=== PATIENT | male | born 1950 | race Caucasian/White ===

== ENCOUNTER → 2018-03-19 11:48 | Outpatient (CLI) | payer MEDICARE, OTHER, SELFPAY ==
--- NOTE | 2018-03-19 11:58 | XR_ITS ---
XR knee LT 3V Ordering Physician: Errol Manzano MD Patient Age: 68 years: Male HISTORY: ITS.REASON: S/P LEFT KNEE REPLACEMENT TECHNIQUE: 3 view view left knee. . AP lateral and oblique nonweightbearing. COMPARISON : May 03, 2013 FINDINGS Left TKA. Has been placed since 2013 Intact. Components appear to be in good position with no fracture nor loosening. The generous focal bulla is seen posterior to the joint. Faint calcification posterior aspect of the joint may be vascular in nature. . Bones fairly well mineralized with only mild demineralization IMPRESSION: Left TKA appears to be stable satisfactory position.
--- NOTE | 2018-03-19 11:58 | XR_ITS ---
XR lumbar spine min 4V Ordering Physician: Errol Manzano MD Patient Age: 68 years: Male HISTORY: ITS.REASON: LOW BACK PAIN Low back pain pain on left side of leg. TECHNIQUE: Five-view lumbar spine series. COMPARISON :No previous lumbar studies FINDINGS Prominent degenerative changes. L5/S1 disc intact. Moderate Degenerative facet hypertrophic changes L4/5. Marked degenerative disc space narrowing with prominent grade 2 anterolisthesis of L4 on L5. Bilateral pars defect I believe evident Exuberant facet arthropathy and hypertrophy bilaterally. With this anatomy was there certainly pronounced central canal stenosis. L3/4. Disc intact with only borderline narrowing. L2/3. Disc space narrowing with 8mm retrolisthesis of L2 on L3. L1/2. Marked degenerative disc space narrowing with with roughly 8 mm retrolisthesis of L1 on L2. . There is mild dextro scoliosis and likely a with likely mild rotational component at L1/L2 as well. . Sacrum appears intact SI joints unremarkable. Pedicles intact. IMPRESSION.. 1. Bilateral pars defects L4 with grade 2 spondylolisthesis L4 on L5. Marked degenerative disc narrowing/changes along with exuberant facet hypertrophy may also contribute to the listhesis. Most certainly there is significant spinal stenosis resulting from these above features at L4/5. Recommend MR to further evaluate 2. L1/L2: Marked degenerative disc space narrowing and changes, with up to 8 mm retrolisthesis L1 on L2. 3. L2/3.: Mild disc space narrowing with up to 8 mm retrolisthesis L2 on L3
== END ==
PROVIDERS: PCP Internal Medicine Adolescent Medicine; Visit Provider Internal Medicine Adolescent Medicine
DX: M54.5 Low back pain (principal); Z96.652 Presence of left artificial knee joint
CPT/HCPCS: 72110; 73562

== ENCOUNTER → 2018-03-20 07:39 | Outpatient (CLI) | payer MEDICARE, OTHER, SELFPAY ==
[2018-03-20 08:47] LABS: Basophils # 0.1 K/mm3 (0-0.2); Basophils % 0.8 % (0.1-2.0); Eosinophils # 0.3 K/mm3 (0.0-0.4); Eosinophils % 3.5 % (0.1-12.0); Hemoglobin 15.3 g/dL (14.1-18.0); Lymphocytes % 26.8 % (10-50); Mean Corpuscular HGB Conc 33.2 g/dL (31.8-35.4); Mean Corpuscular Hemoglobin 31.5 pg (27.0-31.2); Mean Platelet Volume 8.3 fl (7.4-10.4); Monocytes # 0.6 K/mm3 (0.1-1.0); Monocytes % 7.6 % (1.7-9.3); Neutrophils # 4.5 K/mm3 (1.8-7.8); Neutrophils % 61.2 % (37.0-80.0); Platelet Count 194 K/mm3 (142-424); Red Blood Count 4.85 M/mm3 (4.60-6.20); Red Cell Distribution Width 14.2 % (11.5-17.5); White Blood Count 7.3 K/mm3 (4.8-10.8)
[2018-03-20 09:41] LABS: Alanine Aminotransferase 28 U/L (12-78); Albumin Level 3.8 gm/dL (3.4-5.0); Albumin/Globulin Ratio 1.1 (1.1-1.8); Alkaline Phosphatase 70 U/L (46-116); Aspartate Amino Transferase 11 U/L (15-37); Bilirubin,Total 0.5 mg/dL (0.2-1.0); Blood Urea Nitrogen 25 mg/dL (7-18); Calcium 8.7 mg/dL (8.5-10.1); Carbon Dioxide 29 mmol/L (21.0-32.0); Chloride 105 mmol/L (98-107); Chol/HDL Ratio 3.2 (1-3.5); Cholesterol 139 mg/dL (140-200); Creatinine,Serum 1.06 mg/dL (0.70-1.30); Estimated Glomerular Filt Rate 69 ml/min (>60); GFR (African American) 84 ML/MIN (>60); Globulin 3.5 gm/dl (1.3-3.2); Glucose 96 mg/dL (74-106); HDL Cholesterol 44 mg/dL (27-67); LDL Cholesterol 67 mg/dL (0-130); Prostate Specific Ag Screen 2.5 ng/mL (0.0-4.0); Sodium 143 mmol/L (136-145); Total Protein,Serum 7.3 gm/dL (6.4-8.2); Triglycerides 139 mg/dL (30-200); VLDL Cholesterol 28 mg/dL (0-40)
== END ==
PROVIDERS: Visit Provider Internal Medicine Adolescent Medicine
DX: E78.5 Hyperlipidemia, unspecified (principal); M54.5 Low back pain; Z12.5 Encounter for screening for malignant neoplasm of prostate
CPT/HCPCS: 36415; 80053; 80061; 85025; G0103

== ENCOUNTER → 2018-04-03 13:19 | Outpatient (CLI) | payer MEDICARE, OTHER, SELFPAY ==
--- NOTE | 2018-04-03 13:23 | MR_ITS ---
MR lumbar spine wo con, MR 3-d myelogram/MRCP HISTORY: LT sided LBP worse in the morning. Tingling in LT foot. Constant dull ache. ITS.REASON: SPONDYLOLISTHESIS OF LUMBAR REGION, MIDLINE LOW BACK PAIN ORDERING PHYSICIAN: Errol Manzano MD PATIENT AGE: 68 years Comparison: X-RAY 03-19-18 TECHNIQUE: Standard multiplanar multiecho sequences are performed without contrast. 3-D MIP and myelographic images are also rendered and reviewed FINDINGS: The spinal cord ends at the L1 level. There is mild lumbar scoliosis convex right. L1-L2: Severe degenerative disc disease with irregularity of the endplates and type I endplate changes. There is retrolisthesis of L1 8 mm with associated bulging disc left paracentral disc osteophyte complex causing left-sided lateral recess narrowing abutting the left L2 nerve root. The disc ossify complex is somewhat lobular contour posteriorly. There is severe left-sided foraminal narrowing at L1-L2 along with mild right foraminal narrowing. Prominent endplate osteophytes are present on the left and anteriorly. L2-L3: Degenerative disc disease with retrolisthesis of L2 x 5 mm with mild right-sided facet and ligamentum flavum hypertrophy with mild right foraminal narrowing. L3-L4: Unremarkable. L4-5: Grade 2 spondylolytic spondylolisthesis with severe degenerative disc disease and type II endplate changes. There is 13 mm anterolisthesis of L4. Facet hypertrophic changes are present with borderline transverse narrowing of the canal. There is severe right-sided foraminal narrowing and moderate to severe left-sided foraminal narrowing. L5-S1: Mild concentric bulging disc with mild facet hypertrophic change and mild bilateral foraminal narrowing. No obvious canal stenosis IMPRESSION: 1. Abnormal MRI of the lumbar spine with multilevel lumbar spondylosis with degenerative disc disease worse at L1-L2 and L4-L5 and retrolisthesis of L1 on L2 and L2 on L3. There is resultant foraminal and lateral recess narrowing at multiple levels. Please see above for detailed description at each level 2. There is a small lobular left paracentral disc osteophyte complex at L1-L2 causing left lateral recess narrowing and severe narrowing of the left foramen abutting the left L2 nerve root. 3. Grade 2 spondylolytic spondylolisthesis at L4-5 with severe degenerative disc disease and type II endplate changes. There is 13 mm anterolisthesis of L4. Facet hypertrophic changes are present with borderline transverse narrowing of the canal. There is severe right-sided foraminal narrowing and moderate to severe left-sided foraminal narrowing 4. No canal stenosis
== END ==
PROVIDERS: PCP Internal Medicine Adolescent Medicine; Visit Provider Internal Medicine Adolescent Medicine
DX: M43.16 Spondylolisthesis, lumbar region (principal); M54.5 Low back pain
CPT/HCPCS: 72148; 76376

== ENCOUNTER → 2018-04-23 08:22 | Outpatient (POV) | payer MEDICARE, OTHER, SELFPAY ==
[2018-04-23 08:39] VITALS: BP 128/62; PULSE 69; RESP 18; O2SAT 99
--- NOTE | 2018-04-23 08:57 | HMH.PMCON ---
Assessment and Plan (1) Degenerative disc disease Current visit: Yes Status: Chronic Qualifiers: Spinal region: lumbar Qualified Code(s): M51.36 - Other intervertebral disc degeneration, lumbar region Category: Medical (2) Bulging disc Current visit: Yes Status: Chronic Category: Medical - Assessment and plan all Dx Assessment and Plan for all problems:: Schedule an L4-L5 lumbar epidural steroid injection for the patient to see if this is beneficial for him. Patient's tried and failed other therapies. We will follow-up with the patient after his injection. This note was dictated using voice recognition software and may contain errors or omissions HPI - Data of Consult Consult date: 04/23/18 Requesting Physician: Diana Davies APRN Primary Care Provider: Errol Manzano MD - Consult Narrative Reason for consult: back pain History of present illness: Mr. Mckeon is a 68 year old male presents today for consultation in regards to his low back pain. Patient states most of his pain is going down his left leg. Patient is tried and failed anti-inflammatories along with home stretching routine. Patient states rest and heat and lidocaine helps however standing makes it worse. He rates his pain a 4 out of 10. Patient is interested in potential injective therapy. Patient does have an MRI showing degenerative disc disease along with foraminal narrowing and bulging disks. Patient is not on any anti-coagulation therapy. CC: Diana Davies APRN [facility] History I have reviewed the patient's past medical history: Yes Medical History: Reports:: Hiatal Hernia Denies:: Diabetes Mellitus Type 1 Other Medical History: Reports: Arthritis Other Surgeries: Yes: Colonoscopy, Hernia Repair - *Social History Smoking Status: Current every day smoker Tobacco Type: pipe #Yrs smoked (if former smoker): 30 Alcohol Intake: never Occupational Status: other Housing: house - Psychiatric History Expresses thoughts of harming self/others: None Suicide Plan Description: No Plan *Family Hx:: No significant family history Review of Systems - Review of Systems ROS General: no recent weight change, no fever, no sleep disturbances Respiratory: no cough, no shortness of air, no recurring pulmonary infections Cardiovascular/Peripheral Vascular: No chest pain, No palpitations, no edema, no shortness of breath. Gastrointestinal: no incontinence, normal bowel movements reported Genitourinary: no incontinence Musculoskeletal: Back pain, left leg pain Psychiatric: normal mood/ affect Neurological: [denies weakness in extremities], [denies balance issues] Meds Home Medications Medication Instructions Recorded Confirmed Type aspirin 81 mg tablet,delayed 81 mg PO DAILY 03/28/18 04/19/18 History release atorvastatin 20 mg tablet 20 mg PO DAILY 03/28/18 04/19/18 History diclofenac sodium 75 mg 75 mg PO BID 03/28/18 04/19/18 History tablet,delayed release ranitidine 150 mg tablet 150 mg PO DAILY 03/28/18 04/19/18 History Allergies Allergy/AdvReac Type Severity Reaction Status Date / Time NO KNOWN ALLERGIES - NKA Allergy Unknown Uncoded 04/19/18 09:53 Objective Vital signs: Pulse Resp BP Pulse Ox 69 18 128/62 99 04/23/18 08:39 04/23/18 08:39 04/23/18 08:39 04/23/18 08:39 Narrative: Physical Exam General: Alert and oriented x3, no acute distress, pleasant and cooperative, [on room air] Lungs: Resps E/U, Symmetrical chest expansion, Eyes: PERRL Musculoskeletal: Flexion and extension of lumbar spine somewhat guarded secondary to pain, deep tendon reflexes normal, strength in upper and lower extremities [5/5], and gait noted, positive straight leg raise test at 30 degrees on the left side Neurological: speech clear, college professor 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
--- NOTE | 2018-04-23 09:00 | P.CONS_ITS ---
Assessment and Plan (1) Degenerative disc disease Current visit: Yes Status: Chronic Qualifiers: Spinal region: lumbar Qualified Code(s): M51.36 - Other intervertebral disc degeneration, lumbar region Category: Medical (2) Bulging disc Current visit: Yes Status: Chronic Category: Medical - Assessment and plan all Dx Assessment and Plan for all problems:: Schedule an L4-L5 lumbar epidural steroid injection for the patient to see if this is beneficial for him. Patient's tried and failed other therapies. We will follow-up with the patient after his injection. This note was dictated using voice recognition software and may contain errors or omissions HPI - Data of Consult Consult date: 04/23/18 Requesting Physician: Diana Davies APRN Primary Care Provider: Errol Manzano MD - Consult Narrative Reason for consult: back pain History of present illness: Mr. Mckeon is a 68 year old male presents today for consultation in regards to his low back pain. Patient states most of his pain is going down his left leg. Patient is tried and failed anti-inflammatories along with home stretching routine. Patient states rest and heat and lidocaine helps however standing makes it worse. He rates his pain a 4 out of 10. Patient is interested in potential injective therapy. Patient does have an MRI showing degenerative disc disease along with foraminal narrowing and bulging disks. Patient is not on any anti-coagulation therapy. CC: Diana Davies APRN [facility] History I have reviewed the patient's past medical history: Yes Medical History: Reports:: Hiatal Hernia Denies:: Diabetes Mellitus Type 1 Other Medical History: Reports: Arthritis Other Surgeries: Yes: Colonoscopy, Hernia Repair - *Social History Smoking Status: Current every day smoker Tobacco Type: pipe #Yrs smoked (if former smoker): 30 Alcohol Intake: never Occupational Status: other Housing: house - Psychiatric History Expresses thoughts of harming self/others: None Suicide Plan Description: No Plan *Family Hx:: No significant family history Review of Systems - Review of Systems ROS General: no recent weight change, no fever, no sleep disturbances Respiratory: no cough, no shortness of air, no recurring pulmonary infections Cardiovascular/Peripheral Vascular: No chest pain, No palpitations, no edema, no shortness of breath. Gastrointestinal: no incontinence, normal bowel movements reported Genitourinary: no incontinence Musculoskeletal: Back pain, left leg pain Psychiatric: normal mood/ affect Neurological: [denies weakness in extremities], [denies balance issues] Meds Home Medications Medication Instructions Recorded Confirmed Type aspirin 81 mg tablet,delayed 81 mg PO DAILY 03/28/18 04/19/18 History release atorvastatin 20 mg tablet 20 mg PO DAILY 03/28/18 04/19/18 History diclofenac sodium 75 mg 75 mg PO BID 03/28/18 04/19/18 History tablet,delayed release ranitidine 150 mg tablet 150 mg PO DAILY 03/28/18 04/19/18 History Allergies Allergy/AdvReac Type Severity Reaction Status Date / Time NO KNOWN ALLERGIES - NKA Allergy Unknown Uncoded 04/19/18 09:53 Objective Vital signs: Pulse Resp BP Pulse Ox 69 18 128/62 99
== END ==
PROVIDERS: PCP Internal Medicine Adolescent Medicine; Visit Provider Clinical Nurse Specialist Family Health
DX: M51.36 Other intervertebral disc degeneration, lumbar region (principal)
CPT/HCPCS: 99202

== ENCOUNTER → 2018-05-21 13:05 | Outpatient (POV) | payer MEDICARE, OTHER, SELFPAY ==
[2018-05-21 13:23] VITALS: BP 136/70; PULSE 75; RESP 18; O2SAT 98; BMI 28.7
--- NOTE | 2018-05-22 09:00 | HMH.PAINSOAP ---
[facility] Pain Management SOAP Note Subjective:: Patient is a pleasant 68-year-old white male who presents today for follow-up after lumbar epidural steroid injection. He is doing extremely well rating his pain a 0 out of 10 when sitting and 3 out of 10 when walking. Patient states he does have a flare in his pain every morning. Patient has been on diclofenac for quite some time. Patient and I discussed potentially a change in anti-inflammatories. We also discussed potentially dry needling for some of his pain. ROS General: no recent weight change, no fever, no sleep disturbances Respiratory: no cough, no shortness of air, no recurring pulmonary infections Cardiovascular/Peripheral Vascular: No chest pain, No palpitations, no edema, no shortness of breath. Gastrointestinal: no incontinence, normal bowel movements reported Genitourinary: no incontinence Musculoskeletal: Back pain, leg pain at times Psychiatric: normal mood/ affect Neurological: [denies weakness in extremities], [denies balance issues] Objective:: Physical Exam General: Alert and oriented x3, no acute distress, pleasant and cooperative, [on room air] Lungs: Resps E/U, Symmetrical chest expansion, Eyes: PERRL Musculoskeletal: Flexion and extension of lumbar spine somewhat guarded secondary to pain, deep tendon reflexes normal, strength in upper and lower extremities [5/5], slightly antalgic gait noted Neurological: speech clear, structures mechanic equal, no gross sensory deficits Assessment:: Degenerative disc disease lumbar spine with lumbar radiculopathy symptoms Plan:: We will send the patient for dry needling we will also give him samples of some anti-inflammatories such as Duexis and Vimovo patient is going to try this and see if this is beneficial. He understands he needs to discontinue his other anti-inflammatory prior to trying this. I will follow-up with the patient after his dry needling. He has been to call the office if he has any issues prior to his next appointment. Dr. Madera has reviewed this note and agrees with this plan of care. This note was dictated using voice recognition software and may contain errors or omissions
== END ==
PROVIDERS: PCP Internal Medicine Adolescent Medicine; Visit Provider Clinical Nurse Specialist Family Health
DX: M51.16 Intervertebral disc disorders with radiculopathy, lumbar region (principal)
CPT/HCPCS: 99213

== ENCOUNTER → 2018-06-12 10:20 | Outpatient (POV) | payer MEDICARE, OTHER, SELFPAY ==
[2018-06-12 10:54] VITALS: BP 125/55; PULSE 65; RESP 18; O2SAT 99; BMI 25.2
--- NOTE | 2018-06-12 10:58 | HMH.PAINSOAP ---
[facility] Pain Management SOAP Note Subjective:: Patient is a pleasant 68-year-old white male who presents today for follow-up. He is doing extremely well on his current Duexis regimen. He rates his pain a 1 out of 10. Patient states his flareups in the morning have been increased. Patient states his highest pain level is about a 2 out of 10. Patient is continuing physical therapy. Patient has had one lumbar epidural steroid injection with good relief of his pain. ROS General: no recent weight change, no fever, no sleep disturbances Respiratory: no cough, no shortness of air, no recurring pulmonary infections Cardiovascular/Peripheral Vascular: No chest pain, No palpitations, no edema, no shortness of breath. Gastrointestinal: no incontinence, normal bowel movements reported Genitourinary: no incontinence Musculoskeletal: Back pain at times Psychiatric: normal mood/ affect, [denies depression], [denies anxiety] Neurological: [denies weakness in extremities], [denies balance issues] Objective:: Physical Exam General: Alert and oriented x3, no acute distress, pleasant and cooperative, [on room air] Lungs: Resps E/U, Symmetrical chest expansion, Eyes: PERRL Musculoskeletal: Flexion and extension of lumbar spine somewhat guarded secondary to pain, deep tendon reflexes normal, strength in upper and lower extremities [5/5], slightly antalgic gait noted Neurological: speech clear, hydraulic boom operator equal, no gross sensory deficits Assessment:: Degenerative disc disease lumbar spine with lumbar radiculopathy Plan:: We will follow-up with the patient on an as-needed basis. He is been instructed to call the office if he has any issues prior to his next appointment. Dr. Madera has reviewed this note and agrees with this plan of care. This note was dictated using voice recognition software and may contain errors or omissions
== END ==
PROVIDERS: PCP Internal Medicine Adolescent Medicine; Visit Provider Clinical Nurse Specialist Family Health
DX: M51.16 Intervertebral disc disorders with radiculopathy, lumbar region (principal)
CPT/HCPCS: 99213

== ENCOUNTER → 2018-07-09 14:23 | Outpatient (POV) | payer MEDICARE, OTHER, SELFPAY ==
[2018-07-09 14:41] VITALS: BP 145/75; PULSE 77; RESP 18; O2SAT 98; BMI 25.7
--- NOTE | 2018-07-10 08:40 | HMH.PAINSOAP ---
[facility] Pain Management SOAP Note Subjective:: Patient is a pleasant 68-year-old white male who presents today for follow-up. Patient is still doing well after lumbar epidural steroid injection several months ago. Patient rates his pain a 1 out of 10 today. Patient states however it is beginning to return he has left leg numbness and tingling at times. Patient would like to repeat his injection. He is continuing physical therapy. Patient is on anti-inflammatory medication. Patient had 80% to 90% relief of his symptoms for 4 months after his last injection. ROS General: no recent weight change, no fever, no sleep disturbances Respiratory: no cough, no shortness of air, no recurring pulmonary infections Cardiovascular/Peripheral Vascular: No chest pain, No palpitations, no edema, no shortness of breath. Gastrointestinal: no incontinence, normal bowel movements reported Genitourinary: no incontinence Musculoskeletal: Back pain and leg pain at times Psychiatric: normal mood/ affect Neurological: [denies weakness in extremities], [denies balance issues] Objective:: Physical Exam General: Alert and oriented x3, no acute distress, pleasant and cooperative, [on room air] Lungs: Resps E/U, Symmetrical chest expansion, Eyes: PERRL Musculoskeletal: Flexion and extension of lumbar spine somewhat guarded secondary to pain, deep tendon reflexes normal, strength in upper and lower extremities [5/5], slightly antalgic gait noted, left leg straight leg raise test positive at 30 degrees Neurological: speech clear, belt and link assembly supervisor equal, no gross sensory deficits Assessment:: Degenerative disc disease lumbar spine with lumbar radiculopathy Plan:: We will schedule patient for a L4-L5 lumbar epidural steroid injection. Patient is not on any anticoagulation therapy. Dr. Madera has reviewed this note and agrees with this plan of care. This note was dictated using voice recognition software and may contain errors or omissions
--- NOTE | 2018-07-10 08:44 | P.CONS_ITS ---
[facility] Pain Management SOAP Note Subjective:: Patient is a pleasant 68-year-old white male who presents today for follow-up. Patient is still doing well after lumbar epidural steroid injection several months ago. Patient rates his pain a 1 out of 10 today. Patient states however it is beginning to return he has left leg numbness and tingling at times. Patient would like to repeat his injection. He is continuing physical therapy. Patient is on anti-inflammatory medication. Patient had 80% to 90% relief of his symptoms for 4 months after his last injection. ROS General: no recent weight change, no fever, no sleep disturbances Respiratory: no cough, no shortness of air, no recurring pulmonary infections Cardiovascular/Peripheral Vascular: No chest pain, No palpitations, no edema, no shortness of breath. Gastrointestinal: no incontinence, normal bowel movements reported Genitourinary: no incontinence Musculoskeletal: Back pain and leg pain at times Psychiatric: normal mood/ affect Neurological: [denies weakness in extremities], [denies balance issues] Objective:: Physical Exam General: Alert and oriented x3, no acute distress, pleasant and cooperative, [on room air] Lungs: Resps E/U, Symmetrical chest expansion, Eyes: PERRL Musculoskeletal: Flexion and extension of lumbar spine somewhat guarded secondary to pain, deep tendon reflexes normal, strength in upper and lower extremities [5/5], slightly antalgic gait noted, left leg straight leg raise test positive at 30 degrees Neurological: speech clear, technology resource teacher equal, no gross sensory deficits Assessment:: Degenerative disc disease lumbar spine with lumbar radiculopathy Plan:: We will schedule patient for a L4-L5 lumbar epidural steroid injection. Patient is not on any anticoagulation therapy. Dr. Madera has reviewed this note and agrees with this plan of care. This note was dictated using voice recognition software and may contain errors or omissions
== END ==
PROVIDERS: PCP Internal Medicine Adolescent Medicine; Visit Provider Clinical Nurse Specialist Family Health
DX: Z09 Encounter for follow-up examination after completed treatment for conditions other than malignant neoplasm (principal); M51.16 Intervertebral disc disorders with radiculopathy, lumbar region
CPT/HCPCS: 99213

== ENCOUNTER 2018-07-20 09:00 | Outpatient (RCR) | payer MEDICARE, OTHER, SELFPAY ==
--- NOTE | 2018-05-25 10:34 | HMH.PTOPEV ---
PT Outpatient Evaluation Rehab PT Outpatient Evaluation Start: 05/25/18 10:20 Freq: Status: Active Protocol: Document 05/25/18 10:20 WILLIAN (Rec: 05/25/18 10:34 WILLIAN [id number]) Electronically Signed By Blu Calderón, PT 05/25/18 10:20 Outpatient Therapy Subjective History Subjective History Pt reports insidious onset chronic LBP since 2017. Pt reports following an episode of shingles, LBP started, marked improved with steroid injection ~ 1 month ago from pain mngt. Pt reports LBP L>R sided upon waking, but dissipates shortly, and is aggravated with physical/ lifting tasks. Chief Complaint Pain Stiff Symptom Type Ache Sharp Dull Symptoms Relieved By Rest/Positioning Prescription Meds Symptoms Aggravated By Bending/Stooping Physical Activity Twisting Lifting Prior Functional Limitations None Current Functional Limitations Lifting Housework Bending/Stooping Symptom Description Intermittent Level of pain today (0-10) 2 Pain scale - at its best (0-10) 0 Pain scale - at its worst (0-10) 7 Lumbopelvic Eval Posture Thoracic Spine Posture Standing Position Increased Kyphosis Lumbar Spine Posture Standing Position Decreased Lordosis Assistive device Assistive Devices None / NA Gait Observation General Gait Pattern Observation No Deviations/Normal Palapation tenderness left lumbar spinal tenderness Yes: 2-3/4 paraspinal tenderness Yes: 2-3/4 Lumbar/Sacral Palpation Findings Tenderness Trigger Point Muscle Guarding Accessory Movement L-spine Vertebrae Accessory Movements Central P/A [place] that Elicit Symptoms L4 left Range of Motion Lumbar Spine Active Flexion Range of 0-50 Motion (degrees) Lumbar Spine Active Extension Range of 0-20 Motion (degrees) Left Lumbar Spine Lateral Flexion Active 0-20 Range of Motion (degrees) Right Lumbar Spine Lateral Flexion 0-15 Active Range of Motion (degrees) Lumbar Spine ROM Limitations Soft Tissue Tightness Pain Manual Muscle Test Bilateral Knee Extension Stren
== END 2018-07-20 09:05 | disposition home or self-care (01) ==
LOC: PT 09:00
PROVIDERS: Visit Provider Clinical Nurse Specialist Family Health
DX: M54.5 Low back pain (principal)
CPT/HCPCS: 97010; 97014; 97110; 97140; 97163; G0283

== ENCOUNTER → 2018-08-13 14:58 | Outpatient (POV) | payer MEDICARE, OTHER, SELFPAY ==
[2018-08-13 15:35] VITALS: BP 127/65; PULSE 61; RESP 18; O2SAT 98; BMI 24.4
--- NOTE | 2018-08-14 08:30 | HMH.PAINSOAP ---
[facility] Pain Management SOAP Note Subjective:: This is a pleasant 68-year-old white male who presented today for a follow-up after a lumbar epidural steroid injection. He rates his pain today at 3 out of 10. He is got an 80% relief of his symptoms. Patient would like to follow-up as needed. ROS General: no recent weight change, no fever, no sleep disturbances Respiratory: no cough, no shortness of air, no recurring pulmonary infections Cardiovascular/Peripheral Vascular: No chest pain, No palpitations, no edema, no shortness of breath. Gastrointestinal: no incontinence, normal bowel movements reported Genitourinary: no incontinence Musculoskeletal: Back pain, leg pain Psychiatric: normal mood/ affect, [denies depression], [denies anxiety] Neurological: [denies weakness in extremities], [denies balance issues] Objective:: Physical Exam General: Alert and oriented x3, no acute distress, pleasant and cooperative, [on room air] Lungs: Resps E/U, Symmetrical chest expansion, [CTA bilateral] Eyes: PERRL Musculoskeletal: Flexion and extension of lumbar spine somewhat guarded secondary to pain, deep tendon reflexes normal, strength in upper and lower extremities [5/5], slightly antalgic gait Neurological: speech clear, materials research engineer equal, no gross sensory deficits Assessment:: Degenerative disc disease of lumbar spine with lumbar radiculopathy symptoms Plan:: We will follow-up with the patient as needed he has been instructed to follow-up or call the office as needed Dr. Madera has reviewed this note and agrees with this plan of care. This note was dictated using voice recognition software and may contain errors or omissions
--- NOTE | 2018-08-14 08:33 | P.CONS_ITS ---
[facility] Pain Management SOAP Note Subjective:: This is a pleasant 68-year-old white male who presented today for a follow-up after a lumbar epidural steroid injection. He rates his pain today at 3 out of 10. He is got an 80% relief of his symptoms. Patient would like to follow-up as needed. ROS General: no recent weight change, no fever, no sleep disturbances Respiratory: no cough, no shortness of air, no recurring pulmonary infections Cardiovascular/Peripheral Vascular: No chest pain, No palpitations, no edema, no shortness of breath. Gastrointestinal: no incontinence, normal bowel movements reported Genitourinary: no incontinence Musculoskeletal: Back pain, leg pain Psychiatric: normal mood/ affect, [denies depression], [denies anxiety] Neurological: [denies weakness in extremities], [denies balance issues] Objective:: Physical Exam General: Alert and oriented x3, no acute distress, pleasant and cooperative, [on room air] Lungs: Resps E/U, Symmetrical chest expansion, [CTA bilateral] Eyes: PERRL Musculoskeletal: Flexion and extension of lumbar spine somewhat guarded secondary to pain, deep tendon reflexes normal, strength in upper and lower extremities [5/5], slightly antalgic gait Neurological: speech clear, plug maker equal, no gross sensory deficits Assessment:: Degenerative disc disease of lumbar spine with lumbar radiculopathy symptoms Plan:: We will follow-up with the patient as needed he has been instructed to follow-up or call the office as needed Dr. Madera has reviewed this note and agrees with this plan of care. This note was dictated using voice recognition software and may contain errors or omissions
== END ==
PROVIDERS: PCP Internal Medicine Adolescent Medicine; Visit Provider Clinical Nurse Specialist Family Health
DX: M51.16 Intervertebral disc disorders with radiculopathy, lumbar region (principal)
CPT/HCPCS: 99212

== ENCOUNTER → 2018-09-18 11:08 | Outpatient (CLI) | payer MEDICARE, OTHER, SELFPAY ==
--- NOTE | 2018-09-18 11:16 | XR_ITS ---
XR foot wt bearing RT 3V HISTORY: ITS.REASON: pain ORDERING PHYSICIAN: Diamond Sharp DPM PATIENT AGE: 68 years COMPARISON: None FINDINGS: There are mild osteoarthritic changes of the first metatarsal phalangeal joint. There is generalized vascular calcification. Flexion deformity involves the third fourth and fifth toes. IMPRESSION: Osteoarthritis with hammertoe deformity
--- NOTE | 2018-09-18 11:16 | XR_ITS ---
XR foot wt bearing LT 3V HISTORY: ITS.REASON: pain ORDERING PHYSICIAN: Diamond Sharp DPM PATIENT AGE: 68 years COMPARISON: None FINDINGS: There are mild osteoarthritic changes of the first metatarsophalangeal joint. There is generalized vascular calcification. Otherwise negative. IMPRESSION: Osteoarthritis of the first MTP joint
== END ==
PROVIDERS: PCP Internal Medicine Adolescent Medicine; Visit Provider Podiatrist
DX: M79.672 Pain in left foot (principal); M79.671 Pain in right foot
CPT/HCPCS: 73630

== ENCOUNTER → 2018-12-19 12:01 | Outpatient (CLI) | payer MEDICARE, OTHER, SELFPAY ==
--- NOTE | 2018-12-19 12:30 | XR_ITS ---
PROCEDURE: XR CHEST 2V CLINICAL HISTORY: COUGH, NIGHT SWEAT COMPARISON: CXR CHEST(2 VIEWS-NOT PORTABLE) from 12/04/2013 FINDINGS: The cardiomediastinal silhouette and pulmonary vascularity are within normal limits. The lungs are clear without infiltrates, suspicious nodules, or pleural effusions. There is a small area of increased density along the left heart border probably related to pericardial fat pad. No acute bony findings. IMPRESSION: No acute finding Dictated by: Ranjan Driver MD 12/19/2018 13:14 Signed by: <Electronically signed by Ranjan Driver MD in [place]> 12/19/2018 13:14
[2018-12-19 12:46] LABS: Alanine Aminotransferase 28 U/L (12-78); Albumin Level 3.7 gm/dL (3.4-5.0); Alkaline Phosphatase 72 U/L (46-116); Anion Gap 12.2 mEq/L (5-15); Aspartate Amino Transferase 14 U/L (15-37); Bilirubin,Total 0.5 mg/dL (0.2-1.0); Blood Urea Nitrogen 21 mg/dL (7-18); Calcium 9.2 mg/dL (8.5-10.1); Carbon Dioxide 28 mmol/L (21.0-32.0); Chloride 106 mmol/L (98-107); Creatinine,Serum 0.96 mg/dL (0.70-1.30); Estimated Glomerular Filt Rate 77 ml/min (>60); GFR (African American) 94 ML/MIN (>60); Globulin 3.6 gm/dl (1.3-3.2); Glucose 87 mg/dL (74-106); Potassium 4.2 mmoL/L (3.5-5.1); Sodium 142 mmol/L (136-145); Total Protein,Serum 7.3 gm/dL (6.4-8.2)
[2018-12-19 14:31] LABS: Basophils # 0.1 K/mm3 (0-0.2); Basophils % 0.7 % (0.1-2.0); Eosinophils # 0.2 K/mm3 (0.0-0.4); Eosinophils % 2.5 % (0.1-12.0); Hematocrit 45.8 % (42.0-52.0); Hemoglobin 15.1 g/dL (14.1-18.0); Lymphocytes # 2.6 K/mm3 (0.7-4.5); Lymphocytes % 36.9 % (10-50); Mean Corpuscular Hemoglobin 31.2 pg (27.0-31.2); Mean Corpuscular Volume 94.4 fl (80-94); Mean Platelet Volume 8.2 fl (7.4-10.4); Monocytes # 0.5 K/mm3 (0.1-1.0); Monocytes % 7.4 % (1.7-9.3); Neutrophils # 3.7 K/mm3 (1.8-7.8); Neutrophils % 52.5 % (37.0-80.0); Platelet Count 193 K/mm3 (142-424); Red Blood Count 4.85 M/mm3 (4.60-6.20)
[2018-12-24 15:15] LABS: QuantiFERON-TB Gold Plus Positive (Negative)
== END ==
PROVIDERS: PCP Internal Medicine Adolescent Medicine; Visit Provider Internal Medicine Adolescent Medicine
DX: R05 Cough (principal); R61 Generalized hyperhidrosis
CPT/HCPCS: 36415; 71046; 80053; 85025; 86480

== ENCOUNTER → 2019-04-22 08:29 | Outpatient (POV) | payer MEDICARE, OTHER, SELFPAY ==
--- NOTE | 2019-04-22 08:42 | P.CONS_ITS ---
[facility] Pain Management SOAP Note Subjective:: Patient is a pleasant 69-year-old white male who presents today for follow-up. Patient states that he is done extremely well with epidural steroid injections in the past. Getting 80% relief up to 3 months. Patient states his pain is beginning to return he would like to move forward with an additional injection. Patient rates his pain today a 2 out of 10. Patient has numbness and tingling bilateral legs all the way to his feet. ROS General: no recent weight change, no fever, no sleep disturbances Respiratory: no cough, no shortness of air, no recurring pulmonary infections Cardiovascular/Peripheral Vascular: No chest pain, No palpitations, no edema, no shortness of breath. Gastrointestinal: no new onset incontinence, normal bowel movements reported Genitourinary: no new onset incontinence Musculoskeletal: Back pain, leg pain Psychiatric: normal mood/ affect Neurological: [denies new onset weakness in extremities], [denies new onset balance issues] Objective:: Physical Exam General: Alert and oriented x3, no acute distress, pleasant and cooperative, [on room air] Lungs: Resps E/U, Symmetrical chest expansion, Eyes: PERRL Musculoskeletal: Flexion and extension of lumbar spine somewhat guarded secondary to pain, deep tendon reflexes normal, strength in upper and lower extremities [5/5], slightly antalgic gait noted Neurological: speech clear, record librarian equal, no gross sensory deficits Assessment:: Degenerative disc disease lumbar spine with lumbar radiculopathy Plan:: We will plan a repeat L4-L5 lumbar epidural steroid injection given the efficacy in the past I do believe it would be beneficial for him. Patient's not on any anticoagulation therapy. He is continuing a home stretching program. I will follow-up with him after his injection reassess his symptoms at that time he is been instructed to call the office if he has any issues prior to his next appointment. Patient's been instructed to call the office if he has any issues prior to his next appointment. Dr. Madera has reviewed this note and agrees with this plan of care. This note was dictated using voice recognition software and may contain errors or omissions [facility] History I have reviewed the patient's past medical history: Yes Medical History: Reports:: Hiatal Hernia Denies:: Diabetes Mellitus Type 1, Seizures *Have you ever received a pneumonia vaccine?: Yes *Have you received a flu vaccine this season?: Yes Other Medical History: Reports: Arthritis Other Surgeries: Yes: Colonoscopy, Hernia Repair Amputation: No Fractures: No - *Social History Smoking Status: Current every day smoker Tobacco Type: pipe # Packs/Day (cigarettes): 0 #Yrs smoked (if former smoker): 30 Alcohol Intake: never *Occupational Status:: retired, other Housing: house Household Members: spouse *Travel in the last 8 weeks: None Family Hx:: No significant family history
[2019-04-22 08:56] VITALS: BP 120/61; PULSE 62; RESP 18; O2SAT 99; BMI 25.0
== END ==
PROVIDERS: PCP Internal Medicine Adolescent Medicine; Visit Provider Clinical Nurse Specialist Family Health
DX: M51.16 Intervertebral disc disorders with radiculopathy, lumbar region (principal)
CPT/HCPCS: 99212

== ENCOUNTER → 2019-05-21 11:25 | Outpatient (POV) | payer MEDICARE, OTHER, SELFPAY ==
[2019-05-21 11:56] VITALS: BP 114/70; PULSE 70; RESP 18; O2SAT 98; BMI 25.0
--- NOTE | 2019-05-21 12:13 | P.CONS_ITS ---
[facility] Pain Management SOAP Note Subjective:: Patient is a very pleasant 69-year-old white male who we are treating for low back pain with lumbar radiculopathy. Patient has received his third epidural injection. Patient has no pain is doing extremely well he has 90% relief of his symptomology. He has had epidurals in the past last up to 3 months. Patient would like to follow-up on an as-needed basis. ROS General: no recent weight change, no fever, no sleep disturbances Respiratory: no cough, no shortness of air, no recurring pulmonary infections Cardiovascular/Peripheral Vascular: No chest pain, No palpitations, no edema, no shortness of breath. Gastrointestinal: no new onset incontinence, normal bowel movements reported Genitourinary: no new onset incontinence Musculoskeletal: Back pain at times Psychiatric: normal mood/ affect Neurological: [denies new onset weakness in extremities], [denies new onset balance issues] Objective:: Physical Exam General: Alert and oriented x3, no acute distress, pleasant and cooperative, [on room air] Lungs: Resps E/U, Symmetrical chest expansion, Eyes: PERRL Musculoskeletal: Flexion and extension of lumbar spine somewhat guarded secondary to pain, deep tendon reflexes normal, strength in upper and lower extremities [5/5], [abnormal gait noted] Neurological: speech clear, curriculum and instruction director equal, no gross sensory deficits Assessment:: Degenerative disc disease lumbar spine with lumbar radiculopathy Plan:: We will follow-up with the patient on an as-needed basis he is been instructed to call the office if he has any issues. Dr. Madera has reviewed this note and agrees with this plan of care. This note was dictated using voice recognition software and may contain errors or omissions [facility] History I have reviewed the patient's past medical history: Yes Medical History: Reports:: Hiatal Hernia Denies:: Cancer, Diabetes Mellitus Type 1, Diabetes Mellitus Type 2, MRSA, Seizures *Have you ever received a pneumonia vaccine?: Yes *Have you received a flu vaccine this season?: Yes Other Medical History: Reports: Arthritis Other Surgeries: Yes: Colonoscopy, Hernia Repair Amputation: No Fractures: No - *Social History Smoking Status: Current every day smoker Tobacco Type: pipe # Packs/Day (cigarettes): 0 #Yrs smoked (if former smoker): 30 Alcohol Intake: never *Occupational Status:: other Housing: house Household Members: spouse *Travel in the last 8 weeks: None Family Hx:: No significant family history
== END ==
PROVIDERS: PCP Internal Medicine Adolescent Medicine; Visit Provider Clinical Nurse Specialist Family Health
DX: M51.16 Intervertebral disc disorders with radiculopathy, lumbar region (principal); Z72.0 Tobacco use
CPT/HCPCS: 99212

== ENCOUNTER 2019-05-31 09:00 | Outpatient (RCR) | payer MEDICARE, OTHER, SELFPAY | END 2019-05-31 09:05 | disposition home or self-care (01) | LOC: PT 09:00 | PROVIDERS: PCP Internal Medicine Adolescent Medicine; Visit Provider Internal Medicine | DX: M25.562 Pain in left knee (principal) | CPT/HCPCS: 97010; 97014; 97110; 97163; 97164; G0283 ==

== ENCOUNTER → 2020-03-30 12:43 | Outpatient (CLI) | payer MEDICARE, OTHER, SELFPAY ==
--- NOTE | 2020-03-30 12:54 | XR_ITS ---
PROCEDURE: XR CERVICAL SPINE 5V CLINICAL INDICATION: CERVICALGIA COMPARISON: No exams were available for comparison FINDINGS: There is normal alignment. Degenerative disc disease is present at C3-C4 C4-C5 C5-C6 C6-C7 and C7-T1. There is 3 mm anterolisthesis of C4 on C5 and C7 on T1. Facet arthritic changes are present from C2-T1. Foraminal narrowing is present on the right at C3-C4 C4-C5 and C5-C6 and on the left from C3 to C6. The facet hypertrophic changes are greater on the right compared to the left. IMPRESSION: Moderate to severe cervical spondylosis as described above. Dictated by: Rajnan Driver MD 03/30/2020 13:45 Ranjan Driver MD in [place] 03/30/2020 13:45
== END ==
PROVIDERS: PCP Internal Medicine Adolescent Medicine; Visit Provider Internal Medicine Adolescent Medicine
DX: M54.2 Cervicalgia (principal)
CPT/HCPCS: 72050

== ENCOUNTER → 2020-04-11 08:44 | Outpatient (CLI) | payer MEDICARE, OTHER, SELFPAY ==
--- NOTE | 2020-04-11 08:51 | MR_ITS ---
PROCEDURE: MR CERVICAL SPINE WO CON CLINICAL INDICATION: Neck and upper extremity numbness, cervical spondylosis COMPARISON: CR XR CERVICAL SPINE 5V from 03/30/2020 TECHNIQUE: Standard multiplanar multiecho sequences are performed without contrast. 3-D MIP and myelographic images are also rendered and reviewed FINDINGS: Normal alignment. The craniocervical junction has an unremarkable appearance. C2-C3: Small central disc protrusion without impingement. Mild left-sided facet hypertrophy. C3-C4: Degenerative disc disease with a medium-sized central/left paracentral disc protrusion or disc osteophyte complex. This abuts the cord anteriorly slightly toward the left with minimal effacement of the cord. There is facet and uncovertebral hypertrophy with left sided foraminal narrowing. C4-C5: Small central disc protrusion without impingement. C5-C6: Degenerative disc disease. There is a small broad-based left paracentral disc osteophyte complex without impingement. There is a small right foraminal disc osteophyte complex causing foraminal narrowing. C6-C7: Degenerative disc disease. C7-T1: Degenerative disc disease with 2 mm anterolisthesis of C7 IMPRESSION: Abnormal MRI of the cervical spine. There is multilevel cervical spondylosis the. Please see above for detailed description at each level. There is a small central disc protrusion at C2-C3 and medium-sized central/left paracentral disc protrusion or disc osteophyte complex at C3-C4 and small broad-based left paracentral disc osteophyte complex at C5-C6. Please see above for detailed description Dictated by: Ranjan Driver MD 04/13/2020 06:48 Ranjan Driver MD in [place] 04/13/2020 06:48
== END ==
PROVIDERS: PCP Internal Medicine Adolescent Medicine; Visit Provider Internal Medicine Adolescent Medicine
DX: M47.9 Spondylosis, unspecified (principal); M54.5 Low back pain
CPT/HCPCS: 72141; 76376

== ENCOUNTER → 2020-07-13 09:49 | Outpatient (POV) | payer MEDICARE, OTHER, SELFPAY ==
[2020-07-13 10:12] VITALS: BP 138/79; PULSE 85; RESP 18; O2SAT 98; BMI 25.0
--- NOTE | 2020-07-13 10:23 | P.CONS_ITS ---
[facility] Pain Management SOAP Note Subjective:: Patient is a pleasant 70-year-old white male who we are treating for low back pain. Patient has had epidural injections in the past with really good relief. Up to 90%. Patient pain does return at times however most of his pain today is in his neck. He is having left arm numbness. He rates his pain a 2 out of 10. Patient has a MRI showing a protrusion that abuts the cord anterior lead towards the left. Patient is going to be seeing [facility] on Monday. I discussed with him that if he needs epidural injections in his neck if that is the recommendation we would be happy to provide that. He is currently on all appropriate medications including gabapentin and Celebrex. ROS General: no recent weight change, no fever, no sleep disturbances Respiratory: no cough, no shortness of air, no recurring pulmonary infections Cardiovascular/Peripheral Vascular: No chest pain, No palpitations, no edema, no shortness of breath. Gastrointestinal: no new onset incontinence, normal bowel movements reported Genitourinary: no new onset incontinence Musculoskeletal: Back pain, neck pain Psychiatric: normal mood/ affect Neurological: [denies new onset weakness in extremities], [denies new onset balance issues] Objective:: Physical Exam General: Alert and oriented x3, no acute distress, pleasant and cooperative, [on room air] Lungs: Resps E/U, Symmetrical chest expansion, Eyes: PERRL Musculoskeletal: Flexion and extension of cervical and lumbar spine somewhat guarded secondary to pain, deep tendon reflexes normal, strength in upper and lower extremities [5/5], slightly antalgic gait noted Neurological: speech clear, electrical accessories ii assembler equal, no gross sensory deficits Assessment:: Degenerative disc disease lumbar spine lumbar radiculopathy degenerative disc disease cervical spine cervical radiculopathy Plan:: We will schedule the patient for a C5-C6 cervical epidural steroid injection if recommended by the neurosurgeon. If he feels that he needs an epidural in the lumbar spine we will go ahead and schedule this for him. Patient is done well with this in the past. I did discuss with him that injection therapy may delay any possible surgeries. He understands. He is not on any anticoagulation therapy. Dr. Madera has reviewed this note and agrees with this plan of care. This note was dictated using voice recognition software and may contain errors or omissions [facility] History I have reviewed the patient's past medical history: Yes Medical History: Reports:: Hiatal Hernia Denies:: Cancer, Diabetes Mellitus Type 1, Diabetes Mellitus Type 2, MRSA, Seizures *Have you ever received a pneumonia vaccine?: Yes *Have you received a flu vaccine this season?: Yes Other Medical History: Reports: Arthritis Other Surgeries: Yes: Colonoscopy, Hernia Repair Amputation: No Fractures: No - *Social History Smoking Status: Current every day smoker Tobacco Type: pipe # Packs/Day (cigarettes): 0 #Yrs smoked (if former smoker): 30 Alcohol Intake: never *Occupational Status:: other Housing: house Household Members: spouse *Travel in the last 8 weeks: None Family Hx:: No significant family history
== END ==
PROVIDERS: PCP Internal Medicine Adolescent Medicine; Visit Provider Clinical Nurse Specialist Family Health
DX: M51.16 Intervertebral disc disorders with radiculopathy, lumbar region (principal); M50.10 Cervical disc disorder with radiculopathy, unspecified cervical region
CPT/HCPCS: 99212; G0463

== ENCOUNTER → 2020-07-23 10:50 | Outpatient (CLI) | payer MEDICARE, OTHER, SELFPAY ==
[2020-07-23 11:52] LABS: 25-OH Vitamin D, Total 27.3 ng/mL (30-100)
== END ==
PROVIDERS: Visit Provider Neurological Surgery
DX: M48.02 Spinal stenosis, cervical region (principal); M50.00 Cervical disc disorder with myelopathy, unspecified cervical region; E55.9 Vitamin D deficiency, unspecified
CPT/HCPCS: 36415; 82306

== ENCOUNTER → 2020-07-27 10:28 | Outpatient (CLI) | payer MEDICARE, OTHER, SELFPAY ==
--- NOTE | 2020-07-27 10:31 | XR_ITS ---
PROCEDURE: XR DEXA AXIAL SKELETON CLINICAL HISTORY: CERVICAL STENOSIS,OSTEOPORSIS COMPARISON: No exams were available for comparison FINDINGS: The right hip BMD is 0.861 grams/cm2 with a T-score of -1.1. The left hip BMD is 0.834 grams/cm2 with a T-score of -1.3 The lumbar spine BMD is 1.265 grams/cm2 with a T-score of 1.4. FRAX score with the 10 year fracture risk as described below; Major osteoporotic fracture 11 percent Hip fracture 3.7 percent IMPRESSION: This patient is considered osteopenic according to the World Health Organization criteria. Bone density is between 10 and 25 percent below young normal. Fracture risk is moderate. Treatment is advised. Based on these results a follow-up exam is recommended in year. Dictated by: Alee Dial 07/27/2020 12:18 Alee Dial in 07/27/2020 12:18
== END ==
PROVIDERS: PCP Internal Medicine Adolescent Medicine; Visit Provider Neurological Surgery
DX: M81.8 Other osteoporosis without current pathological fracture (principal); M48.02 Spinal stenosis, cervical region; M50.00 Cervical disc disorder with myelopathy, unspecified cervical region
CPT/HCPCS: 77080

== ENCOUNTER 2020-07-31 09:41 | Day surgery (SDC) | payer MEDICARE, OTHER, SELFPAY ==
[2020-07-31 09:58] VITALS: BP 140/62; PULSE 57; RESP 18; TEMP 36.6; O2SAT 98; BMI 25.0
--- NOTE | 2020-07-31 11:42 | P.PCN_ITS ---
- Procedure Date: 07/31/20 Time: 11:42 Anesthesiologist:: David Madera MD Complications:: None Pre-procedure Diagnosis:: Degenerative disc disease of lumbar spine with lumbar radiculopathy symptoms Post-procedure Diagnosis:: Same Indications for Procedure:: Patient is a pleasant 70-year-old white male who we are treating for low back pain with lumbar radiculopathy symptoms. He also has some neck pain however low back pain is worse today. He would like to proceed with a lumbar epidural steroid injection under fluoroscopy today. Procedure Details:: Lumbar epidural steroid injection under fluoroscopy Informed consent was obtained and the risk and benefits of the procedure was explained to the patient. The patient was taken to the procedure room. The pa tient was placed prone on the procedure table. The patient was prepped and draped in sterile fashion. C-arm fluoroscopy was used to view the lumbar spine. Skin and subcutaneous tissues were anesthetized using lidocaine. I placed an 18-gauge epidural needle and advanced into the L4-L5 interspace using fluoroscopic guidance and [id number] to air. After confirmation of needle placement in the epidural space with dye I injected 2 mL of lidocaine 1.5% with Depo-Medrol 80 mg. Patient tolerated the procedure well with no complications. Plan and Disposition:: We will follow-up with him in 2 weeks. Will reevaluate symptoms at that time.
[2020-07-31 11:43] VITALS: BP 135/85; PULSE 62; RESP 18; O2SAT 98
[2020-07-31 11:45] VITALS: BP 132/78; PULSE 85; RESP 18; O2SAT 98
[2020-07-31 12:00] VITALS: BP 124/66; PULSE 52; RESP 18; O2SAT 98
== END 2020-07-31 12:00 | disposition home or self-care (01) ==
LOC: SC.PAINP 09:43
PROVIDERS: PCP Internal Medicine Adolescent Medicine; Visit Provider Anesthesiology
DX: M51.16 Intervertebral disc disorders with radiculopathy, lumbar region (principal); M19.90 Unspecified osteoarthritis, unspecified site; Z72.0 Tobacco use; E78.5 Hyperlipidemia, unspecified; N40.0 Benign prostatic hyperplasia without lower urinary tract symptoms; K21.9 Gastro-esophageal reflux disease without esophagitis
CPT/HCPCS: 62323; J1040; Q9966

== ENCOUNTER → 2020-08-03 08:38 | Outpatient (CLI) | payer MEDICARE, OTHER, SELFPAY ==
[2020-08-03 10:30] LABS: Activated Partial Thrombo Time 26.1 seconds (22.8-30.6); INR 0.93 (0.9-1.1)
[2020-08-03 10:36] LABS: Chloride 107 mmol/L (98-107); Sodium 139 mmol/L (136-145)
[2020-08-03 10:39] LABS: Basophils # 0.1 K/mm3 (0-0.2); Basophils % 0.8 % (0.1-2.0); Blood Urea Nitrogen 20 mg/dl (9-20); Calcium 9.5 mg/dl (8.4-10.2); Carbon Dioxide 27 mmol/L (22.0-30.0); Eosinophils # 0.2 K/mm3 (0.0-0.4); Eosinophils % 2.1 % (0.1-12.0); Estimated Glomerular Filt Rate 95 ml/min (>60); GFR (African American) 115 ML/MIN (>60); Glucose 97 mg/dl (74-100); Hematocrit 46.6 % (42.0-52.0); Lymphocytes # 2.4 K/mm3 (0.7-4.5); Lymphocytes % 31.6 % (10-50); Mean Corpuscular HGB Conc 32.3 g/dL (31.8-35.4); Mean Corpuscular Hemoglobin 30.7 pg (27.0-31.2); Mean Platelet Volume 8.7 fl (7.4-10.4); Monocytes # 0.6 K/mm3 (0.1-1.0); Monocytes % 7.2 % (1.7-9.3); Neutrophils # 4.4 K/mm3 (1.8-7.8); Neutrophils % 58.3 % (37.0-80.0); Platelet Count 185 K/mm3 (142-424); Red Cell Distribution Width 13.8 % (11.5-17.5); White Blood Count 7.6 K/mm3 (4.8-10.8)
[2020-08-03 11:21] LABS: Intact Parathyroid Hormone 44.5 pg/mL (7.5-53.5)
== END ==
PROVIDERS: Visit Provider Neurological Surgery
DX: M48.02 Spinal stenosis, cervical region (principal); M50.00 Cervical disc disorder with myelopathy, unspecified cervical region; Z51.81 Encounter for therapeutic drug level monitoring
CPT/HCPCS: 36415; 80048; 83970; 85025; 85610; 85730; 86850

== ENCOUNTER → 2020-08-04 07:33 | Outpatient (CLI) | payer MEDICARE, OTHER, SELFPAY | PROVIDERS: Visit Provider Internal Medicine Adolescent Medicine | DX: Z01.818 Encounter for other preprocedural examination (principal) | CPT/HCPCS: 87081 ==

== ENCOUNTER → 2021-03-01 10:18 | Outpatient (POV) | payer MEDICARE, OTHER, SELFPAY ==
[2021-03-01 10:28] VITALS: BP 129/69; PULSE 70; RESP 18; O2SAT 96; BMI 25.0
--- NOTE | 2021-03-01 11:00 | HMH.PAINSOAP ---
[facility] Pain Management SOAP Note Subjective:: Patient is a 71-year-old white male who presents today for follow-up. The patient was last seen in the clinic on 07/31/2020. Patient had a lumbar epidural steroid injection at that time at the L4-L5 area which gave him up to 3 months of relief. Patient's pain has returned in his low back area with radiation into the anterior aspect of bilateral thighs. He does report to have worse pain in the left leg. The patient does report that he did have an acute episode for which he had perineal pain which was significant after sitting on a hard chair for prolonged period. He does have pain into the calves as well intermittently. The patient says that he feels his pain is worse in the mornings. He does have episodes for which he feels his legs are giving out . He has been diagnosed with spinal stenosis in the past but has not had any recent imaging. The patient did go to [facility] for a cervical fusion and is doing very well since his fusion from July 2020. The patient does have a follow-up this week. He was taken off his Celebrex at that time for the surgery and will discuss resuming the medication at his next visit. He also takes gabapentin for his neuropathic pain into his lower extremities. Patient's pain is 1 out of 10 with sitting at this time. It is with walking and standing that worsen the patient's pain. He would like to undergo a repeat injection to his lumbar spine. He has tried physical therapy in the past along with continued home stretching. He has also tried ice and heat therapies in the past. He will discuss resuming Celebrex with his surgeon this week. Review of Systems General: No recent weight changes, no fever, no sleep disturbances Respiratory: No cough, no shortness of air, no recurring pulmonary infections Cardiovascular/peripheral vascular: No chest pain, no palpitations, no edema, no shortness of breath Gastrointestinal: No new onset incontinence, normal bowel movements reported Genitourinary: No new onset incontinence Musculoskeletal: Low back pain with radiation into anterior thighs bilaterally, worse to left leg left calf pain intermittent Psychiatric: [Normal mood/affect] Neurological: Legs giving out intermittently Objective:: Physical exam General: Alert and oriented x3, no acute distress, pleasant and cooperative Lungs: Respirations even and unlabored, symmetrical chest expansion Eyes: PERRL Musculoskeletal: Flexion and extension of lumbar [spine] somewhat guarded secondary to pain, [antalgic gait noted] Neurological: Speech clear, no gross sensory deficit Assessment:: Degenerative disc disease lumbar spine with lumbar radiculopathy symptoms Plan:: Patient is a 71-year-old white male who presents for worsening low back pain and anterior thigh pain. Patient got 3 months of relief with his second lumbar epidural steroid injection. This would be the patient's third lumbar epidural steroid injection. The patient is not on any anticoagulation therapy and is not diabetic. He would like to proceed with his third lumbar epidural steroid injection at L4-L5. If the patient does not get significant relief with the injection, we did discuss undergoing imaging of his lumbar spine. He has not had any recent imaging. We will follow-up with him after his injection for reevaluation of symptoms. He will continue with home stretching and will discuss possible rezoom meeting his Celebrex with his surgeon. Possible side effects of corticosteroids have been discussed with the patient. Risks and benefits of the procedure have been explained to the patient. Patient would like to proceed with the procedure. Patient has been instructed to contact the clinic with any concerns before the next appointment. Dr. Madera has reviewed this note and agrees with this plan of care. This note was dictated using voice recognition software and make contain errors or omissions.
== END ==
PROVIDERS: Visit Provider Clinical Nurse Specialist Family Health
DX: M51.16 Intervertebral disc disorders with radiculopathy, lumbar region (principal)
CPT/HCPCS: 99212; G0463

== ENCOUNTER → 2021-03-17 12:54 | Outpatient (CLI) | payer MEDICARE, OTHER, SELFPAY ==
--- NOTE | 2021-03-17 13:02 | MR_ITS ---
PROCEDURE: MR LUMBAR SPINE WO CON CLINICAL INDICATION: LBP COMPARISON: No exams were available for comparison TECHNIQUE: Standard multiplanar multiecho sequences are performed without contrast. 3-D MIP and myelographic images are also rendered and reviewed FINDINGS: Spinal cord ends at the L1 level. L1-L2: 7 mm retrolisthesis of L1 on L2 not significantly change. There is degenerative disc disease at that level with moderate right and mild left foraminal narrowing. Facet hypertrophic changes are noted on the right. L2-L3: Degenerative disc disease with bulging disc with 5 mm retrolisthesis of L2. Not significantly changed. There is a broad based central/right paracentral/foraminal and lateral disc protrusion/disc osteophyte complex causing right lateral recess narrowing and foraminal narrowing. This is larger than when compared to the previous exam. There is facet hypertrophic change. L3-L4: Mild facet hypertrophy. L4-5: 14 mm anterolisthesis of L4 on L5 with facet hypertrophic change. Bilateral spondylo lysis. Severe right and moderate left foraminal narrowing. Moderate to severe facet hypertrophic changes as well as hypertrophic changes at the pars defect with transverse narrowing of the canal.. The facet hypertrophic changes slightly greater on the right compared to the previous exam abutting the right L5 and S1 nerve roots. L5-S1: Minimal bulging disc with mild facet and ligamentum hypertrophy. Mild lumbar scoliosis convex right IMPRESSION: Abnormal MRI of the lumbar spine with multilevel lumbar spondylosis along with bulging disc and facet and ligamentum hypertrophy with retrolisthesis of L1-L2 and L2 on L3 and grade 2 spondylitic spondylolisthesis L4 on L5. Please see above for detailed description at each level. Dictated by: Ranjan Driver MD 03/19/2021 09:10 Ranjan Driver MD in [place] 03/19/2021 09:10
--- NOTE | 2021-03-17 13:02 | MR_ITS ---
PROCEDURE: MR CERVICAL SPINE WO CON CLINICAL INDICATION: ARTHRODESIS Limited range of motion COMPARISON: MR MR CERVICAL SPINE WO CON from 04/11/2020 TECHNIQUE: Standard multiplanar multiecho sequences are performed without contrast. 3-D MIP and myelographic images are also rendered and reviewed FINDINGS: There is normal alignment. There has been prior anterior cervical disc fusion at C3-C4, and C4-C5. The craniocervical junction has an unremarkable appearance. C2-C3: Small central disc protrusion/disc osteophyte complex without impingement not significantly changed. Mild left-sided foraminal narrowing unchanged. C3-C4: Extensive artifact on the axial images from the prior anterior cervical disc fusion. The previously noted central/left paracentral disc protrusion/disc osteophyte complex is no longer apparent on the sagittal images. No canal stenosis C4-C5: Extensive artifact on the axial images from the prior anterior cervical disc fusion. No canal stenosis. C5-C6: Degenerative disc disease with minimal bulging disc. Endplate bony hypertrophy and uncovertebral hypertrophy with bilateral foraminal narrowing moderate to severe on the right and mild to moderate on the left. C6-C7: Degenerative disc disease with some endplate irregularity. C7-T1: 3 mm anterolisthesis of C7. No acute fracture or dislocation. IMPRESSION: Postsurgical changes with multilevel cervical spondylosis. Please see above for detailed description at each level. No extruded herniated disc. No bony canal stenosis. Dictated by: Ranjan Driver MD 03/19/2021 05:59 Ranjan Driver MD in [place] 03/19/2021 05:59
== END ==
PROVIDERS: PCP Internal Medicine Adolescent Medicine; Visit Provider Neurological Surgery
DX: M54.16 Radiculopathy, lumbar region (principal); Z98.1 Arthrodesis status
CPT/HCPCS: 72141; 72148; 76376

== ENCOUNTER 2021-03-19 08:37 | Day surgery (SDC) | payer MEDICARE, OTHER, SELFPAY ==
[2021-03-19 09:07] VITALS: BP 135/70; PULSE 66; RESP 18; TEMP 36.7; O2SAT 97; BMI 25.4
[2021-03-19 09:34] VITALS: BP 120/65; PULSE 59; RESP 18; O2SAT 95
[2021-03-19 09:38] VITALS: PULSE 64; RESP 18; O2SAT 95
[2021-03-19 09:49] VITALS: BP 131/63; PULSE 61; RESP 20; O2SAT 98
--- NOTE | 2021-03-19 10:00 | HMH.PMPROC ---
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 He has tried and failed conservative treatment including oral pain medications and home stretching program for greater than 6 weeks. The plan for today is for the patient to undergo lumbar epidural steroid injection at L5-S1 #1. Procedure Details:: Informed consent was obtained and the risk and benefits of the procedure was explained to the patient. The patient was taken to the procedure room. The patient was placed prone on the procedure table. The patient was prepped and draped in sterile fashion. C-arm fluoroscopy was used to view the lumbar spine. Skin and subcutaneous tissues were anesthetized using lidocaine. I placed an 18-gauge epidural needle and advanced into the L5-S1 interspace using fluoroscopic guidance and [id number] to air and saline. After confirmation of needle placement in the epidural space with dye I injected 1 mL of lidocaine 1.0% with Depo-Medrol 80 mg. Patient tolerated the procedure well with no complications. Plan and Disposition:: We will follow-up with this patient in 2 weeks. Will reevaluate pain symptoms at that time.
== END 2021-03-19 09:50 | disposition home or self-care (01) ==
LOC: SC.PAINP 08:38
PROVIDERS: PCP Internal Medicine Adolescent Medicine; Visit Provider Anesthesiology Pain Medicine
DX: M51.16 Intervertebral disc disorders with radiculopathy, lumbar region (principal); I10 Essential (primary) hypertension; M19.90 Unspecified osteoarthritis, unspecified site; Z72.0 Tobacco use; E78.5 Hyperlipidemia, unspecified; K21.9 Gastro-esophageal reflux disease without esophagitis
CPT/HCPCS: 62323; J1040; Q9966

== ENCOUNTER → 2021-04-08 09:19 | Outpatient (POV) | payer MEDICARE, OTHER, SELFPAY ==
[2021-04-08 09:31] VITALS: BP 131/66; PULSE 70; RESP 18; O2SAT 97; BMI 25.4
--- NOTE | 2021-04-08 10:07 | HMH.PAINSOAP ---
[facility] Pain Management SOAP Note Subjective:: Patient is a [age] year old white male who presents today for follow up after Lumbar epidural steroid injection. patient reports he got significant relief from the injection. He does not typically get 22 to 3 months of relief with injections. Patient states prior to the injection he was a 3 out of 10 sitting, a 6 out of 10 with walking. Since the injection, he is now a 2 out of 10 with standing or walking. He does take gabapentin and Celebrex prescribed by Dr. Tello. He is doing well overall with his medication. He did follow-up with Dr. Oakes, neurosurgery approximately 1 week ago. He says that the provider did feel the patient is not a neurosurgical candidate at this time. He did write a new order for physical therapy. Patient is planning to undergo axial treatment as well with acupuncture through the [facility]. Review of Systems General: No recent weight changes, no fever, no sleep disturbances Respiratory: No cough, no shortness of air, no recurring pulmonary infections Cardiovascular/peripheral vascular: No chest pain, no palpitations, no edema, no shortness of breath Gastrointestinal: No new onset incontinence, normal bowel movements reported Genitourinary: No new onset incontinence Musculoskeletal: Intermittent low back area Psychiatric: [Normal mood/affect] Neurological: [Denies weakness in extremities], [denies balance issues] Objective:: Physical exam General: Alert and oriented x3, no acute distress, pleasant and cooperative Lungs: Respirations even and unlabored, symmetrical chest expansion Eyes: PERRL Musculoskeletal: Flexion and extension of lumbar [spine] somewhat guarded secondary to pain, [antalgic gait noted] Neurological: Speech clear, no gross sensory deficit Assessment:: Degenerative disc disease lumbar spine with lumbar radiculopathy symptoms Plan:: patient is doing well at this time. He does typically schedule repeat injections every 2 to 3 months for his low back pain. We will schedule him for a repeat lumbar epidural steroid injection at L5-S1. This will be his # 2 injection at this area. He will continue with Celebrex and gabapentin. We will follow-up with him after that injection for further evaluation. Patient is not on any anticoagulation therapy. He will start physical therapy once again per Dr. Oakes's order. [facility] also [facility] Possible side effects of corticosteroids have been discussed with the patient. Risks and benefits of the procedure have been explained to the patient. Patient would like to proceed with the procedure. Patient has been instructed to contact the clinic with any concerns before the next appointment. Dr. Madera has reviewed this note and agrees with this plan of care. This note was dictated using voice recognition software and make contain errors or omissions. [facility] History I have reviewed the patient's past medical history: Yes Medical History: Reports:: Hiatal Hernia, Hyperlipidemia, Hypertension Denies:: Cancer, Diabetes Mellitus Type 1, Diabetes Mellitus Type 2, MRSA, Seizures *Have you ever received a pneumonia vaccine?: Yes *Have you received a flu vaccine this season?: Yes Other Medical History: Reports: Arthritis. Denies: Blood Transfusion Reaction Other Surgeries: Yes: Colonoscopy, Hernia Repair, Other (prostate surgery) Amputation: No Fractures: No - *Social History Smoking Status: Light tobacco smoker Tobacco Type: pipe # Packs/Day (cigarettes): 0 #Yrs smoked (if former smoker): 30 Alcohol Intake: never *Occupational Status:: unemployed Housing: house Household Members: spouse *Travel in the last 8 weeks: None Family Hx:: No significant family history
== END ==
PROVIDERS: Visit Provider Clinical Nurse Specialist Family Health
DX: M51.16 Intervertebral disc disorders with radiculopathy, lumbar region (principal)
CPT/HCPCS: 99212; G0463

== ENCOUNTER → 2021-08-18 07:30 | Outpatient (CLI) | payer MEDICARE, OTHER, SELFPAY ==
--- NOTE | 2021-08-18 07:34 | MR_ITS ---
FINAL REPORT CLINICAL HISTORY: ATAXIA, TREMOR WORSENING LEFT SIDED TREMOR FINDINGS: Multiplanar MR imaging of the brain was performed without contrast. There is no evidence of intracranial hemorrhage or mass. There is age-appropriate atrophy. There are scattered foci of increased T2 signal in the cerebral white matter which may represent mild chronic ischemic /gliotic change or demyelination. The ventricular size is normal. There is no evidence of shift of the midline structures. No abnormal extra-axial fluid collection is identified. The posterior fossa and brainstem have an unremarkable appearance. No area of abnormal restricted diffusion is identified. Normal major vessel vascular flow voids are seen. There is total opacification of the right maxillary sinus with mucosal thickening in the left maxillary sinus. IMPRESSION: Increased T2 signal in the cerebral white matter may represent mild chronic ischemic/gliotic change or demyelination. Sinus disease. Reviewed, Interpreted and Dictated by Eric Méndez III, MD Transcribed by Elis Boyce Authenticated by Eric Méndez III, MD on 08/18/2021 09:38:[address] [facility]
== END ==
PROVIDERS: PCP Internal Medicine Adolescent Medicine; Visit Provider Internal Medicine Adolescent Medicine
DX: R25.1 Tremor, unspecified (principal); R27.0 Ataxia, unspecified
CPT/HCPCS: 70551

== ENCOUNTER 2021-08-27 09:29 | Day surgery (SDC) | payer MEDICARE, OTHER, SELFPAY ==
[2021-08-27 09:50] VITALS: BP 154/80; PULSE 64; RESP 20; TEMP 36.5; O2SAT 96
[2021-08-27 09:53] VITALS: BP 135/61; PULSE 75; RESP 18; TEMP 36.6; O2SAT 96; BMI 25.7
[2021-08-27 09:54] VITALS: BP 125/56; PULSE 73; RESP 18; O2SAT 96
[2021-08-27 09:57] VITALS: BP 107/55; PULSE 70; RESP 18; O2SAT 96
--- NOTE | 2021-08-27 10:20 | HMH.PMPROC ---
- Procedure Date: 08/27/21 Time: 10:20 Anesthesiologist:: David Madera MD Complications:: None Pre-procedure Diagnosis:: Degenerative disc disease of lumbar spine with lumbar radiculopathy symptoms Post-procedure Diagnosis:: Same Indications for Procedure:: Patient is a pleasant 71-year-old white male who we are treating for low back pain with lumbar radiculopathy symptoms. He does well with epidural steroid injections with 2 to 3 months of good pain relief. Pain is starting to return. We will plan on repeat lumbar epidural steroid injections under fluoroscopy today. Procedure Details:: Informed consent was obtained and the risk and benefits of the procedure was explained to the patient. The patient was taken to the procedure room. The patient was placed prone on the procedure table. The patient was prepped and draped in sterile fashion. C-arm fluoroscopy was used to view the lumbar spine. Skin and subcutaneous tissues were anesthetized using lidocaine. I placed an 18-gauge epidural needle and advanced into the L4-L5 interspace using fluoroscopic guidance and [id number] to air. After confirmation of needle placement in the epidural space with dye I injected 2 mL of lidocaine 1.5% with Depo-Medrol 80 mg. Patient tolerated the procedure well with no complications. Plan and Disposition:: We will follow-up with him in 2 weeks. Will reevaluate symptoms at that time.
== END 2021-08-27 10:15 | disposition home or self-care (01) ==
LOC: SC.PAINP 09:30
PROVIDERS: PCP Internal Medicine Adolescent Medicine; Visit Provider Anesthesiology
DX: M51.16 Intervertebral disc disorders with radiculopathy, lumbar region (principal); E78.5 Hyperlipidemia, unspecified; M19.90 Unspecified osteoarthritis, unspecified site; K21.9 Gastro-esophageal reflux disease without esophagitis
CPT/HCPCS: 62323; J1040; Q9966

== ENCOUNTER → 2021-09-23 10:42 | Outpatient (POV) | payer MEDICARE, OTHER, SELFPAY ==
[2021-09-23 10:57] VITALS: BP 133/75; PULSE 73; RESP 18; TEMP 36.7; O2SAT 96; BMI 26.4
--- NOTE | 2021-09-23 12:02 | HMH.PAINSOAP ---
[facility] Pain Management SOAP Note Subjective:: Patient is a pleasant 71-year-old male who presents today for follow-up. Patient is currently being treated for degenerative disc disease of the lumbar spine with lumbar radiculopathy symptoms. We have been managing this patient with injective therapy and he gets 3 to 4 months of relief after each lumbar epidural steroid injection. He had this last lumbar epidural steroid injection on August 27, 2021 that is still providing 80 to 90% relief. He rates his pain as 2 out of 10. Denies any issues with the procedure. He has also seen Dr. Oakes NSx, who did his cervical fusion. Dr. Oakes says that he needs low back surgery, but since the surgery is a risky procedure, patient was recommended to opt out. Pt says that he will hold off on any surgical intervention at this time and keep doing LESI since it's still providing 3-4 months of relief. He takes Gabapentin 300mg TID. Micah [id number], MEQ 0. Review of Systems: General: No recent weight changes, no fever, no sleep disturbances Respiratory: No cough, no shortness of air, no recurring pulmonary infections Cardiovascular/peripheral vascular: No chest pain, no palpitations, no edema, no shortness of breath Gastrointestinal: No new onset incontinence, normal bowel movements reported Genitourinary: No new onset incontinence Musculoskeletal: Low back pain Psychiatric: [Normal mood/affect] Neurological: [Denies weakness in extremities], [denies balance issues] Objective:: Physical Exam: General: Alert and oriented x3, no acute distress, pleasant and cooperative Lungs: Respirations even and unlabored, symmetrical chest expansion Eyes: PERRL Musculoskeletal: Flexion and extension of lumbar [spine] somewhat guarded secondary to pain, [antalgic gait noted] Neurological: Speech clear, no gross sensory deficit Assessment:: Degenerative disc disease of the lumbar spine with lumbar radiculopathy symptoms Postlaminectomy syndrome of the cervical spine Plan:: Patient continues to have significant relief after the lumbar epidural steroid injection. We will follow-up with this patient in 3 months for a repeat lumbar epidural steroid injection at L4-L5.. Patient has been instructed to contact the clinic with any concerns before the next appointment. Dr. Madera has reviewed this note and agrees with this plan of care. This note was dictated using voice recognition software and make contain errors or omissions. [facility] History Medical History: Reports:: Hiatal Hernia, Hyperlipidemia, Hypertension Denies:: Cancer, Diabetes Mellitus Type 1, Diabetes Mellitus Type 2, MRSA, Seizures *Have you ever received a pneumonia vaccine?: Yes *Have you received a flu vaccine this season?: Yes Other Medical History: Reports: Arthritis. Denies: Blood Transfusion Reaction Other Surgeries: Yes: Colonoscopy, Hernia Repair, Other (prostate surgery) Amputation: No Fractures: No - *Social History Smoking Status: Light tobacco smoker Tobacco Type: pipe # Packs/Day (cigarettes): 0 #Yrs smoked (if former smoker): 30 Alcohol Intake: never *Occupational Status:: retired Housing: house Household Members: spouse *Travel in the last 8 weeks: None Family Hx:: No significant family history
== END ==
PROVIDERS: Visit Provider Student in an Organized Health Care Education/Training Program
DX: M96.1 Postlaminectomy syndrome, not elsewhere classified (principal); M51.16 Intervertebral disc disorders with radiculopathy, lumbar region
CPT/HCPCS: 99212; G0463

== ENCOUNTER → 2021-11-02 15:07 | Outpatient (CLI) | payer MEDICARE, OTHER, SELFPAY ==
--- NOTE | 2021-11-02 15:08 | CT_ITS ---
FINAL REPORT TECHNIQUE: Thin section axial CT images of the facial bones and sinuses were obtained without contrast. Coronal reformatted images were also obtained.This study was performed with techniques to keep radiation doses as low as reasonably achievable, (ALARA). Individualized dose reduction techniques using automated exposure control or adjustment of mA and/or kV according to the patient''''s size were employed. CLINICAL HISTORY: chronic maxillary sinusitis FINDINGS: CT SINUSES W/O CONTRAST There is postoperative change of the medial left maxillary sinus wall and possible postoperative change of the medial right maxillary sinus wall versus chronic bony erosion. There is total opacification of the right maxillary sinus and partial opacification of the left maxillary sinus. No fluid levels are identified. There is mild rightward nasal septal deviation. No fracture or acute bony abnormality is identified. IMPRESSION: Postoperative change of the medial left maxillary sinus wall. Postoperative change versus chronic bony erosion in the medial right maxillary sinus wall. Total opacification of the right maxillary sinus and partial opacification of the left maxillary sinus. Reviewed, Interpreted and Dictated by Eric Méndez III, MD Transcribed by Kathia Carbajal Authenticated and . [facility]
--- NOTE | 2021-11-02 15:15 | XR_ITS ---
FINAL REPORT CLINICAL HISTORY: surgery preop, pipe smoker, patient to have sinus surgery soon. COMPARISON: 12/19/2018 FINDINGS: Two views of the chest were obtained. The heart size and pulmonary vascularity are within normal limits. The mediastinum is normal. There is mild left lung base scarring which is stable. There is no pneumothorax. There is [id number] degenerative change of the thoracic spine. IMPRESSION: Mild left lung base scarring, stable. Reviewed, Interpreted and Dictated by Eric Méndez III, MD Transcribed by Kathia Carbajal Authenticated and [facility]
== END ==
PROVIDERS: PCP Internal Medicine Adolescent Medicine; Visit Provider Otolaryngology
DX: J32.0 Chronic maxillary sinusitis (principal); J34.3 Hypertrophy of nasal turbinates; Z01.810 Encounter for preprocedural cardiovascular examination
CPT/HCPCS: 70486; 71046

== ENCOUNTER → 2021-11-06 08:21 | Outpatient (CLI) | payer MEDICARE, OTHER, SELFPAY ==
[2021-11-06 08:32] LABS: MANUAL DIFFERENTIAL MANUAL DIFFERENTIAL (MANUAL DIFF)
--- NOTE | 2021-11-06 08:46 | ECG_ITS ---
APPROVED REPORT Exam: Resting ECG HR:64 bpm ECG Measurements Heart Rate 64 AXES CA 225 P 50 QRSd 90 QRS 55 QT 365 T 55 QTc 374 Conclusion SINUS RHYTHM WITH FIRST DEGREE AV BLOCK ABNORMAL ECG UNCONFIRMED REPORT Electronically signed by : Errol Manzano MD 11/08/2021 14:07:05
[2021-11-06 09:04] LABS: Basophils # 0.1 K/mm3 (0-0.2); Eosinophils # 0.2 K/mm3 (0.0-0.4); Eosinophils % 2.9 % (0.1-12.0); Hematocrit 44.4 % (42.0-52.0); Hemoglobin 15.4 g/dL (14.1-18.0); Lymphocytes # 2.9 K/mm3 (0.7-4.5); Lymphocytes % 38.1 % (10-50); Mean Corpuscular HGB Conc 34.7 g/dL (31.8-35.4); Mean Corpuscular Hemoglobin 31.8 pg (27.0-31.2); Mean Corpuscular Volume 91.8 fl (80-94); Mean Platelet Volume 8.1 fl (7.4-10.4); Monocytes # 0.7 K/mm3 (0.1-1.0); Monocytes % 8.8 % (1.7-9.3); Neutrophils # 3.8 K/mm3 (1.8-7.8); Neutrophils % 49.3 % (37.0-80.0); Platelet Count 222 K/mm3 (142-424); Red Blood Count 4.83 M/mm3 (4.60-6.20); Red Cell Distribution Width 13.7 % (11.5-17.5); White Blood Count 7.7 K/mm3 (4.8-10.8)
[2021-11-06 09:11] LABS: Anion Gap 11.2 mEq/L (5-15); Blood Urea Nitrogen 18 mg/dl (9-20); Calcium 9.4 mg/dl (8.4-10.2); Carbon Dioxide 25 mmol/L (22.0-30.0); Chloride 106 mmol/L (98-107); Estimated Glomerular Filt Rate 83 ml/min (>60); GFR (African American) 100 ML/MIN (>60); Glucose 99 mg/dl (74-100); Potassium 4.2 mmoL/L (3.5-5.1); Sodium 138 mmol/L (136-145)
[2021-11-06 10:45] LABS: Eosinophils % 1 % (0-3); Lymphocytes % 55 % (10-50); Monocytes % 8 % (2-9); Neutrophils % 36 % (42-76); Total Cells Counted 100
[2021-11-06 10:46] LABS: Hypersegmented Neutrophils 1+; Platelet Estimate Normal
== END ==
PROVIDERS: PCP Internal Medicine Adolescent Medicine; Visit Provider Otolaryngology
DX: J32.0 Chronic maxillary sinusitis (principal); J34.3 Hypertrophy of nasal turbinates; Z01.812 Encounter for preprocedural laboratory examination; Z20.822 Contact with and (suspected) exposure to COVID-19
CPT/HCPCS: 36415; 80048; 85007; 85014; 85018; 85048; 85049; 93005; C9803; U0003; U0005

== ENCOUNTER 2021-11-08 06:04 | Day surgery (SDC) | payer MEDICARE, OTHER, SELFPAY ==
[2021-11-04 13:35] VITALS: BMI 25.7
[2021-11-08] VITALS (11 sets, daily range): BP systolic 117–152; BP diastolic 59–79; PULSE 52–82; RESP 13–18; TEMP 36.3–37.1; O2SAT 93–98
--- NOTE | 2021-11-08 07:11 | P.PN_ITS ---
[facility] Anesthesia Checklist - Patient Identification Patient Identification: Arm Band - Structural Data Admitted From: Home Planned Operative Procedure/s: Endoscopic sinus surgery Consent for Planned Operative Procedure(s) Verified: Yes - NPO Status Verified Time NPO: 00:00 - Additional verifications Anesthesia Reactions: No Hx Blood Transfusions: No Blood Transfusion Reaction: No - Airway Assessment C-Spine Mobility Assessed: Yes TMJ Mobility Assessed: Yes Dentition: Good Dentition (Extremely small mouth opening) - Neurological Assessment Level of Consciousness: Awake Hx Seizures: No Numbness or tingling in extremities: No - Anesthesia Plan Anesthesia Risk discussed: Yes Anesthesia Plan: Verified ASA Class: II Anesthesia Type: General [facility] History I have reviewed the patient's past medical history: Yes Medical History: Reports:: Hiatal Hernia, Hyperlipidemia Denies:: Cancer, Diabetes Mellitus Type 1, Diabetes Mellitus Type 2, Internal Pacemaker, MRSA, Seizures *Have you ever received a pneumonia vaccine?: Yes *Have you received a flu vaccine this season?: Yes Other Medical History: Reports: Arthritis. Denies: Blood Transfusion Reaction Anesthesia experience/problems:: None Laterality Cases: Left: Total Knee Replacement Other Surgeries: Yes: Colonoscopy, Hernia Repair, Other. No: Pacemaker Amputation: No Fractures: No - *Social History Last grade of school completed: Advanced degree Smoking Status: Light tobacco smoker Tobacco Type: pipe # Packs/Day (cigarettes): 0 #Yrs smoked (if former smoker): 30 Alcohol Intake: never Substance Use Type: denies use *Occupational Status:: retired Housing: house Household Members: spouse *Travel in the last 8 weeks: None Family Hx:: No significant family history
--- NOTE | 2021-11-08 08:56 | HMH.ANESI ---
[facility] Anesthesia Record Part I Intake, IV Amount: 700 Estimated blood loss (mL): 30 Urine output (mL): 0 Blood Pressure: 152/70 SaO2: 93 Pulse Rate: 82 Respiratory Rate: 13 Temperature: 97.6 F Patient is:: Drowsy, Oral/Nasal airway Stable to PACU at:: 08:53
--- NOTE | 2021-11-08 09:03 | HMH.OPNOTE ---
Date of procedure: 11/08/21 Pre-op Diagnosis:: Chronic maxillary sinusitis Bilateral inferior turbinate hypertrophy Post-op Diagnosis:: Chronic maxillary sinusitis Bilateral inferior turbinate hypertrophy Procedure performed:: 1. Bilateral endoscopic middle meatal antrostomy with tissue removal 2. Bilateral endoscopic submucosal resection of inferior turbinates Surgeon:: Pavel Huber III, MD OFFSET MACHINE OPERATOR:: Kali Stevens Anesthesia: GETA Estimated blood loss (mL): 30 Operative findings:: Bilateral mucoid effusions both maxillary sinuses Operative note:: Patient was brought to the operating room placed under general inhalational anesthetic converted to endotracheal anesthesia. Topical Afrin had been applied to the nasal cavity bilaterally. He was placed in the lounge chair position. Topical Afrin and lidocaine was applied on cottonoids bilaterally. I also preinjected with 1% lidocaine with epinephrine into the lateral nasal orourke. After adequate time was allowed for vasoconstriction the cottonoids were removed from the left side of the nose. Further injection was carried out along the uncinate process area. The left maxillary sinus was noted to be significantly retracted. Upon removing the uncinate process. There was a breach in the lamina papyracea. Once this was identified no further tissue was removed from this area. Then used the curved suction to probe into the middle meatus which was lateralized. I then opened into the middle meatus and remove significant amount of polypoid and maxillary sinus mucous that was quite thickened. Once the opening was created, applied a cottonoid with 1% lidocaine in this area. On the right side, the cottonoids were removed and a further injection was carried out along the lateral nasal wall. The uncinate process removed inferiorly. I then opened in the middle meatus and created a wider opening using a backbiting instrument. Again thick polypoid tissue was removed along with thickened mucus secretions. The sinus was thoroughly cleared as it was on the left. Temporary packing was placed on the right side as well. Both inferior turbinates were then injected with 1% lidocaine plain. Began on the right side using the 2 mm turbinate shaver blade and made an incision inferiorly in the turbinate, submucosal resection was done posterior to this. A separate incision was made at the head of the inferior turbinate and a submucosal resection was done at the head of the turbinate. Turbinate was then outfractured. Similar procedures were performed on the left inferior turbinate. Inferior packing was removed and I placed nova pack packing in each middle meatus. This was then infiltrated with 1% lidocaine plain. Topical mupirocin ointment was then applied as a dressing. The patient's oral contents were then suctioned clear. A nasal drip pad was applied. Patient was awakened in the operating room taken the recovery room in good condition. There was no inflammation or swelling around the left orbit or evidence of intranasal bleeding. Condition: stable Disposition: PACU Complications:: none
[2021-11-11 08:58] VITALS: BP 137/59; PULSE 63; TEMP 36.3
--- NOTE | 2021-11-11 08:58 | HMH.ANESII ---
[facility] Anesthesia Record Part II Discharge Time: 09:23 Destination: Home PACU nurse assessment reviewed?: Yes Patient Condition:: Good Anesthesia Complications:: None Swallowing reflex intact?: Yes Cyanosis?: No Blood Pressure: 137/59 Pulse Rate: 63 Temperature: 97.3 F Mental Status: Alert & Oriented Pain level:: 0 Nausea and/or vomitting:: None Intake, IV Amount: 0
== END 2021-11-08 10:13 | disposition home or self-care (01) ==
LOC: OR 06:06
PROVIDERS: PCP Internal Medicine Adolescent Medicine; Visit Provider Otolaryngology
PROC: (CPT 30520; principal; 2021-11-08 07:30)
DX: J32.0 Chronic maxillary sinusitis (principal); J34.3 Hypertrophy of nasal turbinates; E78.5 Hyperlipidemia, unspecified; Z72.0 Tobacco use; I10 Essential (primary) hypertension; Z79.899 Other long term (current) drug therapy
CPT/HCPCS: 30140; 31267; 88305; 88311; 96374; J2405; J2710

== ENCOUNTER 2021-12-03 10:37 | Day surgery (SDC) | payer MEDICARE, OTHER, SELFPAY ==
[2021-12-03 10:48] VITALS: BP 149/73; PULSE 75; RESP 20; TEMP 36.8; O2SAT 96; BMI 25.7
[2021-12-03 11:02] VITALS: BP 123/64; PULSE 72; RESP 20
--- NOTE | 2021-12-03 11:23 | HMH.PMPROC ---
- Procedure Date: 12/03/21 Time: 11:23 Anesthesiologist:: David Madera MD Complications:: None Pre-procedure Diagnosis:: Degenerative disc disease of lumbar spine with lumbar radiculopathy symptoms Post-procedure Diagnosis:: Same Indications for Procedure:: This patient is a pleasant 71-year-old white male who we are treating for low back pain with lumbar radiculopathy symptoms. Patient does well with lumbar epidural steroid injections with 80 to 90% relief in pain symptoms for 3 to 4 months after each injection. Pain is started to return his last injection was approximately 4 months ago. Most of his pain is in the back rating down both legs. We will do repeat lumbar epidural steroid injection under fluoroscopy today. Procedure Details:: Informed consent was obtained and the risk and benefits of the procedure was explained to the patient. The patient was taken to the procedure room. The patient was placed prone on the procedure table. The patient was prepped and draped in sterile fashion. C-arm fluoroscopy was used to view the lumbar spine. Skin and subcutaneous tissues were anesthetized using lidocaine. I placed an 18-gauge epidural needle and advanced into the L4-L5 interspace using fluoroscopic guidance and [id number] to air. After confirmation of needle placement in the epidural space with dye I injected 2 mL of lidocaine 1.5% with Depo-Medrol 80 mg. Patient tolerated the procedure well with no complications. Plan and Disposition:: We will follow-up with him in 2 weeks. Will reevaluate symptoms at that time.
[2021-12-03 11:35] VITALS: BP 115/63; PULSE 61; RESP 20; O2SAT 97
== END 2021-12-03 11:35 | disposition home or self-care (01) ==
LOC: SC.PAINP 10:38
PROVIDERS: PCP Internal Medicine Adolescent Medicine; Visit Provider Anesthesiology
DX: M51.16 Intervertebral disc disorders with radiculopathy, lumbar region (principal)
CPT/HCPCS: 62323; J1040; Q9966

== ENCOUNTER → 2021-12-13 11:13 | Outpatient (POV) | payer MEDICARE, OTHER, SELFPAY ==
[2021-12-13 12:03] VITALS: BP 119/70; PULSE 69; RESP 20; TEMP 36.8; O2SAT 97; BMI 25.7
--- NOTE | 2021-12-13 12:35 | HMH.PAINSOAP ---
[facility] Pain Management SOAP Note Subjective:: Patient is a pleasant 71-year-old male that presents today for follow-up of a lumbar epidural steroid injection of L4-L5 on 12/03/2021. We are currently treating the patient for degenerative disc disease of lumbar spine with lumbar radiculopathy symptoms. Patient states that he has gotten at least 60 to 70% improvement from this injection. He states typically he gets about 4 months roughly from each injection. Today he rates his pain a 2 out of 10 and states his pain is more in his right shoulder. Patient denies any new trauma or injury to the site. He denies any change to the location or type of pain he experiences. Patient states he has had sinus surgery about a month ago and states it has helped him overall. Patient is currently being managed with gabapentin 300 mg 3 times a day that is written by Dr. Rivera Oakes. He denies any side effects to this medication. He states this medication is adequately managing his pain. Patient also takes Celebrex that he states provides significant improvement. Patient also uses lidocaine patches with minimal relief. Patient states in the past he has seen neurosurgery and they stated there was about 50% chance of surgery would help. He stated at this time he is not interested in surgical intervention. Patient does have a history of a cervical fusion around July 2019. He is also had bilateral knee replacements. Patient also states occasionally he will have issues with his balance in the morning. He is getting ready to start physical therapy from the [place] to help with strength training. His Micah is [id number]. It has been reviewed and appropriate. Review of Systems: General: No recent weight changes, no fever, no sleep disturbances Respiratory: No cough, no shortness of air, no recurring pulmonary infections Cardiovascular/peripheral vascular: No chest pain, no palpitations, no edema, no shortness of breath Gastrointestinal: No new onset incontinence, normal bowel movements reported Genitourinary: No new onset incontinence Musculoskeletal: Low back pain, bilateral shoulder pain Psychiatric: [Normal mood/affect] Neurological: [Denies weakness in extremities], [denies balance issues] Objective:: Physical Exam: General: Alert and oriented x3, no acute distress, pleasant and cooperative Lungs: Respirations even and unlabored, symmetrical chest expansion Eyes: PERRL Musculoskeletal: Flexion and extension of lumbar [spine] somewhat guarded secondary to pain, [antalgic gait noted] Neurological: Speech clear, no gross sensory deficit Assessment:: Degenerative disc disease of lumbar spine with lumbar radiculopathy symptoms, bilateral shoulder pain Plan:: Patient has had significant improvement with his last LESI. Patient is getting ready to start physical therapy for bilateral shoulders and strength training. I have discussed with the patient regarding having repeat injections in the future as well as possible shoulder injections. We will follow-up with the patient in 3 months. Patient will return to clinic in 3 months for follow-up and reevaluation of symptoms. Patient has been instructed to contact the clinic with any concerns before the next appointment. Dr. Madera has reviewed this note and agrees with this plan of care. This note was dictated using voice recognition software and make contain errors or omissions. [facility] History I have reviewed the patient's past medical history: Yes Medical History: Reports:: Hiatal Hernia, Hyperlipidemia, Hypertension Denies:: Cancer, Diabetes Mellitus Type 1, Diabetes Mellitus Type 2, Internal Pacemaker, MRSA, Seizures *Have you ever received a pneumonia vaccine?: Yes *Have you received a flu vaccine this season?: Yes Other Medical History: Reports: Arthritis. Denies: Blood Transfusion Reaction Other Surgeries: Yes: Colonoscopy, Hernia Repair, Other. No: Pacemaker Amputation: No Fractures: No - *Social History Smoking Sta
== END ==
PROVIDERS: PCP Internal Medicine Adolescent Medicine; Visit Provider Nurse Practitioner Family
DX: M51.16 Intervertebral disc disorders with radiculopathy, lumbar region (principal); M25.511 Pain in right shoulder; M25.512 Pain in left shoulder
CPT/HCPCS: 99212; G0463

== ENCOUNTER → 2022-03-14 11:32 | Outpatient (POV) | payer MEDICARE, OTHER, SELFPAY ==
[2022-03-14 12:13] VITALS: BP 120/70; PULSE 72; RESP 18; O2SAT 97; BMI 25.7
--- NOTE | 2022-03-14 12:13 | A.OFFVIS_ITS ---
[facility] Pain Management SOAP Note Subjective:: Patient is a pleasant 72-year-old male who presents today for follow-up. We are currently treating the patient for degenerative disc disease of lumbar spine with lumbar radiculopathy symptoms. Today he rates his pain a 2 out of 10. Patient states his pain is in his right shoulder, low back and arthritis in his hand. Patient denies any new trauma or injury. Patient denies any change location or type of pain he experiences. Patient has had injective therapy in the past with his last lumbar epidural at L4-L5 on 12/03/2021. Patient states he does feel like this injection is still providing some relief of his pain symptoms. Patient is currently managed with gabapentin 300 mg 3 times a day by an outside provider. Patient does state he feels like he is more fatigued and is wondering whether or not if this medication is part of the problem. He does state this medication does help his pain symptoms. He is also prescribed Celebrex that provides significant improvement. Patient has been to see neurosurgery in the past however they stated that there was only a 50% chance that surgery would improve his symptoms. Patient had a cervical fusion in 2019. He is also had bilateral knee replacements. Patient has been getting physical therapy from the [place]. Patient states he is scheduled for cataract surgery in May. His Micah is [id number]. It has been reviewed and appropriate. Review of Systems: General: No recent weight changes, no fever, no sleep disturbances Respiratory: No cough, no shortness of air, no recurring pulmonary infections Cardiovascular/peripheral vascular: No chest pain, no palpitations, no edema, no shortness of breath Gastrointestinal: No new onset incontinence, normal bowel movements reported Genitourinary: No new onset incontinence Musculoskeletal: Low back pain, right hand pain right shoulder pain Psychiatric: [Normal mood/affect] Neurological: [Denies weakness in extremities], [denies balance issues] Objective:: Physical Exam: General: Alert and oriented x3, no acute distress, pleasant and cooperative Lungs: Respirations even and unlabored, symmetrical chest expansion Eyes: PERRL Musculoskeletal: Flexion and extension of lumbar [spine] somewhat guarded secondary to pain, [antalgic gait noted] Neurological: Speech clear, no gross sensory deficit Assessment:: Degenerative disc disease of lumbar spine with lumbar radiculopathy symptoms, right shoulder pain, arthritis right hand Plan:: Patient continues to experience low back pain along with right shoulder and right hand pain. At this time he does not require additional injective therapy. I will order the patient a compounding cream at today's visit. We will follow- up with the patient in 2 months. Patient will return to clinic in 2 months for reevaluation of symptoms and follow-up. Patient has been instructed to contact the clinic with any concerns before the next appointment. Dr. Madera has reviewed this note and agrees with this plan of care. This note was dictated using voice recognition software and make contain errors or omissions. PFSH PFSH Social History Smoking Status: Former smoker pack-years: 30 second hand exposure: Yes alcohol intake: never substance use type: denies use current occupational status: other Travel in the last 8 weeks: None household members: spouse housing: house current occupational exposures/hazards: No caffeine: Yes
== END ==
PROVIDERS: PCP Internal Medicine Adolescent Medicine; Visit Provider Nurse Practitioner Family
DX: M51.16 Intervertebral disc disorders with radiculopathy, lumbar region (principal); M25.511 Pain in right shoulder; M19.041 Primary osteoarthritis, right hand
CPT/HCPCS: 99212; G0463

== ENCOUNTER → 2022-05-06 10:33 | Outpatient (CLI) | payer OTHER, SELFPAY ==
--- NOTE | 2022-05-06 10:39 | XR_ITS ---
FINAL REPORT CLINICAL HISTORY: Arthritis COMPARISON: None FINDINGS: RIGHT HAND SERIES 2 views of the right hand were obtained. There is no acute fracture. There is no dislocation. There is advanced joint space narrowing in a distal distribution involving the DIP, PIP, and MCP joints. Disease is most pronounced in the 2nd MCP joint. There is also severe osteoarthritis of the 1st carpometacarpal joint. There is positive ulnar variation. There is no acute soft tissue abnormality. IMPRESSION: Osteoarthritic changes predominately in a distal distribution as above. Reviewed, Interpreted and Dictated by Montana Colon MD Transcribed by Emerald Harris Authenticated and [facility]
== END ==
PROVIDERS: PCP Internal Medicine Adolescent Medicine; Visit Provider Chiropractor
DX: M13.80 Other specified arthritis, unspecified site (principal)
CPT/HCPCS: 73120

== ENCOUNTER → 2022-05-16 09:54 | Outpatient (POV) | payer MEDICARE, OTHER, SELFPAY ==
[2022-05-16 10:16] VITALS: BP 132/73; PULSE 74; RESP 18; O2SAT 97; BMI 26.4
--- NOTE | 2022-05-16 10:28 | EXP.PAIN.SOA ---
[facility] Pain Management SOAP Note Subjective:: Patient is a pleasant 72-year-old male who presents today for medication refill and follow-up. We are currently treating the patient for degenerative disc disease of lumbar spine with lumbar radiculopathy symptoms. Today he rates his pain a 2 out of 10. Patient denies any new trauma or injury. Patient denies any change location or type of pain he experiences. Patient does typically do lumbar epidurals approximately every 5 to 6 months. His last epidural was in November. He did provide significant improvement of his symptoms. At this time the patient states he continues to do well overall and is not ready for a repeat injection. Patient is currently managed with gabapentin 300 mg 3 times a day from a outside provider. We do prescribe the patient Celebrex 200 mg twice daily. Patient denies any side effects from this medication. He states this medication does provide significant improvement. Patient does have a history of a cervical fusion in 2019 and has been to see his neurosurgeon for his back related issues however he was told that based off his age and his specific issues that there was only about a 50% chance that he would get improvement. Patient has been going to physical therapy at the [facility] which does help additionally. Patient states that he continues to have some issues with his right hand including his thumb and index finger. Patient states that the [facility] had talked about sending him to a orthopedic doctor in the past however this never occurred. Patient has tried [id number] creams however these have not provided significant improvement. His Micah is [id number]. Its been reviewed and appropriate. Review of Systems: General: No recent weight changes, no fever, no sleep disturbances Respiratory: No cough, no shortness of air, no recurring pulmonary infections Cardiovascular/peripheral vascular: No chest pain, no palpitations, no edema, no shortness of breath Gastrointestinal: No new onset incontinence, normal bowel movements reported Genitourinary: No new onset incontinence Musculoskeletal: Low back pain, leg pain Psychiatric: [Normal mood/affect] Neurological: [Denies weakness in extremities], [denies balance issues] Objective:: Physical Exam: General: Alert and oriented x3, no acute distress, pleasant and cooperative Lungs: Respirations even and unlabored, symmetrical chest expansion Eyes: PERRL Musculoskeletal: Flexion and extension of lumbar [spine] somewhat guarded secondary to pain, [antalgic gait noted] Neurological: Speech clear, no gross sensory deficit ORT score updated with no risk of 0 Assessment:: Degenerative disc disease of lumbar spine with lumbar radiculopathy symptoms Plan:: Patient has had continued relief with some of his low back pain into his legs from his previous lumbar epidural. At this time he does not need additional injective therapy. I will order the patient a compounding cream at today's visit. I will refill the patient's Celebrex 200 mg twice daily and provide a 2-month supply of this medication. I have discussed with the patient that I can send him for a referral for an orthopedic doctor to evaluate his possible right trigger finger syndrome. Patient agrees with this plan of care. I will send a referral for Jw Herrera. Patient will return to clinic in 2 months for reevaluation of symptoms, medication refill and follow-up. Patient has been instructed to contact the clinic with any concerns before the next appointment. Dr. Madera has reviewed this note and agrees with this plan of care. This note was dictated using voice recognition software and make contain errors or omissions. [facility] Disclaimer: The information contained in this section may have been updated after the patient was seen, as this information can be updated by other users. Social History Smoking Status: Former smoker pack-years: 30 second hand exposure: Yes alcohol intake: never [place]
== END | disposition home or self-care (01) ==
PROVIDERS: PCP Internal Medicine Adolescent Medicine; Visit Provider Nurse Practitioner Family
DX: M51.16 Intervertebral disc disorders with radiculopathy, lumbar region (principal)
CPT/HCPCS: 99212; G0463

== ENCOUNTER → 2022-07-18 09:59 | Outpatient (POV) | payer MEDICARE, OTHER, SELFPAY ==
[2022-07-18 10:29] VITALS: BP 118/63; PULSE 83; RESP 18; O2SAT 98; BMI 26.4
--- NOTE | 2022-07-18 10:33 | EXP.PAIN.SOA ---
[facility] Pain Management SOAP Note Subjective:: Patient is a pleasant 72-year-old male who presents today for medication refill and follow-up. We are currently treating the patient for degenerative disc disease of lumbar spine with lumbar radiculopathy symptoms, right hand pain. Today he rates his pain a 3 out of 10. He does state his pain is in his low back and right shoulder. He describes this as a aching, throbbing sensation that is worse at night with limited range of motion. He does state his shoulder pain interferes with his ability to perform activities of daily living such as cooking and cleaning or simply getting dressed. He does state he is typically a right-sided sleeper and this causes worsening pain symptoms. Patient denies any new injury or trauma. Patient denies any change location or type of pain he experiences. at our last visit he did have more hand pain however he was prescribed compounding cream and he states this did provide additional improvement. He was referred to a hand specialist who did start doing injections into his right hand approximately 2 weeks ago. He states he has had significant improvement and has not even needed to use the compounding cream. He is prescribed gabapentin 300 mg 3 times a day from an outside provider. Patient denies any side effects from this medication. We also prescribed Celebrex 200 mg twice a day. Patient does state this helps with his overall symptoms. He states the lumbar epidurals that we have been doing for his back have significantly helped his pain. He does state that he will occasionally still have left weakness that is more prominent along the left side. He states he will just be walking and all of a sudden his leg gives out. Patient has been seen at the [place] as well as had physical therapy last summer they both determined he was at high risk for falls due to this issue. His Micah is [id number]. Its been reviewed and appropriate. Review of Systems: General: No recent weight changes, no fever, no sleep disturbances Respiratory: No cough, no shortness of air, no recurring pulmonary infections Cardiovascular/peripheral vascular: No chest pain, no palpitations, no edema, no shortness of breath Gastrointestinal: No new onset incontinence, normal bowel movements reported Genitourinary: No new onset incontinence Musculoskeletal: Right shoulder pain Psychiatric: [Normal mood/affect] Neurological: [Denies weakness in extremities], [denies balance issues] Objective:: Physical Exam: General: Alert and oriented x3, no acute distress, pleasant and cooperative Lungs: Respirations even and unlabored, symmetrical chest expansion Eyes: PERRL Musculoskeletal: Flexion and extension of right shoulder somewhat guarded secondary to pain, [antalgic gait noted] Neurological: Speech clear, no gross sensory deficit Assessment:: Degenerative disc disease of lumbar spine with lumbar radiculopathy symptoms, right hand pain, right shoulder pain Plan:: Patient is experiencing significant pain in his right shoulder with limited range of motion. I have discussed with the patient that he may benefit from a right intra-articular shoulder injection. Risk and benefits were discussed with the patient and he would like to proceed forward with this plan of care. I have discussed with the patient that if he does not get significant relief with this injection we will proceed forward with ordering additional imaging. I have also counseled the patient that it may be beneficial to get a cane for an assistive device related to his occasional left leg weakness and falls. I will also refill his Celebrex 200 mg twice daily. Patient will be scheduled for a right shoulder intra-articular injection. Patient has been instructed to contact the clinic with any concerns before the next appointment. Dr. Madera has reviewed this note and agrees with this plan of care. This note was dictated using voice recognition software and make contain errors or
== END | disposition home or self-care (01) ==
PROVIDERS: PCP Internal Medicine Adolescent Medicine; Visit Provider Nurse Practitioner Family
DX: M51.16 Intervertebral disc disorders with radiculopathy, lumbar region (principal); M25.511 Pain in right shoulder; M79.641 Pain in right hand
CPT/HCPCS: 99212; G0463

== ENCOUNTER 2022-07-26 13:03 | Day surgery (SDC) | payer MEDICARE, OTHER, SELFPAY ==
[2022-07-26 13:26] VITALS: BP 130/57; PULSE 73; RESP 18; TEMP 36.6; O2SAT 96; BMI 26.4
[2022-07-26 14:00] VITALS: BP 125/62; PULSE 65; RESP 18; O2SAT 96
--- NOTE | 2022-07-26 14:15 | P.PCN_ITS ---
Procedure Date: 07/26/22 Time: 13:50 Anesthesiologist:: Carlito Arechiga CRNA Complications:: None Pre-procedure Diagnosis:: Right intra-articular shoulder injection. Post-procedure Diagnosis:: Same Indications for Procedure:: Very pleasant 72-year-old male that comes our clinic today for right intra- articular shoulder injection. Patient has limited range of motion due to pain. However, he has good strength in the right arm. Procedure Details:: Details of the procedure were explained to the patient. The patient taken the procedure room placed in sitting position. The area over the posterior right shoulder was cleaned using chlorhexidine as a cleansing solution. Using a 22- gauge inch and a half needle the right shoulder joint was accessed with ease from the posterior approach. After negative aspiration a cc of a solution containing 0.25% Marcaine and 1% lidocaine and 40 mg of Depo-Medrol was injected. Patient tolerated procedure without difficulty. No complications. Plan and Disposition:: Patient was discharged without incident.
== END 2022-07-26 14:00 | disposition home or self-care (01) ==
LOC: SC.PAINP 13:03
PROVIDERS: PCP Internal Medicine Adolescent Medicine; Visit Provider Nurse Anesthetist, Certified Registered
DX: M25.511 Pain in right shoulder (principal); M51.16 Intervertebral disc disorders with radiculopathy, lumbar region; M79.641 Pain in right hand
CPT/HCPCS: 20610; J1040

== ENCOUNTER → 2022-08-11 12:49 | Outpatient (POV) | payer MEDICARE, OTHER, SELFPAY ==
--- NOTE | 2022-08-11 13:05 | EXP.PAIN.SOA ---
[facility] Pain Management SOAP Note Subjective:: Patient is a pleasant 72-year-old male who presents today for follow-up of right shoulder intra-articular injection on 07/26/2022. We are currently treating the patient for degenerative disc disease of lumbar spine with lumbar radiculopathy symptoms, right hand pain, right shoulder pain.? Today he rates his pain a 0 out of 10.? He states he had approximately improvement following this injection. He states that he has 0 pain throughout the day and if he does wake up in the middle of the night with pain it is very minimal and much more tolerable than it was prior. He is currently prescribed compounding cream and Celebrex 200 mg twice a day and gabapentin 300 mg 3 times a day from an outside provider. Patient denies any side effects from this medication. He does state that he has recently had injections into his hand that did provide significant relief. He has not been having to even use the cream due to his decreased pain. He does state that he just started back physical therapy today and is a little bit more sore. Patient is using a cane for ambulation and states he has not had any additional falls from our last visit. His Micah is [phone]. Its been reviewed and appropriate. Review of Systems: General: No recent weight changes, no fever, no sleep disturbances Respiratory: No cough, no shortness of air, no recurring pulmonary infections Cardiovascular/peripheral vascular: No chest pain, no palpitations,? no edema, no shortness of breath Gastrointestinal: No new onset incontinence, normal bowel movements reported Genitourinary: No new onset incontinence Musculoskeletal: Right shoulder pain, low back pain Psychiatric: [Normal mood/affect] Neurological: [Denies weakness in extremities], [denies balance issues] Objective:: Physical Exam: General: Alert and oriented x3, no acute distress, pleasant and cooperative Lungs: Respirations even and unlabored, symmetrical chest expansion Eyes: PERRL Musculoskeletal: Flexion and extension of lumbar [spine] somewhat guarded secondary to pain, [antalgic gait noted] Neurological: Speech clear, no gross sensory deficit Assessment:: Degenerative disc disease of lumbar spine with lumbar radiculopathy symptoms, right hand pain, right shoulder pain Plan:: Patient has had significant improvement following his right shoulder intra-articular injection and does not require any additional injective therapy. At this time he does not need any refills on his Celebrex. Patient will return to clinic in 1 month for reevaluation of symptoms possible medication refill and follow-up. Patient has been instructed to contact the clinic with any concerns before the next appointment. Dr. Madera has reviewed this note and agrees with this plan of care. This note was dictated using voice recognition software and make contain errors or omissions. [facility] Disclaimer: The information contained in this section may have been updated after the patient was seen, as this information can be updated by other users. Social History Smoking Status: Former smoker pack-years: 30 second hand exposure: Yes alcohol intake: never substance use type: denies use current occupational status: retired Travel in the last 8 weeks: None household members: spouse housing: house current occupational exposures/hazards: No caffeine: Yes
[2022-08-11 13:30] VITALS: BP 109/73; PULSE 70; RESP 18; O2SAT 98; BMI 26.4
== END ==
PROVIDERS: PCP Internal Medicine Adolescent Medicine; Visit Provider Nurse Practitioner Family
DX: M51.16 Intervertebral disc disorders with radiculopathy, lumbar region (principal); M25.511 Pain in right shoulder; M79.641 Pain in right hand
CPT/HCPCS: 99212; G0463

== ENCOUNTER → 2022-09-08 13:19 | Outpatient (POV) | payer MEDICARE, OTHER, SELFPAY ==
[2022-09-08 13:38] VITALS: BP 106/64; PULSE 72; RESP 18; O2SAT 97; BMI 26.0
--- NOTE | 2022-09-08 13:54 | EXP.PAIN.SOA ---
[facility] Pain Management SOAP Note Subjective:: Patient is a pleasant 72-year-old male who presents today for follow-up. We are currently treating the patient for degenerative disc disease of lumbar spine with lumbar radiculopathy symptoms, right hand pain, right shoulder pain. Today he rates his pain a 3 out of 10. Patient denies any new trauma or injury. Patient denies any change location or type of pain he experiences. Patient states he is starting to have more low back pain. He previously had a lumbar epidural steroid injection back in November 2021 that did provide significant relief of at least 70 to 80% lasting up until the last couple of weeks. Patient does describe this as an aching, throbbing sensation that is worse with increased activity or certain positioning. He does state the pain interferes with his ability to perform activities of daily living such as cooking and cleaning. Patient states that he has also noticed additional symptoms into his legs and does use a cane for ambulation. He also states that he has had some additional pain in his right shoulder but he does believe it is related to his cane use along that side. Patient states that he continues to be managed with Celebrex 200 mg twice a day and gabapentin 300 mg 3 times a day from an outside provider. He also has compounding cream. Patient denies any side effects from these medications. He is currently in physical therapy and states he has had some improvement. Patient states he is scheduled for cataract surgery on October 03 and October 07 with [facility] surgery. Patient is not on any scheduled medications. His Micah is [id number]. Its been reviewed and appropriate. Review of Systems: General: No recent weight changes, no fever, no sleep disturbances Respiratory: No cough, no shortness of air, no recurring pulmonary infections Cardiovascular/peripheral vascular: No chest pain, no palpitations, no edema, no shortness of breath Gastrointestinal: No new onset incontinence, normal bowel movements reported Genitourinary: No new onset incontinence Musculoskeletal: Low back pain, right shoulder pain Psychiatric: [Normal mood/affect] Neurological: [Denies weakness in extremities], [denies balance issues] Objective:: Physical Exam: General: Alert and oriented x3, no acute distress, pleasant and cooperative Lungs: Respirations even and unlabored, symmetrical chest expansion Eyes: PERRL Musculoskeletal: Flexion and extension of lumbar [spine] somewhat guarded secondary to pain, [antalgic gait noted] Neurological: Speech clear, no gross sensory deficit Assessment:: Degenerative disc disease of lumbar spine with lumbar radiculopathy symptoms, right hand pain, right shoulder pain Plan:: Patient is experiencing significant pain in his low back with limited range of motion. I have discussed with the patient that he may benefit from lumbar epidural steroid injection. Risk and benefits were discussed with the patient and he would like to proceed forward with this plan of care. Patient is not on any blood thinners. Patient previously had a lumbar epidural steroid injection that provided 70 to 80% relief lasting approximately 8 months. Patient has tried and failed conservative therapy such as oral medications, heat and ice, topicals, physical therapy, at home exercising and stretching for longer than 6 weeks. I have counseled the patient to contact [facility] eye surgery and confirm that there are no contraindications from this injection for his upcoming surgery. Patient states he will contact our office and let us know if he needs to reschedule this injection. We will schedule him for an LESI L4-L5. Patient has been instructed to contact the clinic with any concerns before the next appointment. Dr. Madera has reviewed this note and agrees with this plan of care. This note was dictated using voice recognition software and make contain errors or omissions. [facility] Disclaimer: The information
== END | disposition home or self-care (01) ==
PROVIDERS: PCP Internal Medicine Adolescent Medicine; Visit Provider Nurse Practitioner Family
DX: M51.16 Intervertebral disc disorders with radiculopathy, lumbar region (principal); M25.511 Pain in right shoulder; M79.641 Pain in right hand
CPT/HCPCS: 99212; G0463

== ENCOUNTER 2022-09-13 13:29 | Day surgery (SDC) | payer MEDICARE, OTHER, SELFPAY ==
[2022-09-13 13:37] VITALS: BP 133/68; PULSE 69; RESP 18; TEMP 36.5; O2SAT 96; BMI 26.4
[2022-09-13 13:44] VITALS: BP 125/57; PULSE 75; RESP 18; O2SAT 99
[2022-09-13 13:46] VITALS: BP 125/57; PULSE 75; RESP 18; O2SAT 99
[2022-09-13 13:49] VITALS: BP 123/59; PULSE 68; RESP 18; O2SAT 96
--- NOTE | 2022-09-13 13:49 | P.PCN_ITS ---
Procedure Date: 09/13/22 Time: 13:40 Anesthesiologist:: Carlito Arechiga CRNA Complications:: None Pre-procedure Diagnosis:: Degenerative disc disease lumbar spine multilevels. Lumbar radiculopathy. Post-procedure Diagnosis:: Same. Indications for Procedure:: Patient is a pleasant 72-year-old male comes our clinic today for therapeutic lumbar epidural steroid injection at the L4-5 level. Patient has had significant improvement terms of his overall symptoms with previous injections. He reports significant improvement in terms of his low back pain as well as bilateral hip and leg radicular symptoms Procedure Details:: Procedure: Lumbar epidural steroid injection under fluoroscopy Informed consent was obtained and the risks and benefits of the procedure were explained to the patient. The patient was taken to the procedure room and n oninvasive monitors placed, including noninvasive blood pressure cuff and pulse oximeter. The back was viewed using C-arm Fluoroscopy and prepped using Chloraprep as a cleansing solution and the L4-L5 interspace was palpated. Skin and subcutaneous tissues were anesthetized using lidocaine 1.5% and a 25-gauge needle. After this, an 18-gauge Touhy epidural needle was placed into the L4-L5 interspace and advanced using fluoroscopic guidance and loss of resistance to air until the epidural space was encountered. After confirmation of needle placement in the epidural space, with dye, a solution containing normal saline, 3 mL and Depo-Medrol 80 mg were incrementally injected into the lumbar epidural space. The patient tolerated the procedure well with no complications. The patient was observed in the Pain Clinic and then discharged home neurologically intact. Plan and Disposition:: Patient was discharged without incident.
== END 2022-09-13 13:49 | disposition home or self-care (01) ==
PROVIDERS: PCP Internal Medicine Adolescent Medicine; Visit Provider Nurse Anesthetist, Certified Registered
DX: M51.16 Intervertebral disc disorders with radiculopathy, lumbar region (principal)
CPT/HCPCS: 62323; J1040

== ENCOUNTER → 2022-10-05 09:25 | Outpatient (POV) | payer MEDICARE, OTHER, SELFPAY ==
[2022-10-05 09:32] VITALS: BP 112/59; PULSE 82; RESP 18; O2SAT 98; BMI 26.4
--- NOTE | 2022-10-05 09:42 | EXP.PAIN.SOA ---
[facility] Pain Management SOAP Note Subjective:: Patient is a pleasant 72-year-old male who presents today for follow-up of lumbar epidural steroid injection on 09/13/2022. We are currently treating the patient for degenerative disc disease of the lumbar spine with lumbar radiculopathy symptoms, right hand pain, right shoulder pain. Today he rates his pain a 2 out of 10. Patient denies any new trauma or injury. Patient denies any change in location or type of pain he experiences. Patient states that he has had at least 50% improvement following this injection and feels like it is still continuing to provide relief. He states he has been able to increase his activity and do things around the house with less pain symptoms. Patient does use a cane for ambulation for previous history of falls. He is currently managed with Celebrex 200 mg twice a day and gabapentin 300 mg 3 times a day from an outside provider. His Micah is [id number]. Its been reviewed and appropriate. Review of Systems: General: No recent weight changes, no fever, no sleep disturbances Respiratory: No cough, no shortness of air, no recurring pulmonary infections Cardiovascular/peripheral vascular: No chest pain, no palpitations, no edema, no shortness of breath Gastrointestinal: No new onset incontinence, normal bowel movements reported Genitourinary: No new onset incontinence Musculoskeletal: Low back pain Psychiatric: [Normal mood/affect] Neurological: [Denies weakness in extremities], [denies balance issues] Objective:: Physical Exam: General: Alert and oriented x3, no acute distress, pleasant and cooperative Lungs: Respirations even and unlabored, symmetrical chest expansion Eyes: PERRL Musculoskeletal: Flexion and extension of lumbar [spine] somewhat guarded secondary to pain, [antalgic gait noted] Neurological: Speech clear, no gross sensory deficit Assessment:: Degenerative disc disease of lumbar spine with lumbar radiculopathy symptoms, right hand pain, right shoulder pain Plan:: Patient has had significant improvement following his epidural injection and does not require any additional injective therapy at this time. Patient will return to clinic in 2 months for reevaluation of symptoms and plan of care. Patient has been instructed to contact the clinic with any concerns before the next appointment. Dr. Madera has reviewed this note and agrees with this plan of care. This note was dictated using voice recognition software and make contain errors or omissions. [facility] Disclaimer: The information contained in this section may have been updated after the patient was seen, as this information can be updated by other users. Medical History (Updated 09/13/22 @ 13:44 by Justina Lee RN) Arthritis Hyperlipemia Nerve pain Sinus problem Surgical History (Updated 09/13/22 @ 13:44 by Justina Lee RN) History of fusion of cervical spine History of left knee replacement History of nasal septoplasty History of prostate surgery S/P hernia surgery Family History (Updated 09/13/22 @ 13:44 by Jutsina Lee RN) Other No significant family history Social History (Updated 09/13/22 @ 13:45 by Justina Lee RN) Smoking Status: Former smoker pack-years: 30 second hand exposure: Yes alcohol intake: never substance use type: denies use current occupational status: retired Travel in the last 8 weeks: None household members: spouse housing: house current occupational exposures/hazards: No caffeine: Yes
== END ==
PROVIDERS: PCP Internal Medicine Adolescent Medicine; Visit Provider Nurse Practitioner Family
DX: M51.16 Intervertebral disc disorders with radiculopathy, lumbar region (principal); M25.511 Pain in right shoulder; M79.641 Pain in right hand
CPT/HCPCS: 99212; G0463

== ENCOUNTER → 2022-11-30 11:28 | Outpatient (POV) | payer MEDICARE, OTHER, SELFPAY ==
--- NOTE | 2022-11-30 11:59 | EXP.PAIN.SOA ---
[facility] Pain Management SOAP Note Subjective:: Patient is a pleasant 72-year-old male who presents today for follow-up. We are currently treating the patient for degenerative disc disease of the lumbar spine with lumbar radiculopathy symptoms, right hand pain, right shoulder pain. Today he rates his pain a 5 out of 10. Patient denies any new trauma or injury. Patient denies any change location or type of pain he experiences. He does state that his pain is more in his knuckle and low back with radiating symptoms into his legs. Patient does describe this as an aching, throbbing sensation that is worse with increased activity. He does state that his knuckle will cause sharp shooting sensations. Patient has previously had injections into that digit by [facility] in [place] that did provide significant relief. Patient has had lumbar epidurals from our office that have done upwards of 50% improvement or more lasting several months for his back pain. He does state the pain interferes with his ability perform activities of daily living such as cooking and cleaning. He is interested in possibly scheduling another epidural at today's visit. Patient is currently managed with Celebrex twice a day 200 mg and gabapentin 300 mg 3 times a day from an outside provider. His Micah is [id number]. Its been reviewed and appropriate. Review of Systems: General: No recent weight changes, no fever, no sleep disturbances Respiratory: No cough, no shortness of air, no recurring pulmonary infections Cardiovascular/peripheral vascular: No chest pain, no palpitations, no edema, no shortness of breath Gastrointestinal: No new onset incontinence, normal bowel movements reported Genitourinary: No new onset incontinence Musculoskeletal: Low back pain, leg pain Psychiatric: [Normal mood/affect] Neurological: [Denies weakness in extremities], [denies balance issues] Objective:: Physical Exam: General: Alert and oriented x3, no acute distress, pleasant and cooperative Lungs: Respirations even and unlabored, symmetrical chest expansion Eyes: PERRL Musculoskeletal: Flexion and extension of lumbar [spine] somewhat guarded secondary to pain, [antalgic gait noted] Neurological: Speech clear, no gross sensory deficit Assessment:: Degenerative disc disease of lumbar spine with lumbar radiculopathy symptoms, right hand pain, right shoulder pain Plan:: Patient is starting to experience worsening pain in his low back and legs with limited range of motion. I have discussed with the patient that he may benefit from a repeat lumbar epidural steroid injection. Risk and benefits were discussed with the patient and he would like to proceed forward with this plan of care. Patient is not on any blood thinners. I have counseled the patient to contact [facility] to see about scheduling for another knuckle injection. Patient will be scheduled for an LESI L4-L5. Patient has been instructed to contact the clinic with any concerns before the next appointment. Dr. Madera has reviewed this note and agrees with this plan of care. This note was dictated using voice recognition software and make contain errors or omissions. [facility] Disclaimer: The information contained in this section may have been updated after the patient was seen, as this information can be updated by other users. Medical History (Updated 09/13/22 @ 13:44 by Justina Lee RN) Arthritis Hyperlipemia Nerve pain Sinus problem Surgical History (Updated 09/13/22 @ 13:44 by Justina Lee RN) History of fusion of cervical spine History of left knee replacement History of nasal septoplasty History of prostate surgery S/P hernia surgery Family History (Updated 09/13/22 @ 13:44 by Justina Lee RN) Other No significant family history Social History (Updated 09/13/22 @ 13:45 by Justina Lee RN) Smoking Status: Former smoker pack-years: 30 second hand exposure: Yes alcohol
[2022-11-30 14:48] VITALS: BP 114/58; PULSE 59; RESP 18; O2SAT 97; BMI 26.5
== END ==
PROVIDERS: Visit Provider Nurse Practitioner Family
DX: M51.16 Intervertebral disc disorders with radiculopathy, lumbar region (principal); M79.641 Pain in right hand; M25.511 Pain in right shoulder
CPT/HCPCS: 99212; G0463

== ENCOUNTER → 2022-12-21 08:34 | Outpatient (POV) | payer MEDICARE, OTHER, SELFPAY ==
--- NOTE | 2022-12-21 08:47 | EXP.PAIN.SOA ---
[facility] Pain Management SOAP Note Subjective:: Patient is a pleasant 72-year-old male who presents today for follow-up. We are currently treating the patient for degenerative disc disease of lumbar spine with lumbar radiculopathy symptoms, right hand pain, right shoulder pain/osteoarthritis. Today he rates his pain a 5 out of 10. He denies any new injury or trauma or change to location or type of pain he experiences. He does state that his shoulder has been bothering him more for the last couple of months. Patient does believe it is partly related to his cane use where he is right-handed and he puts a lot more pressure on this joint. Patient has previously had injective therapy into the shoulder that provided almost 100% relief lasting several months. Patient is interested in repeating this injection. Patient does state he has limited range of motion and pain interferes with his ability perform activities of daily living such as cooking or cleaning. Patient is currently managed with Celebrex twice a day 200 mg and gabapentin 300 mg 3 times a day. His Micah is [id number]. Its been reviewed and appropriate. Review of Systems: General: No recent weight changes, no fever, no sleep disturbances Respiratory: No cough, no shortness of air, no recurring pulmonary infections Cardiovascular/peripheral vascular: No chest pain, no palpitations, no edema, no shortness of breath Gastrointestinal: No new onset incontinence, normal bowel movements reported Genitourinary: No new onset incontinence Musculoskeletal: Right shoulder Psychiatric: [Normal mood/affect] Neurological: [Denies weakness in extremities], [denies balance issues] Objective:: Physical Exam: General: Alert and oriented x3, no acute distress, pleasant and cooperative Lungs: Respirations even and unlabored, symmetrical chest expansion Eyes: PERRL Musculoskeletal: Flexion and extension of right shoulder somewhat guarded secondary to pain, [antalgic gait noted] Neurological: Speech clear, no gross sensory deficit Assessment:: Degenerative disc disease of lumbar spine with lumbar radiculopathy symptoms, right hand pain, right shoulder pain/osteoarthritis Plan:: Patient is experiencing worsening pain in his right shoulder with limited range of motion. I have discussed with the patient that he may benefit from a right shoulder intra-articular injection. Risk and benefits were explained to the patient and he would like to proceed forward with this option. We will schedule the patient for a right shoulder intra-articular injection. Patient has been instructed to contact the clinic with any concerns before the next appointment. Dr. Madera has reviewed this note and agrees with this plan of care. This note was dictated using voice recognition software and make contain errors or omissions. [facility] Disclaimer: The information contained in this section may have been updated after the patient was seen, as this information can be updated by other users. Medical History (Updated 09/13/22 @ 13:44 by Justina Lee RN) Arthritis Hyperlipemia Nerve pain Sinus problem Surgical History (Updated 09/13/22 @ 13:44 by Justina Lee RN) History of fusion of cervical spine History of left knee replacement History of nasal septoplasty History of prostate surgery S/P hernia surgery Family History (Updated 09/13/22 @ 13:44 by Justina Lee RN) Other No significant family history Social History (Updated 09/13/22 @ 13:45 by Justina Lee RN) Smoking Status: Former smoker pack-years: 30 second hand exposure: Yes alcohol intake: never substance use type: denies use current occupational status: retired Travel in the last 8 weeks: None household members: spouse housing: house current occupational exposures/hazards: No caffeine: Yes
[2022-12-21 10:08] VITALS: BP 125/82; PULSE 70; RESP 18; O2SAT 98; BMI 25.7
== END ==
PROVIDERS: PCP Internal Medicine Adolescent Medicine; Visit Provider Nurse Practitioner Family
DX: M51.16 Intervertebral disc disorders with radiculopathy, lumbar region (principal); M79.641 Pain in right hand; M19.011 Primary osteoarthritis, right shoulder; M25.511 Pain in right shoulder
CPT/HCPCS: 99212; G0463

== ENCOUNTER 2022-12-23 08:00 | Outpatient (RCR) | payer MEDICARE, OTHER, SELFPAY ==
--- NOTE | 2022-08-11 10:15 | HMH.PTOPEV ---
PT Outpatient Evaluation Rehab PT Outpatient Evaluation Start: 08/11/22 09:48 Freq: Status: Active Protocol: Document 08/11/22 09:48 WILLIAN (Rec: 08/11/22 10:15 WILLIAN [id number]) E-signed By Blu Calderón, PT Outpatient Therapy Subjective History Subjective History Pt reports h/o recent falls d/ t weakness in b/l LE's. Pt reports h/o chronic LBP, with severe b/l LE radicular s/s including N&T, pain, and weakness, 'which I'm sure contribute to my falls.' Pt reports mild intermittent tremors in b/l UE and LE's, ' but they say it isn't Parkinson's.' Pt reports lumbar spine 'has two slipped vertebrae, but the surgery to fix is very long without any assurance of good outcome.' PMH: cervical fusion Chief Complaint Pain,Gives out/Unstable, Paresthesia,Weakness,Decreased Coordination Symptom Type Ache,Sharp,Dull,Stabbing, Numbness,Tingling Symptoms Relieved By Rest/Positioning,OTC Meds, Prescription Meds Symptoms Aggravated By Standing,Physical Activity, Walking Prior Functional Limitations Housework,Standing,Recreation Activity,Walking,Stairs, Balance Current Functional Limitations Housework,Standing,Recreation Activity,Walking,Stairs, Balance Symptom Description Constant but Variable Level of pain today (0-10) 3 Pain scale - at its best (0-10) 2 Pain scale - at its worst (0-10) 8 Hip/Knee Eval Gait Observation General Gait Pattern Observation Ataxic Gait,Trunk Posterior to MATY Assistive Device Assistive Devices Straight Cane MMT bilateral Hip Flexion Strength Grade 3+ Fair+ Hip Abduction Strength Grade 3+ Fair+ Hip Adduction Strength Grade 3+ Fair+ Hip Extension Strength Grade 3+ Fair+ Hip External Rotation Strength Grade 3+ Fair+ Hip Internal Rotation Strength Grade 3+ Fair+ Knee Extension Strength Grade 4- Good- Knee Flexion Strength Grade 4- Good- Ankle/Foot Eval MMT left Ankle Dorsiflexion Strength Grade 3+ Fair+ right Ankle Dorsiflexion Strength Grade 4- Good- Balance Eval Hx of Falls Hx Falls
--- NOTE | 2022-09-13 09:28 | HMH.RHREAS ---
Rehab Reassessment Rehab OP Re-assessment Start: 09/13/22 09:17 Freq: Status: Active Protocol: Document 09/13/22 09:17 LUANA (Rec: 09/13/22 09:27 PHOFRANKLIN [id number]) E-signed By Angel Rodriguez, PT Rehab Re-assessment Subjective Subjective Pt reports he continues to feel unsteady with dynamic standing balance and gait activities. I just feel like my legs give out sometimes. Objective Objective Notes Pain: 3/10 with prolonged ambulation. TU sec. Tinetti Balance Assessment: MMT: B LE grossly 4/5 throughout. Assessment Progress Assessment Progressing as Expected Assessment Notes Pt has shown significant improvements with TUG scores and Tinetti scores which would denote an improvement in dynamic gait balance. However, these scores remain lower than the norm and show a continued increased risk of falls. He continues to need skilled intervention to return to prior level of function with all ADL and safe gait ability. Patient goals met ST,2,3,4,5,6,7,8 Goals Not Met LT,2,3,4,5,6,7,8 Revised Goals none Plan Plan Continue per initial POC. Frequency of Therapy 2-3 x/wk Duration of therapy 4 wks Time and Billing Re-Eval Time 17 Re-Eval Billing Units 0 PHYSICIAN CERTIFICATION: I certify the specified therapy services for Carlos Mckeon are required, authorized, and reviewed every 30 days.
--- NOTE | 2022-10-25 09:44 | HMH.RHREAS ---
Rehab Reassessment Rehab OP Re-assessment Start: 09/13/22 09:17 Freq: Status: Active Protocol: Document 10/25/22 09:04 LENYHARINDER (Rec: 10/25/22 09:43 LENYHARINDER [id number]) E-signed By Blu Calderón, PT Rehab Re-assessment Subjective Subjective Pt reports absence from skilled P.T. d/t cataract sx. and appropriate recovery. Pt reports some regression in balance, strength, and endurance during this recovery time, but reports no falls. Pt also reports continuing LBP @ 3/10 on VAS. Objective Objective Notes TU sec w/SC Tinetti Balance Assessment: MMT: B LE grossly 4/5 throughout Assessment Progress Assessment Slower Than Expected Assessment Notes Slight regressions noted in tinetti and TUG score(s) which area attributed to absence in skilled P.T. d/t aforementioned eye procedure Patient goals met ST,2,3,4,5,6,7,8 Goals Not Met LT,2,3,4,5,6,7,8 Plan Plan Pt to continue w/skilled P.T. to make further improvements in balance, strength, and gait to allow for optimal function Frequency of Therapy 1-2x/wk Duration of therapy 3-5wks Time and Billing Re-Eval Time 11 Re-Eval Billing Units 0 PHYSICIAN CERTIFICATION: I certify the specified therapy services for Carlos Mckeon are required, authorized, and reviewed every 30 days.
--- NOTE | 2022-11-28 08:25 | HMH.RHREAS ---
Rehab Reassessment Rehab OP Re-assessment Start: 09/13/22 09:17 Freq: Status: Active Protocol: Document 11/28/22 08:12 LENYHARINDER (Rec: 11/28/22 08:24 LENYHARINDER [id number]) E-signed By Blu Calderón, PT Rehab Re-assessment Subjective Subjective Pt reports improved endurance and stability w/ambulation at home and in community, and ' even though I'm using my cane a bit more, I feel better and safer overall.' Objective Objective Notes TU sec w/SC Tinetti Balance Assessment: MMT: B LE grossly / throughout Assessment Progress Assessment Progressing as Expected Assessment Notes improved tinetti,TUG Patient goals met STG'S 12/06, LTG'S 08/06 Goals Not Met LTG'S 08/06 Plan Plan Pt to continue w/skilled P.T. to make further improvements in balance, strength, and gait to allow for optimal function Frequency of Therapy 1-2X/WK Duration of therapy 2-4WKS Time and Billing Re-Eval Time 12 Re-Eval Billing Units 0 PHYSICIAN CERTIFICATION: I certify the specified therapy services for Carlos Mckeon are required, authorized, and reviewed every 30 days.
== END 2022-12-23 08:05 | disposition home or self-care (01) ==
LOC: PT 08:00
PROVIDERS: PCP Internal Medicine Adolescent Medicine; Visit Provider Internal Medicine Adolescent Medicine
DX: R27.0 Ataxia, unspecified (principal)
CPT/HCPCS: 97110; 97112; 97163; 97164; 97530

== ENCOUNTER 2023-01-03 08:14 | Day surgery (SDC) | payer MEDICARE, OTHER, SELFPAY ==
[2023-01-03 08:28] VITALS: BP 156/67; PULSE 86; RESP 18; TEMP 36.9; O2SAT 95; BMI 25.7
[2023-01-03 08:42] VITALS: BP 162/90; PULSE 78; RESP 18; O2SAT 97
[2023-01-03 08:43] VITALS: BP 162/90; PULSE 78; RESP 18; O2SAT 97
--- NOTE | 2023-01-03 08:50 | P.PCN_ITS ---
Procedure Date: 01/03/23 Time: 08:40 Anesthesiologist:: Carlito Arechiga CRNA Complications:: None Pre-procedure Diagnosis:: Osteoarthritis right shoulder. Chronic right shoulder pain. Post-procedure Diagnosis:: Same. Indications for Procedure:: Patient is a very pleasant 72-year-old male that comes our clinic today for repeat right intra-articular shoulder injection of cortisone. Patient had same injection 4 months ago with significant improvement terms of his overall right shoulder pain. Patient has 5/5 arm strength on the right. However, limited range of motion secondary to pain in the right shoulder joint. He rates his pain 7/10 Procedure Details:: Procedure Details: Right shoulder intra-articular injection Informed consent was obtained risk and benefits of the procedure were explained to the patient. Patient was taken to the procedure room. The right shoulder was prepped using ChloraPrep. A 25-gauge needle was used first anteriorly, laterally, and then posteriorly to inject 10 mL bupivacaine 0.25% and Depo- Medrol 40 mg. Patient tolerated procedure well with no complications. Plan and Disposition:: Patient was discharged without incident.
[2023-01-03 08:58] VITALS: BP 128/66; PULSE 71; RESP 20
== END 2023-01-03 08:59 | disposition home or self-care (01) ==
PROVIDERS: PCP Internal Medicine Adolescent Medicine; Visit Provider Nurse Anesthetist, Certified Registered
DX: M19.011 Primary osteoarthritis, right shoulder (principal); M25.511 Pain in right shoulder; G89.29 Other chronic pain
CPT/HCPCS: 20610; J1040

== ENCOUNTER 2023-01-10 08:57 | Day surgery (SDC) | payer MEDICARE, OTHER, SELFPAY ==
[2023-01-10 09:09] VITALS: BP 129/63; PULSE 67; RESP 18; TEMP 36.6; O2SAT 96; BMI 25.7
[2023-01-10 09:25] VITALS: BP 126/63; PULSE 68; RESP 18; O2SAT 94
[2023-01-10 09:26] VITALS: BP 126/63; PULSE 68; RESP 18; O2SAT 94
--- NOTE | 2023-01-10 09:28 | EXP.PAIN.PRO ---
Procedure Date: 01/10/23 Time: 09:20 Anesthesiologist:: Carlito Arechiga CRNA Complications:: None Pre-procedure Diagnosis:: Degenerative disease lumbar spine multilevels. Lumbar radiculopathy. Lumbar postlaminectomy syndrome Post-procedure Diagnosis:: Same. Indications for Procedure:: Patient is a very pleasant 72-year-old male that comes our clinic today for repeat lumbar epidural steroid injection at the L4-5 level. Patient describes low back pain as constant, dull, achy. He also reports bilateral hip and leg radicular symptoms. He rates his pain 6/10. Patient has responded very well to previous lumbar epidural steroid injections at the same level. Procedure Details:: Procedure: Lumbar epidural steroid injection under fluoroscopy Informed consent was obtained and the risks and benefits of the procedure were explained to the patient. The patient was taken to the procedure room and noninvasive monitors placed, including noninvasive blood pressure cuff and pulse oximeter. The back was viewed using C-arm Fluoroscopy and prepped using Chloraprep as a cleansing solution and the L4-L5 interspace was palpated. Skin and subcutaneous tissues were anesthetized using lidocaine 1.5% and a 25-gauge needle. After this, an 18-gauge Touhy epidural needle was placed into the L4-L5 interspace and advanced using fluoroscopic guidance and loss of resistance to air until the epidural space was encountered. After confirmation of needle placement in the epidural space, with dye, a solution containing normal saline, 3 mL and Depo-Medrol 80 mg were incrementally injected into the lumbar epidural space. The patient tolerated the procedure well with no complications. The patient was observed in the Pain Clinic and then discharged home neurologically intact. Plan and Disposition:: Patient was discharged without incident.
[2023-01-10 09:35] VITALS: BP 119/61; PULSE 62; RESP 20
== END 2023-01-10 09:35 | disposition home or self-care (01) ==
PROVIDERS: PCP Internal Medicine Adolescent Medicine; Visit Provider Nurse Anesthetist, Certified Registered
DX: M51.16 Intervertebral disc disorders with radiculopathy, lumbar region (principal); M96.1 Postlaminectomy syndrome, not elsewhere classified
CPT/HCPCS: 62323

== ENCOUNTER → 2023-01-26 08:47 | Outpatient (POV) | payer MEDICARE, OTHER, SELFPAY ==
--- NOTE | 2023-01-26 08:53 | EXP.PAIN.SOA ---
[facility] Pain Management SOAP Note Subjective:: Patient is a pleasant 72-year-old male who presents today for follow-up of lumbar epidural L4-L5 on 01/10/2023. We are currently treating the patient for degenerative disc disease of lumbar spine with lumbar radiculopathy symptoms, right hand pain, right shoulder pain/osteoarthritis. Today he rates his pain a 1 out of 10. He denies any new injury or trauma or change to location or type of pain he experiences. He states he has had at least 70% improvement following this injection and it still providing additional relief. He states his right shoulder continues to do well. He does state that he has been to see a doctor at the [facility] and there just recommending that he continue to do the injections for as long as they are providing additional relief. He states that when he gets to the point that they are not doing as well and then they will discuss possible surgical intervention. He did also state that they had mentioned to him regarding the possibility of a ablation of his lumbar spine. He is scheduled for an upcoming MRI of his thoracic spine. Patient is currently managed with Celebrex twice a day 200 mg and gabapentin 300 mg 3 times a day. His Micah is [id number]. Its been reviewed and appropriate. Review of Systems: General: No recent weight changes, no fever, no sleep disturbances Respiratory: No cough, no shortness of air, no recurring pulmonary infections Cardiovascular/peripheral vascular: No chest pain, no palpitations, no edema, no shortness of breath Gastrointestinal: No new onset incontinence, normal bowel movements reported Genitourinary: No new onset incontinence Musculoskeletal: Low back pain Psychiatric: [Normal mood/affect] Neurological: [Denies weakness in extremities], [denies balance issues] Objective:: Physical Exam: General: Alert and oriented x3, no acute distress, pleasant and cooperative Lungs: Respirations even and unlabored, symmetrical chest expansion Eyes: PERRL Musculoskeletal: Flexion and extension of lumbar [spine] somewhat guarded secondary to pain, [antalgic gait noted] Neurological: Speech clear, no gross sensory deficit Assessment:: Degenerative disc disease of lumbar spine with lumbar radiculopathy symptoms, right hand pain, right shoulder pain/osteoarthritis Plan:: Patient is doing well following his lumbar epidural steroid injection and does not require any additional injective therapy at this time. I have discussed with the patient regarding the lumbar medial branch blocks and ablation. Risk and benefits were discussed with the patient and we will follow-up with this possibility at future visits. Patient will return to clinic in 1 month for reevaluation of symptoms and plan of care. Patient has been instructed to contact the clinic with any concerns before the next appointment. Dr. Madera has reviewed this note and agrees with this plan of care. This note was dictated using voice recognition software and make contain errors or omissions. [facility] Disclaimer: The information contained in this section may have been updated after the patient was seen, as this information can be updated by other users. Medical History Arthritis Hyperlipemia Nerve pain Sinus problem Surgical History History of fusion of cervical spine History of left knee replacement History of nasal septoplasty History of prostate surgery S/P hernia surgery Family History Other No significant family history Social History (Updated 01/10/23 @ 09:12 by Rayray Jerome RN) Smoking Status: Former smoker pack-years: 30 second hand exposure: Yes alcohol intake: never substance use type: denies use current occupational status: retired Travel in the last 8 weeks: None household members: spouse housing: house
[2023-01-26 08:56] VITALS: BP 144/69; PULSE 73; RESP 18; O2SAT 97; BMI 25.7
== END ==
PROVIDERS: PCP Internal Medicine Adolescent Medicine; Visit Provider Nurse Practitioner Family
DX: M51.16 Intervertebral disc disorders with radiculopathy, lumbar region (principal); M79.641 Pain in right hand; M19.011 Primary osteoarthritis, right shoulder; M25.511 Pain in right shoulder
CPT/HCPCS: 99212; G0463

== ENCOUNTER → 2023-02-06 08:18 | Outpatient (CLI) | payer MEDICARE, OTHER, SELFPAY ==
--- NOTE | 2023-02-06 08:23 | MR_ITS ---
FINAL REPORT CLINICAL HISTORY: THORACIC MYELOPATHY, back pain, trouble walking FINDINGS: Multiplanar MR imaging of the thoracic spine was performed without contrast. On the sagittal T2-weighted images, disc degeneration is seen throughout. There is no evidence of fracture. The vertebral alignment is normal. The thoracic spinal cord has an unremarkable appearance without evidence of mass, edema or syrinx. There is no evidence of significant canal stenosis or cord compression. On the axial images, mild disc bulges and small osteophytes are seen at multiple levels. No focal soft disc protrusion is identified. There is no evidence of significant canal stenosis or cord compression. No paraspinous soft tissue abnormality is identified. IMPRESSION: Multilevel mild degenerative disc disease and spondylosis. No focal soft disc protrusion or significant central canal stenosis. Reviewed, Interpreted and Dictated by Eric Méndez III, MD Transcribed by Jessica Goss Authenticated and . [facility]
--- NOTE | 2023-02-06 08:23 | MR_ITS ---
FINAL REPORT CLINICAL HISTORY: LUMBAR RADICULOPATHY, low back pain, trouble walking COMPARISON: 03/17/2021 FINDINGS: Multiplanar MR imaging of the lumbar spine was performed without contrast. On the sagittal T2-weighted images, disc degeneration is seen throughout. There are endplate changes at multiple levels. Mild rightward curvature is noted. There is mild retrolisthesis of L1 on L2 and L2 on L3. There is 12 mm of anterolisthesis of L4 on L5 which is stable from prior exam. There is no evidence of fracture. No bony mass is identified. The conus is seen at approximately the L1 level and has an unremarkable appearance. L1-2: Annular disc bulge with facet arthropathy and osteophytes. There is mild right and moderate left neuroforaminal narrowing. L2-3: Annular disc bulge with facet arthropathy and osteophytes. There is mild right and moderate left neuroforaminal narrowing. L3-4: There is an annular disc bulge and facet arthropathy without significant canal stenosis or neural foraminal narrowing. L4-5: Annular disc bulge with facet arthropathy and osteophytes. There is grade 2 anterolisthesis of L4 on L5. There are bilateral L4 pars defects. There is severe right and moderate left neuroforaminal narrowing with impingement of the right L5 nerve root in the neuroforamen. L5-S1: Annular disc bulge with facet arthropathy and mild right neuroforaminal narrowing. There is mild spurring of the SI joints. IMPRESSION: Multilevel degenerative disc disease with severe right neuroforaminal narrowing at L4-5 and impingement of the right L5 nerve root. Reviewed, Interpreted and Dictated by Eric Méndez III, MD Transcribed by Jessica Goss Authenticated and [facility]
== END ==
PROVIDERS: PCP Internal Medicine Adolescent Medicine; Visit Provider Physician Assistant
DX: M54.6 Pain in thoracic spine (principal); M54.50 Low back pain, unspecified
CPT/HCPCS: 72146; 72148; 76376

== ENCOUNTER → 2023-02-23 10:18 | Outpatient (POV) | payer MEDICARE, OTHER, SELFPAY ==
--- NOTE | 2023-02-23 10:43 | EXP.PAIN.SOA ---
[facility] Pain Management SOAP Note Subjective:: Patient is a pleasant 73-year-old male who presents today for 1 month follow-up. We are currently treating the patient for degenerative disc disease of lumbar spine with lumbar radiculopathy symptoms, right hand pain, right shoulder pain/osteoarthritis. Today he rates his pain a 2 out of 10. He denies any new trauma or injury from our last visit. He does state that he has continued to get improvement in his back and leg symptoms following his lumbar epidural that he had the middle of December. He does state that on occasion when he is over done it such as prolonged walking or even sitting that he will have a flareup of pain however if he rest it does get better. Patient is still staying very active and going to physical therapy in the gym. Patient is using a cane to help with ambulation or help 1 times when he is leg may randomly give out. Patient states that this has really made a significant improvement. He is currently managed with Celebrex twice a day 200 mg and gabapentin 300 mg 3 times a day from his primary care provider and compounding cream from our office. Patient denies any side effects from these medications. His Micah has been reviewed and is appropriate. Review of Systems: General: No recent weight changes, no fever, no sleep disturbances Respiratory: No cough, no shortness of air, no recurring pulmonary infections Cardiovascular/peripheral vascular: No chest pain, no palpitations, no edema, no shortness of breath Gastrointestinal: No new onset incontinence, normal bowel movements reported Genitourinary: No new onset incontinence Musculoskeletal: Low back pain Psychiatric: [Normal mood/affect] Neurological: [Denies weakness in extremities], [denies balance issues] Objective:: Physical Exam: General: Alert and oriented x3, no acute distress, pleasant and cooperative Lungs: Respirations even and unlabored, symmetrical chest expansion Eyes: PERRL Musculoskeletal: Flexion and extension of lumbar [spine] somewhat guarded secondary to pain, [antalgic gait noted] Neurological: Speech clear, no gross sensory deficit Assessment:: Degenerative disc disease of lumbar spine with lumbar radiculopathy symptoms, right hand pain, right shoulder pain/osteoarthritis Plan:: Patient is doing well following his last lumbar epidural steroid injection and does not require any additional injective therapy at this time. At our last visit we did discuss possible lumbar medial branch blocks due to his low back pain that was not radiating into his legs however today he states that it is a better day. Patient will return to clinic in 3 months for reevaluation of symptoms and plan of care. Patient has been instructed to contact the clinic with any concerns before the next appointment. Dr. Madera has reviewed this note and agrees with this plan of care. This note was dictated using voice recognition software and make contain errors or omissions. [facility] Disclaimer: The information contained in this section may have been updated after the patient was seen, as this information can be updated by other users. Medical History Arthritis Hyperlipemia Nerve pain Sinus problem Surgical History History of fusion of cervical spine History of left knee replacement History of nasal septoplasty History of prostate surgery S/P hernia surgery Family History Other No significant family history Social History (Updated 01/10/23 @ 09:12 by Rayray Jerome RN) Smoking Status: Former smoker tobacco type: pipe second hand exposure: Yes alcohol intake: never substance use type: denies use current occupational status: retired Travel in the last 8 weeks: None household members: spouse housing: house current occupational exposures/hazards: No caf
[2023-02-23 12:08] VITALS: BP 120/71; PULSE 75; RESP 18; O2SAT 95; BMI 26.4
== END ==
PROVIDERS: PCP Nurse Practitioner Family; Visit Provider Nurse Practitioner Family
DX: M51.16 Intervertebral disc disorders with radiculopathy, lumbar region (principal); M25.541 Pain in joints of right hand; M19.011 Primary osteoarthritis, right shoulder; M25.511 Pain in right shoulder
CPT/HCPCS: 99212; G0463

== ENCOUNTER → 2023-05-22 10:08 | Outpatient (POV) | payer MEDICARE, OTHER, SELFPAY ==
--- NOTE | 2023-05-22 10:53 | A.OFFVIS_ITS ---
[facility] Pain Management SOAP Note Subjective:: Patient is a pleasant 73-year-old male who presents today for follow-up. We are currently treating the patient for degenerative disc disease of lumbar spine with lumbar radiculopathy symptoms, right hand pain, right shoulder pain/osteoarthritis. Today he rates his pain a 3 out of 10. Patient denies any new trauma or injury. Patient states he continues to have pain in his low back and leg symptoms however right now it is still manageable. Patient denies get injections as needed and has had significant relief. Patient states he would like to wait for his next injection till closer to spring will be he will be up doing more activities. Patient does also states he continues to have pain in his right index finger and that he has talked to a surgeon who did mention about fusing the joint however he is not necessarily interested in that due to it being his right hand that he does use and is worried about range of motion. Patient does continue to use a cane. Patient is currently managed with gabapentin 300 mg 3 times a day and Celebrex 200 mg twice a day from his primary care provider. Patient does have a compounded cream from our office and is requesting a refill. His Micah has been reviewed and is appropriate. Review of Systems: General: No recent weight changes, no fever, no sleep disturbances Respiratory: No cough, no shortness of air, no recurring pulmonary infections Cardiovascular/peripheral vascular: No chest pain, no palpitations, no edema, no shortness of breath Gastrointestinal: No new onset incontinence, normal bowel movements reported Genitourinary: No new onset incontinence Musculoskeletal: Low back pain Psychiatric: [Normal mood/affect] Neurological: [Denies weakness in extremities], [denies balance issues] Objective:: Physical Exam: General: Alert and oriented x3, no acute distress, pleasant and cooperative Lungs: Respirations even and unlabored, symmetrical chest expansion Eyes: PERRL Musculoskeletal: Flexion and extension of lumbar [spine] somewhat guarded secondary to pain, [antalgic gait noted] Neurological: Speech clear, no gross sensory deficit Assessment:: Degenerative disc disease of lumbar spine with lumbar radiculopathy symptoms, right hand pain, right shoulder pain/osteoarthritis Plan:: I will refill the patient's compounded cream and patient will return to clinic in 3 months for reevaluation of symptoms and plan of care. Patient has been instructed to contact the clinic with any concerns before the next appointment. Dr. Madera has reviewed this note and agrees with this plan of care. This note was dictated using voice recognition software and make contain errors or omissions. [facility] Disclaimer: The information contained in this section may have been updated after the patient was seen, as this information can be updated by other users. Medical History Arthritis Hyperlipemia Nerve pain Sinus problem Surgical History History of fusion of cervical spine History of left knee replacement History of nasal septoplasty History of prostate surgery S/P hernia surgery Family History Other No significant family history Social History (Updated 01/10/23 @ 09:12 by Rayray Jerome RN) Smoking Status: Former smoker tobacco type: pipe second hand exposure: Yes alcohol intake: never substance use type: denies use current occupational status: retired Travel in the last 8 weeks: None household members: spouse housing: house current occupational exposures/hazards: No caffeine: Yes
[2023-05-22 13:40] VITALS: BP 169/73; PULSE 80; RESP 18; O2SAT 94; BMI 26.4
== END ==
LOC: SC.PAIN 10:09
PROVIDERS: PCP Internal Medicine Adolescent Medicine; Visit Provider Nurse Practitioner Family
DX: M51.16 Intervertebral disc disorders with radiculopathy, lumbar region (principal); M79.641 Pain in right hand; M19.011 Primary osteoarthritis, right shoulder; M25.511 Pain in right shoulder
CPT/HCPCS: 99212; G0463

== ENCOUNTER 2023-07-04 07:29 | Outpatient (CLI) | payer MEDICARE, OTHER, SELFPAY ==
--- NOTE | 2023-07-04 07:51 | CT_ITS ---
FINAL REPORT TECHNIQUE: Axial images were obtained from the lung apex to the mid abdomen by computed tomography. Coronal reformatted images were obtained. This study was performed with techniques to keep radiation doses as low as reasonably achievable, (ALARA). Individualized dose reduction techniques using automated exposure control or adjustment of mA and/or kV according to the patient''s size were employed. CLINICAL HISTORY: Shortness of breath on exertion COMPARISON: None FINDINGS: There is no axillary adenopathy. There is no hilar or mediastinal adenopathy. Heart size is normal. There is no pericardial or pleural effusion. Limited images of the upper abdomen are unremarkable. No suspicious infiltrate or nodule is identified. There is mild scarring at the lung bases. There is a small hiatal hernia. IMPRESSION: No acute process. Reviewed, Interpreted and Dictated by Eric Méndez III, MD Transcribed by Emerald Harris Authenticated and [facility] [place] [place]
== END 2023-07-04 23:59 ==
LOC: RAD 07:30
PROVIDERS: PCP Internal Medicine Adolescent Medicine; Visit Provider Internal Medicine Adolescent Medicine
DX: R06.09 Other forms of dyspnea (principal)
CPT/HCPCS: 71250

== ENCOUNTER 2023-08-02 08:28 | Outpatient (POV) | payer MEDICARE, OTHER, SELFPAY ==
--- NOTE | 2023-08-02 08:40 | A.OFFVIS_ITS ---
[facility] Pain Management SOAP Note Subjective:: Patient is a pleasant 73-year-old male who presents today for follow-up. We are currently treating the patient for degenerative disc disease of lumbar spine with lumbar radiculopathy symptoms, right hand pain, right shoulder pain/osteoarthritis. Today he rates his pain a 3 out of 10 but does state it will go up higher with increased activity. He denies any new injury or trauma. He states that his low back pain has gotten worse from our last visit. He describes it as an aching, throbbing sensation with numbness and tingling into his lower extremities. He does state the pain is starting to interfere with his ability to perform activities of daily living such as cooking and cleaning. Patient has had lumbar epidurals in the past that did provide more than 70% with his last injection. That was done back in December and did last for several months. He is interested in repeating this injection. He does also state that he still has quite a bit of pain in his right index finger and that they have done injections however they are short-lived at this location.He is currently managed with Celebrex twice a day 200 mg and gabapentin 300 mg 3 times a day from an outside provider. He has been prescribed compounding cream from our office however he states that the cost has deterred him from getting any refills recently. His Micah has been been reviewed and appropriate. Review of Systems: General: No recent weight changes, no fever, no sleep disturbances Respiratory: No cough, no shortness of air, no recurring pulmonary infections Cardiovascular/peripheral vascular: No chest pain, no palpitations, no edema, no shortness of breath Gastrointestinal: No new onset incontinence, normal bowel movements reported Genitourinary: No new onset incontinence Musculoskeletal: Low back pain, bilateral leg pain Psychiatric: [Normal mood/affect] Neurological: [Denies weakness in extremities], [denies balance issues] Objective:: Physical Exam: General: Alert and oriented x3, no acute distress, pleasant and cooperative Lungs: Respirations even and unlabored, symmetrical chest expansion Eyes: PERRL Musculoskeletal: Flexion and extension of lumbar [spine] somewhat guarded secondary to pain, [antalgic gait noted] Neurological: Speech clear, no gross sensory deficit Assessment:: Degenerative disc disease of lumbar spine with lumbar radiculopathy symptoms, right hand pain, right shoulder pain/osteoarthritis Plan:: Patient is experiencing worsening pain in his low back with radiating symptoms to his lower extremities. Patient did have limited range of motion of his lumbar spine during today's visit. I discussed with the patient that he may benefit from repeat lumbar epidural steroid injection. Risk and benefits were discussed with patient and he would like to proceed forward with this plan of care. Patient did get 70% or more improvement following his last lumbar epidural in December that did last for several months. We will schedule the patient for a LESI L4-L5 under fluoroscopy. Patient has been instructed to contact the clinic with any concerns before the next appointment. Dr. Madera has reviewed this note and agrees with this plan of care. This note was dictated using voice recognition software and make contain errors or omissions. [facility] Disclaimer: The information contained in this section may have been updated after the patient was seen, as this information can be updated by other users. Medical History Arthritis Nerve pain Sinus problem Hyperlipemia Surgical History History of nasal septoplasty History of fusion of cervical spine History of left knee replacement History of prostate surgery S/P hernia surgery Family History Other No significant family history Social History (Updated 01/10/23 @ 09:12 by Rayray Jerome RN) Smoking Status: Former smoker tobacco type: pipe second hand exposure: Yes alcohol intake: never substance use type: denies use current occupational status: retired Travel in the last 8 weeks: None household members: spouse housing: house current occupational exposures/hazards: No caffeine: Yes
[2023-08-02 08:47] VITALS: BP 104/67; PULSE 70; RESP 18; O2SAT 95; BMI 27.2
== END 2023-08-02 23:59 ==
PROVIDERS: PCP Internal Medicine Adolescent Medicine; Visit Provider Nurse Practitioner Family
DX: M51.16 Intervertebral disc disorders with radiculopathy, lumbar region (principal); M79.641 Pain in right hand; M19.011 Primary osteoarthritis, right shoulder; M25.511 Pain in right shoulder
CPT/HCPCS: 99212; G0463

== ENCOUNTER 2023-08-15 10:34 | Day surgery (SDC) | payer MEDICARE, OTHER, SELFPAY ==
[2023-08-15 10:52] VITALS: BP 117/65; PULSE 76; RESP 16; O2SAT 96; BMI 25.7
--- NOTE | 2023-08-15 11:12 | EXP.PAIN.PRO ---
Procedure Date: 08/15/23 Time: 11:00 Anesthesiologist:: Carlito Arechiga CRNA Complications:: None Pre-procedure Diagnosis:: Degenerative disc lumbar spine multilevels. Lumbar radiculopathy. Lumbar spondylosis. Multilevel lumbar facet arthropathy. Post-procedure Diagnosis:: Same. Indications for Procedure:: Patient is a very pleasant 73-year-old male that comes our clinic today for lumbar epidural steroid injection at the L4-5 level. Patient describes low back pain as well as bilateral hip and leg radicular symptoms as constant, dull, aching. He rates his pain 6/10. Procedure Details:: Procedure: Lumbar epidural steroid injection under fluoroscopy Informed consent was obtained and the risks and benefits of the procedure were explained to the patient. The patient was taken to the procedure room and noninvasive monitors placed, including noninvasive blood pressure cuff and pulse oximeter. The back was viewed using C-arm Fluoroscopy and prepped using Chloraprep as a cleansing solution and the L4-L5 interspace was palpated. Skin and subcutaneous tissues were anesthetized using lidocaine 1.5% and a 25-gauge needle. After this, an 18-gauge Touhy epidural needle was placed into the L4-L5 interspace and advanced using fluoroscopic guidance and loss of resistance to air until the epidural space was encountered. After confirmation of needle placement in the epidural space, with dye, a solution containing normal saline, 3 mL and Depo-Medrol 80 mg were incrementally injected into the lumbar epidural space. The patient tolerated the procedure well with no complications. The patient was observed in the Pain Clinic and then discharged home neurologically intact. Plan and Disposition:: Patient was discharged without incident.
[2023-08-15 11:13] VITALS: BP 112/67; PULSE 73; RESP 18; O2SAT 98
[2023-08-15] MEDS: methylPREDNISolone ACETATE 80MG/ML VIAL 80 MG (11:13)
[2023-08-15 11:14] VITALS: BP 112/67; PULSE 69; RESP 18; O2SAT 98
[2023-08-15 11:20] VITALS: BP 133/62; PULSE 66; RESP 16; O2SAT 96
== END 2023-08-15 11:20 | disposition home or self-care (01) ==
PROVIDERS: PCP Internal Medicine Adolescent Medicine; Visit Provider Nurse Anesthetist, Certified Registered
DX: M51.16 Intervertebral disc disorders with radiculopathy, lumbar region (principal); M47.26 Other spondylosis with radiculopathy, lumbar region
CPT/HCPCS: 62323; J1010

== ENCOUNTER 2023-08-31 10:48 | Outpatient (POV) | payer MEDICARE, OTHER, SELFPAY ==
[2023-08-31 10:54] VITALS: BP 128/68; PULSE 80; RESP 16; O2SAT 96; BMI 26.4
--- NOTE | 2023-08-31 11:10 | A.OFFVIS_ITS ---
[facility] Pain Management SOAP Note Subjective:: Patient is a pleasant 73-year-old male who presents today for follow-up of lumbar epidural steroid injection L4-L5 under fluoroscopy on 08/15/2023. Today he rates his pain a 2 out of 10. Patient denies any new trauma or injury. He does state that he had at least 70 to 80% improvement following this injection and feels like it is still helping. Patient states he was able to drive all the way down to [place] and back with minimal pain. Patient states that with these injections he does feel much more functional. Patient does state that he recently had been to see his neurosurgeon and saw the FRANCISCA there who did mention possibly about a lumbar ablation. He does have questions regarding this procedure. Patient does have a history of a cervical fusion from C3-C5 that was successful but does state that he has very limited range of motion in his neck following this. Patient is currently managed with Celebrex 200 mg twice a day and gabapentin 300 mg 3 times a day from an outside provider. He denies any side effects from this medication. His Micah has been reviewed and is approp [facility]. Review of Systems: General: No recent weight changes, no fever, no sleep disturbances Respiratory: No cough, no shortness of air, no recurring pulmonary infections Cardiovascular/peripheral vascular: No chest pain, no palpitations, no edema, no shortness of breath Gastrointestinal: No new onset incontinence, normal bowel movements reported Genitourinary: No new onset incontinence Musculoskeletal: Low back pain Psychiatric: [Normal mood/affect] Neurological: [Denies weakness in extremities], [denies balance issues] Objective:: Physical Exam: General: Alert and oriented x3, no acute distress, pleasant and cooperative Lungs: Respirations even and unlabored, symmetrical chest expansion Eyes: PERRL Musculoskeletal: Flexion and extension of lumbar [spine] somewhat guarded secondary to pain, [antalgic gait noted] Neurological: Speech clear, no gross sensory deficit Assessment:: Degenerative disc disease of lumbar spine with lumbar radiculopathy symptoms, right hand pain, right shoulder pain, history of cervical fusion Plan:: Patient is doing well following his lumbar epidural and does not require any additional injection therapy at this time. I have answered all his questions regarding the lumbar medial branch block and lumbar RFA procedures. We will follow-up with this at future visits. Patient will return to clinic in 2 months for reevaluation of symptoms and plan of care. Patient has been instructed to contact the clinic with any concerns before the next appointment. Dr. Madera has reviewed this note and agrees with this plan of care. This note was dictated using voice recognition software and make contain errors or omissions. [facility] Disclaimer: The information contained in this section may have been updated after the patient was seen, as this information can be updated by other users. Medical History Arthritis Nerve pain Sinus problem Hyperlipemia Surgical History History of nasal septoplasty History of fusion of cervical spine History of left knee replacement History of prostate surgery S/P hernia surgery Family History Other No significant family history Social History Smoking Status: Former smoker tobacco type: pipe second hand exposure: Yes alcohol intake: never substance use type: denies use current occupational status: other Travel in the last 8 weeks: None household members: spouse housing: house current occupational exposures/hazards: No caffeine: Yes
== END 2023-08-31 23:59 | disposition home or self-care (01) ==
LOC: SC.PAIN 10:49
PROVIDERS: PCP Internal Medicine Adolescent Medicine; Visit Provider Nurse Practitioner Family
DX: M51.16 Intervertebral disc disorders with radiculopathy, lumbar region (principal); M79.641 Pain in right hand; M25.511 Pain in right shoulder; M43.22 Fusion of spine, cervical region
CPT/HCPCS: 99212; G0463

== ENCOUNTER 2023-11-06 11:11 | Outpatient (POV) | payer MEDICARE, OTHER, SELFPAY ==
[2023-11-06 11:32] VITALS: BP 123/60; PULSE 62; RESP 18; O2SAT 94; BMI 26.5
--- NOTE | 2023-11-06 12:01 | A.OFFVIS_ITS ---
[facility] Disclaimer: The information contained in this section may have been updated after the patient was seen, as this information can be updated by other users. Medical History (Updated 11/06/23 @ 12:04 by Mary Mayo APRN) Arthritis Nerve pain Sinus problem Hyperlipemia Surgical History History of nasal septoplasty History of fusion of cervical spine History of left knee replacement History of prostate surgery S/P hernia surgery Family History Other No significant family history Social History Smoking Status: Former smoker tobacco type: pipe second hand exposure: Yes alcohol intake: never substance use type: denies use current occupational status: retired Travel in the last 8 weeks: None household members: spouse housing: house current occupational exposures/hazards: No caffeine: Yes PM Subjective & Objective Subjective Subjective:: Patient is a pleasant 73-year-old male who presents today for follow-up. Today he rates his pain a 3 out of 10 however does state that his pain will get worse as the day goes on to a 5 or 6 out of 10. He does state that he continues to have the same pain that he has been experiencing that goes from his low back into his bilateral legs with numbness and tingling. Patient states his pain in his back is a chronic aching, throbbing sensation. Patient did previously have a lumbar epidural back in July that did provide at least 70 to 80% improvement however he does state today that he is back to his baseline and that it has officially worn off. Patient does get significant relief with these injections and does normally have improved function that last several months. Patient is interested in repeating his prior injection due to the worsening pain and inability to perform activities of daily living such as cooking and cleaning. Patient does state that he also continues to have other issues unrelated to our office such as sinus drainage on a regular basis. Patient does state a lot of this has to do with his history with agent orange and that as he is gotten older it is progressively worsened. Patient has had sinus surgery and cervical fusion in the past. Patient is prescribed Celebrex 200 mg twice a day and gabapentin 300 mg 3 times a day from an outside provider. His Micah has been reviewed and is appropriate. Review of Systems: General: No recent weight changes, no fever, no sleep disturbances Respiratory: No cough, no shortness of air, no recurring pulmonary infections Cardiovascular/peripheral vascular: No chest pain, no palpitations, no edema, no shortness of breath Gastrointestinal: No new onset incontinence, normal bowel movements reported Genitourinary: No new onset incontinence Musculoskeletal: Low back pain, leg pain Psychiatric: [Normal mood/affect] Neurological: [Denies weakness in extremities], [denies balance issues] Pain at rest (0-10 scale): 5 Objective Objective:: Physical Exam: General: Alert and oriented x3, no acute distress, pleasant and cooperative Lungs: Respirations even and unlabored, symmetrical chest expansion Eyes: PERRL Musculoskeletal: Flexion and extension of lumbar [spine] somewhat guarded secondary to pain, [antalgic gait noted] Neurological: Speech clear, no gross sensory deficit Has patient had previous pain injection?: No Conservative treatment options previously tried: NSAIDS Length of treatment: Longer than 12 weeks, Home exercise plan Length of treatment: Longer than 12 weeks and Prescription medications Length of treatment: Longer than 12 weeks Meds Home Medications and Allergies Home Medications Medication Instructions Recorded Confirmed Type famotidine 20 mg tablet 20 mg PO DAILY acid reflux #180 04/04/19 11/06/23 History tabs fluticasone propionate 50 9.9 ml intranasal DAILY allergies 04/26/19 11/06/23 History mcg/actuation nasal spray,suspension cetirizine 10 mg capsule 10 mg PO BID allergies 03/19/21 11/06/23 History atorvastatin 40 mg tablet 40 mg PO DAILY Cholesterol 10/25/21 11/06/23 History gabapentin 300 mg capsule 300 mg PO DAILY Pain 10/25/21 11/06/23 History polyethylene glycol 3350 17 17 g PO DAILY bowel habits 10/25/21 11/06/23 History gram/dose oral powder celecoxib 200 mg capsule 200 mg PO BID antiinflammatory #60 07/18/22 11/06/23 Rx caps New Prescriptions to Start Prescriptions: Allergies Allergy/AdvReac Type Severity Reaction Status Date / Time No Known Allergies Allergy Verified 08/15/23 10:52 Assessment and Plan *Assessment and plan (1) Degenerative disc disease, lumbar: Status: Acute Category: Medical Code(s): M51.36 - Other intervertebral disc degeneration, lumbar region (2) Lumbar radiculopathy: Status: Acute Category: Medical Code(s): M54.16 - Radiculopathy, lumbar region Plan Patient is experiencing worsening pain in his low back and legs with limited range of motion. Patient does have numbness and tingling throughout. Patient did have upwards of 70 to 80% improvement with his last injection done in July and had overall improved function lasting up until the last couple of weeks. I have discussed with the patient that he may benefit from a repeat lumbar epidural steroid injection. Risk and benefits were discussed with patient and he would like to proceed forward with this plan of care. Patient has tried and failed conservative therapy including continued at home stretching exercise between injections. Patient will be scheduled for a lumbar epidural steroid injection L4-L5 under fluoroscopy. Patient has been instructed to contact the clinic with any concerns before the next appointment. Dr. Madera has reviewed this note and agrees with this plan of care. This note was dictated using voice recognition software and make contain errors or omissions.
== END 2023-11-06 23:59 | disposition home or self-care (01) ==
LOC: SC.PAIN 11:12
PROVIDERS: PCP Internal Medicine Adolescent Medicine; Visit Provider Nurse Practitioner Family
DX: M51.36 Other intervertebral disc degeneration, lumbar region (principal); M54.16 Radiculopathy, lumbar region; G89.29 Other chronic pain
CPT/HCPCS: 99212; G0463

== ENCOUNTER 2023-11-16 10:22 | Emergency (ER) | payer MEDICARE, OTHER, SELFPAY ==
[2023-11-16 10:30] VITALS: BP 121/67; PULSE 71; RESP 21; TEMP 36.7; O2SAT 98; BMI 25.7
--- NOTE | 2023-11-16 10:33 | ED_ITS ---
Discharge Plan Disposition Patient Disposition: Home, Self-Care Condition: Good Prescriptions Prescriptions: No Action celecoxib 200 mg capsule 200 mg PO DAILY atorvastatin 20 mg tablet 20 mg PO DAILY famotidine 20 mg tablet 20 mg PO DAILY gabapentin 300 mg capsule 300 mg PO DAILY Patient Comments: Take 1 capsule by mouth three times a day as directed Gemtesa 75 mg tablet 75 mg PO DAILY Referrals Follow up/Referrals: Errol Manzano MD [Primary Care Provider] - See instructions Activity Restrictions/Add. Instructions Additional Instructions/Restrictions: Drink plenty of fluids. Follow up with your regular doctor. GO TO THE ER FOR ANY WORSENING SYMPTOMS Clinical Impressions Clinical Impression: Acute viral syndrome Instructions Patient Instructions: DI for Viral Syndrome Discharge ED Provider: Jordy Love [facility] General Stated complaint: runny nose, congetion, chills Time Seen by Provider: 11/16/23 10:33 Related Data Home Medications Medication Instructions Recorded Confirmed atorvastatin 20 mg tablet 20 mg PO DAILY 11/16/23 11/16/23 celecoxib 200 mg capsule 200 mg PO DAILY 11/16/23 11/16/23 famotidine 20 mg tablet 20 mg PO DAILY 11/16/23 11/16/23 gabapentin 300 mg capsule 300 mg PO DAILY 11/16/23 11/16/23 vibegron 75 mg tablet (Gemtesa) 75 mg PO DAILY 11/16/23 11/16/23 Allergies Allergy/AdvReac Type Severity Reaction Status Date / Time No Known Allergies Allergy Verified 08/15/23 10:52 [facility] Disclaimer: The information contained in this section may have been updated after the patient was seen, as this information can be updated by other users. Medical History (Updated 11/16/23 @ 10:53 by Jordy Love APRN) Arthritis Nerve pain Sinus problem Hyperlipemia Surgical History History of nasal septoplasty History of fusion of cervical spine History of left knee replacement History of prostate surgery S/P hernia surgery Family History Other No significant family history Social History Smoking Status: Former smoker tobacco type: pipe second hand exposure: Yes alcohol intake: never substance use type: denies use current occupational status: retired Travel in the last 8 weeks: None household members: spouse housing: house current occupational exposures/hazards: No caffeine: Yes ROS Obtained: Yes All systems reviewed & no additional complaints except as documented Constitutional Constitutional: Denies chills and Denies fever(s) Eyes Eyes: Denies eye discharge ENT Ears, Nose, Mouth, and Throat: Denies dizziness, Denies otalgia and Denies sore throat Cardiovascular Cardiovascular: Denies chest pain Respiratory Respiratory: Denies shortness of breath, Denies chest congestion, Denies cough, Denies stridor and Denies wheezing Gastrointestinal Gastrointestingal: Denies nausea or vomiting Musculoskeletal Musculoskeletal: Reports system reviewed and no additional complaints, except as documented and Denies arthralgias Integumentary/Breasts Skin/Breast: Denies rash Neurologic Neurologic: Denies dizziness and Denies paresthesias Allergic/Immunologic Allergic/Immunologic: Denies wheezing Physical Exam General General appearance: alert and in no apparent distress Head Head exam: atraumatic, normocephalic and normal inspection Eye Eye exam: Present normal appearance, PERRL and EOMI ENT ENT exam: Present normal exam, normal oropharynx, mucous membranes moist, TM's normal bilaterally and normal external ear exam Neck Neck exam: Present normal inspection, full ROM and trachea midline; Absent meningismus or lymphadenopathy Chest Chest inspection: Present normal inspection and symmetric chest wall rise; Absent tenderness Respiratory Respiratory exam: Present normal lung sounds bilaterally; Absent respiratory distress Cardiovascular Cardiovascular exam: Present regular rate and normal rhythm; Absent JVD Abdominal Exam Abdominal exam: Present soft and normal bowel sounds; Absent distention, tenderness or guarding Extremities Exam Extremities exam: Present normal inspection, full ROM and normal capillary refill; Absent calf tenderness Back Exam Back exam: Present normal inspection; Absent tenderness Neurological Exam Neurological exam: Present alert and oriented X3 Psychiatric Psychiatric exam: Present normal affect and normal mood Skin Skin exam: Present warm, dry, intact and normal color Lymphatic Lymphatic Findings: no adenopathy Medical Decision Making Medical Records Medical records reviewed: No I reviewed the patient's medical records. Micah Inquiry Pt receiving controlled substance: No
[2023-11-16 10:55] VITALS: BP 121/67; PULSE 71; RESP 21; TEMP 36.7; O2SAT 98
== END 2023-11-16 10:58 | disposition home or self-care (01) ==
PROVIDERS: Emergency Provider Nurse Practitioner Family; PCP Internal Medicine Adolescent Medicine
DX: R09.81 Nasal congestion (principal); R68.83 Chills (without fever); B34.9 Viral infection, unspecified
CPT/HCPCS: 87635; 99203; 99212; G0463

== ENCOUNTER 2023-11-21 09:35 | Day surgery (SDC) | payer MEDICARE, OTHER, SELFPAY ==
[2023-11-21 09:52] VITALS: BP 132/60; PULSE 81; RESP 18; TEMP 36.6; O2SAT 96; BMI 25.0
[2023-11-21] MEDS: methylPREDNISolone ACETATE 80MG/ML VIAL 80 MG (09:56)
--- NOTE | 2023-11-21 09:56 | EXP.PAIN.PRO ---
Procedure Date: 11/21/23 Time: 09:40 Anesthesiologist:: Carlito Arechiga CRNA Complications:: None Pre-procedure Diagnosis:: Degenerative disc lumbar spine multilevels. Lumbar radiculopathy. Lumbar spondylosis. Multilevel disc bulge lumbar spine. Post-procedure Diagnosis:: Same. Indications for Procedure:: Patient is a pleasant 73-year-old male comes our clinic today for a therapeutic lumbar epidural steroid injection at the L4-5 level. Patient describes low back pain as constant, dull, aching. Patient also reports bilateral hip and leg radicular symptoms. Pain intensifies when sitting or standing for any length of time. He rates his pain today 7/10. Procedure Details:: Procedure: Lumbar epidural steroid injection under fluoroscopy Informed consent was obtained and the risks and benefits of the procedure were explained to the patient. The patient was taken to the procedure room and noninvasive monitors placed, including noninvasive blood pressure cuff and pulse oximeter. The back was viewed using C-arm Fluoroscopy and prepped using Chloraprep as a cleansing solution and the L4-L5 interspace was palpated. Skin and subcutaneous tissues were anesthetized using lidocaine 1.5% and a 25-gauge needle. After this, an 18-gauge Touhy epidural needle was placed into the L4-L5 interspace and advanced using fluoroscopic guidance and loss of resistance to air until the epidural space was encountered. After confirmation of needle placement in the epidural space, with dye, a solution containing normal saline, 3 mL and Depo-Medrol 80 mg were incrementally injected into the lumbar epidural space. The patient tolerated the procedure well with no complications. The patient was observed in the Pain Clinic and then discharged home neurologically intact. Plan and Disposition:: Patient was discharged without incident.
[2023-11-21 09:57] VITALS: BP 109/66; PULSE 86; RESP 18; O2SAT 95
[2023-11-21 09:58] VITALS: BP 109/66; PULSE 85; RESP 18; O2SAT 95
[2023-11-21 10:00] VITALS: BP 132/61; PULSE 75; RESP 18; O2SAT 97
== END 2023-11-21 10:01 | disposition home or self-care (01) ==
PROVIDERS: PCP Internal Medicine Adolescent Medicine; Visit Provider Nurse Anesthetist, Certified Registered
DX: M47.26 Other spondylosis with radiculopathy, lumbar region (principal)
CPT/HCPCS: 62323; J1010

== ENCOUNTER 2023-12-07 09:47 | Outpatient (POV) | payer MEDICARE, OTHER, SELFPAY ==
[2023-12-07 09:54] VITALS: BP 115/64; PULSE 61; RESP 16; O2SAT 96; BMI 25.7
--- NOTE | 2023-12-07 10:03 | EXP.PAIN.SOA ---
[facility] Disclaimer: The information contained in this section may have been updated after the patient was seen, as this information can be updated by other users. Medical History Arthritis Nerve pain Sinus problem Hyperlipemia Surgical History History of nasal septoplasty History of fusion of cervical spine History of left knee replacement History of prostate surgery S/P hernia surgery Family History Other No significant family history Social History Smoking Status: Former smoker tobacco type: pipe second hand exposure: Yes alcohol intake: never substance use type: denies use current occupational status: retired Travel in the last 8 weeks: None household members: spouse housing: house current occupational exposures/hazards: No caffeine: Yes PM Subjective & Objective Subjective Subjective:: Patient is a pleasant 73-year-old male who presents today for follow-up of lumbar epidural steroid injection L4-L5 on 11/21/2023. Today he rates his pain a 2 out of 10. He states he has had at least 50% improvement following this injection and feels like it still working well. He does state that he still has his peripheral neuropathy symptoms and will occasionally have a sharp shooting pain with certain positions however it is much more manageable than what it was prior. Patient does get on average around 2 to 3 months with these injections. Patient is prescribed Celebrex and gabapentin from his PCP. His Micah has been reviewed and is appropriate. Review of Systems: General: No recent weight changes, no fever, no sleep disturbances Respiratory: No cough, no shortness of air, no recurring pulmonary infections Cardiovascular/peripheral vascular: No chest pain, no palpitations, no edema, no shortness of breath Gastrointestinal: No new onset incontinence, normal bowel movements reported Genitourinary: No new onset incontinence Musculoskeletal: Low back pain Psychiatric: [Normal mood/affect] Neurological: [Denies weakness in extremities], [denies balance issues] Pain at rest (0-10 scale): 2 Objective Objective:: Physical Exam: General: Alert and oriented x3, no acute distress, pleasant and cooperative Lungs: Respirations even and unlabored, symmetrical chest expansion Eyes: PERRL Musculoskeletal: Flexion and extension of lumbar [spine] somewhat guarded secondary to pain, [antalgic gait noted] Neurological: Speech clear, no gross sensory deficit Has patient had previous pain injection?: Yes Percent improvement in pain since last injection: 50% Conservative treatment options previously tried: Home exercise plan Length of treatment: Longer than 6 weeks Meds Home Medications and Allergies Home Medications ?Medication ?Instructions ?Recorded ?Confirmed ?Type atorvastatin 20 mg tablet 20 mg PO DAILY 11/16/23 12/07/23 History celecoxib 200 mg capsule 200 mg PO DAILY 11/16/23 12/07/23 History famotidine 20 mg tablet 20 mg PO DAILY 11/16/23 12/07/23 History gabapentin 300 mg capsule 300 mg PO DAILY 11/16/23 12/07/23 History vibegron 75 mg tablet (Gemtesa) 75 mg PO DAILY 11/16/23 12/07/23 History New Prescriptions to Start Prescriptions: Allergies Allergy/AdvReac Type Severity Reaction Status Date / Time No Known Allergies Allergy Verified 08/15/23 10:52 Assessment and Plan *Assessment and plan (1) Lumbar radiculopathy: Status: Acute Category: Medical Code(s): M54.16 - Radiculopathy, lumbar region (2) Degenerative disc disease, lumbar: Status: Acute Category: Medical Code(s): M51.36 - Other intervertebral disc degeneration, lumbar region Plan Patient has had significant improvement following his lumbar epidural and does not require any additional injection therapy at this time. Patient will return to clinic in 2 months for reevaluation of symptoms and plan of care. Patient has been instructed to contact the clinic with any concerns before the next appointment. Dr. Madera has reviewed this note and agrees with this plan of care. This note was dictated using voice recognition software and make contain errors or omissions. All injections are used with Lidocaine or Bupivacaine and Depo Medrol.
== END 2023-12-07 23:59 | disposition home or self-care (01) ==
LOC: SC.PAIN 09:47
PROVIDERS: PCP Internal Medicine Adolescent Medicine; Visit Provider Nurse Practitioner Family
DX: M51.16 Intervertebral disc disorders with radiculopathy, lumbar region (principal); F17.290 Nicotine dependence, other tobacco product, uncomplicated
CPT/HCPCS: 99212; G0463

== ENCOUNTER 2024-01-16 09:24 | Outpatient (CLI) | payer MEDICARE, OTHER, SELFPAY ==
--- NOTE | 2024-01-16 | MR_ITS ---
FINAL REPORT CLINICAL HISTORY: BILATERAL ARM NUMBNESS COMPARISON: 03/17/2021 FINDINGS: Multi planar MR imaging was obtained of the cervical spine. There is abnormal decreased signal throughout the cervical discs. The vertebrae are of normal height. There is no malalignment. The cervical cord demonstrates normal signal and configuration. Prior anterior cervical fusion at the C3-4 and C4-5 levels has been performed. C2-C3: There is no evidence of significant disc bulge or protrusion. There is no significant facet hypertrophy. C3-C4: There is no evidence of significant disc bulge or protrusion. There is no significant facet hypertrophy. C4-C5: There is no evidence of significant disc bulge or protrusion. There is no significant facet hypertrophy. C5-C6: Endplate hypertrophy is present bilaterally, with moderate to severe right and moderate left neural foraminal narrowing. C6-C7: Moderate endplate hypertrophy is present, with moderate right neural foraminal narrowing. C7-T1: There is no evidence of significant disc bulge or protrusion. There is no significant facet hypertrophy. IMPRESSION: Postoperative change of prior anterior fusion at the C3-4 and C4-5 levels. Degenerative change primarily at the C5-6 and C6-7 levels as described. Reviewed, Interpreted and Dictated by Henry Champagne MD Transcribed by Yue Alfaro Authenticated and [facility]
== END 2024-01-16 23:59 | disposition home or self-care (01) ==
LOC: RAD 09:25
PROVIDERS: PCP Internal Medicine Adolescent Medicine; Visit Provider Physician Assistant
DX: M46.92 Unspecified inflammatory spondylopathy, cervical region (principal); M54.12 Radiculopathy, cervical region
CPT/HCPCS: 72141

== ENCOUNTER 2024-02-01 10:15 | Outpatient (POV) | payer MEDICARE, OTHER, SELFPAY ==
--- NOTE | 2024-02-01 10:26 | EXP.PAIN.SOA ---
[facility] Disclaimer: The information contained in this section may have been updated after the patient was seen, as this information can be updated by other users. Medical History Arthritis Nerve pain Sinus problem Hyperlipemia Surgical History History of nasal septoplasty History of fusion of cervical spine History of left knee replacement History of prostate surgery S/P hernia surgery Family History Other No significant family history Social History Smoking Status: Former smoker tobacco type: pipe second hand exposure: Yes alcohol intake: never substance use type: denies use current occupational status: retired Travel in the last 8 weeks: None household members: spouse housing: house current occupational exposures/hazards: No caffeine: Yes PM Subjective & Objective Subjective Subjective:: Patient is a pleasant 74-year-old male who presents today for follow-up. Today he rates his pain a 6 out of 10. He denies any new trauma or injury. He does feel like his pain has increased with it being a achy sensation across his low back and numbness throughout his bilateral legs that does go all the way down to his feet. Patient does state that it is aggravated when he is doing more activities such as up walking or longer car rides. He does state the pain interferes with his ability perform activities of daily living such as cooking and cleaning. He did have a lumbar epidural steroid injection L4-L5 on 11/21/2023 that did provide more than 50% relief and has worked well up until the last week or so. He is interested in repeating injection therapy due to the worsening pain. He does get significant improvement with these injections.. Patient does continue to do conservative treatment including oral medications, heat and ice, topicals, at home stretching exercise for longer than 12 weeks. Patient is prescribed Celebrex and gabapentin from his PCP. His Micah has been reviewed and is appropriate. Review of Systems: General: No recent weight changes, no fever, no sleep disturbances Respiratory: No cough, no shortness of air, no recurring pulmonary infections Cardiovascular/peripheral vascular: No chest pain, no palpitations, no edema, no shortness of breath Gastrointestinal: No new onset incontinence, normal bowel movements reported Genitourinary: No new onset incontinence Musculoskeletal: Low back pain, bilateral leg numbness Psychiatric: [Normal mood/affect] Neurological: [Denies weakness in extremities], [denies balance issues] Pain at rest (0-10 scale): 6 Objective Objective:: Physical Exam: General: Alert and oriented x3, no acute distress, pleasant and cooperative Lungs: Respirations even and unlabored, symmetrical chest expansion Eyes: PERRL Musculoskeletal: Flexion and extension of lumbar [spine] somewhat guarded secondary to pain, [antalgic gait noted] Neurological: Speech clear, no gross sensory deficit Has patient had previous pain injection?: No Conservative treatment options previously tried: Home exercise plan Length of treatment: Longer than 12 weeks Meds Home Medications and Allergies Home Medications ?Medication ?Instructions ?Recorded ?Confirmed ?Type atorvastatin 20 mg tablet 20 mg PO DAILY 11/16/23 12/07/23 History celecoxib 200 mg capsule 200 mg PO DAILY 11/16/23 12/07/23 History famotidine 20 mg tablet 20 mg PO DAILY 11/16/23 12/07/23 History gabapentin 300 mg capsule 300 mg PO DAILY 11/16/23 12/07/23 History vibegron 75 mg tablet (Gemtesa) 75 mg PO DAILY 11/16/23 12/07/23 History New Prescriptions to Start Prescriptions: Allergies Allergy/AdvReac Type Severity Reaction Status Date / Time No Known Allergies Allergy Verified 08/15/23 10:52 Assessment and Plan *Assessment and plan (1) Lumbar radiculopathy: Status: Acute Category: Medical Code(s): M54.16 - Radiculopathy, lumbar region (2) Degenerative disc disease, lumbar: Status: Acute Category: Medical Code(s): M51.36 - Other intervertebral disc degeneration, lumbar region Plan Patient is experiencing worsening pain throughout his low back and bilateral lower extremities with numbness and tingling. Patient did have limited range of motion of his lumbar spine and a positive leg raise during today's exam. Patient has had lumbar epidurals in the past that did provide significant relief of more than 50%. His last epidural was in October and has worked well up until around the last week. I did go over with the patient risk and benefits of repeat injection and he would like to proceed forward with this plan of care. Patient has tried and failed conservative therapy including continued at home stretching exercise for longer than 12 weeks. We will schedule the patient for an LESI L4-L5 under fluoroscopy. Patient has been instructed to contact the clinic with any concerns before the next appointment. Dr. Madera has reviewed this note and agrees with this plan of care. This note was dictated using voice recognition software and make contain errors or omissions. All injections are used with Lidocaine or Bupivacaine and Depo Medrol.
[2024-02-01 11:18] VITALS: BP 127/63; PULSE 63; RESP 18; O2SAT 97; BMI 26.5
== END 2024-02-01 23:59 | disposition home or self-care (01) ==
LOC: SC.PAIN 10:18
PROVIDERS: PCP Internal Medicine Adolescent Medicine; Visit Provider Nurse Practitioner Family
DX: M51.16 Intervertebral disc disorders with radiculopathy, lumbar region (principal); Z96.652 Presence of left artificial knee joint; Z87.891 Personal history of nicotine dependence; Z73.89 Other problems related to life management difficulty
CPT/HCPCS: 99212; G0463

== ENCOUNTER 2024-02-19 14:02 | Outpatient (POV) | payer MEDICARE, OTHER, SELFPAY ==
[2024-02-19 14:44] VITALS: BP 129/59; PULSE 82; RESP 18; O2SAT 95; BMI 25.0
--- NOTE | 2024-02-19 15:06 | A.OFFVIS_ITS ---
[facility] Disclaimer: The information contained in this section may have been updated after the patient was seen, as this information can be updated by other users. Medical History (Updated 02/19/24 @ 15:08 by Mary Mayo APRN) Arthritis Nerve pain Sinus problem Hyperlipemia Surgical History History of nasal septoplasty History of fusion of cervical spine History of left knee replacement History of prostate surgery S/P hernia surgery Family History Other No significant family history Social History Smoking Status: Former smoker tobacco type: pipe second hand exposure: Yes alcohol intake: never substance use type: denies use current occupational status: other Travel in the last 8 weeks: None household members: spouse housing: house current occupational exposures/hazards: No caffeine: Yes PM Subjective & Objective Subjective Subjective:: Patient is a pleasant 74-year-old male who presents today for follow-up cervical MRI. Today he rates his pain a 2 out of 10 currently however he does state that his neck pain will go to a 5 out of 10 with increased activity or range of motion. Patient does describe it as an aching, throbbing sensation with numbness and tingling that does go into his bilateral shoulders and down into his arms and fingers. Patient states that it is not as bad as when he initially had to have his cervical fusion. 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 He does state that the pain and numbness is interfering with his ability to perform activities of daily living such as cooking and cleaning. Patient is interested in additional injection therapy. Patient has done well with injections in the past however has not had any recent cervical epidurals. Patient has tried and failed conservative therapy. His Micah has been reviewed and is appropriate. Review of Systems: General: No recent weight changes, no fever, no sleep disturbances Respiratory: No cough, no shortness of air, no recurring pulmonary infections Cardiovascular/peripheral vascular: No chest pain, no palpitations, no edema, no shortness of breath Gastrointestinal: No new onset incontinence, normal bowel movements reported Genitourinary: No new onset incontinence Musculoskeletal: Neck pain, bilateral shoulder pain, bilateral arm numbness tingling Psychiatric: [Normal mood/affect] Neurological: [Denies weakness in extremities], [denies balance issues] Pain at rest (0-10 scale): 5 Objective Objective:: Physical Exam: General: Alert and oriented x3, no acute distress, pleasant and cooperative Lungs: Respirations even and unlabored, symmetrical chest expansion Eyes: PERRL Musculoskeletal: Flexion and extension of cervical [spine] somewhat guarded secondary to pain, [antalgic gait noted] positive Spurling's test Neurological: Speech clear, no gross sensory deficit Has patient had previous pain injection?: No Conservative treatment options previously tried: Home exercise plan Length of treatment: Longer than 12 weeks Meds Home Medications and Allergies Home Medications ?Medication ?Instructions ?Recorded ?Confirmed ?Type atorvastatin 20 mg tablet 20 mg PO DAILY 11/16/23 02/19/24 History celecoxib 200 mg capsule 200 mg PO DAILY 11/16/23 02/19/24 History famotidine 20 mg tablet 20 mg PO DAILY 11/16/23 02/19/24 History gabapentin 300 mg capsule 300 mg PO DAILY 11/16/23 02/19/24 History vibegron 75 mg tablet (Gemtesa) 75 mg PO DAILY 11/16/23 02/19/24 History New Prescriptions to Start Prescriptions: Allergies Allergy/AdvReac Type Severity Reaction Status Date / Time No Known Allergies Allergy Verified 08/15/23 10:52 Assessment and Plan *Assessment and plan (1) Degenerative disc disease, cervical: Status: Acute Category: Medical Code(s): M50.30 - Other cervical disc degeneration, unspecified cervical region (2) Cervical radiculopathy: Status: Acute Category: Medical Code(s): M54.12 - Radiculopathy, cervical region Plan Patient is experiencing worsening numbness and tingling into his upper extremities. Patient did have limited range of motion of his cervical spine with a positive Spurling's test. I did review over the patient's MRI and he did have more significant findings at the C5-C6 level with endplate hypertrophy, moderate to severe right and moderate left neuroforaminal narrowing. I did discuss with the patient that I do believe he would benefit from a cervical epidural steroid injection. Risk and benefits were discussed with patient and he would like to proceed forward with this plan of care. Patient has tried and failed conservative therapy including continued at home stretching exercise for longer than 12 weeks. Patient will be scheduled for a SANDY C5-C6 under fluoroscopy. He is not on any blood thinners. Patient has been instructed to contact the clinic with any concerns before the next appointment. Dr. Madera has reviewed this note and agrees with this plan of care. This note was dictated using voice recognition software and make contain errors or omissions. All injections are used with Lidocaine or Bupivacaine and Depo Medrol.
== END 2024-02-19 23:59 | disposition home or self-care (01) ==
LOC: SC.PAIN 14:03
PROVIDERS: PCP Internal Medicine Adolescent Medicine; Visit Provider Nurse Practitioner Family
DX: M50.10 Cervical disc disorder with radiculopathy, unspecified cervical region (principal); Z96.652 Presence of left artificial knee joint; Z98.1 Arthrodesis status; Z73.89 Other problems related to life management difficulty; Z87.891 Personal history of nicotine dependence
CPT/HCPCS: 99212; G0463

== ENCOUNTER 2024-02-20 08:09 | Day surgery (SDC) | payer MEDICARE, OTHER, SELFPAY ==
[2024-02-20 08:48] VITALS: BP 114/61; PULSE 67; RESP 16; TEMP 36.7; O2SAT 100; BMI 25.9
[2024-02-20] MEDS: methylPREDNISolone ACETATE 80MG/ML VIAL 80 MG (09:04)
[2024-02-20 09:12] VITALS: BP 107/60; PULSE 65; RESP 16; O2SAT 97
--- NOTE | 2024-02-20 09:38 | EXP.PAIN.PRO ---
Procedure Date: 02/20/24 Time: 09:00 Anesthesiologist:: Carlito Arechiga CRNA Complications:: None Pre-procedure Diagnosis:: Degenerative disc lumbar spine multilevels. Lumbar radiculopathy. Lumbar facet arthropathy. Lumbar spondylosis. Post-procedure Diagnosis:: Same. Indications for Procedure:: Patient is a very pleasant 74-year-old male who comes our clinic today for a lumbar epidural steroid injection at the L4-5 level. Patient describes low lumbar back pain as constant, dull, aching. Patient also reports bilateral hip and leg radicular symptoms at times. He rates his pain 6/10. Patient has responded very well to previous epidural steroid injections at the L4-5 level in the past. Procedure Details:: Procedure: Lumbar epidural steroid injection under fluoroscopy Informed consent was obtained and the risks and benefits of the procedure were explained to the patient. The patient was taken to the procedure room and noninvasive monitors placed, including noninvasive blood pressure cuff and pulse oximeter. The back was viewed using C-arm Fluoroscopy and prepped using Chloraprep as a cleansing solution and the L4-L5 interspace was palpated. Skin and subcutaneous tissues were anesthetized using lidocaine 1.5% and a 25-gauge needle. After this, an 18-gauge Touhy epidural needle was placed into the L4-L5 interspace and advanced using fluoroscopic guidance and loss of resistance to air until the epidural space was encountered. After confirmation of needle placement in the epidural space, with dye, a solution containing normal saline, 3 mL and Depo-Medrol 80 mg were incrementally injected into the lumbar epidural space. The patient tolerated the procedure well with no complications. The patient was observed in the Pain Clinic and then discharged home neurologically intact. Plan and Disposition:: Patient was discharged without incident.
== END 2024-02-20 09:12 | disposition home or self-care (01) ==
LOC: SC.PAINP 08:10
PROVIDERS: PCP Internal Medicine Adolescent Medicine; Visit Provider Nurse Anesthetist, Certified Registered
DX: M51.16 Intervertebral disc disorders with radiculopathy, lumbar region (principal); M47.26 Other spondylosis with radiculopathy, lumbar region
CPT/HCPCS: 62323; J1010

== ENCOUNTER 2024-03-06 13:14 | Outpatient (POV) | payer MEDICARE, OTHER, SELFPAY ==
--- NOTE | 2024-03-06 13:47 | EXP.PAIN.SOA ---
[facility] Disclaimer: The information contained in this section may have been updated after the patient was seen, as this information can be updated by other users. Medical History Arthritis Nerve pain Sinus problem Hyperlipemia Surgical History History of nasal septoplasty History of fusion of cervical spine History of left knee replacement History of prostate surgery S/P hernia surgery Family History Other No significant family history Social History Smoking Status: Former smoker tobacco type: pipe second hand exposure: Yes alcohol intake: never substance use type: denies use current occupational status: other Travel in the last 8 weeks: None household members: spouse housing: house current occupational exposures/hazards: No caffeine: Yes PM Subjective & Objective Subjective Subjective:: Patient is a pleasant 74-year-old male who presents today for follow-up of a lumbar epidural steroid injection of L4-L5 on 02/20/2024. Patient rates his pain today a 3 out of 10. He does state that he got at least 70% improvement initially however he states that that was only for about 1 week and now he feels like it is dropped down to only about 20% ongoing. Patient does state that he still has the chronic pain in his low back that with certain positions such as bending that he will have a sharp shooting pain. Patient does state that he is already scheduled for his cervical epidural coming up. Patient is currently managed with Celebrex and gabapentin from an outside provider. His Micah has been reviewed and is appropriate. Review of Systems: General: No recent weight changes, no fever, no sleep disturbances Respiratory: No cough, no shortness of air, no recurring pulmonary infections Cardiovascular/peripheral vascular: No chest pain, no palpitations, no edema, no shortness of breath Gastrointestinal: No new onset incontinence, normal bowel movements reported Genitourinary: No new onset incontinence Musculoskeletal: Neck pain, low back pain Psychiatric: [Normal mood/affect] Neurological: [Denies weakness in extremities], [denies balance issues] Pain at rest (0-10 scale): 3 Objective Objective:: Physical Exam: General: Alert and oriented x3, no acute distress, pleasant and cooperative Lungs: Respirations even and unlabored, symmetrical chest expansion Eyes: PERRL Musculoskeletal: Flexion and extension of lumbar [spine] somewhat guarded secondary to pain, [antalgic gait noted] Neurological: Speech clear, no gross sensory deficit Has patient had previous pain injection?: Yes Percent improvement in pain since last injection: 70% Conservative treatment options previously tried: Home exercise plan Length of treatment: Longer than 12 weeks Meds Home Medications and Allergies Home Medications ?Medication ?Instructions ?Recorded ?Confirmed ?Type atorvastatin 20 mg tablet 20 mg PO DAILY 11/16/23 02/20/24 History celecoxib 200 mg capsule 200 mg PO DAILY 11/16/23 02/20/24 History famotidine 20 mg tablet 20 mg PO DAILY 11/16/23 02/20/24 History gabapentin 300 mg capsule 300 mg PO DAILY 11/16/23 02/20/24 History vibegron 75 mg tablet (Gemtesa) 75 mg PO DAILY 11/16/23 02/20/24 History New Prescriptions to Start Prescriptions: Allergies Allergy/AdvReac Type Severity Reaction Status Date / Time No Known Allergies Allergy Verified 08/15/23 10:52 Assessment and Plan *Assessment and plan (1) Lumbar radiculopathy: Status: Acute Category: Medical Code(s): M54.16 - Radiculopathy, lumbar region (2) Degenerative disc disease, lumbar: Status: Acute Category: Medical Code(s): M51.36 - Other intervertebral disc degeneration, lumbar region Plan Patient did have significant improvement following his lumbar epidural however it was very short-lived. Patient was counseled that we can always do repeat however we would wait 3 months however he does have to weigh the pros and the cons for himself to see if it is worthwhile. Patient was counseled in future we can always try a pump trial however he is not interested in this option currently. Patient does not need to follow-up since he is coming back for an injection coming up. Patient agrees with this plan of care. Patient has been instructed to contact the clinic with any concerns before the next appointment. Dr. Madera has reviewed this note and agrees with this plan of care. This note was dictated using voice recognition software and make contain errors or omissions. All injections are used with Lidocaine or Bupivacaine and Depo Medrol.
[2024-03-06 14:04] VITALS: BP 135/64; PULSE 73; RESP 16; O2SAT 98; BMI 26.5
== END 2024-03-06 23:59 | disposition home or self-care (01) ==
LOC: SC.PAIN 13:15
PROVIDERS: PCP Internal Medicine Adolescent Medicine; Visit Provider Nurse Practitioner Family
DX: M51.16 Intervertebral disc disorders with radiculopathy, lumbar region (principal); Z87.891 Personal history of nicotine dependence
CPT/HCPCS: 99212; G0463

== ENCOUNTER 2024-03-12 09:23 | Day surgery (SDC) | payer MEDICARE, OTHER, SELFPAY ==
[2024-03-12 09:34] VITALS: BP 122/58; PULSE 63; RESP 16; TEMP 36.9; O2SAT 99; BMI 25.7
[2024-03-12 09:48] VITALS: BP 141/70; PULSE 61; RESP 18; O2SAT 97
[2024-03-12] MEDS: IOPAMIDOL-200 (41%);10ML VIAL 10 ML IV (09:48)
[2024-03-12] MEDS: methylPREDNISolone ACETATE 80MG/ML VIAL 80 MG (09:48)
[2024-03-12 09:49] VITALS: BP 141/70; PULSE 64; RESP 18; O2SAT 97
--- NOTE | 2024-03-12 09:52 | P.PCN_ITS ---
Procedure Date: 03/12/24 Time: 09:40 Anesthesiologist:: Carlito Arechiga CRNA Complications:: None Pre-procedure Diagnosis:: Degenerative disc cervical spine multilevels. Cervical radiculopathy. Cervical postlaminectomy syndrome. Cervical spondylosis. Multilevel cervical facet arthropathy. Post-procedure Diagnosis:: Same. Indications for Procedure:: Patient is a very pleasant 74-year-old male who comes our clinic today for cervical epidural steroid injection. Patient describes posterior cervical neck pain as constant, dull, aching. Patient also reports bilateral shoulder radicular symptoms. Patient status post anterior cervical discectomy and fusion several years ago. He rates his pain 7/10. Procedure Details:: Procedure:Cervical epidural steroid injection Informed consent was obtained and the risks and benefits of the procedure were explained to the patient. The patient was taken to the procedure room and noninvasive monitors placed, including noninvasive blood pressure cuff and pulse oximeter. The neck was prepped using Chloraprep as a cleansing solution. The C6- C7 interspace was viewed using fluroscopy. The skin and subcutaneous tissues were anesthetized using lidocaine 1.5% and a 25-gauge needle. After this an 18- gauge Touhy epidural needle was placed into the C6-C7 interspace under fluroscopy guidance and advanced using loss of resistance to air until the epidural space was encountered. After confirmation of needle placement in the epidural space using contrast dye, a solution containing normal saline, 2 mL and Depo-Medrol 80 mg was incrementally injected into the cervical epidural space.~ The patient tolerated the procedure well with no complications. The patient was observed in the Pain Clinic and then discharged home neurologically intact. Plan and Disposition:: Patient was discharged without incident.
[2024-03-12 09:56] VITALS: BP 150/73; PULSE 62; RESP 16; O2SAT 99
== END 2024-03-12 09:56 | disposition home or self-care (01) ==
PROVIDERS: PCP Internal Medicine Adolescent Medicine; Visit Provider Nurse Anesthetist, Certified Registered
DX: M50.30 Other cervical disc degeneration, unspecified cervical region (principal); M96.1 Postlaminectomy syndrome, not elsewhere classified; M47.22 Other spondylosis with radiculopathy, cervical region
CPT/HCPCS: 62321; J1010; Q9966

== ENCOUNTER 2024-04-03 11:11 | Outpatient (POV) | payer MEDICARE, OTHER, SELFPAY ==
[2024-04-03 11:33] VITALS: BP 124/65; PULSE 78; RESP 14; O2SAT 97; BMI 25.0
--- NOTE | 2024-04-03 11:35 | EXP.PAIN.SOA ---
[facility] Disclaimer: The information contained in this section may have been updated after the patient was seen, as this information can be updated by other users. Medical History (Updated 04/03/24 @ 11:37 by Mary Mayo APRN) Arthritis Nerve pain Sinus problem Hyperlipemia Surgical History History of nasal septoplasty History of fusion of cervical spine History of left knee replacement History of prostate surgery S/P hernia surgery Family History Other No significant family history Social History Smoking Status: Former smoker tobacco type: pipe second hand exposure: Yes alcohol intake: never substance use type: denies use current occupational status: other Travel in the last 8 weeks: None household members: spouse housing: house current occupational exposures/hazards: No caffeine: Yes PM Subjective & Objective Subjective Subjective:: Patient is a pleasant 74-year-old male who presents today for follow-up of cervical epidural steroid injection C6-C7 on 03/12/2024. Today he rates his pain a 0 out of 10 in his neck and states he has had at least 80% relief. He states he has been able to move around easier with his neck and the radicular symptoms are much better following this injection. Patient does however state that he still has been having extensive pain in his low back that has been going on longer than 3 months. Patient did previously get a lumbar epidural injection back in January that did provide significant relief for about 1 week and then went back towards its baseline. Patient states this pain has continued to be all across to his low back and into his bilateral hips and upper thighs. Patient does rate that pain at least a 5 or more. Patient describes it as an aching, throbbing sensation with pressure. Patient does state certain movements seem to aggravate it such as prolonged standing or walking or sitting. Patient does frequently have to change positions due to the worsening pain. He also states that it is aggravated by going up and down stairs. Patient does state the pain is interfering with his ability perform activities of daily living such as cooking and cleaning. Patient is managed with Celebrex and gabapentin from an outside provider. His Micah has been reviewed and is appropriate. Review of Systems: General: No recent weight changes, no fever, no sleep disturbances Respiratory: No cough, no shortness of air, no recurring pulmonary infections Cardiovascular/peripheral vascular: No chest pain, no palpitations, no edema, no shortness of breath Gastrointestinal: No new onset incontinence, normal bowel movements reported Genitourinary: No new onset incontinence Musculoskeletal: Low back pain, bilateral hip pain Psychiatric: [Normal mood/affect] Neurological: [Denies weakness in extremities], [denies balance issues] Pain at rest (0-10 scale): 5 Objective Objective:: Physical Exam: General: Alert and oriented x3, no acute distress, pleasant and cooperative Lungs: Respirations even and unlabored, symmetrical chest expansion Eyes: PERRL Musculoskeletal: Flexion and extension of lumbar [spine] somewhat guarded secondary to pain, [antalgic gait noted] point tenderness along bilateral SIs with positive bilateral Eugene's, Roberth's, Gaenslen's, compression and distraction exam Neurological: Speech clear, no gross sensory deficit Has patient had previous pain injection?: Yes Percent improvement in pain since last injection: 80% Conservative treatment options previously tried: Home exercise plan Length of treatment: Longer than 12 weeks Meds Home Medications and Allergies Home Medications ?Medication ?Instructions ?Recorded ?Confirmed ?Type atorvastatin 20 mg tablet 20 mg PO DAILY 11/16/23 04/03/24 History celecoxib 200 mg capsule 200 mg PO DAILY 11/16/23 04/03/24 History famotidine 20 mg tablet 20 mg PO DAILY 11/16/23 04/03/24 History gabapentin 300 mg capsule 300 mg PO DAILY 11/16/23 04/03/24 History vibegron 75 mg tablet (Gemtesa) 75 mg PO DAILY 11/16/23 04/03/24 History New Prescriptions to Start Prescriptions: Allergies Allergy/AdvReac Type Severity Reaction Status Date / Time No Known Allergies Allergy Verified 08/15/23 10:52 Assessment and Plan *Assessment and plan (1) Bilateral sacroiliitis: Status: Acute Category: Medical Code(s): M46.1 - Sacroiliitis, not elsewhere classified Plan Patient is experiencing worsening pain in his low back with limited range of motion. Patient did have point tenderness along his bilateral SIs and a positive bilateral Eugene's, Roberth's, Gaenslen's, compression and distraction exam. I did discuss with the patient that I do believe he would benefit from bilateral SI injections. Risk and benefits were discussed with the patient and he would like to proceed forward with this plan of care. Patient has been experiencing this pain for longer than 3 months unrelieved with conservative treatment options such as oral medication, heat and ice, topicals, physician guided physical therapy exercise daily and for longer than 12 weeks. Patient will be submitted for bilateral SI injections under fluoroscopy. Patient has not had these injections from our office in the past. Patient has been instructed to contact the clinic with any concerns before the next appointment. Dr. Madera has reviewed this note and agrees with this plan of care. This note was dictated using voice recognition software and make contain errors or omissions. All injections are used with Lidocaine or Bupivacaine and Depo Medrol.
== END 2024-04-03 23:59 | disposition home or self-care (01) ==
LOC: SC.PAIN 11:13
PROVIDERS: PCP Internal Medicine Adolescent Medicine; Visit Provider Nurse Practitioner Family
DX: M46.1 Sacroiliitis, not elsewhere classified (principal); Z96.652 Presence of left artificial knee joint; Z87.891 Personal history of nicotine dependence; Z73.89 Other problems related to life management difficulty
CPT/HCPCS: 99212; G0463

== ENCOUNTER 2024-04-30 10:51 | Day surgery (SDC) | payer MEDICARE, OTHER, SELFPAY ==
[2024-04-30 11:45] VITALS: BP 119/68; PULSE 73; RESP 16; TEMP 36.4; O2SAT 96; BMI 25.7
--- NOTE | 2024-04-30 12:07 | P.PCN_ITS ---
Procedure Date: 04/30/24 Time: 11:50 Anesthesiologist:: Carlito Arechiga CRNA Complications:: None Pre-procedure Diagnosis:: Bilateral sacroiliitis Post-procedure Diagnosis:: Same Indications for Procedure:: Patient is a very pleasant 74-year-old male who comes our clinic today for bilateral sacroiliac joint injection cortisone and local anesthetic. Patient describes low lumbar back pain off the midline bilaterally. Also, bilateral posterior hip pain. Upon examination he has extreme point tenderness over the bilateral sacroiliac joints. He describes having difficulty transitioning from sitting to standing. He rates his pain 7/10. Procedure Details:: Procedure: Bilateral sacroiliac joint injections under fluoroscopy Informed consent was obtained and the risks and benefits of the procedure were explained to the patient.~ The patient was taken to the procedure room and noninvasive monitors were placed including a noninvasive blood pressure cuff and pulse oximeter.~ The patient was placed prone on the procedure table. Both hips were cleansed using Betadine as a cleansing solution. C-arm fluoroscopy was used to view the right sacroiliac joint.~ The skin and subcutaneous tissues were anesthetized using lidocaine 1.5% and a 25-gauge needle.~ After this, a 22-gauge spinal needle was inserted under fluoroscopic guidance into the inferior aspect of the right sacroiliac joint.~ Omnipaque dye was injected and good spread was seen throughout the joint.~ After this, approximately 5 mL of bupivacaine, 0.25% and Depo-Medrol, 40 mg was incrementally injected into the right sacroiliac joint. We then moved to the left sacroiliac joint.~ The skin and subcutaneous tissues were anesthetized using lidocaine 1.5% and a 25-gauge needle.~ After this, a 22- gauge spinal needle was inserted under fluoroscopic guidance into the inferior aspect of the left sacroiliac joint.~ Omnipaque dye was injected and good spread was seen throughout the joint. After this, approximately 5 mL of bupivacaine, 0.25% and Depo-Medrol, 40 mg was incrementally injected into the left sacroiliac joint.~ The patient tolerated the procedure well with no complications. The patient was observed in the Pain Clinic and then was discharged home neurologically intact. Plan and Disposition:: Patient was discharged without incident.
[2024-04-30 12:12] VITALS: BP 114/69; PULSE 75; RESP 16; TEMP 36.6; O2SAT 95
[2024-04-30] MEDS: LIDOCAINE 1% 5ML PF VIAL 5 ML (12:53)
[2024-04-30] MEDS: BUPIVACAINE 0.25% 10ML INJ 25 MG IJ (12:53)
[2024-04-30] MEDS: methylPREDNISolone ACETATE 80MG/ML VIAL 80 MG (12:54)
[2024-04-30 12:56] VITALS: BP 123/73; PULSE 78; RESP 18
[2024-04-30 12:59] VITALS: BP 123/73; PULSE 78; RESP 18
== END 2024-04-30 12:12 | disposition home or self-care (01) ==
PROVIDERS: PCP Internal Medicine Adolescent Medicine; Visit Provider Nurse Anesthetist, Certified Registered
DX: M46.1 Sacroiliitis, not elsewhere classified (principal)
CPT/HCPCS: 27096; G0260; J1010

== ENCOUNTER 2024-05-17 14:25 | Outpatient (POV) | payer MEDICARE, OTHER, SELFPAY ==
--- NOTE | 2024-05-17 14:50 | A.OFFVIS_ITS ---
[facility] Disclaimer: The information contained in this section may have been updated after the patient was seen, as this information can be updated by other users. Medical History Arthritis Nerve pain Sinus problem Hyperlipemia Surgical History History of nasal septoplasty History of fusion of cervical spine History of left knee replacement History of prostate surgery S/P hernia surgery Family History Other No significant family history Social History Smoking Status: Former smoker tobacco type: pipe second hand exposure: Yes alcohol intake: never substance use type: denies use current occupational status: other Travel in the last 8 weeks: None household members: spouse housing: house current occupational exposures/hazards: No caffeine: Yes PM Subjective & Objective Subjective Subjective:: Patient is a pleasant 74-year-old male who presents today for follow-up of bilateral SI injections on 04/30/2024. Today he rates his pain a 2 out of 10. He denies any new trauma or injury. He states he has had at least 80% improvement following these injections and feels like it is still helping. Patient states that he is not having the severe pain into his hips and only notices very mild symptoms when he has been in a prolonged seated position for some time. He states that he just repositions and it does ease down. He does state that he had also been having some neck pain however from a formed pillow and that does seem to be helping as well. His Micah has been reviewed and is appropriate. Review of Systems: General: No recent weight changes, no fever, no sleep disturbances Respiratory: No cough, no shortness of air, no recurring pulmonary infections Cardiovascular/peripheral vascular: No chest pain, no palpitations, no edema, no shortness of breath Gastrointestinal: No new onset incontinence, normal bowel movements reported Genitourinary: No new onset incontinence Musculoskeletal: Low back pain Psychiatric: [Normal mood/affect] Neurological: [Denies weakness in extremities], [denies balance issues] Pain at rest (0-10 scale): 2 Objective Objective:: Physical Exam: General: Alert and oriented x3, no acute distress, pleasant and cooperative Lungs: Respirations even and unlabored, symmetrical chest expansion Eyes: PERRL Musculoskeletal: Flexion and extension of lumbar [spine] somewhat guarded secondary to pain, [antalgic gait noted] Neurological: Speech clear, no gross sensory deficit Has patient had previous pain injection?: Yes Percent improvement in pain since last injection: 80% Conservative treatment options previously tried: Home exercise plan Length of treatment: Longer than 12 weeks Meds Home Medications and Allergies Home Medications ?Medication ?Instructions ?Recorded ?Confirmed ?Type atorvastatin 20 mg tablet 20 mg PO DAILY 11/16/23 04/30/24 History celecoxib 200 mg capsule 200 mg PO DAILY 11/16/23 04/30/24 History famotidine 20 mg tablet 20 mg PO DAILY 11/16/23 04/30/24 History gabapentin 300 mg capsule 300 mg PO DAILY 11/16/23 04/30/24 History vibegron 75 mg tablet (Gemtesa) 75 mg PO DAILY 11/16/23 04/30/24 History New Prescriptions to Start Prescriptions: Allergies Allergy/AdvReac Type Severity Reaction Status Date / Time No Known Allergies Allergy Verified 08/15/23 10:52 Assessment and Plan *Assessment and plan (1) Bilateral sacroiliitis: Status: Acute Category: Medical Code(s): M46.1 - Sacroiliitis, not elsewhere classified Plan Patient has had significant improvement and does not require any additional injection therapy at this time. Patient will return to clinic in 6 weeks for reevaluation of symptoms and plan of care. Patient has been instructed to contact the clinic with any concerns before the next appointment. Dr. Madera has reviewed this note and agrees with this plan of care. This note was dictated using voice recognition software and make contain errors or omissions. All injections are used with Lidocaine, Bupivacaine and Depo Medrol. Occasionally urine drug screen is needed to verify patient's compliance with our office pain contract. This is ordered based off specific treatments related to chronic pain with the potential to abuse certain medications.
[2024-05-17 14:53] VITALS: BP 130/63; PULSE 75; RESP 96; O2SAT 96; BMI 25.0
== END 2024-05-17 23:59 | disposition home or self-care (01) ==
LOC: SC.PAIN 14:26
PROVIDERS: PCP Internal Medicine Adolescent Medicine; Visit Provider Nurse Practitioner Family
DX: M46.1 Sacroiliitis, not elsewhere classified (principal); Z87.891 Personal history of nicotine dependence; Z96.652 Presence of left artificial knee joint
CPT/HCPCS: 99212; G0463

== ENCOUNTER 2024-06-28 13:29 | Outpatient (POV) | payer MEDICARE, OTHER, SELFPAY ==
[2024-06-28 13:47] VITALS: BP 119/65; PULSE 84; RESP 18; O2SAT 96; BMI 25.7
--- NOTE | 2024-06-28 13:59 | A.OFFVIS_ITS ---
[facility] Disclaimer: The information contained in this section may have been updated after the patient was seen, as this information can be updated by other users. Medical History (Updated 06/28/24 @ 14:00 by Mary Mayo APRN) Arthritis Nerve pain Sinus problem Hyperlipemia Surgical History History of nasal septoplasty History of fusion of cervical spine History of left knee replacement History of prostate surgery S/P hernia surgery Family History Other No significant family history Social History Smoking Status: Former smoker tobacco type: pipe second hand exposure: Yes alcohol intake: never substance use type: denies use current occupational status: other Travel in the last 8 weeks: None household members: spouse housing: house current occupational exposures/hazards: No caffeine: Yes PM Subjective & Objective Subjective Subjective:: Patient is a pleasant 74-year-old male who presents today for follow-up. He does rate his pain in his low back a 2 out of 10 and denies any new injuries or falls. Patient does state that he is experiencing worsening pain however in his bilateral shoulders that it is to the point that he is waking up in the middle of the night due to the worsening pain. He does state that this pain is more along the lines from a 3-5 out of 10 pain. He states even last night it was more of a 5 and that he did not sleep as well. Patient denies any prior surgery in his shoulders. He describes it as an aching sensation that is worse with increased activity or range of motion. Patient is interested in additional injection therapy. He does state the pain is interfering with his ability perform activities of daily living such as cooking and cleaning. Patient has done really well with injections in the past and feels like the last SI injections were the best yet and is still getting good relief. His Micah has been reviewed and is appropriate. Review of Systems: General: No recent weight changes, no fever, no sleep disturbances Respiratory: No cough, no shortness of air, no recurring pulmonary infections Cardiovascular/peripheral vascular: No chest pain, no palpitations, no edema, no shortness of breath Gastrointestinal: No new onset incontinence, normal bowel movements reported Genitourinary: No new onset incontinence Musculoskeletal: Bilateral shoulder pain Psychiatric: [Normal mood/affect] Neurological: [Denies weakness in extremities], [denies balance issues] Pain at rest (0-10 scale): 5 Objective Objective:: Physical Exam: General: Alert and oriented x3, no acute distress, pleasant and cooperative Lungs: Respirations even and unlabored, symmetrical chest expansion Eyes: PERRL Musculoskeletal: Flexion and extension of bilateral shoulders somewhat guarded secondary to pain, [antalgic gait noted] Neurological: Speech clear, no gross sensory deficit Has patient had previous pain injection?: No Conservative treatment options previously tried: Home exercise plan Length of treatment: Longer than 12 weeks Meds Home Medications and Allergies Home Medications ?Medication ?Instructions ?Recorded ?Confirmed ?Type atorvastatin 20 mg tablet 20 mg PO DAILY 11/16/23 06/28/24 History celecoxib 200 mg capsule 200 mg PO DAILY 11/16/23 06/28/24 History famotidine 20 mg tablet 20 mg PO DAILY 11/16/23 06/28/24 History gabapentin 300 mg capsule 300 mg PO DAILY 11/16/23 06/28/24 History vibegron 75 mg tablet (Gemtesa) 75 mg PO DAILY 11/16/23 06/28/24 History New Prescriptions to Start Prescriptions: Allergies Allergy/AdvReac Type Severity Reaction Status Date / Time No Known Allergies Allergy Verified 08/15/23 10:52 Assessment and Plan *Assessment and plan (1) Chronic pain of both shoulders: Status: Acute Category: Medical Code(s): M25.511 - Pain in right shoulder; M25.512 - Pain in left shoulder; G89.29 - Other chronic pain Plan Patient is still doing well with his low back symptoms and does not require any additional interventions in this location. He is however having very limited range of motion of his bilateral shoulders with pain. I did discuss with the patient that he may benefit from bilateral shoulder intra-articular injection. Risk and benefits were discussed with the patient and he would like to proceed forward with this plan of care. Patient has tried and failed conservative therapy including continued at home stretching exercise for longer than 12 weeks. Patient will be scheduled for bilateral shoulder intra-articular injections. This will be done without fluoroscopic or ultrasound guidance. Patient has been instructed to contact the clinic with any concerns before the next appointment. Dr. Madera has reviewed this note and agrees with this plan of care. This note was dictated using voice recognition software and make contain errors or omissions. All injections are used with Lidocaine, Bupivacaine and Depo Medrol. Occasionally urine drug screen is needed to verify patient's compliance with our office pain contract. This is ordered based off specific treatments related to chronic pain with the potential to abuse certain medications.
== END 2024-06-28 23:59 | disposition home or self-care (01) ==
LOC: SC.PAIN 13:34
PROVIDERS: PCP Internal Medicine Adolescent Medicine; Visit Provider Nurse Practitioner Family
DX: M25.511 Pain in right shoulder (principal); M25.512 Pain in left shoulder; G89.29 Other chronic pain; Z96.652 Presence of left artificial knee joint; Z98.1 Arthrodesis status; Z87.891 Personal history of nicotine dependence; Z73.89 Other problems related to life management difficulty
CPT/HCPCS: 99212; G0463

== ENCOUNTER 2024-07-23 11:21 | Day surgery (SDC) | payer MEDICARE, OTHER, SELFPAY ==
[2024-07-23 11:35] VITALS: BP 118/63; PULSE 74; RESP 16; O2SAT 96; BMI 25.0
[2024-07-23] MEDS: methylPREDNISolone ACETATE 80MG/ML VIAL 80 MG (11:49)
[2024-07-23 11:50] VITALS: BP 110/59; PULSE 77; RESP 18; O2SAT 97
[2024-07-23] MEDS: LIDOCAINE 1% 5ML PF VIAL 5 ML (11:50)
[2024-07-23] MEDS: BUPIVACAINE 0.25% 10ML INJ 25 MG IJ (11:50)
[2024-07-23 11:51] VITALS: BP 110/59; PULSE 73; RESP 18; O2SAT 97
[2024-07-23 11:58] VITALS: BP 120/67; PULSE 96; RESP 16; O2SAT 100
--- NOTE | 2024-07-23 12:06 | EXP.PAIN.PRO ---
Procedure Date: 07/23/24 Time: 11:30 Anesthesiologist:: Carlito Arechiga CRNA Complications:: None Pre-procedure Diagnosis:: DJD bilateral shoulder. Chronic bilateral shoulder pain. Post-procedure Diagnosis:: Same. Indications for Procedure:: Patient is a very pleasant 74-year-old male who comes our clinic today for bilateral intra-articular shoulder injections. Patient describes shoulder pain bilaterally as constant, dull, aching. Patient reports shoulder pain extends into the trapezius bilaterally. Patient has 5/5 strength in the bilateral arms. However, limited range of motion due to bilateral shoulder pain. He rates his pain 6/10. Procedure Details:: Procedure Details: Left shoulder intra-articular injection Informed consent was obtained risk and benefits of the procedure were explained to the patient. Patient was taken to the procedure room. The Left shoulder was prepped using ChloraPrep. A 25-gauge needle was used posteriorly to inject 10 mL bupivacaine 0.25% and Depo-Medrol 40 mg. Patient tolerated procedure well with no complications. Procedure Details: Right shoulder intra-articular injection Informed consent was obtained risk and benefits of the procedure were explained to the patient. Patient was taken to the procedure room. The right shoulder was prepped using ChloraPrep. A 25-gauge needle was used posteriorly to inject 10 mL bupivacaine 0.25% and Depo-Medrol 40 mg. Patient tolerated procedure well with no complications. Plan and Disposition:: Patient was discharged without incident.
== END 2024-07-23 11:58 | disposition home or self-care (01) ==
PROVIDERS: PCP Internal Medicine Adolescent Medicine; Visit Provider Nurse Anesthetist, Certified Registered
DX: M19.011 Primary osteoarthritis, right shoulder (principal); M19.012 Primary osteoarthritis, left shoulder; M25.511 Pain in right shoulder; M25.512 Pain in left shoulder; G89.29 Other chronic pain
CPT/HCPCS: 20610; J1010

== ENCOUNTER 2024-08-05 09:23 | Outpatient (POV) | payer MEDICARE, OTHER, SELFPAY ==
--- NOTE | 2024-08-05 09:27 | A.OFFVIS_ITS ---
[facility] Disclaimer: The information contained in this section may have been updated after the patient was seen, as this information can be updated by other users. Medical History Arthritis Nerve pain Sinus problem Hyperlipemia Surgical History History of nasal septoplasty History of fusion of cervical spine History of left knee replacement History of prostate surgery S/P hernia surgery Family History Other No significant family history Social History Smoking Status: Former smoker tobacco type: pipe second hand exposure: Yes alcohol intake: never substance use type: denies use current occupational status: other Travel in the last 8 weeks: None household members: spouse housing: house current occupational exposures/hazards: No caffeine: Yes PM Subjective & Objective Subjective Subjective:: Patient is a pleasant 74-year-old male who presents today for follow-up of bilateral intra-articular shoulder injections on 07/23/2024. Today he rates his pain a 2 out of 10. He denies any new trauma or injury. He states that he did have approximately 75 percent improvement following these injections. He does state they are still helping. He does state that overall he also feels like his SI injections are still working well. Patient does make mention that he is having increased neuropathy symptoms into his bilateral legs. Patient is asking whether or not if there are injections that we could possibly try to improve the symptoms. His Micah has been reviewed and is appropriate. Review of Systems: General: No recent weight changes, no fever, no sleep disturbances Respiratory: No cough, no shortness of air, no recurring pulmonary infections Cardiovascular/peripheral vascular: No chest pain, no palpitations, no edema, no shortness of breath Gastrointestinal: No new onset incontinence, normal bowel movements reported Genitourinary: No new onset incontinence Musculoskeletal: Low back pain, bilateral leg neuropathy Psychiatric: [Normal mood/affect] Neurological: [Denies weakness in extremities], [denies balance issues] Pain at rest (0-10 scale): 2 Objective Objective:: Physical Exam: General: Alert and oriented x3, no acute distress, pleasant and cooperative Lungs: Respirations even and unlabored, symmetrical chest expansion Eyes: PERRL Musculoskeletal: Flexion and extension of lumbar [spine] somewhat guarded secondary to pain, [antalgic gait noted] Neurological: Speech clear, no gross sensory deficit FINDINGS: Multiplanar MR imaging of the lumbar spine was performed without contrast. On the sagittal T2-weighted images, disc degeneration is seen throughout. There are endplate changes at multiple levels. Mild rightward curvature is noted. There is mild retrolisthesis of L1 on L2 and L2 on L3. There is 12 mm of anterolisthesis of L4 on L5 which is stable from prior exam. There is no evidence of fracture. No bony mass is identified. The conus is seen at approximately the L1 level and has an unremarkable appearance. L1-2: Annular disc bulge with facet arthropathy and osteophytes. There is mild right and moderate left neuroforaminal narrowing. L2-3: Annular disc bulge with facet arthropathy and osteophytes. There is mild right and moderate left neuroforaminal narrowing. L3-4: There is an annular disc bulge and facet arthropathy without significant canal stenosis or neural foraminal narrowing. L4-5: Annular disc bulge with facet arthropathy and osteophytes. There is grade 2 anterolisthesis of L4 on L5. There are bilateral L4 pars defects. There is severe right and moderate left neuroforaminal narrowing with impingement of the right L5 nerve root in the neuroforamen. L5-S1: Annular disc bulge with facet arthropathy and mild right neuroforaminal narrowing. There is mild spurring of the SI joints. IMPRESSION: Multilevel degenerative disc disease with severe right neuroforaminal narrowing at L4-5 and impingement of the right L5 nerve root. Reviewed, Interpreted and Dictated by Eric Méndez III, MD Transcribed by Jessica Goss Authenticated and [facility] Has patient had previous pain injection?: Yes Percent improvement in pain since last injection: 75 Conservative treatment options previously tried: Home exercise plan Length of treatment: Longer than 12 weeks Meds Home Medications and Allergies Home Medications ?Medication ?Instructions ?Recorded ?Confirmed ?Type atorvastatin 20 mg tablet 20 mg PO DAILY 11/16/23 07/23/24 History celecoxib 200 mg capsule 200 mg PO DAILY 11/16/23 07/23/24 History famotidine 20 mg tablet 20 mg PO DAILY 11/16/23 07/23/24 History gabapentin 300 mg capsule 300 mg PO DAILY 11/16/23 07/23/24 History vibegron 75 mg tablet (Gemtesa) 75 mg PO DAILY 11/16/23 07/23/24 History New Prescriptions to Start Prescriptions: Allergies Allergy/AdvReac Type Severity Reaction Status Date / Time No Known Allergies Allergy Verified 08/15/23 10:52 Assessment and Plan *Assessment and plan (1) Degenerative disc disease, lumbar: Status: Acute Category: Medical Code(s): M51.369 - Other intervertebral disc degeneration, lumbar region without mention of lumbar back pain or lower extremity pain (2) Lumbar radiculopathy: Status: Acute Category: Medical Code(s): M54.16 - Radiculopathy, lumbar region Plan Patient has had significant improvement following his shoulder injections and does not require any additional injection therapy at this time. I did discuss with the patient that if his leg symptoms continue to worsen then we can always try a lumbar epidural. Risk and benefits were discussed and we will follow-up with this at the next appointment. It does look that he would most benefit from a lumbar epidural at the L4-L5 level. Patient will return to clinic in 1 month for reevaluation of symptoms and plan of care. Patient has been instructed to contact the clinic with any concerns before the next appointment. Dr. Madera has reviewed this note and agrees with this plan of care. This note was dictated using voice recognition software and make contain errors or omissions. All injections are used with Lidocaine, Bupivacaine and Depo Medrol. Occasionally urine drug screen is needed to verify patient's compliance with our office pain contract. This is ordered based off specific treatments related to chronic pain with the potential to abuse certain medications.
[2024-08-05 09:41] VITALS: BP 114/52; PULSE 63; RESP 14; O2SAT 98; BMI 25.0
== END 2024-08-05 23:59 | disposition home or self-care (01) ==
LOC: SC.PAIN 09:26
PROVIDERS: PCP Internal Medicine Adolescent Medicine; Visit Provider Nurse Practitioner Family
DX: M51.16 Intervertebral disc disorders with radiculopathy, lumbar region (principal); Z96.652 Presence of left artificial knee joint; Z98.1 Arthrodesis status; Z87.891 Personal history of nicotine dependence
CPT/HCPCS: 99212; G0463

== ENCOUNTER 2024-09-04 11:17 | Outpatient (POV) | payer MEDICARE, OTHER, SELFPAY ==
--- OUTSIDE RECORDS SUMMARY | 2024-09-04 11:22 | XMS_ITS | Encounter Summary ---
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 This section includes the names of all active insurance providers for the patient. Insurance Provider Type of Coverage Plan Name Start of Policy Coverage End of Policy Coverage Group Number Member ID Insurance Provider's Telephone Number Policy Rizo's Name Patient's Relationship to Policy Rizo MEDICARE (WNR) MEDICARE (M) PART A Dec 30, 2022 PART A [id number] [facility] Meaghan MCKEON PATIENT MEDICARE (WNR) MEDICARE (M) PART B Dec 30, 2012 PART B [id number] Meaghan MCKEON PATIENT FOR LIFE TRICA RE FOR LIFE Dec 30, 2012 FOR LIFE [id number] PATIENT Selected Encounter This section includes the information on record at [place] for the Encounter. Date/Time Encounter Type Encounter Description Reason Provider Source Aug 07, 2024 10:00 AM OFFICE O/P EST LOW 20 MIN ALLERGY IMMUNOLOGY ICD-10-CM J30.2 Other seasonal allergic rhinitis MARION WYATT Encounter Template Text not used by [place] Assessments - Encounter Diagnoses This section includes the primary and secondary diagnoses documented for the Encounter. Date/Time Primary/Secondary Diagnosis Diagnosis Name Provider Source Aug 07, 2024 11:27 AM PRIMARY Other seasonal allergic rhinitis MARION WYATT [facility] Aug 07, 2024 11:27 AM SECONDARY Allergic rhinitis due to animal (cat) (dog) hair and dander MARION WYATT [facility] Aug 07, 2024 11:27 AM SECONDARY Dry eye syndrome of bilateral lacrimal glands MARION WYATT [facility] Aug 07, 2024 11:27 AM SECONDARY Hypertrophy of nasal turbinates MARION WYATT [facility] Aug 07, 2024 11:27 AM SECONDARY Melanocytic nevi, unspecified MARION WYATT [facility] Aug 07, 2024 11:27 AM SECONDARY Other allergic rhinitis MARION WYATT [facility] Aug 07, 2024 11:27 AM SECONDARY Other chronic allergic conjunctivitis MARION WYATT [facility] Aug 07, 2024 11:27 AM SECONDARY Vasomotor rhinitis MARION WYATT [facility] Plan of Treatment: Future Appointments (+ 6 months) and Future Tests (+/- 45 days) The Plan of Treatment section includes [facility] care activities for the [facility] [place] [facility] This section includes future appointments and future orders which are active, pending or scheduled. Future Appointments This section includes appointments that were scheduled to occur 6 months from the date of the Encounter, up to a maximum of 20 appointments. The data comes from all [place] treatment facilities. Appointment Date/Time Appointment Type Appointme nt Facility Name September 05, 2024 08:00 AM AMBULATORY - MEDICINE [facility] Feb 05, 2025 10:30 AM AMBULATORY - MEDICINE [facility] Vital Signs: All taken on the encounter date This section contains inpatient and outpatient Vital Signs collected on the date of the Encounter. Date/Time Temperature Pulse Blood Pressure Respiratory Rate SP02 Pain Height Weight Body Mass Index Source Aug 07, 2024 09:47 AM 97.6 69 114/68 18 99 3 191.5 26 [place] [facility] Social History: Smoking Status (Most current) and Tobacco Use (All prior to encounter date) This section includes the most current, and the historical, smoking and tobacco- related health factors from the [place] facility where the Encounter took place. Current Smoking Status This section includes the most current smoking, or tobacco-related health factor, from the [place] facility where the Encounter took place. Date/Time Current Smoking Status Comment David ity Jul 05, 2024 10:00 AM VA-TOBACCO USE MED NO [facility] Tobacco Use History This section includes a history of the smoking, or tobacco-related health factors, that were collected on or before the date of the Encounter. The data comes from the [place] facility where the Encounter took place. 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 [facility] Jul 05, 2024 10:00 AM VA-TOBACCO USE DAVIE RY DAY CIGARS/PIPES [facility] Jul 05, 2024 10:00 AM VA-TOBACCO USE DAVIE RY DAY OTHER TYPE [facility] Jul 05, 2024 10:00 AM VA-TOBACCO USE MED NO [facility] Oct 16, 2023 10:00 AM VA-TOBACCO DOESNT USE WI 30 MIN WAKEUP [facility] Oct 16, 2023 10:00 AM VA-TOBACCO USE 30 YEARS OR MORE [facility] Oct 16, 2023 10:00 AM VA-TOBACCO USE ADVICE [facility] Oct 16, 2023 10:00 AM VA-TOBACCO USE 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 NO [facility] Oct 16, 2023 10:00 AM VA-TOBACCO USE MED NO [facility] Oct 16, 2023 10:00 AM VA-TOBACCO USER SOME DAYS [facility] Oct 28, 2022 01:00 PM VA-TOBACCO DOESNT USE WI 30 MIN WAKEUP [facility] Oct 28, 2022 01:00 PM VA-TOBACCO USE 30 YEARS OR MORE [facility] Oct 28, 2022 01:00 PM VA-TOBACCO USE ADVICE [facility] Oct 28, 2022 01:00 PM VA-TOBACCO USE 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 NO [facility] Oct 28, 2022 01:00 PM VA-TOBACCO USE MED NO [facility] Oct 28, 2022 01:00 PM VA-TOBACCO USER SOME DAYS [facility] Nov 22, 2021 11:00 AM VA-TOBACCO DOESNT USE WI 30 MIN WAKEUP [facility] Nov 22, 2021 11:00 AM VA-TOBACCO USE 30 YEARS OR MORE [facility] Nov 22, 2021 11:00 AM VA-TOBACCO USE ADVICE [facility] Nov 22, 2021 11:00 AM VA-TOBACCO USE 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 NO [facility] Nov 22, 2021 11:00 AM VA-TOBACCO USE MED NO [facility] Nov 22, 2021 11:00 AM VA-TOBACCO USER SOME DAYS [facility] Nov 30, 2020 11:30 AM VA-TOBACCO DOESNT USE WI 30 MIN WAKEUP [facility] Nov 30, 2020 11:30 AM VA-TOBACCO USE 30 YEARS OR MORE [facility] Nov 30, 2020 11:30 AM VA-TOBACCO USE ADVICE [facility] Nov 30, 2020 11:30 AM VA-TOBACCO USE 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 NO [facility] Nov 30, 2020 11:30 AM VA-TOBACCO USE MED NO [facility] Nov 30, 2020 11:30 AM VA-TOBACCO USER SOME DAYS [facility] Jan 13, 2020 10:30 AM VA-TOBACCO USE 30 YEARS OR MORE [facility] Jan 13, 2020 10:30 AM VA-TOBACCO USE ADVICE [facility] Jan 13, 2020 10:30 AM VA-TOBACCO USE 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 NO [facility] Jan 13, 2020 10:30 AM VA-TOBACCO USE MED NO [facility] Jan 13, 2020 10:30 AM VA-TOBACCO USE WI 30 MIN OF WAKEUP [facility] Jan 13, 2020 10:30 AM VA-TOBACCO USER EVERY DAY [facility] Jan 03, 2019 01:00 PM VA-TOBACCO DOESNT USE WI 30 MIN [facility] Jan 03, 2019 01:00 PM VA-TOBACCO USE > 1 5 LESS THAN 30 YEARS [facility] Jan 03, 2019 01:00 PM VA-TOBACCO USE ADVICE [facility] Jan 03, 2019 01:00 PM VA-TOBACCO USE 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 NO [facility] Jan 03, 2019 01:00 PM VA-TOBACCO USE MED NO [facility] Jan 03, 2019 01:00 PM VA-TOBACCO USER EVERY DAY [facility] Advance Directives: All historical and current Section Date Range: From patient's date of to the date document was created. This section includes ALL of a patient's completed or amended [place] Advance and Rescinded Directives. The entries below indicate that a directive exists for the patient, but an actual copy is not included with this document. The data comes from all [place] facilities. Date Advance Directives Provider Source Dec 19, 2019 ADVANCE DIRECTIVE NICHOLE VALDEZ GTON-CDD [facility] Encounter Notes: All associated encounter notes This section contains the clinical notes associated to the Encounter. Date/Time Encounter Note(s) Provider Source Aug 07, 2024 09:49 AM NURSING OUTPATIENT NOTE: LOCAL TITLE: [facility] MEDICINE CLINIC INTAKE NOTE STANDARD TITLE: NURSING OUTPATIENT NOTE DATE OF NOTE: AUG 07, 2024@09:49 ENTRY DATE: AUG 07, 2024@09:49:27 AUTHOR: CHELSEY KARU EXP COSIGNER: URGENCY: STATUS: COMPLETED Reason for visit/chief complaint: Allergy evalutation B/P: 114/68 (08/07/2024 09:47) P: 69 (08/07/2024 09:47) R: 18 (08/07/2024 09:47) T: 97.6 F [36.4 C] (08/07/2024 09:47) HT: 72 in [182.9 cm] (07/05/2024 09:42) WT: 191.5 lb [86.86 kg] (08/07/2024 09:47) Are you having any pain or recurrent pain in the last several weeks/months? Yes Severity Scale (3) Location: back Duration: Characteristics: Chronic (over 3 months) Pain education material offered to patient (for pain > 3) No Risk factors history: Hypertension No Have you taken your blood pressure medication today? No Do you have a BP cuff at home? No Comments: reports no need for BP cuff.... no history of hypertension. BP WNL this date. 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 The patient was given a list of his/her medications, instructed to review and discuss any changes or problems with their provider. Patient advised to carry a list of current medications and any allergies with them in the event of emergency situations. Allergies: local and remote Patient has answered NKA No Remote Allergy/ADR Data available for this patient Medication Reconciliation ACTIVE OUTPATIENT MEDICATIONS LOCAL/REMOTE ATORVASTATIN CALCIUM 40MG TAB Directions: TAKE ONE-HALF TABLET BY MOUTH DAILY FOR CHOLESTEROL -DO NOT DRINK GRAPEFRUIT JUICE WHILE ON THIS DRUG Quantity: 45 for 90 days Issued: 10/17/23 Filled: 07/05/24 Expires: 10/17/24 Refills: 1 Status: ACTIVE AZELASTINE 137MCG/SPRAY 200D NASAL INHL Directions: SPRAY 2 SPRAYS IN EACH NOSTRIL TWICE A DAY FOR ALLERGIES Quantity: 4 for 90 days Issued: 08/09/23 Filled: 05/27/24 Expires: 08/09/24 Refills: 0 Status: ACTIVE HYDROPHILIC (EQV AQUAPHOR) TOP OINT Directions: APPLY SMALL AMOUNT TO AFFECTED AREA DIRECTED FOR DRY SKIN APPLY DAILY NEEDED. Quantity: 454 for 60 days Issued: 07/02/24 Filled: 07/02/24 Expires: 07/03/25 Refills: 4 Status: ACTIVE IPRATROPIUM BR 0.06% NASAL SPRAY Directions: SPRAY 1 TO 2 SPRAYS IN EACH NOSTRIL TWICE A DAY FOR NASAL ALLERGY Quantity: 45 for 90 days Issued: 02/07/24 Filled: 07/29/24 Expires: 02/07/25 Refills: 1 Status: ACTIVE LEVOCETIRIZINE DIHYDROCHLORIDE 5MG TAB Directions: TAKE ONE TABLET BY MOUTH DAILY -- USE INSTEAD OF FEXOFENADINE DAILY FOR ALLERGIES Quantity: 90 for 90 days Issued: 02/19/24 Filled: 05/23/24 Expires: 02/19/25 Refills: 2 Status: ACTIVE MONTELUKAST NA 10MG TAB Directions: TAKE ONE TABLET BY MOUTH DAILY FOR BREATHING Quantity: 90 for 90 days Issued: 08/09/23 Filled: 07/29/24 Expires: 08/09/24 Refills: 0 Status: ACTIVE OLOPATADINE HCL 0.1% OPH SOLN Directions: PUT 1 DROP IN BOTH EYES TWICE A DAY FOR EYE ALLERGIES Quantity: 15 for 90 days Issued: 08/09/23 Filled: 05/31/24 Expires: 08/09/24 Refills: 1 Status: ACTIVE SILDENAFIL CITRATE 100MG TAB Directions: TAKE ONE TABLET BY MOUTH DIRECTED FOR ERECTILE DYSFUNCTION -DO NOT TAKE WITH ANY MEDICATION CONTAINING NITRATES (LIMIT: 6 DOSES/30 DAYS OR 18 DOSES/90 DAYS, NON-REPLACEABLE MEDICATION) Quantity: 18 for 90 days Issued: 07/05/24 Filled: 07/05/24 Expires: 07/06/25 Refills: 3 Status: ACTIVE FAMOTIDINE 20MG TAB Directions: TAKE ONE TABLET BY MOUTH DAILY NEEDED AND TAKE ONE-HALF TABLET AT BEDTIME NEEDED FOR HEARTBURN Quantity: 135 for 90 days Issued: 07/05/24 Filled: 08/18/24 Expires: 07/06/25 Refills: 3 Status: ACTIVE/SUSP No remote medications found. PENDING OUTPATIENT MEDICATONS (LOCAL/REMOTE): No local medications found. No remote medications found. ACTIVE NONVA MEDICATIONS (LOCAL): ACETAMINOPHEN 325MG TAB Directions: 1300MG MOUTH AT BEDTIME NEEDED Status: ACTIVE ASCORBIC ACID 500MG TAB Directions: 500MG MOUTH DAILY Status: ACTIVE CELECOXIB 200MG CAP Directions: 200MG MOUTH DAILY Status: ACTIVE GABAPENTIN 300MG CAP Directions: 300MG MOUTH TWICE A DAY Status: ACTIVE MULTIVITAMIN/MINERALS THERAPEUT CAP/TAB Directions: 1 CAP(S)/TAB MOUTH DAILY Status: ACTIVE POLYETHYLENE GLYCOL 3350 ORAL PWDR Directions: 17 GRAMS (ONE CAPFUL FILLED TO LINE) IN LIQUID MOUTH DAILY Status: ACTIVE PSYLLIUM POWDER,ORAL Directions: MOUTH Status: ACTIVE SENNOSIDES TAB Directions: MOUTH Status: ACTIVE VIBEGRON 75MG TAB Directions: 75MG MOUTH DAILY Status: ACTIVE OUTPATIENT MEDICATIONS (LOCAL)WITHIN 90 DAYS: FAMOTIDINE 20MG TAB Directions: TAKE ONE TABLET BY MOUTH DAILY NEEDED AND TAKE ONE-HALF TABLET AT BEDTIME NEEDED FOR HEARTBURN Quantity: 135 for 90 days Issued: 07/05/24 Filled: 08/18/24 Expires: 07/06/25 Refills: 3 Status: ACTIVE/SUSP DISCONTINUED OUTPATIENT MEDICATIONS (LOCAL) WITHIN 90 DAYS: FAMOTIDINE 20MG TAB Directions: TAKE ONE TABLET BY MOUTH DAILY NEEDED AND TAKE ONE-HALF TABLET AT BEDTIME NEEDED FOR HEARTBURN Quantity: 135 for 90 days Issued: 07/05/24 Filled: 08/18/24 Expires: 07/06/25 Refills: 3 Status: ACTIVE/SUSP BUDESONIDE 32MCG 120D NASAL INHL Directions: SPRAY 2 SPRAYS IN EACH NOSTRIL TWICE A DAY FOR NASAL SYMPTOMS - REPLACES FLUTICASONE JANUARY 2022 Quantity: 6 for 90 days Issued: 08/09/23 Filled: 08/09/23 Expires: 08/09/24 Refills: 3 Status: DISCONTINUED FAMOTIDINE 20MG TAB Directions: TAKE ONE TABLET BY MOUTH DAILY NEEDED FOR STOMACH Quantity: 90 for 90 days Issued: 10/17/23 Filled: 07/04/24 Expires: 10/17/24 Refills: 2 Status: DISCONTINUED (EDIT) CLINIC MEDICATIONS (LOCAL): No local medications found. Reviewed current medications with patient/signficant other, patient/significant other reports patient taking ALL VA, Non VA & OTC medications as listed on [facility] medication list provided. Vet provided medication list to review prior to appointment and physician will update this medication list with any changes at time of visit. Yes *Printed copy of medication list provided to patient and reviewed. Yes *Explained to the patient the importance of keeping providers updated on medication changes and to carrying an updated list of medication at all times in case of an emergency situation. Yes Reports med list on file is UTD. /kathy/ CHELSEY KAUR HOSPICE HOME CARE COORDINATOR RN Signed: 08/07/2024 09:[address] 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 He was last seen on 02/07/2024 and reports that overall he is doing quite well with current medications that include Xyzal, montelukast, azelastine and ipratropium nose sprays, lubricant eyedrops, and olopatadine as needed. At last visit, he was given a prescription for budesonide nose spray but finds it very difficult to use because of the size of the spray bottle and his inability to bend his neck adequately to use it. He feels like the combination of azelastine and ipratropium nose sprays is taking care of his chronic congestion and drainage quite well, however, and does not wish to change any medications at this time. He has not had any recent episodes of sinusitis, otitis, or bronchitis and overall is happy with his response to allergy medications. He has no new medical concerns today but continues to struggle with chronic back and neck pain and was recently diagnosed with SI joint dysfunction. He is undergoing therapeutic injection in his shoulders, SI joint, and lower back on a regular basis and continues to follow with [facility] for his neck and back issues. ALLERGY/INJECTION: No ALLERGIES: Patient has answered NKA PROBLEM LIST: Active problems - Computerized Problem List is the source for the followin. Does mobilize using cane 2. Reduced mobility 3. Overactive bladder 4. Erectile dysfunction 5. Exposure to potentially hazardous substance ([facility] [id number]) 6. Allergic rhinitis 7. Heartburn 8. Chronic pain 9. 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 Pipe smoker 11. Mixed Hyperlipidemia ([facility] [id number]) 12. History of polyp of colon 4mm TA removed 10/31/2011 TAs resected Mar 2020 -- repeat in 7 years (03/2027). 13. 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 Chronic low back pain ROS: 14 point ROS was done and is negative except as otherwise stated above MEDS: Active Outpatient Medications (including Supplies): ATORVASTATIN CALCIUM 40MG TAB TAKE ONE-HALF TABLET BY ACTIVE MOUTH DAILY -DO NOT DRINK GRAPEFRUIT JUICE WHILE ON THIS DRUG Indication: FOR CHOLESTEROL AZELASTINE 137MCG/SPRAY 200D NASAL INHL SPRAY 2 SPRAYS IN ACTIVE EACH NOSTRIL TWICE A DAY Indication: FOR ALLERGIES FAMOTIDINE 20MG TAB TAKE ONE TABLET BY MOUTH DAILY ACTIVE (S) NEEDED AND TAKE ONE-HALF TABLET AT BEDTIME NEEDED Indication: FOR HEARTBURN HYDROPHILIC (EQV AQUAPHOR) TOP OINT APPLY SMALL AMOUNT TO ACTIVE AFFECTED AREA DIRECTED APPLY DAILY NEEDED. Indication: FOR DRY SKIN IPRATROPIUM BR 0.06% NASAL SPRAY SPRAY 1 TO 2 SPRAYS IN ACTIVE EACH NOSTRIL TWICE A DAY Indication: FOR NASAL ALLERGY LEVOCETIRIZINE DIHYDROCHLORIDE 5MG TAB TAKE ONE TABLET BY ACTIVE MOUTH DAILY -- USE INSTEAD OF FEXOFENADINE DAILY Indication: FOR ALLERGIES MONTELUKAST NA 10MG TAB TAKE ONE TABLET BY MOUTH DAILY ACTIVE Indication: FOR BREATHING OLOPATADINE HCL 0.1% OPH SOLN PUT 1 DROP IN BOTH EYES ACTIVE TWICE A DAY Indication: FOR EYE ALLERGIES SILDENAFIL CITRATE 100MG TAB TAKE ONE TABLET BY MOUTH ACTIVE DIRECTED -DO NOT TAKE WITH ANY MEDICATION CONTAINING NITRATES (LIMIT: 6 DOSES/30 DAYS OR 18 DOSES/90 DAYS, NON-REPLACEABLE MEDICATION) Indication: FOR ERECTILE DYSFUNCTION Non-VA ACETAMINOPHEN 325MG TAB 1300MG MOUTH AT BEDTIME ACTIVE NEEDED Non-VA ASCORBIC ACID 500MG TAB 500MG MOUTH DAILY ACTIVE Non-VA CELECOXIB 200MG CAP 200MG MOUTH DAILY ACTIVE Non-VA GABAPENTIN 300MG CAP 300MG MOUTH TWICE A DAY ACTIVE Non-VA MULTIVITAMIN/MINERALS THERAPEUT CAP/TAB 1 ACTIVE CAP(S)/TAB MOUTH DAILY Non-VA POLYETHYLENE GLYCOL 3350 ORAL PWDR 17 GRAMS (ONE ACTIVE CAPFUL FILLED TO LINE) IN LIQUID MOUTH DAILY Non-VA PSYLLIUM POWDER,ORAL MOUTH ACTIVE Non-VA SENNOSIDES TAB MOUTH ACTIVE Non-VA VIBEGRON 75MG TAB 75MG MOUTH DAILY ACTIVE Indication: FOR OVERACTIVE BLADDER 18 Total Medications Active Non-VA Meds == 1) PSYLLIUM Dose Unknown MOUTH 2) POLYETHYLENE GLYCOL 3350 17 GRAMS (ONE CAPFUL FILLED TO LINE) IN LIQUID MOUTH DAILY 3) SENNOSIDES Dose Unknown MOUTH 4) VIBEGRON 75MG MOUTH DAILY 5) GABAPENTIN 300MG MOUTH TWICE A DAY 6) CELECOXIB 200MG MOUTH DAILY 7) MINERALS/MULTIVITAMINS 1 CAP(S)/TAB MOUTH DAILY Comments: for vitamin supplementation 8) ACETAMINOPHEN 1300MG MOUTH AT BEDTIME NEEDED 9) ASCORBIC ACID 500MG MOUTH DAILY FAMILY HISTORY: No family history of atopy, asthma, or COPD SOCIAL HISTORY: 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 He is and has 3 children as well as 6 grandchildren. One of his daughters was recently diagnosed with breast cancer. He has a grandson who has decided to become a towing pilot in the [employer]. 52 years in 09/22. Smoker Occasional pipe smoking when anxious ENVIRONMENTAL HISTORY: No pets CONSTITUTIONAL: WD, WN PHYSICAL EXAM: EYES: PERR CONJUNCTIVA: Clear LIDS: Normal EARS: Canals: Normal TM: Both TMs normal NOSE: Turbinates: Pale and edematous with narrowed nasal passage bilaterally, right greater than left septum: Midline Polyps: None seen Mucus: Thin airflow: Reduced by nasal turbinate hypertrophy bilaterally NECK: Supple THROAT: Normal RESPIRATORY: Chest movement Normal LUNG: Air Exchange: Normal Wheezes: None heard Rales: None heard Rhonchi: present on the right HEART: RSR Mumur: None heard PSYCHIATRIC: Oriented X3 SKIN: Normal, free of rash and edema EXAM OTHER: DIAGNOSIS: FRAN, PAR, Vasomotor Rhinitis, Allergic Conjunctivitis, dry eye syndrome bilateral, nasal turbinate hypertrophy TREATMENT PLAN: 1. Allergic rhinitis to tree, grass, weed, mold, dust mite, dog, cockroach, horse and VMR -The chronic nature of vasomotor rhinitis was reviewed at length and written information was given at a prior visit. -Continue Xyzal 5 mg daily in PM -Monteluakst 10mg qAM -Azelastine 1-2/nostril BID - QID for drainage and rhinorrhea -Ipratropium 1-2/nostril BID - QID for drainage and rhinorrhea -Continue use of nasal saline throughout the day -Consider allergy immunotherapy in the future if symptoms are not adequately controlled. Trialling maximal medical management first due to significant travel time to [facility] for immunotherapy from [place] and chronicity of symptoms suggestive of primarily VMR. 2. Allergic conjunctivitis with dry eye syndrome bilateral -Lubricant eyedrops 4-6 times daily PRN dryness and irritation -Encouraged use of Olopatadine 0.1% 1 gtt. twice a day PRN eye allergies, redness,itching, and puffiness -Apply cool compresses when necessary and avoid rubbing eyes 3. Nasal turbinate hypertrophy -Patient has undergone surgical intervention in the past (approx 2-3 years ago) and is followed by Dr. Huber, private ENT, for recurrence of his nasal obstruction -Breathe Right strips each evening have helped his nasal collapse -Consider Stealth CT scan of sinuses in future DISPOSITION: RTC: 6 months I spent 28 minutes reviewing history, performing an examination and evaluation, interpreting results, counseling patient, reviewing x-rays and labs, ordering medications, tests, or procedures, documentation in EHR, referring or communicating with consulting health certified social workers in health care, and care coordination. /kathy/ MARION WYATT Signed: 08/07/2024 11:29 08/09/2024 ADDENDUM STATUS: COMPLETED exited clinic per MD. All medications and treatment plan was discussed with prior to exiting clinic by MD. [place] to RTC in 6 months with ALLERGY ATT2 LD via F2F. /kathy/ ELLEN AGUILAR RN CASE MANAGER [facility]D Signed: 08/09/2024 16:18 MARION WYATT [facility]
--- OUTSIDE RECORDS SUMMARY | 2024-09-04 11:23 | XMS_ITS | Continuity of Care Document ---
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 It does not include entries that were removed or entered in error. Problem Status Onset Date Problem Type Date of Resolution Comments Source Allergic rhinitis Active Condition [facility] [facility] Chronic low back pain Active Condition [place] Chronic pain Active Condition [place] [facility] Constipation Active Condition [place] [facility] Does mobilize using cane Active Condition [place] Erectile dysfunction Active Condition [place] Exposure to potentially hazardous substance (SCT [id number]) Active Condition [place] Heartburn Active Condition [place] History of polyp of colon Active Condition Jan 28, 2020 Entered By: LUZMARIA BURGOS RA Comment: 4mm TA removed 10/31/2011Mar 23, 2020 Entered By: TY JEFFERY Comment: TAs resected Mar 2020 -- repeat in 7 years (03/2027). 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 [place] Reduced mobility Active Condition [place] Pain in left knee Inactive Condition 11/22/2021 [place] Diagnosis: ICD-10-CM J30.2 Other seasonal allergic rhinitis Active Diagnosis [place] [facility] Diagnosis: ICD-10-CM G89.29 Other chronic pain Active Diagnosis [place] [facility] Diagnosis: ICD-10-CM L57.0 Actinic keratosis [facility] Diagnosis: ICD-10-CM Z71.89 Other specified counseling Active Diagnosis [facility] Diagnosis: ICD-10-CM R05.9 Cough, unspecified Active Diagnosis [place] Diagnosis: ICD-10-CM E78.2 Mixed hyperlipidemia Active Diagnosis [facility] Medications Combined list of outpatient medications from Department of Defense and [facility] Affairs facilities.Medications provided include 1) outpatient medications from the last 15 months, and 2) patient-reported medications. Medication Details Route Status Patient Instructions Prescription Expires Prescription Number Last Dispense Date Ordering Provider Order Date Order Qty Source ABRYSVO (respirator y syncytial virus vaccine, preF A and B/PF), 120MCG/0.5, VIAL, INTRAMUSC, PFIZER [employer] [facility], 1 ea. VIAL Active [id number] 2023 1 Pharmac y Data Transac tion Service Facilit y ACETAMINOPH EN 325MG TAB TAKE FOUR TABLETS BY MOUTH AT BEDTIME NEEDED ORAL ACTIVE HAL BURGOS R 2020 [place] [facility] AMOX TR-POTASSIU M CLAVULANATE (AMOXICILLI N/POTASSIUM CLAV), 875-125 MG, TABLET, ORAL, [facility], 20 ea. BOTTLE Active [id number] 2023 14 Pharmac y Data Transac tion Service Facilit y AMOXICILLIN TRIHYDRATE 875MG/CLAVU LANATE K 125MG TAB TAKE 1 TABLET BY MOUTH TWICE A DAY FOR 7 DAYS ORAL 12/24/2023 [id number] 4 MARION WYATT 2023 14 [place] [facility] ASCORBIC ACID 500MG TAB TAKE ONE TABLET BY MOUTH DAILY ORAL ACTIVE HAL BURGOS R 2018 [place] [facility] atorvastati n (U/D) 40 MG ORAL TAB TAKE ONE-HALF TABLET BY MOUTH DAILY FOR CHOLESTE ROL -DO NOT DRINK GRAPEFRU IT JUICE WHILE ON THIS DRUG Active 10/17/2024 [id number] 4 FENG BURGOS 2023 45 [place] [facility] atorvastati n (U/D) 40 MG ORAL TAB TAKE ONE-HALF TABLET BY MOUTH DAILY FOR CHOLESTE ROL -DO NOT DRINK GRAPEFRU IT JUICE WHILE ON THIS DRUG Discont inued 11/01/2023 [id number] AUBREY FENG R 2023 45 [place] [facility] ATORVASTATI N CA 40MG TAB TAKE ONE-HALF TABLET BY MOUTH DAILY FOR CHOLESTE ROL -DO NOT DRINK GRAPEFRU IT JUICE WHILE ON THIS DRUG ORAL ACTIVE 10/17/2024 [id number] HAL BURGOS R 2023 45 [place] [facility] ATORVASTATI N CA 40MG TAB TAKE ONE-HALF TABLET BY MOUTH DAILY FOR CHOLESTE ROL -DO NOT DRINK GRAPEFRU IT JUICE WHILE ON THIS DRUG ORAL DISCONT INUED 11/01/2023 [id number] HAL BURGOS R 2022 45 [place] [facility] AZELASTINE 0.1 % DOMENICA SPRP [30 ML] SPRAY 2 SPRAYS IN EACH NOSTRIL TWICE A DAY FOR ALLERGIE S 08/09/2024 [id number] 4 MARION WYATT 2023 4 [place] [facility] AZELASTINE HCL 137MCG/SPRA Y INHL,NASAL, 30ML SPRAY 2 SPRAYS IN EACH NOSTRIL TWICE A DAY FOR ALLERGIE S NASAL ACTIVE 08/08/2025 [id number] 5 MARION WYATT 2024 3 [place] [facility] AZELASTINE HCL 137MCG/SPRA Y INHL,NASAL, 30ML SPRAY 2 SPRAYS IN EACH NOSTRIL TWICE A DAY FOR ALLERGIE S NASAL DISCONT INUED 08/09/2024 [id number] 5 MARION WYATT 2023 4 [place] Budesonide 0.032mg/Act uat, [place], Nasal SPRAY 2 SPRAYS IN EACH NOSTRIL TWICE A DAY FOR NASAL SYMPTOMS - REPLACES FLUTICAS ONE JANUARY 2022 08/09/2024 [id number] 4 MARION WYATT 2023 6 [place] [facility] BUDESONIDE 32MCG/ACTUA T INHL,NASAL, 8.43GM SPRAY 2 SPRAYS IN EACH NOSTRIL TWICE A DAY FOR NASAL SYMPTOMS - REPLACES FLUTICAS ONE JANUARY 2022 NASAL ACTIVE 08/09/2024 [id number] 4 MARION WYATT 2023 6 [place] carboxymeth ylcel 0.5% EYE DROP [2 X15ML] PUT 1 DROP IN BOTH EYES EVERY 1 HOUR NEEDED FOR DRY EYES 02/09/2024 [id number] 4 MARION WYATT 2023 150 [place] [facility] CARBOXYMETH YLCELLULOSE NA 0.5% (PF) SOLN,OPH,0. 4ML PUT 1 DROP IN BOTH EYES EVERY 1 HOUR NEEDED FOR DRY EYES OPHTHA LMIC 02/09/2024 [id number] 4 MARION WYATT 2022 150 [place] CARBOXYMETH YLCELLULOSE NA 0.5% (PF) SOLN,OPH,UD PUT 1 DROP IN BOTH EYES EVERY 1 HOUR NEEDED FOR DRY EYES OPHTHA LMIC ACTIVE 08/08/2025 [id number] 5 MARION WYATT 2024 100 [place] [facility] CELECOXIB 200MG CAP TAKE 1 CAPSULE BY MOUTH DAILY ORAL ACTIVE HAL BURGOS 2021 [place] [facility] famotidine (U/D) 20 MG ORAL TAB TAKE ONE TABLET BY MOUTH DAILY NEEDED FOR STOMACH Active 10/17/2024 [id number] 4 FENG BURGOS 2023 90 [place] [facility] famotidine (U/D) 20 MG ORAL TAB TAKE ONE TABLET BY MOUTH DAILY NEEDED FOR STOMACH Discont inued 11/01/2023 [id number] FENG BURGOS 06/19/ 2024 90 [place] [facility] FAMOTIDINE 20MG TAB TAKE ONE TABLET BY MOUTH DAILY NEEDED AND TAKE ONE-HALF TABLET AT BEDTIME NEEDED FOR HEARTBUR N ORAL ACTIVE 07/06/2025 [id number] HAL BURGOS R 2024 135 [place] [facility] FAMOTIDINE 20MG TAB TAKE ONE TABLET BY MOUTH DAILY NEEDED FOR STOMACH ORAL DISCONT INUED (EDIT) 10/17/2024 [id number] HAL BURGOS R 2023 90 [place] [facility] FAMOTIDINE 20MG TAB TAKE ONE TABLET BY MOUTH DAILY NEEDED FOR STOMACH ORAL DISCONT INUED (EDIT) 11/01/2023 [id number] HAL BURGOS R 2022 90 [place] [facility] GABAPENTIN (gabapentin ), 300 MG, CAPSULE, ORAL, [facility] PHARMACE, 270 ea. BOTTLE Active [id number] 4 2023 270 Pharmac y Data Transac tion Service Facilit y GABAPENTIN 300MG CAP TAKE 1 CAPSULE BY MOUTH TWICE A DAY ORAL ACTIVE HAL BURGOS R 2021 [place] [facility] GEMTESA (vibegron), 75 MG, TABLET, ORAL, UROVANT-SUM ITOM, 30 ea. BOTTLE Active [id number] 4 2023 90 Pharmac y Data Transac tion Service Facilit y GEMTESA (vibegron), 75 MG, TABLET, ORAL, UROVANT-SUM ITOM, 90 ea. BOTTLE Active [id number] 4 2023 90 Pharmac y Data Transac tion Service Facilit y HYDROPHILIC (EQV AQUAPHOR) OINT,TOP APPLY SMALL AMOUNT TO AFFECTED AREA DIRECTED FOR DRY SKIN APPLY DAILY NEEDED. TOPICA L ACTIVE 07/03/2025 [id number] KUNAL,LOKI ART 2024 454 [place] IPRATROPIUM BR 0.06% SOLN,SPRAY, NASAL SPRAY 1 TO 2 SPRAYS IN EACH NOSTRIL TWICE A DAY FOR NASAL ALLERGY NASAL ACTIVE 02/07/2025 [id number] 5 MARION WYATT 2023 45 [place] [facility] IPRATROPIUM BROMIDE (IPRATROPIU M BROMIDE), 21MCG, SPRAY, NASAL, [facility]., 30 ml CANISTER Active [id number] 06/08/19 2 4 2023 30 Pharmac y Data Transac tion Service Facilit y IPRATROPIUM BROMIDE (IPRATROPIU M BROMIDE), 21MCG, SPRAY, NASAL, [facility]., 30 ml CANISTER Active [id number] 07/07/19 2 4 2023 30 Pharmac y Data Transac tion Service Facilit y IPRATROPIUM BROMIDE (IPRATROPIU M BROMIDE), 21G, SPRAY, NASAL, [facility]., 30 ml CANISTER Active [id number] 06/14/19 2 4 2023 30 Pharmac y Data Transac tion Service Facilit y LEVOCETIRIZ INE 5 MG ORAL TAB TAKE ONE TABLET BY MOUTH DAILY -- USE INSTEAD OF FEXOFENA DINE DAILY FOR ALLERGIE S 02/09/2024 [id number] 4 MARION WYATT 2023 90 [place] [facility] LEVOCETIRIZ INE DIHYDROCHLO RIDE 5MG TAB TAKE ONE TABLET BY MOUTH DAILY -- USE INSTEAD OF FEXOFENA DINE DAILY FOR ALLERGIE S ORAL ACTIVE 02/19/2025 [id number] 5 MARION WYATT 2023 90 [place] LEVOCETIRIZ INE DIHYDROCHLO RIDE 5MG TAB TAKE ONE TABLET BY MOUTH DAILY -- USE INSTEAD OF FEXOFENA DINE DAILY FOR ALLERGIE S ORAL DISCONT INUED 02/09/2024 [id number] 4 MARION WYATT 2022 90 [place] MONTELUKAST (U/D) 10 MG ORAL TAB TAKE ONE TABLET BY MOUTH DAILY FOR BREATHIN G 08/09/2024 [id number] 4 MARION WYATT 2023 90 [place] [facility] MONTELUKAST (U/D) 10 MG ORAL TAB TAKE ONE TABLET BY MOUTH DAILY FOR BREATHIN G Discont inued 08/11/2023 [id number] 4 MARION WYATT 2023 90 [place] [facility] MONTELUKAST NA 10MG TAB TAKE ONE TABLET BY MOUTH DAILY FOR BREATHIN G ORAL SUSPEND ED 08/08/2025 [id number] 5 MARION WYATT 2024 90 [place] [facility] MONTELUKAST NA 10MG TAB TAKE ONE TABLET BY MOUTH DAILY FOR BREATHIN G ORAL DISCONT INUED 08/09/2024 [id number] 5 MARION WYATT 2023 90 [place] MONTELUKAST NA 10MG TAB TAKE ONE TABLET BY MOUTH DAILY FOR BREATHIN G ORAL DISCONT INUED 08/11/2023 [id number] 4 MARION WYATT 2022 90 [place] MULTIVITAMI NS W/MINERALS CAP/TAB TAKE 1 CAP(S)/T AB BY MOUTH DAILY ORAL ACTIVE HAL BURGOS 2021 [place] [facility] OLOPATADINE 0.1 % EYE DROP [5 ML] PUT 1 DROP IN BOTH EYES TWICE A DAY FOR EYE ALLERGIE S 08/09/2024 [id number] 4 MARION WYATT 2023 15 [place] [facility] OLOPATADINE HCL 0.1% SOLN,OPH PUT 1 DROP IN BOTH EYES TWICE A DAY FOR EYE ALLERGIE S OPHTHA LMIC ACTIVE 08/08/2025 [id number] 5 MARION WYATT 2024 20 [place] [facility] OLOPATADINE HCL 0.1% SOLN,OPH PUT 1 DROP IN BOTH EYES TWICE A DAY FOR EYE ALLERGIE S OPHTHA LMIC DISCONT INUED 08/09/2024 [id number] 5 MARION WYATT 04/10/ 2024 15 [place] POLYETHYLEN E GLYCOL 3350 PWDR,ORAL MIX 17 GRAMS (ONE CAPFUL FILLED TO LINE) IN LIQUID AND TAKE BY MOUTH DAILY ORAL ACTIVE HAL BURGOS 2024 [place] [facility] PREDNISONE 10MG TAB TAKE FOUR TABLETS BY MOUTH DAILY FOR 3 DAYS, THEN TAKE THREE TABLETS DAILY FOR 3 DAYS, THEN TAKE TWO TABLETS DAILY FOR 3 DAYS, THEN TAKE ONE TABLET DAILY FOR 3 DAYS FOR INFLAMMA TION ORAL 12/24/2023 [id number] 4 MARION WYATT 2023 30 [place] [facility] PSYLLIUM POWDER,ORAL MIX AND TAKE BY MOUTH ORAL ACTIVE HAL BURGOS 2024 [place] [facility] SENNOSIDES TAB TAKE BY MOUTH DAILY ORAL ACTIVE HAL BURGOS 2024 [place] [facility] SILDENAFIL CITRATE 100MG TAB TAKE ONE TABLET BY MOUTH DIRECTED FOR ERECTILE DYSFUNCT ION -DO NOT TAKE WITH ANY MEDICATI ON CONTAINI NG NITRATES (LIMIT: 6 DOSES/30 DAYS OR 18 DOSES/90 DAYS, NON-REPL ACEABLE MEDICATI ON) ORAL ACTIVE 07/06/2025 [id number] HAL BURGOS 2024 18 [place] [facility] VIBEGRON 75MG TAB TAKE ONE TABLET BY MOUTH DAILY ORAL ACTIVE HAL BURGOS 2023 [place] [facility] Immunizations Combined list of available immunizations from the Department of Defense and [facility] facilities. 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 Comments Source INFLUENZA, HIGH-DOSE, TRIVALENT, PF 5 2023 135 complet ed HISTORICA L INFORMATI ON - FROM OTHER REGISTRY, [place] [facility] PNEUMOCOCCAL CONJUGATE PCV20, POLYSACCHARID E [id number] CONJUGATE, ADJUVANT, PF 2 2023 216 complet ed HISTORICA L INFORMATI ON - FROM OTHER REGISTRY, [place] [facility] RSV, BIVALENT, PROTEIN SUBUNIT RSVPREF, DILUENT RECONSTITUTED , 0.5 ML, PF 1 2023 305 complet ed HISTORICA L INFORMATI ON - FROM OTHER REGISTRY, [place] [facility] INFLUENZA VACCINE, QUADRIVALENT, ADJUVANTED 4 2022 205 complet ed HISTORICA L INFORMATI ON - FROM OTHER REGISTRY, [place] [facility] INFLUENZA, UNSPECIFIED FORMULATION 2021 88 complet ed HISTORICA L INFORMATI ON - SOURCE UNSPECIFI ED, [place] [facility] COVID-19 ([employer]), MRNA, LNP-S, PF, 30 MCG/0.3 ML DOSE 4 2021 208 complet ed [place] [facility] COVID-19 ([employer]), MRNA, LNP-S, PF, 30 MCG/0.3 ML DOSE, MARE-SUCROSE (AGES 12+ YEARS) 4 2021 217 complet ed HISTORICA L INFORMATI ON - FROM OTHER REGISTRY, [place] [facility] INFLUENZA, HIGH DOSE SEASONAL 3 2020 135 complet ed HISTORICA L INFORMATI ON - FROM OTHER REGISTRY, [place] [facility] COVID-19 ([employer]), MRNA, LNP-S, PF, 30 MCG/0.3 ML DOSE 3 2020 208 complet ed [place] [facility] COVID-19 ([employer]), MRNA, LNP-S, PF, 30 MCG/0.3 ML DOSE 2 2020 208 complet ed [place] [facility] COVID-19 ([employer]), MRNA, LNP-S, PF, 30 MCG/0.3 ML DOSE 1 2020 208 complet ed [place] [facility] INFLUENZA, INJECTABLE, QUADRIVALENT, PRESERVATIVE FREE 2019 150 complet ed [place] [facility] TD[facility] 2019 115 complet ed [place] [facility] Influenza, high dose seasonal 2018 DAIANA JACOBO () Not Given Influenza , high dose seasonal DoD zoster recombinant 2018 DAIANA JACOBO () Not Given zoster recombina nt DoD ZOSTER RECOMBINANT 2 2018 187 complet ed HISTORICA L INFORMATI ON - FROM OTHER REGISTRY, [place] [facility] zoster recombinant 2018 DAIANA JACOBO () Not Given zoster recombina nt DoD ZOSTER RECOMBINANT 1 2018 187 complet ed HISTORICA L INFORMATI ON - FROM OTHER REGISTRY, [place] [facility] Hep A, adult 2018 DAIANA JACOBO () Not Given Hep A, adult DoD HEP A, ADULT 2 2018 52 complet ed HISTORICA L INFORMATI ON - [facility] OTHER REGISTRY, [place] [facility] Hep A, adult 2017 DAIANA JACOBO () Not Given Hep A, adult DoD HEP A, ADULT 1 2017 52 complet ed HISTORICA L INFORMATI ON - FROM OTHER REGISTRY, [place] [facility] INFLUENZA, INJECTABLE, QUADRIVALENT 2 2017 158 complet ed HISTORICA L INFORMATI ON - FROM OTHER REGISTRY, [place] [facility] PNEUMOCOCCAL CONJUGATE PCV 13 1 2016 133 complet ed HISTORICA L INFORMATI ON - FROM OTHER REGISTRY, [place] [facility] INFLUENZA, INJECTABLE, QUADRIVALENT 1 2016 158 complet ed HISTORICA L INFORMATI ON - FROM OTHER REGISTRY, [place] [facility] zoster live 2014 TIEN MICHAELS () Not Given zoster live [facility] influenza virus vaccine, split virus (incl. purified surface antigen)-reti red CODE 1 2011 Unknown, Provider [id number] 15 [employer] P[employer] ([facility]) complet ed influenza virus vaccine, split virus (incl. purified surface antigen)- retired CODE DoD TD (ADULT), 2 LF TETANUS TOXOID, PRESERVATIVE FREE, ADSORBED 1 1996 09 complet ed HISTORICA L INFORMATI ON - FROM OTHER REGISTRY, [place] [facility] Results Combined list of recent chemistry, hematology and other laboratory results from Department of Defense and Veterans Affairs, ranging from 15 months to all on record, depending upon the facility. Order Name Results Value Reference Range Date Interpretation Specimen Comments Source LIPID PROFILE CHOLESTEROL [MASS/VOLUM E] IN SERUM OR PLASMA 134 mg/dL 0 - 199 07/05 Specimen Type: PLASMA Comment: Estimated Glomerular Filtration Rate (eGFR) calculated using the 2020 Chronic Kidney Disease-Epi demiology (CKD-EPI) Collaborati on creatinine equation; units of measure are mL/min/1.73 m2. Results are only valid for adults (>=18 years) whose serum creatinine is in a steady state. eGFR calculation s are not valid for patients with acute kidney injury and for patients on dialysis. Creatinine- based estimates of kidney function may also be inaccurate in patients with reduced creatinine generation due to decreased muscle mass (e.g., malnutritio n, severe hypoalbumin emia, sarcopenia, chronic neuromuscul ar disease, amputations , severe heart failure or liver disease) and in patients with increased creatinine generation due to increased muscle mass (e.g., muscle builders, anabolic steroids) or increased dietary intake. As drug clearance is proportiona l to total GFR and not GFR indexed to body surface area (BSA), in individuals with a BSA substantial ly different than 1.73 m2, drug dosing should be based on the reported eGFR value de-indexed from BSA by multiplying by the individual' s BSA and dividing by 1.73. CKD is diagnosed based on abnormaliti es of kidney structure or function, present for >3 months, with implication s for health and disease. CKD is classified and staged based on cause, eGFR and albuminuria (quantified as urine albumin to creatinine ratio). An eGFR >60 mL/min/1.73 m2 in the absence of increased urine albumin excretion or structural abnormaliti es does not represent CKD. eGFR CKD Interpretat ion (mL/min/1.7 3 m2) stage >=90 G1 Normal 60-89 G2 Mild decrease 45-59 G3A Mild to moderate decrease 30-44 G3B Moderate to severe decrease 15-29 G4 Severe decrease <15 G5 Kidney failure Ordering Provider: LUZMARIA BURGOS RA Report Released Date/Time: Jul 05, 2024 10:08 AM Reporting Lab: [facility] [address] [address] Performing Lab: [facility] [address] [address] [facility] LIPID PROFILE TRIGLYCERID E [MASS/VOLUM E] IN SERUM OR PLASMA 134 mg/dL 0 - 149 07/05 Specimen Type: PLASMA Comment: Estimated Glomerular Filtration Rate (eGFR) calculated using the 2020 Chronic Kidney Disease-Epi demiology (CKD-EPI) Collaborati on creatinine equation; units of measure are mL/min/1.73 m2. Results are only valid for adults (>=18 years) whose serum creatinine is in a steady state. eGFR calculation s are not valid for patients with acute kidney injury and for patients on dialysis. Creatinine- based estimates of kidney function may also be inaccurate in patients with reduced creatinine generation due to decreased muscle mass (e.g., malnutritio n, severe hypoalbumin emia, sarcopenia, chronic neuromuscul ar disease, amputations , severe heart failure or liver disease) and in patients with increased creatinine generation due to increased muscle mass (e.g., muscle builders, anabolic steroids) or increased dietary intake. As drug clearance is proportiona l to total GFR and not GFR indexed to body surface area (BSA), in individuals with a BSA substantial ly different than 1.73 m2, drug dosing should be based on the reported eGFR value de-indexed from BSA by multiplying by the individual' s BSA and dividing by 1.73. CKD is diagnosed based on abnormaliti es of kidney structure or function, present for >3 months, with implication s for health and disease. CKD is classified and staged based on cause, eGFR and albuminuria (quantified as urine albumin to creatinine ratio). An eGFR >60 mL/min/1.73 m2 in the absence of increased urine albumin excretion or structural abnormaliti es does not represent CKD. eGFR CKD Interpretat ion (mL/min/1.7 3 m2) stage >=90 G1 Normal 60-89 G2 Mild decrease 45-59 G3A Mild to moderate decrease 30-44 G3B Moderate to severe decrease 15-29 G4 Severe decrease <15 G5 Kidney failure Ordering Provider: LUZMARIA BURGOS RA Report Released Date/Time: Jul 05, 2024 10:08 AM Reporting Lab: [facility] [address] [facility] [phone] Performing Lab: [facility] [address] [facility] [address] [facility] LIPID PROFILE CHOLESTEROL IN HDL [MASS/VOLUM E] IN SERUM OR PLASMA 39 mg/dL 40 - 69 07/05 L Specimen Type: PLASMA Comment: Estimated Glomerular Filtration Rate (eGFR) calculated using the 2020 Chronic Kidney Disease-Epi demiology (CKD-EPI) Collaborati on creatinine equation; units of measure are mL/min/1.73 m2. Results are only valid for adults (>=18 years) whose serum creatinine is in a steady state. eGFR calculation s are not valid for patients with acute kidney injury and for patients on dialysis. Creatinine- based estimates of kidney function may also be inaccurate in patients with reduced creatinine generation due to decreased muscle mass (e.g., malnutritio n, severe hypoalbumin emia, sarcopenia, chronic neuromuscul ar disease, amputations , severe heart failure or liver disease) and in patients with increased creatinine generation due to increased muscle mass (e.g., muscle builders, anabolic steroids) or increased dietary intake. As drug clearance is proportiona l to total GFR and not GFR indexed to body surface area (BSA), in individuals with a BSA substantial ly different than 1.73 m2, drug dosing should be based on the reported eGFR value de-indexed from BSA by multiplying by the individual' s BSA and dividing by 1.73. CKD is diagnosed based on abnormaliti es of kidney structure or function, present for >3 months, with implication s for health and disease. CKD is classified and staged based on cause, eGFR and albuminuria (quantified as urine albumin to creatinine ratio). An eGFR >60 mL/min/1.73 m2 in the absence of increased urine albumin excretion or structural abnormaliti es does not represent CKD. eGFR CKD Interpretat ion (mL/min/1.7 3 m2) stage >=90 G1 Normal 60-89 G2 Mild decrease 45-59 G3A Mild to moderate decrease 30-44 G3B Moderate to severe decrease 15-29 G4 Severe decrease <15 G5 Kidney failure Ordering Provider: LUZMARIA BURGOS RA Report Released Date/Time: Jul 05, 2024 10:08 AM Reporting Lab: [facility] [address] [facility] [id number] Performing Lab: [facility] [address] [address] [facility] LIPID PROFILE CHOLESTEROL IN LDL [MASS/VOLUM E] IN SERUM OR PLASMA BY DIRECT ASSAY 72 mg/dL 0 - 100 07/05 Specimen Type: PLASMA Comment: Estimated Glomerular Filtration Rate (eGFR) calculated using the 2020 Chronic Kidney Disease-Epi demiology (CKD-EPI) Collaborati on creatinine equation; units of measure are mL/min/1.73 m2. Results are only valid for adults (>=18 years) whose serum creatinine is in a steady state. eGFR calculation s are not valid for patients with acute kidney injury and for patients on dialysis. Creatinine- based estimates of kidney function may also be inaccurate in patients with reduced creatinine generation due to decreased muscle mass (e.g., malnutritio n, severe hypoalbumin emia, sarcopenia, chronic neuromuscul ar disease, amputations , severe heart failure or liver disease) and in patients with increased creatinine generation due to increased muscle mass (e.g., muscle builders, anabolic steroids) or increased dietary intake. As drug clearance is proportiona l to total GFR and not GFR indexed to body surface area (BSA), in individuals with a BSA substantial ly different than 1.73 m2, drug dosing should be based on the reported eGFR value de-indexed from BSA by multiplying by the individual' s BSA and dividing by 1.73. CKD is diagnosed based on abnormaliti es of kidney structure or function, present for >3 months, with implication s for health and disease. CKD is classified and staged based on cause, eGFR and albuminuria (quantified as urine albumin to creatinine ratio). An eGFR >60 mL/min/1.73 m2 in the absence of increased urine albumin excretion or structural abnormaliti es does not represent CKD. eGFR CKD Interpretat ion (mL/min/1.7 3 m2) stage >=90 G1 Normal 60-89 G2 Mild decrease 45-59 G3A Mild to moderate decrease 30-44 G3B Moderate to severe decrease 15-29 G4 Severe decrease <15 G5 Kidney failure Ordering Provider: LUZMARIA BURGOS RA Report Released Date/Time: Jul 05, 2024 10:08 AM Reporting Lab: [facility] [address] [phone] Performing Lab: [facility] [address] [address] [facility] PANEL 5 CREATININE [MASS/VOLUM E] IN SERUM OR PLASMA 0.91 mg/dL 0.72 - 1.25 07/05 Specimen Type: PLASMA Comment: Estimated Glomerular Filtration Rate (eGFR) calculated using the 2020 Chronic Kidney Disease-Epi demiology (CKD-EPI) Collaborati on creatinine equation; units of measure are mL/min/1.73 m2. Results are only valid for adults (>=18 years) whose serum creatinine is in a steady state. eGFR calculation s are not valid for patients with acute kidney injury and for patients on dialysis. Creatinine- based estimates of kidney function may also be inaccurate in patients with reduced creatinine generation due to decreased muscle mass (e.g., malnutritio n, severe hypoalbumin emia, sarcopenia, chronic neuromuscul ar disease, amputations , severe heart failure or liver disease) and in patients with increased creatinine generation due to increased muscle mass (e.g., muscle builders, anabolic steroids) or increased dietary intake. As drug clearance is proportiona l to total GFR and not GFR indexed to body surface area (BSA), in individuals with a BSA substantial ly different than 1.73 m2, drug dosing should be based on the reported eGFR value de-indexed from BSA by multiplying by the individual' s BSA and dividing by 1.73. CKD is diagnosed based on abnormaliti es of kidney structure or function, present for >3 months, with implication s for health and disease. CKD is classified and staged based on cause, eGFR and albuminuria (quantified as urine albumin to creatinine ratio). An eGFR >60 mL/min/1.73 m2 in the absence of increased urine albumin excretion or structural abnormaliti es does not represent CKD. eGFR CKD Interpretat ion (mL/min/1.7 3 m2) stage >=90 G1 Normal 60-89 G2 Mild decrease 45-59 G3A Mild to moderate decrease 30-44 G3B Moderate to severe decrease 15-29 G4 Severe decrease <15 G5 Kidney failure Ordering Provider: LUZMARIA BURGOS RA Report Released Date/Time: Jul 05, 2024 10:08 AM Reporting Lab: [facility] [address] [phone] Performing Lab: [facility] [address] [address] [facility] PANEL 5 UREA NITROGEN [MASS/VOLUM E] IN SERUM OR PLASMA 18 mg/dL 07/05 Specimen Type: PLASMA Comment: Estimated Glomerular Filtration Rate (eGFR) calculated using the 2020 Chronic Kidney Disease-Epi demiology (CKD-EPI) Collaborati on creatinine equation; units of measure are mL/min/1.73 m2. Results are only valid for adults (>=18 years) whose serum creatinine is in a steady state. eGFR calculation s are not valid for patients with acute kidney injury and for patients on dialysis. Creatinine- based estimates of kidney function may also be inaccurate in patients with reduced creatinine generation due to decreased muscle mass (e.g., malnutritio n, severe hypoalbumin emia, sarcopenia, chronic neuromuscul ar disease, amputations , severe heart failure or liver disease) and in patients with increased creatinine generation due to increased muscle mass (e.g., muscle builders, anabolic steroids) or increased dietary intake. As drug clearance is proportiona l to total GFR and not GFR indexed to body surface area (BSA), in individuals with a BSA substantial ly different than 1.73 m2, drug dosing should be based on the reported eGFR value de-indexed from BSA by multiplying by the individual' s BSA and dividing by 1.73. CKD is diagnosed based on abnormaliti es of kidney structure or function, present for >3 months, with implication s for health and disease. CKD is classified and staged based on cause, eGFR and albuminuria (quantified as urine albumin to creatinine ratio). An eGFR >60 mL/min/1.73 m2 in the absence of increased urine albumin excretion or structural abnormaliti es does not represent CKD. eGFR CKD Interpretat ion (mL/min/1.7 3 m2) stage >=90 G1 Normal 60-89 G2 Mild decrease 45-59 G3A Mild to moderate decrease 30-44 G3B Moderate to severe decrease 15-29 G4 Severe decrease <15 G5 Kidney failure Ordering Provider: LUZMARIA BURGOS RA Report Released Date/Time: Jul 05, 2024 10:08 AM Reporting Lab: [facility] [address] [phone] Performing Lab: [facility] [address] [address] [facility] PANEL 5 GLUCOSE [MASS/VOLUM E] IN SERUM OR PLASMA 89 mg/dL 74 - 100 07/05 Specimen Type: PLASMA Comment: Estimated Glomerular Filtration Rate (eGFR) calculated using the 2020 Chronic Kidney Disease-Epi demiology (CKD-EPI) Collaborati on creatinine equation; units of measure are mL/min/1.73 m2. Results are only valid for adults (>=18 years) whose serum creatinine is in a steady state. eGFR calculation s are not valid for patients with acute kidney injury and for patients on dialysis. Creatinine- based estimates of kidney function may also be inaccurate in patients with reduced creatinine generation due to decreased muscle mass (e.g., malnutritio n, severe hypoalbumin emia, sarcopenia, chronic neuromuscul ar disease, amputations , severe heart failure or liver disease) and in patients with increased creatinine generation due to increased muscle mass (e.g., muscle builders, anabolic steroids) or increased dietary intake. As drug clearance is proportiona l to total GFR and not GFR indexed to body surface area (BSA), in individuals with a BSA substantial ly different than 1.73 m2, drug dosing should be based on the reported eGFR value de-indexed from BSA by multiplying by the individual' s BSA and dividing by 1.73. CKD is diagnosed based on abnormaliti es of kidney structure or function, present for >3 months, with implication s for health and disease. CKD is classified and staged based on cause, eGFR and albuminuria (quantified as urine albumin to creatinine ratio). An eGFR >60 mL/min/1.73 m2 in the absence of increased urine albumin excretion or structural abnormaliti es does not represent CKD. eGFR CKD Interpretat ion (mL/min/1.7 3 m2) stage >=90 G1 Normal 60-89 G2 Mild decrease 45-59 G3A Mild to moderate decrease 30-44 G3B Moderate to severe decrease 15-29 G4 Severe decrease <15 G5 Kidney failure Ordering Provider: LUZMARIA BURGOS RA Report Released Date/Time: Jul 05, 2024 10:08 AM Reporting Lab: [facility] [address] [phone] Performing Lab: [facility] [address] [phone] [facility] PANEL 5 SODIUM [MOLES/VOLU ME] IN SERUM OR PLASMA 142 mmol/L 136 - 145 07/05 Specimen Type: PLASMA Comment: Estimated Glomerular Filtration Rate (eGFR) calculated using the 2020 Chronic Kidney Disease-Epi demiology (CKD-EPI) Collaborati on creatinine equation; units of measure are mL/min/1.73 m2. Results are only valid for adults (>=18 years) whose serum creatinine is in a steady state. eGFR calculation s are not valid for patients with acute kidney injury and for patients on dialysis. Creatinine- based estimates of kidney function may also be inaccurate in patients with reduced creatinine generation due to decreased muscle mass (e.g., malnutritio n, severe hypoalbumin emia, sarcopenia, chronic neuromuscul ar disease, amputations , severe heart failure or liver disease) and in patients with increased creatinine generation due to increased muscle mass (e.g., muscle builders, anabolic steroids) or increased dietary intake. As drug clearance is proportiona l to total GFR and not GFR indexed to body surface area (BSA), in individuals with a BSA substantial ly different than 1.73 m2, drug dosing should be based on the reported eGFR value de-indexed from BSA by multiplying by the individual' s BSA and dividing by 1.73. CKD is diagnosed based on abnormaliti es of kidney structure or function, present for >3 months, with implication s for health and disease. CKD is classified and staged based on cause, eGFR and albuminuria (quantified as urine albumin to creatinine ratio). An eGFR >60 mL/min/1.73 m2 in the absence of increased urine albumin excretion or structural abnormaliti es does not represent CKD. eGFR CKD Interpretat ion (mL/min/1.7 3 m2) stage >=90 G1 Normal 60-89 G2 Mild decrease 45-59 G3A Mild to moderate decrease 30-44 G3B Moderate to severe decrease 15-29 G4 Severe decrease <15 G5 Kidney failure Ordering Provider: LUZMARIA BURGOS RA Report Released Date/Time: Jul 05, 2024 10:08 AM Reporting Lab: [facility] [address] [phone] Performing Lab: [facility] [address] [address] [facility] PANEL 5 POTASSIUM [MOLES/VOLU ME] IN SERUM OR PLASMA 3.9 mmol/L 3.5 - 5.1 07/05 Specimen Type: PLASMA Comment: Estimated Glomerular Filtration Rate (eGFR) calculated using the 2020 Chronic Kidney Disease-Epi demiology (CKD-EPI) Collaborati on creatinine equation; units of measure are mL/min/1.73 m2. Results are only valid for adults (>=18 years) whose serum creatinine is in a steady state. eGFR calculation s are not valid for patients with acute kidney injury and for patients on dialysis. Creatinine- based estimates of kidney function may also be inaccurate in patients with reduced creatinine generation due to decreased muscle mass (e.g., malnutritio n, severe hypoalbumin emia, sarcopenia, chronic neuromuscul ar disease, amputations , severe heart failure or liver disease) and in patients with increased creatinine generation due to increased muscle mass (e.g., muscle builders, anabolic steroids) or increased dietary intake. As drug clearance is proportiona l to total GFR and not GFR indexed to body surface area (BSA), in individuals with a BSA substantial ly different than 1.73 m2, drug dosing should be based on the reported eGFR value de-indexed from BSA by multiplying by the individual' s BSA and dividing by 1.73. CKD is diagnosed based on abnormaliti es of kidney structure or function, present for >3 months, with implication s for health and disease. CKD is classified and staged based on cause, eGFR and albuminuria (quantified as urine albumin to creatinine ratio). An eGFR >60 mL/min/1.73 m2 in the absence of increased urine albumin excretion or structural abnormaliti es does not represent CKD. eGFR CKD Interpretat ion (mL/min/1.7 3 m2) stage >=90 G1 Normal 60-89 G2 Mild decrease 45-59 G3A Mild to moderate decrease 30-44 G3B Moderate to severe decrease 15-29 G4 Severe decrease <15 G5 Kidney failure Ordering Provider: LUZMARIA BURGOS RA Report Released Date/Time: Jul 05, 2024 10:08 AM Reporting Lab: [facility] [address] [address] Performing Lab: [facility] [address] [address] [facility] PANEL 5 CHLORIDE [MOLES/VOLU ME] IN SERUM OR PLASMA 110 mmol/L 98 - 107 07/05 H Specimen Type: PLASMA Comment: Estimated Glomerular Filtration Rate (eGFR) calculated using the 2020 Chronic Kidney Disease-Epi demiology (CKD-EPI) Collaborati on creatinine equation; units of measure are mL/min/1.73 m2. Results are only valid for adults (>=18 years) whose serum creatinine is in a steady state. eGFR calculation s are not valid for patients with acute kidney injury and for patients on dialysis. Creatinine- based estimates of kidney function may also be inaccurate in patients with reduced creatinine generation due to decreased muscle mass (e.g., malnutritio n, severe hypoalbumin emia, sarcopenia, chronic neuromuscul ar disease, amputations , severe heart failure or liver disease) and in patients with increased creatinine generation due to increased muscle mass (e.g., muscle builders, anabolic steroids) or increased dietary intake. As drug clearance is proportiona l to total GFR and not GFR indexed to body surface area (BSA), in individuals with a BSA substantial ly different than 1.73 m2, drug dosing should be based on the reported eGFR value de-indexed from BSA by multiplying by the individual' s BSA and dividing by 1.73. CKD is diagnosed based on abnormaliti es of kidney structure or function, present for >3 months, with implication s for health and disease. CKD is classified and staged based on cause, eGFR and albuminuria (quantified as urine albumin to creatinine ratio). An eGFR >60 mL/min/1.73 m2 in the absence of increased urine albumin excretion or structural abnormaliti es does not represent CKD. eGFR CKD Interpretat ion (mL/min/1.7 3 m2) stage >=90 G1 Normal 60-89 G2 Mild decrease 45-59 G3A Mild to moderate decrease 30-44 G3B Moderate to severe decrease 15-29 G4 Severe decrease <15 G5 Kidney failure Ordering Provider: LUZMARIA BURGOS RA Report Released Date/Time: Jul 05, 2024 10:08 AM Reporting Lab: [facility] [address] [phone] Performing Lab: [facility] [address] [address] [facility] PANEL 5 CARBON DIOXIDE, TOTAL [MOLES/VOLU ME] IN SERUM OR PLASMA 23 mmol/L 22 - 29 07/05 Specimen Type: PLASMA Comment: Estimated Glomerular Filtration Rate (eGFR) calculated using the 2020 Chronic Kidney Disease-Epi demiology (CKD-EPI) Collaborati on creatinine equation; units of measure are mL/min/1.73 m2. Results are only valid for adults (>=18 years) whose serum creatinine is in a steady state. eGFR calculation s are not valid for patients with acute kidney injury and for patients on dialysis. Creatinine- based estimates of kidney function may also be inaccurate in patients with reduced creatinine generation due to decreased muscle mass (e.g., malnutritio n, severe hypoalbumin emia, sarcopenia, chronic neuromuscul ar disease, amputations , severe heart failure or liver disease) and in patients with increased creatinine generation due to increased muscle mass (e.g., muscle builders, anabolic steroids) or increased dietary intake. As drug clearance is proportiona l to total GFR and not GFR indexed to body surface area (BSA), in individuals with a BSA substantial ly different than 1.73 m2, drug dosing should be based on the reported eGFR value de-indexed from BSA by multiplying by the individual' s BSA and dividing by 1.73. CKD is diagnosed based on abnormaliti es of kidney structure or function, present for >3 months, with implication s for health and disease. CKD is classified and staged based on cause, eGFR and albuminuria (quantified as urine albumin to creatinine ratio). An eGFR >60 mL/min/1.73 m2 in the absence of increased urine albumin excretion or structural abnormaliti es does not represent CKD. eGFR CKD Interpretat ion (mL/min/1.7 3 m2) stage >=90 G1 Normal 60-89 G2 Mild decrease 45-59 G3A Mild to moderate decrease 30-44 G3B Moderate to severe decrease 15-29 G4 Severe decrease <15 G5 Kidney failure Ordering Provider: LUZMARIA BURGOS RA Report Released Date/Time: Jul 05, 2024 10:08 AM Reporting Lab: [facility] [address] [phone] Performing Lab: [facility] [address] [address] [facility] PANEL 5 CALCIUM [MASS/VOLUM E] IN SERUM OR PLASMA 9.5 mg/dL 8.4 - 10.2 07/05 Specimen Type: PLASMA Comment: Estimated Glomerular Filtration Rate (eGFR) calculated using the 2020 Chronic Kidney Disease-Epi demiology (CKD-EPI) Collaborati on creatinine equation; units of measure are mL/min/1.73 m2. Results are only valid for adults (>=18 years) whose serum creatinine is in a steady state. eGFR calculation s are not valid for patients with acute kidney injury and for patients on dialysis. Creatinine- based estimates of kidney function may also be inaccurate in patients with reduced creatinine generation due to decreased muscle mass (e.g., malnutritio n, severe hypoalbumin emia, sarcopenia, chronic neuromuscul ar disease, amputations , severe heart failure or liver disease) and in patients with increased creatinine generation due to increased muscle mass (e.g., muscle builders, anabolic steroids) or increased dietary intake. As drug clearance is proportiona l to total GFR and not GFR indexed to body surface area (BSA), in individuals with a BSA substantial ly different than 1.73 m2, drug dosing should be based on the reported eGFR value de-indexed from BSA by multiplying by the individual' s BSA and dividing by 1.73. CKD is diagnosed based on abnormaliti es of kidney structure or function, present for >3 months, with implication s for health and disease. CKD is classified and staged based on cause, eGFR and albuminuria (quantified as urine albumin to creatinine ratio). An eGFR >60 mL/min/1.73 m2 in the absence of increased urine albumin excretion or structural abnormaliti es does not represent CKD. eGFR CKD Interpretat ion (mL/min/1.7 3 m2) stage >=90 G1 Normal 60-89 G2 Mild decrease 45-59 G3A Mild to moderate decrease 30-44 G3B Moderate to severe decrease 15-29 G4 Severe decrease <15 G5 Kidney failure Ordering Provider: LUZMARIA BURGOS RA Report Released Date/Time: Jul 05, 2024 10:08 AM Reporting Lab: [facility] [address] [phone] Performing Lab: [facility] [address] [address] [facility] PANEL 5 PROTEIN [MASS/VOLUM E] IN SERUM OR PLASMA 7.0 g/dL 6.4 - 8.3 07/05 Specimen Type: PLASMA Comment: Estimated Glomerular Filtration Rate (eGFR) calculated using the 2020 Chronic Kidney Disease-Epi demiology (CKD-EPI) Collaborati on creatinine equation; units of measure are mL/min/1.73 m2. Results are only valid for adults (>=18 years) whose serum creatinine is in a steady state. eGFR calculation s are not valid for patients with acute kidney injury and for patients on dialysis. Creatinine- based estimates of kidney function may also be inaccurate in patients with reduced creatinine generation due to decreased muscle mass (e.g., malnutritio n, severe hypoalbumin emia, sarcopenia, chronic neuromuscul ar disease, amputations , severe heart failure or liver disease) and in patients with increased creatinine generation due to increased muscle mass (e.g., muscle builders, anabolic steroids) or increased dietary intake. As drug clearance is proportiona l to total GFR and not GFR indexed to body surface area (BSA), in individuals with a BSA substantial ly different than 1.73 m2, drug dosing should be based on the reported eGFR value de-indexed from BSA by multiplying by the individual' s BSA and dividing by 1.73. CKD is diagnosed based on abnormaliti es of kidney structure or function, present for >3 months, with implication s for health and disease. CKD is classified and staged based on cause, eGFR and albuminuria (quantified as urine albumin to creatinine ratio). An eGFR >60 mL/min/1.73 m2 in the absence of increased urine albumin excretion or structural abnormaliti es does not represent CKD. eGFR CKD Interpretat ion (mL/min/1.7 3 m2) stage >=90 G1 Normal 60-89 G2 Mild decrease 45-59 G3A Mild to moderate decrease 30-44 G3B Moderate to severe decrease 15-29 G4 Severe decrease <15 G5 Kidney failure Ordering Provider: LUZMARIA BURGOS RA Report Released Date/Time: Jul 05, 2024 10:08 AM Reporting Lab: [facility] [address] [phone] Performing Lab: [facility] [address] [address] [facility] PANEL 5 ALBUMIN [MASS/VOLUM E] IN SERUM OR PLASMA 3.9 g/dL 3.5 - 5.2 07/05 Specimen Type: PLASMA Comment: Estimated Glomerular Filtration Rate (eGFR) calculated using the 2020 Chronic Kidney Disease-Epi demiology (CKD-EPI) Collaborati on creatinine equation; units of measure are mL/min/1.73 m2. Results are only valid for adults (>=18 years) whose serum creatinine is in a steady state. eGFR calculation s are not valid for patients with acute kidney injury and for patients on dialysis. Creatinine- based estimates of kidney function may also be inaccurate in patients with reduced creatinine generation due to decreased muscle mass (e.g., malnutritio n, severe hypoalbumin emia, sarcopenia, chronic neuromuscul ar disease, amputations , severe heart failure or liver disease) and in patients with increased creatinine generation due to increased muscle mass (e.g., muscle builders, anabolic steroids) or increased dietary intake. As drug clearance is proportiona l to total GFR and not GFR indexed to body surface area (BSA), in individuals with a BSA substantial ly different than 1.73 m2, drug dosing should be based on the reported eGFR value de-indexed from BSA by multiplying by the individual' s BSA and dividing by 1.73. CKD is diagnosed based on abnormaliti es of kidney structure or function, present for >3 months, with implication s for health and disease. CKD is classified and staged based on cause, eGFR and albuminuria (quantified as urine albumin to creatinine ratio). An eGFR >60 mL/min/1.73 m2 in the absence of increased urine albumin excretion or structural abnormaliti es does not represent CKD. eGFR CKD Interpretat ion (mL/min/1.7 3 m2) stage >=90 G1 Normal 60-89 G2 Mild decrease 45-59 G3A Mild to moderate decrease 30-44 G3B Moderate to severe decrease 15-29 G4 Severe decrease <15 G5 Kidney failure Ordering Provider: LUZMARIA BURGOS RA Report Released Date/Time: Jul 05, 2024 10:08 AM Reporting Lab: [facility] [address] [phone] Performing Lab: [facility] [address] [address] [facility] PANEL 5 BILIRUBIN.T OTAL [MASS/VOLUM E] IN SERUM OR PLASMA 0.6 mg/dL 0.2 - 1.2 07/05 Specimen Type: PLASMA Comment: Estimated Glomerular Filtration Rate (eGFR) calculated using the 2020 Chronic Kidney Disease-Epi demiology (CKD-EPI) Collaborati on creatinine equation; units of measure are mL/min/1.73 m2. Results are only valid for adults (>=18 years) whose serum creatinine is in a steady state. eGFR calculation s are not valid for patients with acute kidney injury and for patients on dialysis. Creatinine- based estimates of kidney function may also be inaccurate in patients with reduced creatinine generation due to decreased muscle mass (e.g., malnutritio n, severe hypoalbumin emia, sarcopenia, chronic neuromuscul ar disease, amputations , severe heart failure or liver disease) and in patients with increased creatinine generation due to increased muscle mass (e.g., muscle builders, anabolic steroids) or increased dietary intake. As drug clearance is proportiona l to total GFR and not GFR indexed to body surface area (BSA), in individuals with a BSA substantial ly different than 1.73 m2, drug dosing should be based on the reported eGFR value de-indexed from BSA by multiplying by the individual' s BSA and dividing by 1.73. CKD is diagnosed based on abnormaliti es of kidney structure or function, present for >3 months, with implication s for health and disease. CKD is classified and staged based on cause, eGFR and albuminuria (quantified as urine albumin to creatinine ratio). An eGFR >60 mL/min/1.73 m2 in the absence of increased urine albumin excretion or structural abnormaliti es does not represent CKD. eGFR CKD Interpretat ion (mL/min/1.7 3 m2) stage >=90 G1 Normal 60-89 G2 Mild decrease 45-59 G3A Mild to moderate decrease 30-44 G3B Moderate to severe decrease 15-29 G4 Severe decrease <15 G5 Kidney failure Ordering Provider: LUZMARIA BURGOS RA Report Released Date/Time: Jul 05, 2024 10:08 AM Reporting Lab: [facility] [address] [facility] [phone] Performing Lab: [facility] [address] [facility] [address] [facility] PANEL 5 ASPARTATE AMINOTRANSF ERASE [ENZYMATIC ACTIVITY/VO LUME] IN SERUM OR PLASMA 19 U/L 5 - 34 07/05 Specimen Type: PLASMA Comment: Estimated Glomerular Filtration Rate (eGFR) calculated using the 2020 Chronic Kidney Disease-Epi demiology (CKD-EPI) Collaborati on creatinine equation; units of measure are mL/min/1.73 m2. Results are only valid for adults (>=18 years) whose serum creatinine is in a steady state. eGFR calculation s are not valid for patients with acute kidney injury and for patients on dialysis. Creatinine- based estimates of kidney function may also be inaccurate in patients with reduced creatinine generation due to decreased muscle mass (e.g., malnutritio n, severe hypoalbumin emia, sarcopenia, chronic neuromuscul ar disease, amputations , severe heart failure or liver disease) and in patients with increased creatinine generation due to increased muscle mass (e.g., muscle builders, anabolic steroids) or increased dietary intake. As drug clearance is proportiona l to total GFR and not GFR indexed to body surface area (BSA), in individuals with a BSA substantial ly different than 1.73 m2, drug dosing should be based on the reported eGFR value de-indexed from BSA by multiplying by the individual' s BSA and dividing by 1.73. CKD is diagnosed based on abnormaliti es of kidney structure or function, present for >3 months, with implication s for health and disease. CKD is classified and staged based on cause, eGFR and albuminuria (quantified as urine albumin to creatinine ratio). An eGFR >60 mL/min/1.73 m2 in the absence of increased urine albumin excretion or structural abnormaliti es does not represent CKD. eGFR CKD Interpretat ion (mL/min/1.7 3 m2) stage >=90 G1 Normal 60-89 G2 Mild decrease 45-59 G3A Mild to moderate decrease 30-44 G3B Moderate to severe decrease 15-29 G4 Severe decrease <15 G5 Kidney failure Ordering Provider: LUZMARIA BURGOS RA Report Released Date/Time: Jul 05, 2024 10:08 AM Reporting Lab: [facility] [address] [address] Performing Lab: [facility] [address] [address] [facility] PANEL 5 ALANINE AMINOTRANSF ERASE [ENZYMATIC ACTIVITY/VO LUME] IN SERUM OR PLASMA 13 U/L 0 - 55 07/05 Specimen Type: PLASMA Comment: Estimated Glomerular Filtration Rate (eGFR) calculated using the 2020 Chronic Kidney Disease-Epi demiology (CKD-EPI) Collaborati on creatinine equation; units of measure are mL/min/1.73 m2. Results are only valid for adults (>=18 years) whose serum creatinine is in a steady state. eGFR calculation s are not valid for patients with acute kidney injury and for patients on dialysis. Creatinine- based estimates of kidney function may also be inaccurate in patients with reduced creatinine generation due to decreased muscle mass (e.g., malnutritio n, severe hypoalbumin emia, sarcopenia, chronic neuromuscul ar disease, amputations , severe heart failure or liver disease) and in patients with increased creatinine generation due to increased muscle mass (e.g., muscle builders, anabolic steroids) or increased dietary intake. As drug clearance is proportiona l to total GFR and not GFR indexed to body surface area (BSA), in individuals with a BSA substantial ly different than 1.73 m2, drug dosing should be based on the reported eGFR value de-indexed from BSA by multiplying by the individual' s BSA and dividing by 1.73. CKD is diagnosed based on abnormaliti es of kidney structure or function, present for >3 months, with implication s for health and disease. CKD is classified and staged based on cause, eGFR and albuminuria (quantified as urine albumin to creatinine ratio). An eGFR >60 mL/min/1.73 m2 in the absence of increased urine albumin excretion or structural abnormaliti es does not represent CKD. eGFR CKD Interpretat ion (mL/min/1.7 3 m2) stage >=90 G1 Normal 60-89 G2 Mild decrease 45-59 G3A Mild to moderate decrease 30-44 G3B Moderate to severe decrease 15-29 G4 Severe decrease <15 G5 Kidney failure Ordering Provider: LUZMARIA BURGOS RA Report Released Date/Time: Jul 05, 2024 10:08 AM Reporting [facility] [address] [address] Performing Lab: [address] [address] [facility] PANEL 5 ANION GAP 3 IN SERUM OR PLASMA 9 meq/L 3 - 19 07/05 Specimen Type: PLASMA Comment: Estimated Glomerular Filtration Rate (eGFR) calculated using the 2020 Chronic Kidney Disease-Epi demiology (CKD-EPI) Collaborati on creatinine equation; units of measure are mL/min/1.73 m2. Results are only valid for adults (>=18 years) whose serum creatinine is in a steady state. eGFR calculation s are not valid for patients with acute kidney injury and for patients on dialysis. Creatinine- based estimates of kidney function may also be inaccurate in patients with reduced creatinine generation due to decreased muscle mass (e.g., malnutritio n, severe hypoalbumin emia, sarcopenia, chronic neuromuscul ar disease, amputations , severe heart failure or liver disease) and in patients with increased creatinine generation due to increased muscle mass (e.g., muscle builders, anabolic steroids) or increased dietary intake. As drug clearance is proportiona l to total GFR and not GFR indexed to body surface area (BSA), in individuals with a BSA substantial ly different than 1.73 m2, drug dosing should be based on the reported eGFR value de-indexed from BSA by multiplying by the individual' s BSA and dividing by 1.73. CKD is diagnosed based on abnormaliti es of kidney structure or function, present for >3 months, with implication s for health and disease. CKD is classified and staged based on cause, eGFR and albuminuria (quantified as urine albumin to creatinine ratio). An eGFR >60 mL/min/1.73 m2 in the absence of increased urine albumin excretion or structural abnormaliti es does not represent CKD. eGFR CKD Interpretat ion (mL/min/1.7 3 m2) stage >=90 G1 Normal 60-89 G2 Mild decrease 45-59 G3A Mild to moderate decrease 30-44 G3B Moderate to severe decrease 15-29 G4 Severe decrease <15 G5 Kidney failure Ordering Provider: LUZMARIA BURGOS RA Report Released Date/Time: Jul 05, 2024 10:08 AM Reporting Lab: [facility] [address] [facility] [address] Performing Lab: [facility] [address] [place] [phone] [facility] PANEL 5 ALKALINE PHOSPHATASE [ENZYMATIC ACTIVITY/VO LUME] IN SERUM OR PLASMA 66 U/L 40 - 150 07/05 Specimen Type: PLASMA Comment: Estimated Glomerular Filtration Rate (eGFR) calculated using the 2020 Chronic Kidney Disease-Epi demiology (CKD-EPI) Collaborati on creatinine equation; units of measure are mL/min/1.73 m2. Results are only valid for adults (>=18 years) whose serum creatinine is in a steady state. eGFR calculation s are not valid for patients with acute kidney injury and for patients on dialysis. Creatinine- based estimates of kidney function may also be inaccurate in patients with reduced creatinine generation due to decreased muscle mass (e.g., malnutritio n, severe hypoalbumin emia, sarcopenia, chronic neuromuscul ar disease, amputations , severe heart failure or liver disease) and in patients with increased creatinine generation due to increased muscle mass (e.g., muscle builders, anabolic steroids) or increased dietary intake. As drug clearance is proportiona l to total GFR and not GFR indexed to body surface area (BSA), in individuals with a BSA substantial ly different than 1.73 m2, drug dosing should be based on the reported eGFR value de-indexed from BSA by multiplying by the individual' s BSA and dividing by 1.73. CKD is diagnosed based on abnormaliti es of kidney structure or function, present for >3 months, with implication s for health and disease. CKD is classified and staged based on cause, eGFR and albuminuria (quantified as urine albumin to creatinine ratio). An eGFR >60 mL/min/1.73 m2 in the absence of increased urine albumin excretion or structural abnormaliti es does not represent CKD. eGFR CKD Interpretat ion (mL/min/1.7 3 m2) stage >=90 G1 Normal 60-89 G2 Mild decrease 45-59 G3A Mild to moderate decrease 30-44 G3B Moderate to severe decrease 15-29 G4 Severe decrease <15 G5 Kidney failure Ordering Provider: LUZMARIA BURGOS RA Report Released Date/Time: Jul 05, 2024 10:08 AM Reporting Lab: [facility] [address] [facility] [address] Performing Lab: [facility] [place] [id number] [facility] [address] [facility] 5 GLOMERULAR FILTRATION RATE/1.73 SQ M.PREDICTED [VOLUME RATE/AREA] IN SERUM, PLASMA OR BLOOD BY CREATININE- BASED FORMULA (CKD-EPI 2020) 87 07/05 Specimen Type: PLASMA Comment: Estimated Glomerular Filtration Rate (eGFR) calculated using the 2020 Chronic Kidney Disease-Epi demiology (CKD-EPI) Collaborati on creatinine equation; units of measure are mL/min/1.73 m2. Results are only valid for adults (>=18 years) whose serum creatinine is in a steady state. eGFR calculation s are not valid for patients with acute kidney injury and for patients on dialysis. Creatinine- based estimates of kidney function may also be inaccurate in patients with reduced creatinine generation due to decreased muscle mass (e.g., malnutritio n, severe hypoalbumin emia, sarcopenia, chronic neuromuscul ar disease, amputations , severe heart failure or liver disease) and in patients with increased creatinine generation due to increased muscle mass (e.g., muscle builders, anabolic steroids) or increased dietary intake. As drug clearance is proportiona l to total GFR and not GFR indexed to body surface area (BSA), in individuals with a BSA substantial ly different than 1.73 m2, drug dosing should be based on the reported eGFR value de-indexed from BSA by multiplying by the individual' s BSA and dividing by 1.73. CKD is diagnosed based on abnormaliti es of kidney structure or function, present for >3 months, with implication s for health and disease. CKD is classified and staged based on cause, eGFR and albuminuria (quantified as urine albumin to creatinine ratio). An eGFR >60 mL/min/1.73 m2 in the absence of increased urine albumin excretion or structural abnormaliti es does not represent CKD. eGFR CKD Interpretat ion (mL/min/1.7 3 m2) stage >=90 G1 Normal 60-89 G2 Mild decrease 45-59 G3A Mild to moderate decrease 30-44 G3B Moderate to severe decrease 15-29 G4 Severe decrease <15 G5 Kidney failure Ordering Provider: LUZMARIA BURGOS RA Report Released Date/Time: Jul 05, 2024 10:08 AM Reporting Lab: [facility] [address] [address] Performing Lab: [facility] [address] [address] [facility] LIPID PROFILE CHOLESTEROL [MASS/VOLUM E] IN SERUM OR PLASMA 136 mg/dL 0 - 199 10/15 Specimen Type: PLASMA Comment: Estimated Glomerular Filtration Rate (eGFR) calculated using the 2020 Chronic Kidney Disease-Epi demiology (CKD-EPI) Collaborati on creatinine equation; units of measure are mL/min/1.73 m2. Results are only valid for adults (>=18 years) whose serum creatinine is in a steady state. eGFR calculation s are not valid for patients with acute kidney injury and for patients on dialysis. Creatinine- based estimates of kidney function may also be inaccurate in patients with reduced creatinine generation due to decreased muscle mass (e.g., malnutritio n, severe hypoalbumin emia, sarcopenia, chronic neuromuscul ar disease, amputations , severe heart failure or liver disease) and in patients with increased creatinine generation due to increased muscle mass (e.g., muscle builders, anabolic steroids) or increased dietary intake. As drug clearance is proportiona l to total GFR and not GFR indexed to body surface area (BSA), in individuals with a BSA substantial ly different than 1.73 m2, drug dosing should be based on the reported eGFR value de-indexed from BSA by multiplying by the individual' s BSA and dividing by 1.73. CKD is diagnosed based on abnormaliti es of kidney structure or function, present for >3 months, with implication s for health and disease. CKD is classified and staged based on cause, eGFR and albuminuria (quantified as urine albumin to creatinine ratio). An eGFR >60 mL/min/1.73 m2 in the absence of increased urine albumin excretion or structural abnormaliti es does not represent CKD. eGFR CKD Interpretat ion (mL/min/1.7 3 m2) stage >=90 G1 Normal 60-89 G2 Mild decrease 45-59 G3A Mild to moderate decrease 30-44 G3B Moderate to severe decrease 15-29 G4 Severe decrease <15 G5 Kidney failure Vitamin B12 test may not yield results when protein level of sample is too elevated. Ordering Provider: LUZMARIA BURGOS RA Report Released Date/Time: Oct 10, 2023 11:01 AM Reporting Lab: [facility] [address] [address] Performing Lab: [facility] [address] [address] [facility] LIPID PROFILE TRIGLYCERID E [MASS/VOLUM E] IN SERUM OR PLASMA 157 mg/dL 0 - 149 10/15 H Specimen Type: PLASMA Comment: Estimated Glomerular Filtration Rate (eGFR) calculated using the 2020 Chronic Kidney Disease-Epi demiology (CKD-EPI) Collaborati on creatinine equation; units of measure are mL/min/1.73 m2. Results are only valid for adults (>=18 years) whose serum creatinine is in a steady state. eGFR calculation s are not valid for patients with acute kidney injury and for patients on dialysis. Creatinine- based estimates of kidney function may also be inaccurate in patients with reduced creatinine generation due to decreased muscle mass (e.g., malnutritio n, severe hypoalbumin emia, sarcopenia, chronic neuromuscul ar disease, amputations , severe heart failure or liver disease) and in patients with increased creatinine generation due to increased muscle mass (e.g., muscle builders, anabolic steroids) or increased dietary intake. As drug clearance is proportiona l to total GFR and not GFR indexed to body surface area (BSA), in individuals with a BSA substantial ly different than 1.73 m2, drug dosing should be based on the reported eGFR value de-indexed from BSA by multiplying by the individual' s BSA and dividing by 1.73. CKD is diagnosed based on abnormaliti es of kidney structure or function, present for >3 months, with implication s for health and disease. CKD is classified and staged based on cause, eGFR and albuminuria (quantified as urine albumin to creatinine ratio). An eGFR >60 mL/min/1.73 m2 in the absence of increased urine albumin excretion or structural abnormaliti es does not represent CKD. eGFR CKD Interpretat ion (mL/min/1.7 3 m2) stage >=90 G1 Normal 60-89 G2 Mild decrease 45-59 G3A Mild to moderate decrease 30-44 G3B Moderate to severe decrease 15-29 G4 Severe decrease <15 G5 Kidney failure Vitamin B12 test may not yield results when protein level of sample is too elevated. Ordering Provider: LUZMARIA BURGOS RA Report Released Date/Time: Oct 10, 2023 11:01 AM Reporting Lab: [facility] [address] [address] Performing Lab: [facility] [address] [address] [facility] LIPID PROFILE CHOLESTEROL IN HDL [MASS/VOLUM E] IN SERUM OR PLASMA 45 mg/dL 40 - 69 10/15 Specimen Type: PLASMA Comment: Estimated Glomerular Filtration Rate (eGFR) calculated using the 2020 Chronic Kidney Disease-Epi demiology (CKD-EPI) Collaborati on creatinine equation; units of measure are mL/min/1.73 m2. Results are only valid for adults (>=18 years) whose serum creatinine is in a steady state. eGFR calculation s are not valid for patients with acute kidney injury and for patients on dialysis. Creatinine- based estimates of kidney function may also be inaccurate in patients with reduced creatinine generation due to decreased muscle mass (e.g., malnutritio n, severe hypoalbumin emia, sarcopenia, chronic neuromuscul ar disease, amputations , severe heart failure or liver disease) and in patients with increased creatinine generation due to increased muscle mass (e.g., muscle builders, anabolic steroids) or increased dietary intake. As drug clearance is proportiona l to total GFR and not GFR indexed to body surface area (BSA), in individuals with a BSA substantial ly different than 1.73 m2, drug dosing should be based on the reported eGFR value de-indexed from BSA by multiplying by the individual' s BSA and dividing by 1.73. CKD is diagnosed based on abnormaliti es of kidney structure or function, present for >3 months, with implication s for health and disease. CKD is classified and staged based on cause, eGFR and albuminuria (quantified as urine albumin to creatinine ratio). An eGFR >60 mL/min/1.73 m2 in the absence of increased urine albumin excretion or structural abnormaliti es does not represent CKD. eGFR CKD Interpretat ion (mL/min/1.7 3 m2) stage >=90 G1 Normal 60-89 G2 Mild decrease 45-59 G3A Mild to moderate decrease 30-44 G3B Moderate to severe decrease 15-29 G4 Severe decrease <15 G5 Kidney failure Vitamin B12 test may not yield results when protein level of sample is too elevated. Ordering Provider: LUZMARIA BURGOS RA Report Released Date/Time: Oct 10, 2023 11:01 AM Reporting Lab: [facility] [address] [address] Performing Lab: [facility] [address] [address] [facility] LIPID PROFILE CHOLESTEROL IN LDL [MASS/VOLUM E] IN SERUM OR PLASMA BY DIRECT ASSAY 62 mg/dL 0 - 100 10/15 Specimen Type: PLASMA Comment: Estimated Glomerular Filtration Rate (eGFR) calculated using the 2020 Chronic Kidney Disease-Epi demiology (CKD-EPI) Collaborati on creatinine equation; units of measure are mL/min/1.73 m2. Results are only valid for adults (>=18 years) whose serum creatinine is in a steady state. eGFR calculation s are not valid for patients with acute kidney injury and for patients on dialysis. Creatinine- based estimates of kidney function may also be inaccurate in patients with reduced creatinine generation due to decreased muscle mass (e.g., malnutritio n, severe hypoalbumin emia, sarcopenia, chronic neuromuscul ar disease, amputations , severe heart failure or liver disease) and in patients with increased creatinine generation due to increased muscle mass (e.g., muscle builders, anabolic steroids) or increased dietary intake. As drug clearance is proportiona l to total GFR and not GFR indexed to body surface area (BSA), in individuals with a BSA substantial ly different than 1.73 m2, drug dosing should be based on the reported eGFR value de-indexed from BSA by multiplying by the individual' s BSA and dividing by 1.73. CKD is diagnosed based on abnormaliti es of kidney structure or function, present for >3 months, with implication s for health and disease. CKD is classified and staged based on cause, eGFR and albuminuria (quantified as urine albumin to creatinine ratio). An eGFR >60 mL/min/1.73 m2 in the absence of increased urine albumin excretion or structural abnormaliti es does not represent CKD. eGFR CKD Interpretat ion (mL/min/1.7 3 m2) stage >=90 G1 Normal 60-89 G2 Mild decrease 45-59 G3A Mild to moderate decrease 30-44 G3B Moderate to severe decrease 15-29 G4 Severe decrease <15 G5 Kidney failure Vitamin B12 test may not yield results when protein level of sample is too elevated. Ordering Provider: LUZMARIA BURGOS RA Report Released Date/Time: Oct 10, 2023 11:01 AM Reporting Lab: [facility] [address] [address] Performing Lab: [facility] [address] [address] [facility] GLYCOHEMO GLOBIN HEMOGLOBIN A1C/HEMOGLO BIN.TOTAL IN BLOOD BY HPLC 5.3 4.4 - 6.4 10/15 Specimen Type: BLOOD Comment: [facility] guidelines for A1c interpretat ion: Glycemic control targets are based on Shared Decision Making between clinicians and patients. Criteria used to establish an A1c target recommendat ion can be found at https://www .sc.gov/idalia lityandpati entsafety/ and include the use of result accuracy and precision(C V) of the A1c tests clinicians utilize at their own sites of practice. Values obtained from A1C measurement s can vary. For typical A1C assays, a reported value of 7.0 could actually be between 6.72 and 7.28 if measured by a reference method. A reported value of 9.0 could actually be between 8.73 and 9.27. Ref: https://ngs p.org/CAPda ta.asp. The in-house [employer] D-100 analyzer has a historical CV <= 2%. Contact the laboratory for further performance characteris tics of this assay. Ordering Provider: LUZMARIA BURGOS RA Report Released Date/Time: Oct 10, 2023 11:01 AM Reporting Lab[facility] [address] [address] Performing Lab: [address] [address] [facility] FERRITIN FERRITIN [MASS/VOLUM E] IN SERUM OR PLASMA 249.0 ng/mL 21.8 - 274.7 10/15 Specimen Type: PLASMA Comment: Estimated Glomerular Filtration Rate (eGFR) calculated using the 2020 Chronic Kidney Disease-Epi demiology (CKD-EPI) Collaborati on creatinine equation; units of measure are mL/min/1.73 m2. Results are only valid for adults (>=18 years) whose serum creatinine is in a steady state. eGFR calculation s are not valid for patients with acute kidney injury and for patients on dialysis. Creatinine- based estimates of kidney function may also be inaccurate in patients with reduced creatinine generation due to decreased muscle mass (e.g., malnutritio n, severe hypoalbumin emia, sarcopenia, chronic neuromuscul ar disease, amputations , severe heart failure or liver disease) and in patients with increased creatinine generation due to increased muscle mass (e.g., muscle builders, anabolic steroids) or increased dietary intake. As drug clearance is proportiona l to total GFR and not GFR indexed to body surface area (BSA), in individuals with a BSA substantial ly different than 1.73 m2, drug dosing should be based on the reported eGFR value de-indexed from BSA by multiplying by the individual' s BSA and dividing by 1.73. CKD is diagnosed based on abnormaliti es of kidney structure or function, present for >3 months, with implication s for health and disease. CKD is classified and staged based on cause, eGFR and albuminuria (quantified as urine albumin to creatinine ratio). An eGFR >60 mL/min/1.73 m2 in the absence of increased urine albumin excretion or structural abnormaliti es does not represent CKD. eGFR CKD Interpretat ion (mL/min/1.7 3 m2) stage >=90 G1 Normal 60-89 G2 Mild decrease 45-59 G3A Mild to moderate decrease 30-44 G3B Moderate to severe decrease 15-29 G4 Severe decrease <15 G5 Kidney failure Ordering Provider: LUZMARIA BURGOS RA Report Released Date/Time: Oct 10, 2023 11:01 AM Reporting Lab: [place] [phone] Performing Lab: [place] [address] [facility] AUTOMATED DIFF LYMPHOCYTES /100 LEUKOCYTES IN BLOOD BY AUTOMATED COUNT 40.2 24.0 - 44.0 10/15 Specimen Type: BLOOD No comment entered. Ordering Provider: LUZMARIA BURGOS RA Report Released Date/Time: Oct 10, 2023 11:01 AM Reporting Lab: [address] [address] Performing Lab: [place] [phone] [facility] AUTOMATED DIFF MONOCYTES/1 00 LEUKOCYTES IN BLOOD BY AUTOMATED COUNT 12.1 0.1 - 6.0 10/15 H Specimen Type: BLOOD No comment entered. Ordering Provider: LUZMARIA BURGOS RA Report Released Date/Time: Oct 10, 2023 11:01 AM Reporting Lab: [place] [phone] Performing Lab: [address] [phone] [facility] AUTOMATED DIFF GRANULOCYTE S/100 LEUKOCYTES IN BLOOD BY AUTOMATED COUNT 44.0 42.0 - 75.0 10/15 Specimen Type: BLOOD No comment entered. Ordering Provider: LUZMARIA BURGOS RA Report Released Date/Time: Oct 10, 2023 11:01 AM Reporting Lab: [address] [phone] Performing Lab: [address] [address] [facility] AUTOMATED DIFF LYMPHOCYTES [#/VOLUME] IN BLOOD BY AUTOMATED COUNT 2.52 10*3/u L 1.20 - 3.40 10/15 Specimen Type: BLOOD No comment entered. Ordering Provider: LUZMARIA BURGOS RA Report Released Date/Time: Oct 10, 2023 11:01 AM Reporting Lab: [address] [address] Performing Lab: [address] [address] [facility] AUTOMATED DIFF MONOCYTES [#/VOLUME] IN BLOOD BY AUTOMATED COUNT 0.76 10*3/u L 0.00 - 0.60 10/15 H Specimen Type: BLOOD No comment entered. Ordering Provider: LUZMARIA BURGOS RA Report Released Date/Time: Oct 10, 2023 11:01 AM Reporting Lab: [address] [address] Performing Lab: [address] [address] [facility] AUTOMATED DIFF GRANULOCYTE S [#/VOLUME] IN BLOOD BY AUTOMATED COUNT 2.76 10*3/u L 1.40 - 6.50 10/15 Specimen Type: BLOOD No comment entered. Ordering Provider: LUZMARIA BURGOS RA Report Released Date/Time: Oct 10, 2023 11:01 AM Reporting Lab: [address] [address] Performing Lab: [address] [address] [facility] AUTOMATED DIFF BASOPHILS/1 00 LEUKOCYTES IN BLOOD BY AUTOMATED COUNT 0.8 0.0 - 3.0 10/15 Specimen Type: BLOOD No comment entered. Ordering Provider: LUZMARIA BURGOS RA Report Released Date/Time: Oct 10, 2023 11:01 AM Reporting Lab: [address] [address] Performing Lab: [address] [id number] [place] [address] AUTOMATED DIFF BASOPHILS [#/VOLUME] IN BLOOD BY AUTOMATED COUNT 0.05 10*3/u L 0.00 - 0.20 10/15 Specimen Type: BLOOD No comment entered. Ordering Provider: LUZMARIA BURGOS RA Report Released Date/Time: Oct 10, 2023 11:01 AM Reporting Lab: [address] [address] Performing Lab: [place] [phone] [place] [address] AUTOMATED DIFF EOSINOPHILS /100 LEUKOCYTES IN BLOOD BY AUTOMATED COUNT 2.6 0.0 - 10.0 10/15 Specimen Type: BLOOD No comment entered. Ordering Provider: LUZMARIA BURGOS RA Report Released Date/Time: Oct 10, 2023 11:01 AM Reporting Lab: [address] [address] Performing Lab: [place] [phone] [place] [address] AUTOMATED DIFF EOSINOPHILS [#/VOLUME] IN BLOOD BY AUTOMATED COUNT 0.16 10*3/u L 0.00 - 0.70 10/15 Specimen Type: BLOOD No comment entered. Ordering Provider: LUZMARIA BURGOS RA Report Released Date/Time: Oct 10, 2023 11:01 AM Reporting Lab: [address] [address] Performing Lab: [place] [phone] [place] [address] AUTOMATED DIFF IMMATURE GRANULOCYTE S/100 LEUKOCYTES IN BLOOD 0.3 0.0 - 0.5 10/15 Specimen Type: BLOOD No comment entered. Ordering Provider: LUZMARIA BURGOS RA Report Released Date/Time: Oct 10, 2023 11:01 AM Reporting Lab: [address] [address] Performing Lab: [address] [address] [facility] AUTOMATED DIFF IMMATURE GRANULOCYTE S [#/VOLUME] IN BLOOD 0.02 10*3/u L 0.00 - 0.06 10/15 Specimen Type: BLOOD No comment entered. Ordering Provider: LUZMARIA BURGOS RA Report Released Date/Time: Oct 10, 2023 11:01 AM Reporting Lab: [address] [address] Performing Lab: [address] [address] [facility] THYROID PROFILE THYROTROPIN [UNITS/VOLU ME] IN SERUM OR PLASMA 1.2858 m[IU]/ mL 0.3500 - 4.9400 10/15 Specimen Type: PLASMA Comment: Estimated Glomerular Filtration Rate (eGFR) calculated using the 2020 Chronic Kidney Disease-Epi demiology (CKD-EPI) Collaborati on creatinine equation; units of measure are mL/min/1.73 m2. Results are only valid for adults (>=18 years) whose serum creatinine is in a steady state. eGFR calculation s are not valid for patients with acute kidney injury and for patients on dialysis. Creatinine- based estimates of kidney function may also be inaccurate in patients with reduced creatinine generation due to decreased muscle mass (e.g., malnutritio n, severe hypoalbumin emia, sarcopenia, chronic neuromuscul ar disease, amputations , severe heart failure or liver disease) and in patients with increased creatinine generation due to increased muscle mass (e.g., muscle builders, anabolic steroids) or increased dietary intake. As drug clearance is proportiona l to total GFR and not GFR indexed to body surface area (BSA), in individuals with a BSA substantial ly different than 1.73 m2, drug dosing should be based on the reported eGFR value de-indexed from BSA by multiplying by the individual' s BSA and dividing by 1.73. CKD is diagnosed based on abnormaliti es of kidney structure or function, present for >3 months, with implication s for health and disease. CKD is classified and staged based on cause, eGFR and albuminuria (quantified as urine albumin to creatinine ratio). An eGFR >60 mL/min/1.73 m2 in the absence of increased urine albumin excretion or structural abnormaliti es does not represent CKD. eGFR CKD Interpretat ion (mL/min/1.7 3 m2) stage >=90 G1 Normal 60-89 G2 Mild decrease 45-59 G3A Mild to moderate decrease 30-44 G3B Moderate to severe decrease 15-29 G4 Severe decrease <15 G5 Kidney failure Vitamin B12 test may not yield results when protein level of sample is too elevated. Ordering Provider: LUZMARIA BURGOS RA Report Released Date/Time: Oct 10, 2023 11:01 AM Reporting Lab: [place] [address] [address] Performing Lab: [place] [address] [address] [facility] THYROID PROFILE FREE T4 1.03 ng/mL 0.70 - 1.48 10/15 Specimen Type: PLASMA Comment: Estimated Glomerular Filtration Rate (eGFR) calculated using the 2020 Chronic Kidney Disease-Epi demiology (CKD-EPI) Collaborati on creatinine equation; units of measure are mL/min/1.73 m2. Results are only valid for adults (>=18 years) whose serum creatinine is in a steady state. eGFR calculation s are not valid for patients with acute kidney injury and for patients on dialysis. Creatinine- based estimates of kidney function may also be inaccurate in patients with reduced creatinine generation due to decreased muscle mass (e.g., malnutritio n, severe hypoalbumin emia, sarcopenia, chronic neuromuscul ar disease, amputations , severe heart failure or liver disease) and in patients with increased creatinine generation due to increased muscle mass (e.g., muscle builders, anabolic steroids) or increased dietary intake. As drug clearance is proportiona l to total GFR and not GFR indexed to body surface area (BSA), in individuals with a BSA substantial ly different than 1.73 m2, drug dosing should be based on the reported eGFR value de-indexed from BSA by multiplying by the individual' s BSA and dividing by 1.73. CKD is diagnosed based on abnormaliti es of kidney structure or function, present for >3 months, with implication s for health and disease. CKD is classified and staged based on cause, eGFR and albuminuria (quantified as urine albumin to creatinine ratio). An eGFR >60 mL/min/1.73 m2 in the absence of increased urine albumin excretion or structural abnormaliti es does not represent CKD. eGFR CKD Interpretat ion (mL/min/1.7 3 m2) stage >=90 G1 Normal 60-89 G2 Mild decrease 45-59 G3A Mild to moderate decrease 30-44 G3B Moderate to severe decrease 15-29 G4 Severe decrease <15 G5 Kidney failure Vitamin B12 test may not yield results when protein level of sample is too elevated. Ordering Provider: LUZMARIA BURGOS RA Report Released Date/Time: Oct 10, 2023 11:01 AM Reporting Lab: [place] [phone] Performing Lab: [address] CBC/PLT LEUKOCYTES [#/VOLUME] IN BLOOD BY AUTOMATED COUNT 6.3 10*3/u L 5.0 - 10.0 10/15 Specimen Type: BLOOD No comment entered. Ordering Provider: LUZMARIA BURGOS RA Report Released Date/Time: Oct 10, 2023 11:01 AM Reporting Lab: [address] [address] Performing Lab: [place] [phone] [facility] CBC/PLT ERYTHROCYTE S [#/VOLUME] IN BLOOD BY AUTOMATED COUNT 4.67 10*6/u L 4.6 - 6.2 10/15 Specimen Type: BLOOD No comment entered. Ordering Provider: LUZMARIA BURGOS RA Report Released Date/Time: Oct 10, 2023 11:01 AM Reporting Lab: [address] [address] Performing Lab: [address] [address] [facility] CBC/PLT HEMOGLOBIN [MASS/VOLUM E] IN BLOOD 14.8 g/dL 14.0 - 18.0 10/15 Specimen Type: BLOOD No comment entered. Ordering Provider: LUZMARIA BURGOS RA Report Released Date/Time: Oct 10, 2023 11:01 AM Reporting Lab: [address] [address] Performing Lab: [address] [address] [facility] CBC/PLT HEMATOCRIT [VOLUME FRACTION] OF BLOOD BY AUTOMATED COUNT 44.5 42.0 - 52.0 10/15 Specimen Type: BLOOD No comment entered. Ordering Provider: LUZMARIA BURGOS RA Report Released Date/Time: Oct 10, 2023 11:01 AM Reporting Lab: [address] [address] Performing Lab: [address] [address] [facility] CBC/PLT MCV [ENTITIC VOLUME] BY AUTOMATED COUNT 95.3 fL 80.0 - 94.0 10/15 H Specimen Type: BLOOD No comment entered. Ordering Provider: LUZMARIA BURGOS RA Report Released Date/Time: Oct 10, 2023 11:01 AM Reporting Lab: [address] [address] Performing Lab: [address] [address] [facility] CBC/PLT MCH [ENTITIC MASS] BY AUTOMATED COUNT 31.7 pg 27.0 - 31.0 10/15 H Specimen Type: BLOOD No comment entered. Ordering Provider: LUZMARIA BURGOS RA Report Released Date/Time: Oct 10, 2023 11:01 AM Reporting Lab: [address] [address] Performing Lab: [address] [address] [facility] CBC/PLT MCHC [MASS/VOLUM E] BY AUTOMATED COUNT 33.3 g/dL 32.0 - 36.0 10/15 Specimen Type: BLOOD No comment entered. Ordering Provider: LUZMARIA BURGOS RA Report Released Date/Time: Oct 10, 2023 11:01 AM Reporting Lab: [address] [address] Performing Lab: [place] [phone] [place] [address] CBC/PLT PLATELETS [#/VOLUME] IN BLOOD 177 10*3/u L 150 - 450 10/15 Specimen Type: BLOOD No comment entered. Ordering Provider: LUZMARIA BURGOS RA Report Released Date/Time: Oct 10, 2023 11:01 AM Reporting Lab: [place] [phone] Performing Lab: [place] [phone] CBC/PLT PLATELET MEAN VOLUME [ENTITIC VOLUME] IN BLOOD 10.7 fL 9.0 - 13.1 10/15 Specimen Type: BLOOD No comment entered. Ordering Provider: LUZMARIA BURGOS RA Report Released Date/Time: Oct 10, 2023 11:01 AM Reporting Lab: [place] [phone] Performing Lab: [place] [phone] [place] [address] CBC/PLT ERYTHROCYTE DISTRIBUTIO N WIDTH [ENTITIC VOLUME] BY AUTOMATED COUNT 13.3 11.0 - 16.0 10/15 Specimen Type: BLOOD No comment entered. Ordering Provider: LUZMARIA BURGOS RA Report Released Date/Time: Oct 10, 2023 11:01 AM Reporting Lab: [place] [phone] Performing Lab: [place] [phone] CBC/PLT NUCLEATED ERYTHROCYTE S/100 ERYTHROCYTE S IN BLOOD 0.0 0.0 - 0.0 10/15 Specimen Type: BLOOD No comment entered. Ordering Provider: LUZMARIA BURGOS RA Report Released Date/Time: Oct 10, 2023 11:01 AM Reporting Lab: [address] [address] Performing Lab: [address] [address] [facility] 25-OH VITAMIN D 25-HYDROXYV ITAMIN D3 [MASS/VOLUM E] IN SERUM OR PLASMA 25.7 ng/mL 20.0 - 50.0 10/15 Specimen Type: SERUM Comment: The National Institutes of Health (NIH) recommendat ions state: <12 ng/mL - Deficient 20 - 50 ng/mL - Optimal Levels - adequate for most people. >50 ng/mL - Increased risk of hypercalciu santhosh/other health problems - clinical correlation is required. These reference ranges represent clinical decision values rather than population- based reference values. Ordering Provider: LUZMARIA BURGOS RA Report Released Date/Time: Oct 10, 2023 11:01 AM Reporting Lab: [address] [address] Performing Lab: [address] [address] [facility] B12 VITAMIN COBALAMIN (VITAMIN B12) [MASS/VOLUM E] IN SERUM OR PLASMA 694 pg/mL 213 - 816 10/15 Specimen Type: PLASMA Comment: Estimated Glomerular Filtration Rate (eGFR) calculated using the 2020 Chronic Kidney Disease-Epi demiology (CKD-EPI) Collaborati on creatinine equation; units of measure are mL/min/1.73 m2. Results are only valid for adults (>=18 years) whose serum creatinine is in a steady state. eGFR calculation s are not valid for patients with acute kidney injury and for patients on dialysis. Creatinine- based estimates of kidney function may also be inaccurate in patients with reduced creatinine generation due to decreased muscle mass (e.g., malnutritio n, severe hypoalbumin emia, sarcopenia, chronic neuromuscul ar disease, amputations , severe heart failure or liver disease) and in patients with increased creatinine generation due to increased muscle mass (e.g., muscle builders, anabolic steroids) or increased dietary intake. As drug clearance is proportiona l to total GFR and not GFR indexed to body surface area (BSA), in individuals with a BSA substantial ly different than 1.73 m2, drug dosing should be based on the reported eGFR value de-indexed from BSA by multiplying by the individual' s BSA and dividing by 1.73. CKD is diagnosed based on abnormaliti es of kidney structure or function, present for >3 months, with implication s for health and disease. CKD is classified and staged based on cause, eGFR and albuminuria (quantified as urine albumin to creatinine ratio). An eGFR >60 mL/min/1.73 m2 in the absence of increased urine albumin excretion or structural abnormaliti es does not represent CKD. eGFR CKD Interpretat ion (mL/min/1.7 3 m2) stage >=90 G1 Normal 60-89 G2 Mild decrease 45-59 G3A Mild to moderate decrease 30-44 G3B Moderate to severe decrease 15-29 G4 Severe decrease <15 G5 Kidney failure Vitamin B12 test may not yield results when protein level of sample is too elevated. Ordering Provider: LUZMARIA BURGOS RA Report Released Date/Time: Oct 10, 2023 11:01 AM Reporting Lab: [place] [address] [address] Performing Lab: [place] [address] [address] [facility] Vital Signs Combined list of inpatient and outpatient Vital Signs from Department of Defense and Veterans Affairs, ranging from 12 months to all on record, depending upon the facility. Vital Sign Value Date Comments Source SYSTOLIC BLOOD PRESSURE 114 08/07/2024 09:47:43 [facility] DIASTOLIC BLOOD PRESSURE 68 08/07/2024 09:47:43 [facility] PULSE OXIMETRY 99 08/07/2024 09:47:43 [facility] [place] WEIGHT 191.5 08/07/2024 09:47:43 [facility] BMI 26 kg/m2 08/07/2024 09:47:43 [facility] PAIN 3 08/07/2024 09:47:43 [facility] TEMPERATURE 97.6 08/07/2024 09:47:43 ALEXIS NGTON [facility] PULSE 69 08/07/2024 09:47:43 [place] G[place] [facility] RESPIRATION 18 08/07/2024 09:47:43 ALEX[place] GORGE [facility] SYSTOLIC BLOOD PRESSURE 107 07/05/2024 09:42:19 [place] [facility] DIASTOLIC BLOOD PRESSURE 58 07/05/2024 09:42:19 [place] [facility] PULSE OXIMETRY 95 07/05/2024 09:42:19 [place] [facility] WEIGHT 196 07/05/2024 09:42:19 [place] [facility] BMI 27 kg/m2 07/05/2024 09:42:19 [place] [facility] PAIN 4 07/05/2024 09:42:19 [place] [facility] HEIGHT 72 07/05/2024 09:42:19 [place] [facility] TEMPERATURE 97.5 07/05/2024 09:42:19 ALEX[place] NGTON [facility] PULSE 71 07/05/2024 09:42:19 [place] [facility] RESPIRATION 17 07/05/2024 09:42:19 A[place] NGTON [facility] SYSTOLIC BLOOD PRESSURE 148 02/07/2024 10:49:15 [place] [facility] DIASTOLIC BLOOD PRESSURE 50 02/07/2024 10:49:15 [place] [facility] PULSE OXIMETRY 96 02/07/2024 10:49:15 [place] [facility] WEIGHT 189.6 02/07/2024 10:49:15 [place] [facility] BMI 26 kg/m2 02/07/2024 10:49:15 [place] [facility] PAIN 4 02/07/2024 10:49:15 [place] [facility] TEMPERATURE 97.5 02/07/2024 10:49:15 A[place] NGTON [facility] PULSE 59 02/07/2024 10:49:15 [place] [facility] SYSTOLIC BLOOD PRESSURE 133 11/24/2023 10:40:11 [place]RE[place] [facility] DIASTOLIC BLOOD PRESSURE 75 11/24/2023 10:40:11 [place] [facility] PULSE OXIMETRY 95 11/24/2023 10:40:11 L [place] [facility] WEIGHT 190 11/24/2023 10:40:11 IZZY CONNELLY [facility] BMI 26 kg/m2 11/24/2023 10:40:11 DANAIN GTROWAN [facility] TEMPERATURE 97.8 11/24/2023 10:40:11 ALEXIS PENN[place] [facility] PULSE 58 11/24/2023 10:40:11 DANA[place] MARICEL [facility] RESPIRATION 20 11/24/2023 10:40:11 ALEXIS [place] [facility] SYSTOLIC BLOOD PRESSURE 115 10/16/2023 10:01:26 [place] [facility] DIASTOLIC BLOOD PRESSURE 67 10/16/2023 10:01:26 [place] [facility] PULSE OXIMETRY 97 10/16/2023 10:01:26 L M[place] [facility] WEIGHT 190.8 10/16/2023 10:01:26 IZZY CONNELLY [facility] BMI 26 kg/m2 10/16/2023 10:01:26 [place] MARIC[place] [facility] PAIN 2 10/16/2023 10:01:26 IZZY CONNELLY [facility] HEIGHT 72 10/16/2023 10:01:26 DANA[place] MARICEL [facility] TEMPERATURE 97.7 10/16/2023 10:01:26 ALEXIS PENN[place] [facility] PULSE 78 10/16/2023 10:01:26 [place] [facility] Encounters Combined list of: 1) Encounters from Department of Veterans Affairs facilities going backup to the last 18 months, not all VA inpatient encounters are included; 2) Encounters from the Department of Defense facilities going backup to 280 months. Location Location Details Encounter Type Encounter Number Reason For Visit Attending Provider ADM Date DC Date Status Disposition Source [facility] OFFICE O/P EST LOW 20-29 MIN [id number] Diagnos is: ICD-10- CM L57.0 Actinic keratos is CODY SYED RT 03/21 [place] Outpatient Encounter [id number] 06/14 [place] [facility] OFFICE O/P EST MOD 30 MIN [id number] Diagnos is: ICD-10- CM J30.2 Other seasona l allergi c rhiniti s EDMUNDO,Elvia MY B 08/08 [place] OFFICE O/P EST MOD 30 MIN [id number] Diagnos is: ICD-10- CM E78.2 Mixed hyperli pidemia CANDIDA BURGOS 10/15 [place] [facility] Outpatient Encounter [id number] 10/16 [place] [facility] OFFICE O/P EST MOD 30 MIN [id number] Diagnos is: ICD-10- CM R05.9 Cough, unspeci fied Elvia WYATT MY B 11/23 [place] Outpatient Encounter [id number] 11/23 [place] OFFICE O/P EST MOD 30 MIN [id number] Diagnos is: ICD-10- CM J30.2 Other seasona l allergi c rhiniti s EDMUNDO,Elvia MY B 02/06 [place] [facility] Outpatient Encounter [id number] 02/07 [place] [facility] Outpatient Encounter [id number] 05/09 [place] [facility] PH1 ASSMT&MGMT NQHP 5-10 [id number] Diagnos is: ICD-10- CM 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 Mcqueen 05/10 [place] [facility] Outpatient Encounter [id number] 06/17 [place] OFFICE O/P EST LOW 20 MIN [id number] Diagnos is: ICD-10- CM L57.0 Actinic keratos is CODY SYED RT 07/02 [place] Outpatient Encounter [id number] 07/05 [place] OFFICE O/P EST HI 40 MIN [id number] Diagnos is: ICD-10- CM G89.29 Other chronic pain CANDIDA BURGOS 07/05 [place] [facility] Outpatient Encounter [id number] 07/10 [place] Outpatient Encounter [id number] 07/11 [place] [facility] OFFICE O/P EST LOW 20 MIN [id number] Diagnos is: ICD-10- CM J30.2 Other seasona l allergi c rhiniti Elvia Vaughan 08/07 [place] [facility] Social History Combined list of available smoking, tobacco, and other social history from Department of Defense and Veterans Affairs facilities. Social History Type Response Date Comment Sourc e Tobacco smoking status NHIS VA-TOBACCO USE MED NO 07/05/2024 [place] [facility] History of tobacco use VA-TOBACCO USE EVERY DAY OTHER TYPE 07/05/2024 [facility] History of tobacco use VA-TOBACCO USER SOME DAYS 10/16/2023 [facility] History of tobacco use VA-TOBACCO DOESNT USE WI 30 MIN WAKEUP 10/28/2022 [facility] History of tobacco use VA-TOBACCO USER SOME DAYS 11/22/2021 [facility] History of tobacco use VA-TOBACCO USER SOME DAYS 11/30/2020 [facility] History of tobacco use VA-TOBACCO USER EVERY DAY 01/13/2020 [facility] History of tobacco use VA-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 [facility] Plan of Care List of future care activities from Department [facility] facilities. Additional future care activities may be listed in the Assessment and Plan section. Date/Time Care Activity Care Activity Detail Facili ty 09/05/2024 AMBULATORY - MEDICINE AMBULATORY - MEDICI NE [facility] Advance Directives List of completed, amended, or rescinded Advance Directives on record at Department [facility] facilities. An actual copy of the Directive is not included. Date Advance Directive Provider Source 12/19/2019 ADVANCE DIRECTIVE NICHOLE [facility]
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
[2024-09-04 11:45] VITALS: BP 117/74; PULSE 74; RESP 16; O2SAT 96; BMI 25.0
--- NOTE | 2024-09-04 12:06 | EXP.PAIN.SOA ---
[facility] Disclaimer: The information contained in this section may have been updated after the patient was seen, as this information can be updated by other users. Medical History Arthritis Nerve pain Sinus problem Hyperlipemia Surgical History History of nasal septoplasty History of fusion of cervical spine History of left knee replacement History of prostate surgery S/P hernia surgery Family History Other No significant family history Social History Smoking Status: Former smoker tobacco type: pipe second hand exposure: Yes alcohol intake: never substance use type: denies use current occupational status: other Travel in the last 8 weeks?: None household members: spouse housing: house current occupational exposures/hazards: No caffeine: Yes PM Subjective & Objective Subjective Subjective:: Patient is a pleasant 74-year-old male who presents today for worsening pain. Currently he does rated a 3 out of 10 however does state with increased activity or prolonged positioning such as longer sitting or standing the pain will go to at least a 7 or 8 if not more. He states that he ended up driving to [employer] yesterday and just the drive alone he had severe pain when he got outside the vehicle. Patient does state it is across to his low back and into his hips. He denies any new falls or injuries. Patient does state the pain is interfering with his ability perform activities of daily living such as cooking and cleaning. Patient is interested in injection therapy. His Micah has been reviewed and is appropriate. Review of Systems: General: No recent weight changes, no fever, no sleep disturbances Respiratory: No cough, no shortness of air, no recurring pulmonary infections Cardiovascular/peripheral vascular: No chest pain, no palpitations, no edema, no shortness of breath Gastrointestinal: No new onset incontinence, normal bowel movements reported Genitourinary: No new onset incontinence Musculoskeletal: Low back pain, bilateral hip pain Psychiatric: [Normal mood/affect] Neurological: [Denies weakness in extremities], [denies balance issues] Pain at rest (0-10 scale): 7 Objective Objective:: Physical Exam: General: Alert and oriented x3, no acute distress, pleasant and cooperative Lungs: Respirations even and unlabored, symmetrical chest expansion Eyes: PERRL Musculoskeletal: Flexion and extension of lumbar [spine] somewhat guarded secondary to pain, [antalgic gait noted] point tenderness along bilateral SIs with positive bilateral Eugene's, Roberth's, Gaenslen's, compression and distraction exam Neurological: Speech clear, no gross sensory deficit Has patient had previous pain injection?: No Conservative treatment options previously tried: Home exercise plan Length of treatment: Longer than 12 weeks Meds Home Medications and Allergies Home Medications ?Medication ?Instructions ?Recorded ?Confirmed ?Type atorvastatin 20 mg tablet 20 mg PO DAILY 11/16/23 09/04/24 History celecoxib 200 mg capsule 200 mg PO DAILY 11/16/23 09/04/24 History famotidine 20 mg tablet 20 mg PO DAILY 11/16/23 09/04/24 History gabapentin 300 mg capsule 300 mg PO DAILY 11/16/23 09/04/24 History vibegron 75 mg tablet (Gemtesa) 75 mg PO DAILY 11/16/23 09/04/24 History New Prescriptions to Start Prescriptions: Allergies Allergy/AdvReac Type Severity Reaction Status Date / Time No Known Allergies Allergy Verified 08/15/23 10:52 Assessment and Plan *Assessment and plan (1) Bilateral sacroiliitis: Status: Acute Category: Medical Code(s): M46.1 - Sacroiliitis, not elsewhere classified Plan Patient is experiencing worsening pain along the low back and bilateral hips. They did have limited range of motion of the lumbar spine along with point tenderness along bilateral SI joints and a positive bilateral Eugene's, Roberth's, Gaenslen's, compression and distraction exam. I did discuss with the patient that I do believe they would benefit from bilateral SI injections. Risk and benefits were discussed with the patient and they would like to proceed forward with this option. Patient has tried and failed conservative therapy including physical therapy and continued at home stretching exercise for longer than 12 weeks. Patient has already had a SI injection back in March that did provide 80% relief and lasted for longer than 3 months. If if he does get significant relief with this second set of SI injections he may be a possible candidate of SI fusion at a later date. This will be a therapeutic injection with less than 1 mL solution to be injected. Patient will be scheduled for bilateral SI injections under fluoroscopy. Patient has been instructed to contact the clinic with any concerns before the next appointment. Dr. Madera has reviewed this note and agrees with this plan of care. This note was dictated using voice recognition software and make contain errors or omissions. All injections are used with Lidocaine or Bupivacaine and dexamethasone.
== END 2024-09-04 23:59 | disposition home or self-care (01) ==
LOC: SC.PAIN 11:21
PROVIDERS: PCP Internal Medicine Adolescent Medicine; Visit Provider Nurse Practitioner Family
DX: M46.1 Sacroiliitis, not elsewhere classified (principal); Z87.891 Personal history of nicotine dependence; Z96.652 Presence of left artificial knee joint; Z73.89 Other problems related to life management difficulty
CPT/HCPCS: 99212; G0463

== ENCOUNTER 2024-10-08 13:07 | Day surgery (SDC) | payer MEDICARE, OTHER, SELFPAY ==
[2024-10-08 13:20] VITALS: BP 117/73; PULSE 78; RESP 16; O2SAT 96; BMI 25.0
[2024-10-08] MEDS: BUPIVACAINE 0.25% 10ML INJ 25 MG IJ (13:23)
[2024-10-08] MEDS: LIDOCAINE 1% 5ML PF VIAL 5 ML (13:23)
[2024-10-08] MEDS: DEXAMETHASONE 10MG/ML 1ML VIAL 10 MG (13:23)
[2024-10-08 13:25] VITALS: BP 118/66; PULSE 78; RESP 18; O2SAT 96
[2024-10-08 13:28] VITALS: BP 120/59; PULSE 75; RESP 16; O2SAT 95
[2024-10-08 13:29] VITALS: BP 118/66; PULSE 78; RESP 18; O2SAT 96
--- NOTE | 2024-10-08 13:42 | P.PCN_ITS ---
Procedure Date: 10/08/24 Time: 13:20 Anesthesiologist:: Carlito Arechiga CRNA Complications:: None Pre-procedure Diagnosis:: Bilateral sacroiliitis Post-procedure Diagnosis:: Same Indications for Procedure:: Patient is very pleasant 74-year-old male who comes our clinic today for bilateral sacroiliac joint injection cortisone local anesthetic. Patient describes low lumbar back pain off midline bilaterally. Bilateral posterior hip pain. Difficulty with transitioning sitting to standing. He rates his pain 7/10. He reports responding very well to previous sacroiliac joint injections of cortisone. Procedure Details:: Procedure: Bilateral sacroiliac joint injections under fluoroscopy Informed consent was obtained and the risks and benefits of the procedure were explained to the patient.~ The patient was taken to the procedure room and noninvasive monitors were placed including a noninvasive blood pressure cuff and pulse oximeter.~ The patient was placed prone on the procedure table. Both hips were cleansed using Betadine as a cleansing solution. C-arm fluoroscopy was used to view the right sacroiliac joint.~ The skin and subcutaneous tissues were anesthetized using lidocaine 1.5% and a 25-gauge needle.~ After this, a 22-gauge spinal needle was inserted under fluoroscopic guidance into the inferior aspect of the right sacroiliac joint.~ Omnipaque dye was injected and good spread was seen throughout the joint.~ After this, approximately 5 mL of bupivacaine, 0.25% and Depo-Medrol, 40 mg was incrementally injected into the right sacroiliac joint. We then moved to the left sacroiliac joint.~ The skin and subcutaneous tissues were anesthetized using lidocaine 1.5% and a 25-gauge needle.~ After this, a 22- gauge spinal needle was inserted under fluoroscopic guidance into the inferior aspect of the left sacroiliac joint.~ Omnipaque dye was injected and good spread was seen throughout the joint. After this, approximately 5 mL of bupivacaine, 0.25% and Depo-Medrol, 40 mg was incrementally injected into the left sacroiliac joint.~ The patient tolerated the procedure well with no complications. The patient was observed in the Pain Clinic and then was discharged home neurologically intact. Plan and Disposition:: Patient was discharged without incident.
== END 2024-10-08 13:28 | disposition home or self-care (01) ==
LOC: SC.PAINP 13:09
PROVIDERS: PCP Internal Medicine Adolescent Medicine; Visit Provider Nurse Anesthetist, Certified Registered
DX: M46.1 Sacroiliitis, not elsewhere classified (principal); E78.5 Hyperlipidemia, unspecified; Z87.891 Personal history of nicotine dependence; M19.90 Unspecified osteoarthritis, unspecified site
CPT/HCPCS: G0260; J0665; J1100; J2003

== ENCOUNTER 2024-10-24 09:20 | Outpatient (POV) | payer MEDICARE, OTHER, SELFPAY ==
--- OUTSIDE RECORDS SUMMARY | 2024-09-05 04:00 | XMS_ITS | Encounter Summary ---
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 Date/Time Encounter Type Encounter Description Reason Provider Source September 05, 2024 08:00 AM GONIOSCOPY OPTOMETRY ICD-10-CM H04.123 Dry eye syndrome of bilateral lacrimal glands HADLEY MARY IHRamirez Encounter Template Text not used by [facility] Assessments - Encounter Diagnoses This section includes the primary and secondary diagnoses documented for the Encounter. Date/Time Primary/Secondary Diagnosis Diagnosis Name Provider Source September 05, 2024 09:10 AM PRIMARY Dry eye syndrome of bilateral lacrimal glands DAY,DL Alonso [facility] September 05, 2024 09:10 AM SECONDARY Presence of intraocular lens DAY,DL Alonso [facility] Plan of Treatment: Future Appointments (+ 6 months) and Future Tests (+/- 45 days) The Plan of Treatment section includes future care activities for the patient from all [place] [facility] This section includes future appointments and future orders which are active, pending or scheduled. Future Appointments This section includes appointments that were scheduled to occur 6 months from the date of the Encounter, up to a maximum of 20 appointments. The data comes from all [place] treatment facilities. Appointment Date/Time Appointment Type Appointme nt Facility Name Feb 05, 2025 10:30 AM AMBULATORY - MEDICINE [facility] Social History: Smoking Status (Most current) and Tobacco Use (All prior to encounter date) This section includes the most current, and the historical, smoking and tobacco- related health factors from the [place] facility where the Encounter took place. Current Smoking Status This section includes the most current smoking, or tobacco-related health factor, from the [place] facility where the Encounter took place. Date/Time Current Smoking Status Comment David ity Jul 05, 2024 10:00 AM VA-TOBACCO NEVER U SED CIGARETTES [facility] Tobacco Use History This section includes a history of the smoking, or tobacco-related health factors, that were collected on or before the date of the Encounter. The data comes from the [place] facility where the Encounter took place. 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 [facility] Jul 05, 2024 10:00 AM VA-TOBACCO USE DAVIE RY DAY CIGARS/PIPES [facility] Jul 05, 2024 10:00 AM VA-TOBACCO USE DAVIE RY DAY OTHER TYPE [facility] Jul 05, 2024 10:00 AM VA-TOBACCO USE MED NO [facility] Oct 16, 2023 10:00 AM VA-TOBACCO DOESNT USE WI 30 MIN WAKEUP [facility] Oct 16, 2023 10:00 AM VA-TOBACCO USE 30 YEARS OR MORE [facility] Oct 16, 2023 10:00 AM VA-TOBACCO USE ADVICE [facility] Oct 16, 2023 10:00 AM 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 [facility] Oct 16, 2023 10:00 AM VA-TOBACCO USE MED NO [facility] Oct 16, 2023 10:00 AM VA-TOBACCO USER SOME DAYS [facility] Oct 28, 2022 01:00 PM VA-TOBACCO DOESNT USE WI 30 MIN WAKEUP [facility] Oct 28, 2022 01:00 PM VA-TOBACCO USE 30 YEARS OR MORE [facility] Oct 28, 2022 01:00 PM VA-TOBACCO USE ADVICE [facility] Oct 28, 2022 01:00 PM 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 [facility] Oct 28, 2022 01:00 PM VA-TOBACCO USE MED NO [facility] Oct 28, 2022 01:00 PM VA-TOBACCO USER SOME DAYS [facility] Nov 22, 2021 11:00 AM VA-TOBACCO DOESNT USE WI 30 MIN WAKEUP [facility] Nov 22, 2021 11:00 AM VA-TOBACCO USE 30 YEARS OR MORE [facility] Nov 22, 2021 11:00 AM VA-TOBACCO USE ADVICE [facility] Nov 22, 2021 11:00 AM 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 [facility] Nov 22, 2021 11:00 AM VA-TOBACCO USE MED NO [facility] Nov 22, 2021 11:00 AM VA-TOBACCO USER SOME DAYS [facility] Nov 30, 2020 11:30 AM VA-TOBACCO DOESNT USE WI 30 MIN WAKEUP [facility] Nov 30, 2020 11:30 AM VA-TOBACCO USE 30 YEARS OR MORE [facility] Nov 30, 2020 11:30 AM VA-TOBACCO USE ADVICE [facility] Nov 30, 2020 11:30 AM 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 [facility] Nov 30, 2020 11:30 AM VA-TOBACCO USE MED NO [facility] Nov 30, 2020 11:30 AM VA-TOBACCO USER SOME DAYS [facility] Jan 13, 2020 10:30 AM VA-TOBACCO USE 30 YEARS OR MORE [facility] Jan 13, 2020 10:30 AM VA-TOBACCO USE ADVICE [facility] Jan 13, 2020 10:30 AM 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 [facility] Jan 13, 2020 10:30 AM VA-TOBACCO USE MED NO [facility] Jan 13, 2020 10:30 AM VA-TOBACCO USE WI 30 MIN OF WAKEUP [facility] Jan 13, 2020 10:30 AM VA-TOBACCO USER EVERY DAY [facility] Jan 03, 2019 01:00 PM VA-TOBACCO DOESNT USE WI 30 MIN WAKEUP [facility] Jan 03, 2019 01:00 PM VA-TOBACCO USE > 1 5 LESS THAN 30 YEARS [facility] Jan 03, 2019 01:00 PM VA-TOBACCO USE ADVICE [facility] Jan 03, 2019 01:00 PM 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 This section includes ALL of a patient's completed or amended [place] Advance and Rescinded Directives. The entries below indicate that a directive exists for the patient, but an actual copy is not included with this document. The data comes from all [place] facilities. Date Advance Directives Provider Source Dec 19, 2019 ADVANCE DIRECTIVE NICHOLE VALDEZON-CDD [facility] Encounter Notes: All associated encounter notes This section contains the clinical notes associated to the Encounter. Date/Time Encounter Note(s) Provider Source September 05, 2024 12:26 PM STUDENT NOTE: LOCAL TITLE: MEDICAL STUDENT SOAP NOTE STANDARD TITLE: STUDENT NOTE DATE OF NOTE: SEPTEMBER 05, 2024@12:26 ENTRY DATE: SEPTEMBER 05, 2024@12:26:10 AUTHOR: JESSICA JOHNS EXP COSIGNER: DL ZAYAS URGENCY: STATUS: COMPLETED I participated in this patient care encounter with Dr. Zayas /kathy/ JESSICA JOHNS Optometry Student Signed: 09/05/2024 12:26 /alaina ZAYAS Optometry Resident Cosigned: 09/05/2024 13:44 JESSICA JOHNS [facility] September 05, 2024 07:50 AM OPTOMETRY RESIDENT NOTE: LOCAL TITLE: OPTOMETRY RESIDENT NOTE STANDARD TITLE: OPTOMETRY RESIDENT NOTE DATE OF NOTE: SEPTEMBER 05, 2024@07:50 ENTRY DATE: SEPTEMBER 05, 2024@07:50:58 AUTHOR: DL ZAYAS EXP COSIGNER: EMMA MARY URGENCY: STATUS: COMPLETED OPTOMETRY RESIDENT NOTE Has ADDENDA Type of exam: Comprehensive Chief complaint/Reason for visit: 74YO WHITE patient presents for comprehensive eye exam. Patient states vision is blurry at near OU x 6 months. Patient endorses diplopia after reading/looking at something for a longer amount of time. The images are horizontally with one of them being more opaque than the other. Currently using ATs BID OU. Denies flashes of light or floaters in vision. Ocular History: LUCAS: 06/2023 @ [facility] (-) Eye Injury: (+) Eye Surgery/Laser Tx: CEIOL OU 2022 (-) Eye Infection: (-) Other: (-) History of Cancer (-) History of Known CVA (-) Use of anticoagulant Ocular Medications: ATs BID OU (-) History of allergies to ocular medications Family history: None Smoking history: (+) Smoking If currently smoking, is pt interested in smoking cessation? NO Duration, packs per day: 30 years, 4-5 ppd Pt is aware of availability of support groups/medication/other resources to help with smoking cessation at the [facility] Additional Risk Factors for Macular Degeneration: (+) Patient is over age 60 (-) Obesity (Centers for Disease Control and Prevention definition: BMI of 30 or more) (+) Pt has heritage (-) Female sex Additional Glaucoma Risk Hx: (-) over age 40 (+) Pt is over age 60 (-) Pt has Citizen Of [place] heritage Medical history: Active problems - Computerized Problem List is the source for the followin. Does mobilize using cane 2. Reduced mobility 3. Overactive bladder 4. Erectile dysfunction 5. Exposure to potentially hazardous substance ([facility] [id number]) 6. Allergic rhinitis 7. Heartburn 8. Chronic pain 9. FDC current use of non-steroidal anti-inflammatory drug 10. Pipe smoker 11. Mixed Hyperlipidemia ([facility] [id number]) 12. History of polyp of colon 4mm TA removed 10/31/2011 TAs resected Mar 2020 -- repeat in 7 years (03/2027). 13. 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 Chronic low back pain Allergies: Patient has answered NKA Medications: Active Outpatient Medications (including Supplies): Active Outpatient Medications Status = 1) ATORVASTATIN CALCIUM 40MG TAB TAKE ONE-HALF TABLET BY MOUTH ACTIVE DAILY -DO NOT DRINK GRAPEFRUIT JUICE WHILE ON THIS DRUG Indication: FOR CHOLESTEROL 2) AZELASTINE 137MCG/SPRAY 200D NASAL INHL SPRAY 2 SPRAYS IN ACTIVE EACH NOSTRIL TWICE A DAY Indication: FOR ALLERGIES 3) CARBOXYMETHYLCELLULOSE 0.5%(PF)OP WANDER UD PUT 1 DROP IN BOTH ACTIVE EYES EVERY 1 HOUR NEEDED Indication: FOR DRY EYES 4) FAMOTIDINE 20MG TAB TAKE ONE TABLET BY MOUTH DAILY NEEDED ACTIVE AND TAKE ONE-HALF TABLET AT BEDTIME NEEDED Indication: FOR HEARTBURN 5) HYDROPHILIC (EQV AQUAPHOR) TOP OINT APPLY SMALL AMOUNT TO ACTIVE AFFECTED AREA DIRECTED APPLY DAILY NEEDED. Indication: FOR DRY SKIN 6) IPRATROPIUM BR 0.06% NASAL SPRAY SPRAY 1 TO 2 SPRAYS IN EACH ACTIVE NOSTRIL TWICE A DAY Indication: FOR NASAL ALLERGY 7) LEVOCETIRIZINE DIHYDROCHLORIDE 5MG TAB TAKE ONE TABLET BY ACTIVE MOUTH DAILY -- USE INSTEAD OF FEXOFENADINE DAILY Indication: FOR ALLERGIES 8) MONTELUKAST NA 10MG TAB TAKE ONE TABLET BY MOUTH DAILY ACTIVE (S) Indication: FOR BREATHING 9) OLOPATADINE HCL 0.1% OPH SOLN PUT 1 DROP IN BOTH EYES TWICE ACTIVE A DAY Indication: FOR EYE ALLERGIES 10) SILDENAFIL CITRATE 100MG TAB TAKE ONE TABLET BY MOUTH ACTIVE DIRECTED -DO NOT TAKE WITH ANY MEDICATION CONTAINING NITRATES (LIMIT: 6 DOSES/30 DAYS OR 18 DOSES/90 DAYS, NON-REPLACEABLE MEDICATION) Indication: FOR ERECTILE DYSFUNCTION Active Non-VA Medications Status = 1) Non-VA ACETAMINOPHEN 325MG TAB 1300MG MOUTH AT BEDTIME ACTIVE NEEDED 2) Non-VA ASCORBIC ACID 500MG TAB 500MG MOUTH DAILY ACTIVE 3) Non-VA CELECOXIB 200MG CAP 200MG MOUTH DAILY ACTIVE 4) Non-VA GABAPENTIN 300MG CAP 300MG MOUTH TWICE A DAY ACTIVE 5) Non-VA MULTIVITAMIN/MINERALS THERAPEUT CAP/TAB 1 CAP(S)/TAB ACTIVE MOUTH DAILY 6) Non-VA POLYETHYLENE GLYCOL 3350 ORAL PWDR 17 GRAMS (ONE ACTIVE CAPFUL FILLED TO LINE) IN LIQUID MOUTH DAILY 7) Non-VA PSYLLIUM POWDER,ORAL MOUTH ACTIVE 8) Non-VA SENNOSIDES TAB MOUTH ACTIVE 9) Non-VA VIBEGRON 75MG TAB 75MG MOUTH DAILY ACTIVE Indication: FOR OVERACTIVE BLADDER 19 Total Medications Medication list reviewed by: Rebecca Medication list is accurate per patient/doctor review, Pt/significant other reports patient taking ALL VA, Non VA, OTC medications as listed on medication tab. Describe Discrepancies: Printed copy of medication list provided to patient and/or significant other and reviewed: Yes Explained to patient and/or significant other the importance of keeping providers updated on medication changes and to carrying an updated list of medication at all times in case of an emergency situation. Yes Medication changes reviewed, patient/significant other verbalized understanding, provided updated list. VA: sc 20/30-2 20/30 cc 20/25-1 20/40 Habitual Rx: OD: [place] -1.00 x176 OS: +0.50 -1.25 x092 Add: +2.50 EOMs: Full and unrestricted OU, No Diplopia Confrontation VF: Full to finger count OU Pupils: PERRL, no APD Ishihara Color vision: OD:7/7 OS:5/7 Refraction: OD: +0.50 -1.00 x164 20/20-2 OS: +0.25 -1.00 x046 20/20-1 Add: +2.50 Final RX: Same as above SLIT LAMP EXAM: Lids/lashes: Mild Bleph OU Conj/sclera: Clear/white OU Cornea: 1+ SPK OU Anterior chamber: D/q OU Iris/pupil: Flat/round OU Informed consent obtained prior to instillation of all diagnostic pharmaceutical agents. IOPs (Goldmann applanation): igt Altafluor Benox OD, OS OD:10 OS:10 Time:08 Gonioscopy: Open to CB 360 OU OCULAR HEALTH: igt 1% Tropicacyl OD, igt 1% Tropicacyl OS, igt 2.5% Phenylephrine OD, igt 2.5% Phenylephrine OS Time:08 Lenses used for viewinD, 20D LENS: OD: PCIOL, tr PCO IN OS: PCIOL, tr PCO SN C/D: H/ V OD: 0.35/0.35 NRRI, No Hemes, No Pallor, No Edema OS: 0.45/0.45 NRRI, No Hemes, No Pallor, No Edema Size: average MACULA: OD: Flat, even pigment OS: Flat, even pigment VESSELS: OD: 2/3 AV OS: 2/3 AV POSTERIOR POLE: OD: Clear OS: Clear VITREOUS: OD: Clear OS: Clear PERIPHERY: OD: No holes, tears or breaks OS: No holes, tears or breaks A: 1. Dry Eye Syndrome OU 2. Pseudophakia OU - BCVA: 20/20-2 OD, 20/20-1 OS P: 1. Patient educated on the use of artificial tears 3-4 times per day OU. Patient educated regarding proper lid hygiene and warm compresses daily OU. Patient to RTC should symptoms worsen or not improve with supportive intervention. 2. VA rx released in office. The voiced understanding of topics covered/discussed in today's visit. Next visit: 12 months with Resident-3 for JAQUELIN. /kathy/ EMMA Kwok [facility], Primary Care Service Signed: 09/05/2024 13:57 for Yunier ZAYAS Optometry Resident /kathy/ EMMA [facility], Primary Care Service Cosigned: 09/05/2024 13:57 09/05/2024 ADDENDUM STATUS: COMPLETED This service was performed in whole or in part by a resident at a [place] Medical Center or Clinic, supervised in accordance with [place] policy. I have discussed the patient with the examining resident. I agree with the clinical findings and the assessment and plan. /kathy/ EMMA Kwok [facility], Primary Care Service Signed: 09/05/2024 13:57 EMMA MARY [facility]
--- OUTSIDE RECORDS SUMMARY | 2024-10-16 05:12 | XMS_ITS ---
Author Name [facility] [place] [facility] [place] Address [address] [place] [address] Care Team Providers Care Technical Writer And Editor Name Role Phone FENG BURGOS Primary Care [...] PART A Dec 30, 2022 PART A [id number] [facility] Meaghan LOZANO PATIENT MEDICARE (WNR) MEDICARE (M) PART B Dec 30, 2012 PART B [id number] Meaghan LOZANO PATIENT FOR LIFE TRICA RE FOR LIFE Dec 30, 2012 FOR LIFE [id number] Meaghan LOZANO PATIENT Selected Encounter This section includes the information on record at [place] for the Encounter. Date/Time Encounter Type Encounter Description Reason Pro vider Source Oct 16, 2024 09:12 AM Outpatient Encounter ADMIN PAT ACTIVTIES (MASNONCT) IHE Encounter Template Text not used by [place] Plan of Treatment: Future Appointments (+ 6 months) and Future Tests (+/- 45 days) The Plan of Treatment section includes future care activities for the patient from all [place] treatmentfacilities. This section includes future appointments and future orders which are active, pending or scheduled. Future Appointments This section includes appointments that were scheduled to occur 6 months from the date of the Encounter, up to a maximum of 20 appointments. The data comes from all [place] treatment facilities. Appointment Date/Time Appointment Type Appointme nt Facility Name Feb 05, 2025 10:30 AM AMBULATORY - MEDICINE [facility] Advance Directives: All historical and current Section Date Range: From patient's date of to the date document was created. This section includes ALL of a patient's completed or amended [place] Advance and Rescinded Directives. The entries below indicate that a directive exists for the patient, but an actual copy is not included with this document. The data comes from all [facility]. Date Advance Directives Provider Source Dec 19, 2019 ADVANCE DIRECTIVE NICHOLE VALDEZ GTON-CDD [facility] Encounter Notes: All associated encounter notes This section contains the clinical notes associated to the Encounter. Date/Time Encounter Note(s) Provider Source Oct 16, 2024 09:12 AM ADMINISTRATIVE NOT E: LOCAL TITLE: CCC: SCHEDULING ADMINISTRATION STANDARD TITLE: ADMINISTRATIVE NOTE DATE OF NOTE: OCT 16, 2024@09:12:49 ENTRY DATE: OCT 16, 2024@09:12:50 AUTHOR: SALMA JASSO COSIGNER: URGENCY: STATUS: COMPLETED CCC: SCHEDULING ADMINISTRATION Has ADDENDA Caller Verification Call Back Number: [phone] Emergency Contact: ALEXANDRU LOZANO Emergency Contact Caller/Recipient Relation to Patient: Self Caller Name: CONSTANZA LOZANO Administrative Administrative Note Reason: Other Administrative Note Comments: would like a call back regarding scheduling appointment for follow, labs. Please call back to discuss. IMPORTANT: This note was created by [place] [facility] staff. Please do not alert the staff member by adding them as a signer for future communications. Alerts are not monitored by this user. /kathy/ SALMA JASSO Advance Frame Welder Cargo Utility Trailers Signed: 10/16/2024 09:12 Receipt Acknowledged By: 10/16/2024 14:52 /es/ GABRIEL DONALD ADVANCED RECEIVING AND PROCESSING SUPERVISOR for MAREK PERES 10/16/2024 11:04 /kathy/ Manuela Yanes,MSN,RN Patient Weed Cutter for ANIA JENSEN 10/16/2024 ADDENDUM STATUS: COMPLETED Called pt, no answer. /kathy/ Manuela Yanes,MSN,RN Patient Weed Cutter Signed: 10/16/2024 09:56 10/16/2024 ADDENDUM STATUS: COMPLETED Per above pharmaceutical specialty representative attempted to contact patient. Will await return call for scheduling as there are currently no orders. /kathy/ GABRIEL DONALD ADVANCED RECEIVING AND PROCESSING SUPERVISOR Signed: 10/16/2024 14:53 SALMA JASSO-REG [facility]
--- OUTSIDE RECORDS SUMMARY | 2024-10-24 09:24 | XMS_ITS | Continuity of Care Document ---
Author Name [facility] Organization [facility] Care Team Providers Care Lab Tester Name Role Phone [facility] Unavailable Unavailable Problems Combined list of problems from Department of Defense and Veterans Affairs facilities. It does not include entries that were removed or entered in error. Problem Status Onset Date Problem Type Date of Resolution Comments Source Allergic rhinitis Active Condition [facility] Chronic low back pain Active Condition [place] Chronic pain Active Condition [place] Constipation Active Condition [place] [facility] Does mobilize using cane Active Condition [place] Erectile dysfunction Active Condition [place] Exposure to potentially hazardous substance (SCT [id number]) Active Condition [place] Heartburn Active Condition [place] History of polyp of colon Active Condition Jan 28, 2020 Entered By: LUZMARIA BURGOS RA Comment: 4mm TA removed 10/31/2011Mar 23, 2020 Entered By: TY JEFFERY Comment: TAs resected Mar 2020 -- repeat in 7 years (03/2027). 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 [place] Reduced mobility Active Condition [place] Pain in left knee Inactive Condition 11/22/2021 [place] Diagnosis: ICD-10-CM H04.123 Dry eye syndrome of bilateral lacrimal glands Active Diagnosis [place] [facility] Diagnosis: ICD-10-CM J30.2 Other seasonal allergic rhinitis Active Diagnosis [place] [facility] N Diagnosis: ICD-10-CM G89.29 Other chronic pain Active Diagnosis [place] [facility] Diagnosis: ICD-10-CM L57.0 Actinic keratosis Active Diagnosis [place] Diagnosis: ICD-10-CM Z71.89 Other specified counseling Active Diagnosis [place] [facility] Diagnosis: ICD-10-CM R05.9 Cough, unspecified Active Diagnosis [place] Diagnosis: ICD-10-CM E78.2 Mixed hyperlipidemia Active Diagnosis [place] [facility] Medications Combined list of outpatient medications from Department of Defense and Veterans Affairs facilities.Medications provided include 1) outpatient medications from the last 15 months, and 2) patient-reported medications. Medication Details Route Status Patient Instructions Prescription Expires Prescription Number Last Dispense Date Ordering Provider Order Date Order Qty Source ACETAMINOPH EN 325MG TAB TAKE FOUR TABLETS BY MOUTH AT BEDTIME NEEDED ORAL ACTIVE HAL BURGOS R 2020 [place] [facility] AMOXICILLIN TRIHYDRATE 875MG/CLAVU LANATE K 125MG TAB TAKE 1 TABLET BY MOUTH TWICE A DAY FOR 7 DAYS ORAL 12/24/2023 [id number] 4 MARION WYATT 2023 14 [place] [facility] ASCORBIC ACID 500MG TAB TAKE ONE TABLET BY MOUTH DAILY ORAL ACTIVE AUBREYHAL SOLORZANO R 2018 [place] [facility] atorvastati n (U/D) 40 MG ORAL TAB TAKE ONE-HALF TABLET BY MOUTH DAILY FOR CHOLESTE ROL -DO NOT DRINK GRAPEFRU IT JUICE WHILE ON THIS DRUG 10/17/2024 [id number] 4 FENG BURGOS R 2023 45 [place] [facility] atorvastati n (U/D) 40 MG ORAL TAB TAKE ONE-HALF TABLET BY MOUTH DAILY FOR CHOLESTE ROL -DO NOT DRINK GRAPEFRU IT JUICE WHILE ON THIS DRUG Discont inued 11/01/2023 [id number] 4 FENG BURGOS R 2023 45 [place] [facility] ATORVASTATI N CA 40MG TAB TAKE ONE-HALF TABLET BY MOUTH DAILY FOR CHOLESTE ROL -DO NOT DRINK GRAPEFRU IT JUICE WHILE ON THIS DRUG ORAL DISCONT INUED 11/01/2023 [id number] 4 HAL BURGOS SURINDERA R 2022 45 [place] [facility] ATORVASTATI N CA 40MG TAB TAKE ONE-HALF TABLET BY MOUTH DAILY FOR CHOLESTE ROL -DO NOT DRINK GRAPEFRU IT JUICE WHILE ON THIS DRUG ORAL 10/17/2024 [id number] 5 HAL BURGOS SURINDERA R 2023 45 [place] [facility] AZELASTINE 0.1 % DOMENICA SPRP [30 ML] SPRAY 2 SPRAYS IN EACH NOSTRIL TWICE A DAY FOR ALLERGIE S 08/09/2024 [id number] 4 MARION WYATT 2023 4 [place] [facility] AZELASTINE HCL 137MCG/SPRA Y INHL,NASAL, 30ML SPRAY 2 SPRAYS IN EACH NOSTRIL TWICE A DAY FOR ALLERGIE S NASAL ACTIVE 08/08/2025 [id number] 5 MARION WYATT 2024 3 [place] [facility] AZELASTINE HCL 137MCG/SPRA Y INHL,NASAL, 30ML SPRAY 2 SPRAYS IN EACH NOSTRIL TWICE A DAY FOR ALLERGIE S NASAL DISCONT INUED 08/09/2024 [id number] 5 MARION WYATT 2023 4 [place] Budesonide 0.032mg/Act uat, [place], Nasal SPRAY 2 SPRAYS IN EACH NOSTRIL TWICE A DAY FOR NASAL SYMPTOMS - REPLACES FLUTICAS ONE JANUARY 2022 08/09/2024 [id number] 4 MARION WYATT 2023 6 [place] [facility] BUDESONIDE 32MCG/ACTUA T INHL,NASAL, 8.43GM SPRAY 2 SPRAYS IN EACH NOSTRIL TWICE A DAY FOR NASAL SYMPTOMS - REPLACES FLUTICAS ONE JANUARY 2022 NASAL ACTIVE 08/09/2024 [id number] 4 MARION WYATT 2023 6 [place] carboxymeth ylcel 0.5% EYE DROP [2 X15ML] PUT 1 DROP IN BOTH EYES EVERY 1 HOUR NEEDED FOR DRY EYES 02/09/2024 [id number] 4 MARION WYATT 2023 150 [place] [facility] CARBOXYMETH YLCELLULOSE NA 0.5% (PF) SOLN,OPH,0. 4ML PUT 1 DROP IN BOTH EYES EVERY 1 HOUR NEEDED FOR DRY EYES OPHTHA LMIC 02/09/2024 [id number] 4 MARION WYATT 2022 150 [place] CARBOXYMETH YLCELLULOSE NA 0.5% (PF) SOLN,OPH,UD PUT 1 DROP IN BOTH EYES EVERY 1 HOUR NEEDED FOR DRY EYES OPHTHA LMIC ACTIVE 08/08/2025 [id number] 5 MARION WYATT 2024 100 [place] [facility] CELECOXIB 200MG CAP TAKE 1 CAPSULE BY MOUTH DAILY ORAL ACTIVE HAL BURGOS R 2021 [place] [facility] famotidine (U/D) 20 MG ORAL TAB TAKE ONE TABLET BY MOUTH DAILY NEEDED FOR STOMACH 10/17/2024 [id number] 4 FENG BURGOS 2023 90 [place] [facility] famotidine (U/D) 20 MG ORAL TAB TAKE ONE TABLET BY MOUTH DAILY NEEDED FOR STOMACH Discont inued 11/01/2023 [id number] 4 FENG BURGOS 2023 90 [place] [facility] FAMOTIDINE 20MG TAB TAKE ONE TABLET BY MOUTH DAILY NEEDED AND TAKE ONE-HALF TABLET AT BEDTIME NEEDED FOR HEARTBUR N ORAL ACTIVE 07/06/2025 [id number] 5 HAL BURGOS R 2024 135 [place] [facility] FAMOTIDINE 20MG TAB TAKE ONE TABLET BY MOUTH DAILY NEEDED FOR STOMACH ORAL DISCONT INUED (EDIT) 10/17/2024 [id number] 5 HAL BURGOS RASHAD R 2023 90 [place] [facility] FAMOTIDINE 20MG TAB TAKE ONE TABLET BY MOUTH DAILY NEEDED FOR STOMACH ORAL DISCONT INUED (EDIT) 11/01/2023 [id number] 4 HAL BURGOS RASHAD R 2022 90 [place] [facility] GABAPENTIN (gabapentin ), 300 MG, CAPSULE, ORAL, [facility], 270 ea. BOTTLE Active [id number] 2023 270 [facility] y [facility] y GABAPENTIN 300MG CAP TAKE 1 CAPSULE BY MOUTH TWICE A DAY ORAL ACTIVE HAL BURGOS RASHAD R 2021 [place] [facility] HYDROPHILIC (EQV AQUAPHOR) OINT,TOP APPLY SMALL AMOUNT TO AFFECTED AREA DIRECTED FOR DRY SKIN APPLY DAILY NEEDED. TOPICA L ACTIVE 07/03/2025 [id number] 5 KUNAL,LOKI ART 2024 454 [place] IPRATROPIUM BR 0.06% SOLN,SPRAY, NASAL SPRAY 1 TO 2 SPRAYS IN EACH NOSTRIL TWICE A DAY FOR NASAL ALLERGY NASAL ACTIVE 02/07/2025 [id number] 5 MARION WYATT 2023 45 [place] [facility] LEVOCETIRIZ INE 5 MG ORAL TAB TAKE ONE TABLET BY MOUTH DAILY -- USE INSTEAD OF FEXOFENA DINE DAILY FOR ALLERGIE S 02/09/2024 [id number] 4 MARION WYATT 2023 90 [place] [facility] LEVOCETIRIZ INE DIHYDROCHLO RIDE 5MG TAB TAKE ONE TABLET BY MOUTH DAILY -- USE INSTEAD OF FEXOFENA DINE DAILY FOR ALLERGIE S ORAL ACTIVE 02/19/2025 [id number] 5 MARION WYATT 2023 90 [place] LEVOCETIRIZ INE DIHYDROCHLO RIDE 5MG TAB TAKE ONE TABLET BY MOUTH DAILY -- USE INSTEAD OF FEXOFENA DINE DAILY FOR ALLERGIE S ORAL DISCONT INUED 02/09/2024 [id number] 4 MARION WYATT 2022 90 [place] [facility] MONTELUKAST (U/D) 10 MG ORAL TAB TAKE ONE TABLET BY MOUTH DAILY FOR BREATHIN G 08/09/2024 [id number] 4 MARION WYATT 2023 90 [place] [facility] MONTELUKAST (U/D) 10 MG ORAL TAB TAKE ONE TABLET BY MOUTH DAILY FOR BREATHIN G Discont inued 08/11/2023 [id number] 4 MARION WYATT 2023 90 [place] [facility] MONTELUKAST NA 10MG TAB TAKE ONE TABLET BY MOUTH DAILY FOR BREATHIN G ORAL ACTIVE 08/08/2025 [id number] 5 MARION WYATT 2024 90 [place] [facility] [place] MONTELUKAST NA 10MG TAB TAKE ONE TABLET BY MOUTH DAILY FOR BREATHIN G ORAL DISCONT INUED 08/09/2024 [id number] 5 MARION WYATT 2023 90 [place] [facility] MONTELUKAST NA 10MG TAB TAKE ONE TABLET BY MOUTH DAILY FOR BREATHIN G ORAL DISCONT INUED 08/11/2023 [id number] 4 MARION WYATT 2022 90 [place] [facility] MULTIVITAMI NS W/MINERALS CAP/TAB TAKE 1 CAP(S)/T AB BY MOUTH DAILY ORAL ACTIVE HAL BURGOS 2021 [place] [facility] OLOPATADINE 0.1 % EYE DROP [5 ML] PUT 1 DROP IN BOTH EYES TWICE A DAY FOR EYE ALLERGIE S 08/09/2024 [id number] 4 MARION WYATT 2023 15 [place] [facility] OLOPATADINE HCL 0.1% SOLNOPH PUT 1 DROP IN BOTH EYES TWICE A DAY FOR EYE ALLERGIE S OPHTHA LMIC ACTIVE 08/08/2025 [id number] 5 MARION WYATT 2024 20 [place] [facility] OLOPATADINE HCL 0.1% SOLN,OPH PUT 1 DROP IN BOTH EYES TWICE A DAY FOR EYE ALLERGIE S OPHTHA LMIC DISCONT INUED 08/09/2024 [id number] 5 MARION WYATT 2023 15 [place] [facility] POLYETHYLEN E GLYCOL 3350 PWDR,ORAL MIX 17 GRAMS (ONE CAPFUL FILLED TO LINE) IN LIQUID AND TAKE BY MOUTH DAILY ORAL ACTIVE HAL BURGOS R 2024 [place] [facility] PREDNISONE 10MG TAB TAKE FOUR TABLETS BY MOUTH DAILY FOR 3 DAYS, THEN TAKE THREE TABLETS DAILY FOR 3 DAYS, THEN TAKE TWO TABLETS DAILY FOR 3 DAYS, THEN TAKE ONE TABLET DAILY FOR 3 DAYS FOR INFLAMMA TION ORAL 12/24/2023 [id number] 4 MARION WYATT 2023 30 [place] [facility] PSYLLIUM POWDER,ORAL MIX AND TAKE BY MOUTH ORAL ACTIVE HAL BURGOS R 2024 [place] [facility] SENNOSIDES TAB TAKE BY MOUTH DAILY ORAL ACTIVE HAL BURGOS R 2024 [place] [facility] SILDENAFIL CITRATE 100MG TAB TAKE ONE TABLET BY MOUTH DIRECTED FOR ERECTILE DYSFUNCT ION -DO NOT TAKE WITH ANY MEDICATI ON CONTAINI NG NITRATES (LIMIT: 6 DOSES/30 DAYS OR 18 DOSES/90 DAYS, NON-REPL ACEABLE MEDICATI ON) ORAL ACTIVE 07/06/2025 [id number] 5 HAL BURGOS R 2024 18 [place] [facility] VIBEGRON 75MG TAB TAKE ONE TABLET BY MOUTH DAILY ORAL ACTIVE HAL BURGOS R 2023 [place] [facility] Immunizations Combined list of available immunizations from the Department of Defense and Veterans Affairs facilities. Immunization Series Date Given Administered By Site Reaction Lot Number CVX Code Drug Cake Puller Status Comments Source INFLUENZA, HIGH-DOSE, TRIVALENT, PF 5 2023 135 complet ed HISTORICA L INFORMATI ON - FROM OTHER REGISTRY, [place] [facility] PNEUMOCOCCAL CONJUGATE PCV20, POLYSACCHARID E [id number] CONJUGATE, ADJUVANT, PF 2 2023 216 complet ed HISTORICA L INFORMATI ON - FROM OTHER REGISTRY, [place] [facility] RSV, BIVALENT, PROTEIN SUBUNIT RSVPREF, DILUENT RECONSTITUTED , 0.5 ML, PF 1 2023 305 complet ed HISTORICA L INFORMATI ON - FROM OTHER REGISTRY, [place] [facility] INFLUENZA VACCINE, QUADRIVALENT, ADJUVANTED 4 2022 205 complet ed HISTORICA L INFORMATI ON - FROM OTHER REGISTRY, [place] [facility] INFLUENZA, UNSPECIFIED FORMULATION 2021 88 complet ed HISTORICA L INFORMATI ON - SOURCE UNSPECIFI ED, [place] [facility] COVID-19 (Youneeq), MRNA, LNP-S, PF, 30 MCG/0.3 ML DOSE 4 2021 208 complet ed [place] [facility] COVID-19 (Youneeq), MRNA, LNP-S, PF, 30 MCG/0.3 ML DOSE, MARE-SUCROSE (AGES 12+ YEARS) 4 2021 217 complet ed HISTORICA L INFORMATI ON - FROM OTHER REGISTRY, [place] [facility] INFLUENZA, HIGH DOSE SEASONAL 3 2020 135 complet ed HISTORICA L INFORMATI ON - [place] OTHER REGISTRY, [place] [facility] (Youneeq), MRNA, LNP-S, PF, 30 MCG/0.3 ML DOSE 3 2020 208 complet ed [place] [facility] [place] COVID-19 (Youneeq), MRNA, LNP-S, PF, 30 MCG/0.3 ML DOSE 2 2020 208 complet ed [place] [facility] [place] COVID-19 (Youneeq), MRNA, LNP-S, PF, 30 MCG/0.3 ML DOSE 1 2020 208 complet ed [place] [facility] INFLUENZA, INJECTABLE, QUADRIVALENT, PRESERVATIVE FREE 2019 150 complet ed [place] [facility] TDAP 2019 115 complet ed [place] [facility] Influenza, high dose seasonal 2018 DAIANA JACOBO () Not Given Influenza , high dose seasonal DoD ZOSTER RECOMBINANT 2 2018 187 complet ed HISTORICA L INFORMATI ON - FROM OTHER REGISTRY, [place] [facility] zoster recombinant 2018 DAIANA JACOBO () Not Given zoster recombina nt DoD ZOSTER RECOMBINANT 1 2018 187 complet ed HISTORICA L INFORMATI ON - FROM OTHER REGISTRY, [place] [facility] zoster recombinant 2018 DAIANA JACOBO () Not Given zoster recombina nt DoD HEP A, ADULT 2 2018 52 complet ed HISTORICA L INFORMATI ON - FROM OTHER REGISTRY, [place] [facility] Hep A, adult 2018 DAIANA JACOBO () Not Given Hep A, adult DoD HEP A, ADULT 1 2017 52 complet ed HISTORICA L INFORMATI ON - FROM OTHER REGISTRY, [place] [facility] Hep A, adult 2017 DAIANA JACOBO () Not Given Hep A, adult DoD INFLUENZA, INJECTABLE, QUADRIVALENT 2 2017 158 complet ed HISTORICA L INFORMATI ON - FROM OTHER REGISTRY, [place] [facility] PNEUMOCOCCAL CONJUGATE PCV 13 1 2016 133 complet ed HISTORICA L INFORMATI ON - FROM OTHER REGISTRY, [place] [facility] INFLUENZA, INJECTABLE, QUADRIVALENT 1 2016 158 complet ed HISTORICA L INFORMATI ON - FROM OTHER REGISTRY, [place] [facility] zoster live 2014 TIEN MICHAELS () Not Given zoster live DoD influenza virus vaccine, split virus (incl. purified surface antigen)-reti red CODE 1 2011 Unknown, Provider [id number] [employer] ([facility]) complet ed influenza virus vaccine, split virus (incl. purified surface antigen)- retired CODE DoD TD (ADULT), 2 LF TETANUS TOXOID, PRESERVATIVE FREE, ADSORBED 1 1996 09 complet ed HISTORICA L INFORMATI ON - FROM OTHER REGISTRY, [place] [facility] Results Combined list of recent chemistry, hematology [...] 2024 10:08 AM Reporting Lab: [facility] [address] [facility] [address] Performing Lab: [facility] [address] [facility] [address] [facility] LIPID PROFILE TRIGLYCERID E [MASS/VOLUM E] IN [...] Jul 05, 2024 10:08 AM Reporting Lab: [address] [address] Performing Lab: [address] [address] [facility] LIPID PROFILE CHOLESTEROL IN HDL [MASS/VOLUM E] [...] Jul 05, 2024 10:08 AM Reporting Lab: [address] [address] Performing Lab: [address] [address] [facility] LIPID PROFILE CHOLESTEROL IN LDL [MASS/VOLUM E] [...] 2024 10:08 AM Reporting Lab: [facility] [address] [address] Performing Lab: [facility] [address] [address] [facility] PANEL 5 CREATININE [MASS/VOLUM E] IN SERUM [...] 2024 10:08 AM Reporting Lab: [facility] [address] [address] Performing Lab: [facility] [address] [address] [facility] PANEL 5 UREA NITROGEN [MASS/VOLUM E] IN SERUM OR PLASMA 18 mg/dL 9 07/05 Specimen Type: PLASMA Comment: Estimated Glomerular [...] 2024 10:08 AM Reporting Lab: [facility] [address] [address] Performing Lab: [place]-[facility] [address] [address] [facility] PANEL 5 GLUCOSE [MASS/VOLUM E] IN SERUM [...] 2024 10:08 AM Reporting Lab: [facility] [address] [address] Performing Lab: [facility] [address] [address] [facility] PANEL 5 SODIUM [MOLES/VOLU ME] IN SERUM [...] 2024 10:08 AM Reporting Lab: [facility] [address] [address] Performing Lab: [facility] [address] [address] [facility] PANEL 5 POTASSIUM [MOLES/VOLU ME] IN SERUM [...] 2024 10:08 AM Reporting Lab: [facility] [address] [address] Performing Lab: [facility] [address] [address] [facility] PANEL 5 CHLORIDE [MOLES/VOLU ME] IN SERUM [...] decrease <15 G5 Kidney failure Ordering Provider: LUZMAIRA BURGOS RA Report Released Date/Time: Jul 05, 2024 10:08 AM Reporting Lab: [facility] [address] [address] Performing Lab: [facility] [address] [address] [facility] PANEL 5 CARBON DIOXIDE, TOTAL [MOLES/VOLU ME] [...] 2024 10:08 AM Reporting Lab: [facility] [address] [address] Performing Lab: [facility] [address] [address] [facility] PANEL 5 CALCIUM [MASS/VOLUM E] IN SERUM [...] 2024 10:08 AM Reporting Lab: [facility] [address] [facility] [address] Performing Lab: [facility] [address] [facility] [address] [facility] PANEL 5 PROTEIN [MASS/VOLUM E] IN SERUM [...] 2024 10:08 AM Reporting Lab: [facility] [address] [facility] [address] Performing Lab: [facility] [address] [address] [facility] PANEL 5 ALBUMIN [MASS/VOLUM E] IN SERUM [...] 2024 10:08 AM Reporting Lab: [facility] [address] [address] Performing Lab: [facility] [address] [address] [facility] PANEL 5 BILIRUBIN.T OTAL [MASS/VOLUM E] IN [...] Jul 05, 2024 10:08 AM Reporting Lab: [facility] [address] [address] Performing Lab: [facility]NABRIDGETTE-[facility] [address] [address] [facility] PANEL 5 ASPARTATE AMINOTRANSF ERASE [ENZYMATIC ACTIVITY/VO [...] 2024 10:08 AM Reporting Lab: [facility] [address] [address] Performing Lab: [facility] [address] [address] [facility] PANEL 5 ALANINE AMINOTRANSF ERASE [ENZYMATIC ACTIVITY/VO [...] 2024 10:08 AM Reporting Lab: [facility] [address] [address] Performing Lab: [facility] [address] [address] [facility] PANEL 5 ANION GAP 3 IN SERUM [...] 2024 10:08 AM Reporting Lab: [facility] [address] [address] Performing Lab: [facility] [address] [address] [facility] PANEL 5 ALKALINE PHOSPHATASE [ENZYMATIC ACTIVITY/VO LUME] [...] 2024 10:08 AM Reporting Lab: [facility] [address] [address] Performing Lab: [facility] [address] [address] [facility] 5 GLOMERULAR FILTRATION RATE/1.73 SQ M.PREDICTED [...] 2024 10:08 AM Reporting Lab: [facility] [address] [address] Performing Lab: [facility] [address] [address] [facility] LIPID PROFILE CHOLESTEROL [MASS/VOLUM E] IN SERUM [...] 2023 11:01 AM Reporting Lab: [facility] [address] [address] Performing Lab: [facility] [address] [address] [facility] LIPID PROFILE TRIGLYCERID E [MASS/VOLUM E] IN [...] 2023 11:01 AM Reporting Lab: [facility] [address] [address] Performing Lab: [facility] [address] [address] [facility] LIPID PROFILE CHOLESTEROL IN HDL [MASS/VOLUM E] [...] 2023 11:01 AM Reporting Lab: [facility] [address] [address] Performing Lab: [facility] [address] [address] [facility] LIPID PROFILE CHOLESTEROL IN LDL [MASS/VOLUM E] [...] Oct 10, 2023 11:01 AM Reporting Lab: [address] [address] Performing Lab: [address] [address] [facility] GLYCOHEMO GLOBIN HEMOGLOBIN A1C/HEMOGLO BIN.TOTAL IN BLOOD BY HPLC 5.3 4.4 - 6.4 10/15 Specimen Type: BLOOD Comment: [facility] guidelines for A1c interpretat ion: Glycemic control targets are based on Shared Decision Making between clinicians and patients. Criteria used to establish an A1c target recommendat ion can be found at https://www .al.gov/idalia lityandpati entsafety/ and include the use of [...] 9.27. Ref: https://ngs p.org/CAPda ta.asp. The in-house [employer] D-100 analyzer has a historical CV <= 2%. Contact the laboratory for further performance characteris tics of this assay. Ordering Provider: LUZMARIA BURGOS RA Report Released Date/Time: Oct 10, 2023 11:01 AM Reporting Lab: [address] [address] Performing Lab: [address] [address] [facility] FERRITIN FERRITIN [MASS/VOLUM E] IN SERUM OR [...] 2023 11:01 AM Reporting Lab: [facility] [address] [address] Performing Lab: [facility] [address] [address] [facility] THYROID PROFILE THYROTROPIN [UNITS/VOLU ME] IN SERUM [...] 2023 11:01 AM Reporting Lab: [facility] [address] [address] Performing Lab: [facility] [address] [address] [facility] THYROID PROFILE FREE T4 1.03 ng/mL 0.70 [...] 2023 11:01 AM Reporting Lab: [facility] [address] [address] Performing Lab: [address] [address] [facility] AUTOMATED DIFF LYMPHOCYTES /100 LEUKOCYTES IN BLOOD BY AUTOMATED COUNT 40.2 24.0 - 44.0 10/15 Specimen Type: BLOOD No comment entered. Ordering Provider: LUZMARIA BURGOS RA Report Released Date/Time: Oct 10, 2023 11:01 AM Reporting Lab: [address] [address] Performing Lab: [address] [address] [facility] AUTOMATED DIFF MONOCYTES/1 00 LEUKOCYTES IN BLOOD BY AUTOMATED COUNT 12.1 0.1 - 6.0 10/15 H Specimen Type: BLOOD No comment entered. Ordering Provider: LUZMARIA BURGOS RA Report Released Date/Time: Oct 10, 2023 11:01 AM Reporting Lab: [address] [address] Performing Lab: [address] [address] [facility] AUTOMATED DIFF GRANULOCYTE S/100 LEUKOCYTES IN BLOOD BY AUTOMATED COUNT 44.0 42.0 - 75.0 10/15 Specimen Type: BLOOD No comment entered. Ordering Provider: LUZMARIA BURGOS RA Report Released Date/Time: Oct 10, 2023 11:01 AM Reporting Lab: [address] [address] Performing Lab: [address] [address] [facility] AUTOMATED DIFF LYMPHOCYTES [#/VOLUME] IN BLOOD BY AUTOMATED COUNT 2.52 10*3/u L 1.20 - 3.40 10/15 Specimen Type: BLOOD No comment entered. Ordering Provider: LUZMARIA BURGOS RA Report Released Date/Time: Oct 10, 2023 11:01 AM Reporting Lab: [address] [address] Performing Lab: [address] [address] [facility] AUTOMATED DIFF MONOCYTES [#/VOLUME] IN BLOOD BY AUTOMATED COUNT 0.76 10*3/u L 0.00 - 0.60 10/15 H Specimen Type: BLOOD No comment entered. Ordering Provider: LUZMARIA BURGOS RA Report Released Date/Time: Oct 10, 2023 11:01 AM Reporting Lab: [address] [address] Performing Lab: [address] [phone] [place] [address] AUTOMATED DIFF GRANULOCYTE S [#/VOLUME] IN BLOOD BY AUTOMATED COUNT 2.76 10*3/u L 1.40 - 6.50 10/15 Specimen Type: BLOOD No comment entered. Ordering Provider: LUZMARIA BURGOS RA Report Released Date/Time: Oct 10, 2023 11:01 AM Reporting Lab: [place] [phone] Performing Lab: [address] AUTOMATED DIFF BASOPHILS/1 00 LEUKOCYTES IN BLOOD BY AUTOMATED COUNT 0.8 0.0 - 3.0 10/15 Specimen Type: BLOOD No comment entered. Ordering Provider: LUZMARIA BURGOS RA Report Released Date/Time: Oct 10, 2023 11:01 AM Reporting Lab: [place] [phone] Performing Lab: [place] [phone] [place] [address] AUTOMATED DIFF BASOPHILS [#/VOLUME] IN BLOOD BY AUTOMATED COUNT 0.05 10*3/u L 0.00 - 0.20 10/15 Specimen Type: BLOOD No comment entered. Ordering Provider: LUZMARIA BURGOS RA Report Released Date/Time: Oct 10, 2023 11:01 AM Reporting Lab: [place] [id number] Performing Lab: [place] [id number] AUTOMATED DIFF EOSINOPHILS /100 LEUKOCYTES IN BLOOD BY AUTOMATED COUNT 2.6 0.0 - 10.0 10/15 Specimen Type: BLOOD No comment entered. Ordering Provider: LUZMARIA BURGOS RA Report Released Date/Time: Oct 10, 2023 11:01 AM Reporting Lab: [address] [address] Performing Lab: [address] [phone] [place] [address] AUTOMATED DIFF EOSINOPHILS [#/VOLUME] IN BLOOD BY AUTOMATED COUNT 0.16 10*3/u L 0.00 - 0.70 10/15 Specimen Type: BLOOD No comment entered. Ordering Provider: LUZMARIA BURGOS RA Report Released Date/Time: Oct 10, 2023 11:01 AM Reporting Lab: [address] [address] Performing Lab: [phone] [place] [address] AUTOMATED DIFF IMMATURE GRANULOCYTE S/100 LEUKOCYTES IN BLOOD 0.3 0.0 - 0.5 10/15 Specimen Type: BLOOD No comment entered. Ordering Provider: LUZMARIA BURGOS RA Report Released Date/Time: Oct 10, 2023 11:01 AM Reporting Lab: [address] [address] Performing Lab: [address] [address] [facility] AUTOMATED DIFF IMMATURE GRANULOCYTE S [#/VOLUME] IN BLOOD 0.02 10*3/u L 0.00 - 0.06 10/15 Specimen Type: BLOOD No comment entered. Ordering Provider: LUZMARIA BURGOS RA Report Released Date/Time: Oct 10, 2023 11:01 AM Reporting Lab: [address] [address] Performing Lab: [address] [address] [facility] CBC/PLT LEUKOCYTES [#/VOLUME] IN BLOOD BY AUTOMATED COUNT 6.3 10*3/u L 5.0 - 10.0 10/15 Specimen Type: BLOOD No comment entered. Ordering Provider: LUZMARIA BURGOS RA Report Released Date/Time: Oct 10, 2023 11:01 AM Reporting Lab: [address] [address] Performing Lab: [address] [address] [facility] CBC/PLT ERYTHROCYTE S [#/VOLUME] IN BLOOD BY AUTOMATED COUNT 4.67 10*6/u L 4.6 - 6.2 10/15 Specimen Type: BLOOD No comment entered. Ordering Provider: LUZMARIA BURGOS RA Report Released Date/Time: Oct 10, 2023 11:01 AM Reporting Lab: [place] [phone] Performing Lab: [place] [phone] [place] [address] CBC/PLT HEMOGLOBIN [MASS/VOLUM E] IN BLOOD 14.8 g/dL 14.0 - 18.0 10/15 Specimen Type: BLOOD No comment entered. Ordering Provider: LUZMARIA BURGOS RA Report Released Date/Time: Oct 10, 2023 11:01 AM Reporting Lab: [place] [phone] Performing Lab: [place] [phone] [place] [address] CBC/PLT HEMATOCRIT [VOLUME FRACTION] OF BLOOD BY AUTOMATED COUNT 44.5 42.0 - 52.0 10/15 Specimen Type: BLOOD No comment entered. Ordering Provider: LUZMARIA BURGOS RA Report Released Date/Time: Oct 10, 2023 11:01 AM Reporting Lab: [address] [address] Performing Lab: [place] [phone] [place] [address] CBC/PLT MCV [ENTITIC VOLUME] BY AUTOMATED COUNT 95.3 fL 80.0 - 94.0 10/15 H Specimen Type: BLOOD No comment entered. Ordering Provider: LUZMARIA BURGOS RA Report Released Date/Time: Oct 10, 2023 11:01 AM Reporting Lab: [address] [address] Performing Lab: [address] [phone] [place] [address] CBC/PLT MCH [ENTITIC MASS] BY AUTOMATED COUNT 31.7 pg 27.0 - 31.0 10/15 H Specimen Type: BLOOD No comment entered. Ordering Provider: LUZMARIA BURGOS RA Report Released Date/Time: Oct 10, 2023 11:01 AM Reporting Lab: [place] [phone] Performing Lab: [place] [id number] [place] [address] CBC/PLT MCHC [MASS/VOLUM E] BY AUTOMATED COUNT 33.3 g/dL 32.0 - 36.0 10/15 Specimen Type: BLOOD No comment entered. Ordering Provider: LUZMARIA BURGOS RA Report Released Date/Time: Oct 10, 2023 11:01 AM Reporting Lab: [place] [phone] Performing Lab: [place] [phone] CBC/PLT PLATELETS [#/VOLUME] IN BLOOD 177 10*3/u L 150 - 450 10/15 Specimen Type: BLOOD No comment entered. Ordering Provider: LUZMARIA BURGOS RA Report Released Date/Time: Oct 10, 2023 11:01 AM Reporting Lab: [place] [phone] Performing Lab: [place] [phone] CBC/PLT PLATELET MEAN VOLUME [ENTITIC VOLUME] IN BLOOD 10.7 fL 9.0 - 13.1 10/15 Specimen Type: BLOOD No comment entered. Ordering Provider: LUZMARIA BURGOS RA Report Released Date/Time: Oct 10, 2023 11:01 AM Reporting Lab: [address] [address] Performing Lab: [place] [id number] [place] [address] CBC/PLT ERYTHROCYTE DISTRIBUTIO N WIDTH [ENTITIC VOLUME] BY AUTOMATED COUNT 13.3 11.0 - 16.0 10/15 Specimen Type: BLOOD No comment entered. Ordering Provider: LUZMARIA BURGOS RA Report Released Date/Time: Oct 10, 2023 11:01 AM Reporting Lab: [address] [address] Performing Lab: [address] [address] [facility] CBC/PLT NUCLEATED ERYTHROCYTE S/100 ERYTHROCYTE S IN BLOOD 0.0 0.0 - 0.0 10/15 Specimen Type: BLOOD No comment entered. Ordering Provider: LUZMARIA BURGOS RA Report Released Date/Time: Oct 10, 2023 11:01 AM Reporting Lab: [address] [address] Performing Lab: [address] [address] [facility] 25-OH VITAMIN D 25-HYDROXYV ITAMIN D3 [MASS/VOLUM [...] Oct 10, 2023 11:01 AM Reporting Lab: [address] [address] Performing Lab: [address] [address] [facility] B12 VITAMIN COBALAMIN (VITAMIN B12) [MASS/VOLUM E] [...] 2023 11:01 AM Reporting Lab: [place] [address] [address] Performing Lab: [place] [address] [address] [facility] Vital Signs Combined list of inpatient and outpatient Vital Signs from Department of Defense and Veterans Affairs, ranging from 12 months to all on record, depending upon the facility. Vital Sign Value Date Comments Source SYSTOLIC BLOOD PRESSURE 114 08/07/2024 09:47:43 [facility] DIASTOLIC BLOOD PRESSURE 68 08/07/2024 09:47:43 [facility] PULSE OXIMETRY 99 08/07/2024 09:47:43 [place] [facility] WEIGHT 191.5 08/07/2024 09:47:43 [place] [facility] BMI 26 kg/m2 08/07/2024 09:47:43 [place] [facility] PAIN 3 08/07/2024 09:47:43 [place] [facility] TEMPERATURE 97.6 08/07/2024 09:47:43 [place] GORGE [facility] PULSE 69 08/07/2024 09:47:43 [place] [facility] RESPIRATION 18 08/07/2024 09:47:43 [place] DRAGANTON [facility] SYSTOLIC BLOOD PRESSURE 107 07/05/2024 09:42:19 [place] [facility] DIASTOLIC BLOOD PRESSURE 58 07/05/2024 09:42:19 [place] [facility] PULSE OXIMETRY 95 07/05/2024 09:42:19 [place] [facility] WEIGHT 196 07/05/2024 09:42:19 [place] [facility] BMI 27 kg/m2 07/05/2024 09:42:19 [place] [facility] PAIN 4 07/05/2024 09:42:19 [place] [facility] HEIGHT 72 07/05/2024 09:42:19 [place] [facility] TEMPERATURE 97.5 07/05/2024 09:42:19 ALEX[place] GORGE [facility] PULSE 71 07/05/2024 09:42:19 [place] [facility] RESPIRATION 17 07/05/2024 09:42:19 [facility] NGTON [facility] SYSTOLIC BLOOD PRESSURE 148 02/07/2024 10:49:15 [place] [facility] DIASTOLIC BLOOD PRESSURE 50 02/07/2024 10:49:15 [place] [facility] PULSE OXIMETRY 96 02/07/2024 10:49:15 [place] [facility] WEIGHT 189.6 02/07/2024 10:49:15 [place] [facility] BMI 26 kg/m2 02/07/2024 10:49:15 DANAIN GTROWAN [facility] PAIN 4 02/07/2024 10:49:15 [place] [facility] TEMPERATURE 97.5 02/07/2024 10:49:15 A[place] PENNINGTON [facility] PULSE 59 02/07/2024 10:49:15 DANA[place] GTON [facility] SYSTOLIC BLOOD PRESSURE 133 11/24/2023 10[facility]40[facility]URE 75 11/24/2023 10:40:11 [facility] P[facility] OX[facility]RY 95 11/24/2023 10:40:11 L [place] [facility] WEIGHT 190 11/24/2023 10:40:11 [place] [facility] BMI 26 kg/m2 11/24/2023 10:40:11 DANA[place] GTON [facility] TEMPERATURE 97.8 11/24/2023 10:40:11 ALEXIS PENNINGTON [facility] PULSE 58 11/24/2023 10:40:11 IZZY CONNELLY [facility] RESPIRATION 20 11/24/2023 10:40:11 ALEX[place] GORGE [facility] Encounters Combined list of: 1) Encounters from Department of Veterans Affairs facilities going backup to the last 18 months, not all [place] inpatient encounters are included; 2) Encounters from the Department of Defense facilities going backup to 280 months. Location Location Details Encounter Type Encounter Number Reason For Visit Attending Provider ADM Date DC Date Status Disposition Source [facility] Outpatient Encounter [id number] 06/14 [place] [facility] OFFICE O/P EST MOD 30 MIN [id number] Diagnos is: ICD-10- CM J30.2 Other seasona l allergi c rhiniti s EDMUNDO,Elvia MY B 08/08 [place] [facility] OFFICE O/P EST MOD 30 MIN [id number] Diagnos is: ICD-10- CM E78.2 Mixed hyperli pidemia CANDIDA BURGOS DRA Harding 10/15 [place] [facility] Outpatient Encounter [id number] 10/16 [place] [facility] OFFICE O/P EST MOD 30 MIN [id number] Diagnos is: ICD-10- CM R05.9 Cough, unspeci fied EDMUNDO,Elvia MY B 11/23 [place] Outpatient Encounter [id number] 11/23 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 OFFICE O/P EST HI 40 MIN [id number] Diagnos is: ICD-10- CM G89.29 Other chronic pain AUBREYCANDIDA Harding 07/05 [place] [facility] Outpatient Encounter [id number] 07/10 [place] Outpatient Encounter [id number] 07/11 [place] [facility] OFFICE O/P EST LOW 20 MIN [id number] Diagnos is: ICD-10- CM J30.2 Other seasona l allergi c rhiniti s EDMUNDO,Elvia MY B 08/07 [place] [facility] GONIOSCOPY [id number] Diagnos is: ICD-10- CM H04.123 Dry eye syndrom e of bilater al lacrima l glands EMMA MARY L 09/05 [place] [facility] Outpatient Encounter [id number] 10/16 [place] [facility] Social History Combined list of available smoking, tobacco, and other social history from Department of Defense and Veterans Affairs facilities. Social History Type Response Date Comment Sourc e Tobacco smoking status NHIS NV-TOBACCO NEVER USED CIGARETTES 07/05/2024 [facility] History of tobacco use NV-TOBACCO USE EVERY DAY OTHER TYPE 07/05/2024 [facility] History of tobacco use NV-TOBACCO DOESNT USE WI 30 MIN WAKEUP 10/16/2023 [facility] History of tobacco use VA-TOBACCO USER SOME DAYS 10/28/2022 [facility] History of tobacco use NV-TOBACCO DOESNT USE WI 30 MIN WAKEUP 11/22/2021 [facility] History of tobacco use NV-TOBACCO USER SOME DAYS 11/30/2020 [facility] History of tobacco use NV-TOBACCO USER EVERY DAY 01/13/2020 [facility] History of tobacco use 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 [facility] Plan of Care List of future care activities from Department of Veterans Affairs facilities. Additional future care activities may be listed in the Assessment and Plan section. Date/Time Care Activity Care Activity Detail Facili ty 02/05/2025 AMBULATORY - MEDICINE AMBULATORY - MEDICI NE [facility] Advance Directives List of completed, amended, or rescinded Advance Directives on record at Department of [facility] facilities. An actual copy of the Directive is not included. Date Advance Directive Provider Source 12/19/2019 ADVANCE DIRECTIVE NICHOLE VALDEZON-[facility]
--- OUTSIDE RECORDS SUMMARY | 2024-10-24 09:29 | XMS_ITS | Data Portability ---
Author Organization [facility] - ADOLPH Appiah CHIMAYO CLOSED Address [address] [facility] [address] [place] [address] Care Team Providers Care Pattern Ruler Name Role Phone ERROL MICHAELS Primary Care Provider ANI CLINTON Referring Provider Assessment No assessment recorded. Plan of Treatment Reminders Order Date Submit Date Provider Last Modified By Organization Details Last Modified Time Details Appointments None recorded. Lab None recorded. Referral None recorded. Procedures None recorded. Surgeries None recorded. Imaging None recorded. Medication Orders Ryaltris 665 mcg-25 mcg/spray nasal spray 2022 023 [facility] 466 [facility], [address] [place] [address], [address], [place], [address], 13:59:24 Patient TargetsNo targets recorded. Patient Instructions Encounter Date Encounter Id Patient Instructions Last Modified By Organization Details Last Modified Time 11/10/2021 [id number] 1. Nasal debridement performed today. Full risks, [...] per day 4. Keep scheduled f/u at [facility] in 2 weeks time. [email or web address] Not available 11/10/2021 16:05:26 08/02/2022 [id number] 1. Rx-Ryaltris- 1 spray each nostril BID . I am hopeful that the new combination spray will be more beneficial for him. He will let us know. 2. F/u patient will call ramona Not available 08/02/2022 14:57:26 Reason for Referral None Reported. Results Created Date Observation Date Name Description Value Unit Range Abnormal Flag Note LastModifiedBy Organization Detail LastModifiedTime 11/03/19 22 11/02/2021 XR, chest No observ ation record ed. [email or web address] [facility] [address], [place], [address], 11/17/2021 16:39:31 11/03/19 22 11/02/2021 CT, sinus es, w/o contr ast No observ ation record ed. [email or web address] [facility] [address], [place], [address], 11/17/2021 16:37:45 11/09/19 22 11/06/2021 elect jenelle peterson am No observ ation record ed. [email or web address] [facility] [address], [place], [address], 11/17/2021 16:37:10 Result Notes None recorded. Problems No Known Problems Procedures Surgical History Date Name Laterality Status Provider Name and Address Organization Details Recorded Time 12/22/19 23 Injection Joint/Bursa, Small completed ERROL DUFFY MD [address] [place] [address], [phone], [facility] 12/21/2022 14:07:12 06/30/19 23 Injection Joint/Bursa, Small completed ERROL DUFFY MD [address] [place] [address], [phone], [facility] 06/29/2022 12:16:27 11/11/19 22 Endoscopy Nasal; Biospy, Polypectomy or Debridement completed ARA ROBERT III, MD [address] [place] [address], [phone], [facility] 11/10/2021 16:47:29 hernia repair completed Alecia Clinton [facility] 11/10/2021 15:04:09 Prostatectomy (turp) completed [facility] 11/10/2021 15:04:17 total knee replacement completed [facility] 11/10/2021 15:04:25 cervical arthrodesis completed [facility] 11/10/2021 15:04:43 Ears/Nose/Throat Surgery completed [facility] 11/10/2021 15:04:56 Imaging Results None recorded. Procedure Notes None recorded. Medical Equipment None [...] azelastine 137 mcg (0.1 %) nasal spray [place] 2 sprays twice a day by intranasa [...] Available Not Available Vitals Date Recorded Body height Body mass index (BMI) Body weight Provider Name and Address Organization Details Last Updated DateTime 06/29/2022 182.88 cm 25.8 kg/m2 48887.55 g Kortney Skinner [facility] 06/29/2022 11:54:27 Date Recorded Body height Body mass index (BMI) Body weight Body temperature Heart rate Oxygen saturation Oxygen saturation in Arterial blood by Pulse oximetry Systolic blood pressure Diastolic blood pressure Provider Name and Address Organization Details Last Updated DateTime 182.88 cm 25.9 kg/m2 90758.1 4 g 97.9 [degF] 71 /min 94 % 94 % 124 mm[Hg] 64 mm[Hg] Alecia Clinton [facility] 3 14:02:44 Date Recorded Body weight Body height Body mass index (BMI) Body temperature Heart rate Oxygen saturation Oxygen saturation in Arterial blood by Pulse oximetry Systolic blood pressure Diastolic blood pressure Provider Name and Address Organization Details Last Updated DateTime 2 99536.0 9 g 182.88 cm 26.9 kg/m2 98.1 [degF] 63 /min 95 % 95 % 117 mm[Hg] 63 mm[Hg] Alecia [facility] 2 15:43:49 Date Recorded Body height Provider Name an d Address Organization Details Last Updated DateTime 12/21/2022 182.88 cm Kaylyn Davies [facility] 12/21/2022 14:00:08 Social History None recorded. Functional Status Question Answer Note LastModified by Organization D etails LastModified Time What is your level of alcohol consumption? None Information not available 11/10/2021 Mental Status None recorded. Family History Relationship Description Onset Age of this Age Resolved Age Notes LastModified by Organization Details LastModified Time Father Diabetes mellitus [email or web address] Not available 11/10 15:05:37 Medical History Condition Response Arthritis Y Cancer Y Past Encounters Encounter ID Performer Location Encounter Start Date Encounter Closed Date Diagnosis/Indication Diagnosis SNOMED-CT Code Diagnosis ICD10 Code Diagnosis Note [id number] MD [facility] H[facility] III [facility] [address] [place] [address] 11/10/2021 14:28:52 11/18/2021 14:27:03 Chronic sinusitis 34094088 J32.9 - S/p Bilateral endoscopic middle meatal antrostomy with removal of tissue (11/08/21) Hypertroph y of nasal turbinates 10357357 J34.3 - S/p bilateral endoscopic submucosal resection of the inferior turbinates (11/08/21) 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 [id number] MD [facility] HOGUE III ENT [facility] CLOSED [address] [place] [address] 08/02/2022 13:53:59 08/02/2022 15:01:12 Chronic sinusitis 81097747 J32.9 - S/p Bilateral endoscopic middle meatal antrostomy with removal of tissue (11/08/21) Hypertroph y of nasal turbinates 27166349 J34.3 - S/p bilateral endoscopic submucosal resection of the inferior turbinates (11/08/21)0 08/02/2022- Right side [id number] ERROL DUFFY MD [facility] CLOSED [address] [place] [address] 12/21/2022 13:14:32 12/21/2022 16:31:12 Idiopathic osteoarthritis 688273863 M19.91 Right index finger MP joint, and [...] Rizo Member ID Guarantor Name 12/18/2022 2 FOR LIFE ( - MEDICARE SUPPLEMENT) Carlos Mckeon [id number] Carlos Mckeon 12/18/2022 1 [place]IC[place] (MEDICARE) Carlos Mckeon [id number] Carlos Mckeon Notes Date Note Type [...] no major concerns. ARA ROBERT III, MD [address] [place] [address], [phone], [facility] 11/10/2021 16:47:33 06/29/2022 text/html Consult requeste d by: Ani Matias Care Physician: Dr. Errol Michaels Hand dominance: RightLocation: Right Hand Pain level: 9 /10 Duration: 20+ years Recent Surgery: NoProcedure:Date of surgery:Duration: In office procedure? No Previous upper extremity surgery? NoProcedure: rt IF infection I&DApproximate date of surgery: 1990Sugeon (if known): [facility] Have you or any of your immediate family members been seen by our hand surgeons before? 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 No Is this injury associated with a Workers Compensation claim? No Patient arrived in: n/a [employer] Strength: right: left:Mr. Mckeon is here today for rt hand pain. His main concerns are his his IF and thumb. He says the IF is the main issue. He has limited ROM and can not make a fist. 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 His thumb bothers him when trying to twist or electrical designer things with the hand. Pain when writing. ERROL DUFFY MD [address] [place] [address], [address], [facility] 06/29/2022 12:17:58 08/02/2022 text/html Carlos is visitin [...] through his nose. [place] went to the [place] and completed a [place] test which showed his lungs were okay. He mentioned that while he was in the [employer] [place] He also has been using 2 nasal sprays daily. ARA ROBERT III, MD [address] [place] [address], [phone], [facility] 08/02/2022 14:57:40 12/21/2022 text/html Consult requeste d by: Ani Matias [facility] Physician: Dr. Errol Michaels Hand dominance: RightLocation: Right Hand Pain level: /10 Duration: 20+ years Recent Surgery: NoProcedure:Date of surgery:Duration: In office procedure? No Previous upper extremity surgery? NoProcedure: rt IF infection I&DApproximate date of surgery: 1990Surgeon (if known): [facility] Have you or any of your immediate family members been seen by our hand surgeons before? 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 No Is this injury associated with a Workers Compensation claim? No Patient arrived in: n/a [employer] Strength: right: left: Mr. Mckeon is here today for rt hand pain. Reports that right hand CSI provided relief for about 2 months. Symptoms have all since returned. Wishes to get repeat CSI in office today. ERROL DUFFY MD [address] [place] [address], [phone], [facility] 12/21/2022 14:07:46
--- NOTE | 2024-10-24 09:44 | EXP.PAIN.SOA ---
[facility] Disclaimer: The information contained in this section may have been updated after the patient was seen, as this information can be updated by other users. Medical History (Updated 10/24/24 @ 09:46 by Mary Mayo APRN) Arthritis Nerve pain Sinus problem Hyperlipemia Surgical History History of nasal septoplasty History of fusion of cervical spine History of left knee replacement History of prostate surgery S/P hernia surgery Family History Other No significant family history Social History Smoking Status: Former smoker tobacco type: pipe second hand exposure: Yes alcohol intake: never substance use type: denies use current occupational status: other Travel in the last 8 weeks?: None household members: spouse housing: house current occupational exposures/hazards: No caffeine: Yes PM Subjective & Objective Subjective Subjective:: Patient is a pleasant 74-year-old male who presents today for follow-up of bilateral SI injections on 10/08/2024. He does state that it took a couple days to kick in however it has provided 70 to 80% relief and has made his hip pain much more bearable. Patient rates that pain may be a 2 out of 10. He does however state that he has been having more low back pain that is worse with certain movements such as bending, twisting or lifting. He rates that pain a 7 or an 8 out of 10 but it will even go to a 9 or 10 out of 10 and worsening times. Patient is asking if there is something that we can do for him for this pain. He states it is constant and that it is really interfering with his ability perform activities of daily living such as cooking and cleaning. Patient states that they used to be able to go on trips about every 6 months and he really has not been able to do this due to the worsening pain symptoms. Patient has continued conservative treatment. Patient has done really well with previous injections between SI and lumbar epidurals. He states he is not having any leg symptoms currently. His Micah has been reviewed and is appropriate. Review of Systems: General: No recent weight changes, no fever, no sleep disturbances Respiratory: No cough, no shortness of air, no recurring pulmonary infections Cardiovascular/peripheral vascular: No chest pain, no palpitations, no edema, no shortness of breath Gastrointestinal: No new onset incontinence, normal bowel movements reported Genitourinary: No new onset incontinence Musculoskeletal: Low back pain Psychiatric: [Normal mood/affect] Neurological: [Denies weakness in extremities], [denies balance issues] Pain at rest (0-10 scale): 7 Objective Objective:: Physical Exam: General: Alert and oriented x3, no acute distress, pleasant and cooperative Lungs: Respirations even and unlabored, symmetrical chest expansion Eyes: PERRL Musculoskeletal: Flexion and extension of lumbar [spine] somewhat guarded secondary to pain, [antalgic gait noted] positive Kemps test Neurological: Speech clear, no gross sensory deficit FINDINGS: Multiplanar MR imaging of the lumbar spine was performed without contrast. On the sagittal T2-weighted images, disc degeneration is seen throughout. There are endplate changes at multiple levels. Mild rightward curvature is noted. There is mild retrolisthesis of L1 on L2 and L2 on L3. There is 12 mm of anterolisthesis of L4 on L5 which is stable from prior exam. There is no evidence of fracture. No bony mass is identified. The conus is seen at approximately the L1 level and has an unremarkable appearance. L1-2: Annular disc bulge with facet arthropathy and osteophytes. There is mild right and moderate left neuroforaminal narrowing. L2-3: Annular disc bulge with facet arthropathy and osteophytes. There is mild right and moderate left neuroforaminal narrowing. L3-4: There is an annular disc bulge and facet arthropathy without significant canal stenosis or neural foraminal narrowing. L4-5: Annular disc bulge with facet arthropathy and osteophytes. There is grade 2 anterolisthesis of L4 on L5. There are bilateral L4 pars defects. There is severe right and moderate left neuroforaminal narrowing with impingement of the right L5 nerve root in the neuroforamen. L5-S1: Annular disc bulge with facet arthropathy and mild right neuroforaminal narrowing. There is mild spurring of the SI joints. IMPRESSION: Multilevel degenerative disc disease with severe right neuroforaminal narrowing at L4-5 and impingement of the right L5 nerve root. Reviewed, Interpreted and Dictated by Eric Méndez III, MD Transcribed by Jessica Goss Authenticated and . [facility] Has patient had previous pain injection?: Yes Percent improvement in pain since last injection: 70 to 80% Conservative treatment options previously tried: Home exercise plan Length of treatment: Longer than 12 weeks Meds Home Medications and Allergies Home Medications ?Medication ?Instructions ?Recorded ?Confirmed ?Type atorvastatin 20 mg tablet 20 mg PO DAILY 11/16/23 10/08/24 History celecoxib 200 mg capsule 200 mg PO DAILY 11/16/23 10/08/24 History famotidine 20 mg tablet 20 mg PO DAILY 11/16/23 10/08/24 History gabapentin 300 mg capsule 300 mg PO DAILY 11/16/23 10/08/24 History vibegron 75 mg tablet (Gemtesa) 75 mg PO DAILY 11/16/23 10/08/24 History New Prescriptions to Start Prescriptions: Allergies Allergy/AdvReac Type Severity Reaction Status Date / Time No Known Allergies Allergy Verified 08/15/23 10:52 Assessment and Plan *Assessment and plan (1) Lumbar facet arthropathy: Status: Acute Category: Medical Code(s): M47.816 - Spondylosis without myelopathy or radiculopathy, lumbar region (2) Lumbar spondylosis: Status: Acute Category: Medical Code(s): M47.816 - Spondylosis without myelopathy or radiculopathy, lumbar region Plan Patient is experiencing significant pain in his low back that is worse with bending, twisting or lifting. Patient did have limited range of motion of his lumbar spine with a positive Kemps test during today's visit. I did discuss with the patient that I do believe he would benefit from a lumbar medial branch block. Risk and benefits were discussed with the patient and he would like to proceed forward with this plan of care. Patient has tried and failed conservative therapy including oral medications, heat and ice, topicals, at home stretching exercise for longer than 12 weeks. Patient has been experiencing chronic low back pain for years. Patient was counseled that if he does get significant relief with his first lumbar medial branch block that we will plan on repeating it with the plan to progress forward to a lumbar RFA at a later date. Patient agrees with this plan of care. Patient will be scheduled for his first diagnostic lumbar medial branch block bilaterally L4-L5 and L5-S1 under fluoroscopy. Patient has been instructed to contact the clinic with any concerns before the next appointment. Dr. Madera has reviewed this note and agrees with this plan of care. This note was dictated using voice recognition software and make contain errors or omissions. All injections are used with Lidocaine, Bupivacaine and dexamethasone unless diagnostic in which there is no steroids injected. Occasionally urine drug screen is needed to verify patient's compliance with our office pain contract. This is ordered based off specific treatments related to chronic pain with the potential to abuse certain medications.
[2024-10-24 11:08] VITALS: BP 135/60; PULSE 68; RESP 14; O2SAT 98; BMI 25.0
== END 2024-10-24 23:59 | disposition home or self-care (01) ==
LOC: SC.PAIN 09:22
PROVIDERS: PCP Internal Medicine Adolescent Medicine; Visit Provider Nurse Practitioner Family
DX: M47.816 Spondylosis without myelopathy or radiculopathy, lumbar region (principal)
CPT/HCPCS: 99212; G0463

== ENCOUNTER 2024-11-19 13:28 | Day surgery (SDC) | payer MEDICARE, OTHER, SELFPAY ==
[2024-11-19 13:42] VITALS: BP 140/64; PULSE 77; RESP 18; O2SAT 98
[2024-11-19 13:45] VITALS: BP 124/58; PULSE 69; RESP 18; O2SAT 98; BMI 24.4
[2024-11-19] MEDS: BUPIVACAINE 0.25% 10ML INJ 25 MG IJ (13:45)
[2024-11-19] MEDS: LIDOCAINE 1% 5ML PF VIAL 5 ML (13:46)
--- NOTE | 2024-11-19 13:51 | P.PCN_ITS ---
Procedure Date: 11/19/24 Time: 13:40 Anesthesiologist:: Carlito Arechiga CRNA Complications:: None Pre-procedure Diagnosis:: Degenerative disc lumbar spine multilevels. Lumbar radiculopathy. Lumbar spondylosis. Multilevel lumbar facet arthropathy. Post-procedure Diagnosis:: Same. Indications for Procedure:: Patient is a very pleasant 74-year-old male who comes our clinic today for round 1 diagnostic lumbar medial branch blocks/facet injection at the bilateral L4-5, L5-S1 level. Patient describes low lumbar back pain as constant, dull, aching. Patient states sitting is difficult due to low back pain. Ambulation is difficult due to low back pain. Transitioning from sitting to standing is difficult. He rates his pain 8/10. Procedure Details:: Informed consent was obtained and the risk and benefits of the procedure was explained to the patient. Patient was taken to the procedure room where noninvasive monitors were placed, including noninvasive blood pressure cuff as well as pulse oximeter. The area over the lumbar spine was cleansed using chlorhexidine as a cleansing solution. I anesthetized the skin and subcutaneous tissues with 1% Lidocaine. I placed 22-gauge spinal needles into the facet joint/ medial branches of L4-L5, and L5-S1 bilaterally. Needle placement was confirmed with fluoroscopy. After confirmation of needle placement, each site was injected with 1 mL of 1% lidocaine and 0.25 % Marcaine 1 mL. Patient to lerated the procedure without difficulty. There were no complications. Plan and Disposition:: Patient was discharged without incident.
[2024-11-19 13:54] VITALS: BP 129/64; PULSE 69; RESP 18; O2SAT 95
== END 2024-11-19 13:54 | disposition home or self-care (01) ==
PROVIDERS: PCP Internal Medicine Adolescent Medicine; Visit Provider Nurse Anesthetist, Certified Registered
DX: M51.16 Intervertebral disc disorders with radiculopathy, lumbar region (principal); M47.26 Other spondylosis with radiculopathy, lumbar region; M19.90 Unspecified osteoarthritis, unspecified site; E78.5 Hyperlipidemia, unspecified; Z87.891 Personal history of nicotine dependence; Z79.899 Other long term (current) drug therapy
CPT/HCPCS: 64493; 64494; J0665; J2003

== ENCOUNTER 2024-12-03 14:33 | Outpatient (POV) | payer MEDICARE, OTHER, SELFPAY ==
--- OUTSIDE RECORDS SUMMARY | 2024-12-03 14:36 | XMS_ITS | Continuity of Care Document ---
Author Name [facility] Organization [facility] Care Team Providers Care Appellate Court Clerk Name Role Phone [facility] Unavailable Unavailable Problems Combined list of problems from Department of Defense and Veterans Affairs facilities. It does not include entries that were removed or entered in error. Problem Status Onset Date Problem Type Date of Resolution Comments Source Allergic rhinitis Active Condition [place] Chronic low back pain Active Condition [place] [facility] Chronic pain Active Condition [place] Constipation Active Condition [place] Does mobilize using cane Active Condition [place] [facility] Erectile dysfunction Active Condition [place] [facility] Exposure to potentially hazardous substance (SCT [id number]) Active Condition [place] [facility] Heartburn Active Condition [place] [facility] History of polyp of colon Active Condition Jan 28, 2020 Entered By: LUZMARIA BURGOS RA Comment: 4mm TA removed 10/31/2011Mar 23, 2020 Entered By: TY JEFFERY Comment: TAs resected Mar 2020 -- repeat in 7 years (03/2027). [place] [facility] current use of non-steroidal anti-inflammatory drug Active Condition [place] [facility] Mixed Hyperlipidemia (SCT [id number]) Active Condition [place] Overactive bladder Active Condition [place]-[facility] Pipe smoker Active Condition [place] [facility] Positive PPD Active Condition Jan 09, 2019 Entered By: LUZMARIA BURGOS RA Comment: pt states had lots of testing and has LTBI [place] [facility] Reduced mobility Active Condition [place] Pain in left knee Inactive Condition 11/22/2021 [place] [facility] Diagnosis: ICD-10-CM H04.123 Dry eye syndrome of bilateral lacrimal glands Active Diagnosis [place] [facility] Diagnosis: ICD-10-CM J30.2 Other seasonal allergic rhinitis Active Diagnosis [place] [facility] Diagnosis: ICD-10-CM G89.29 Other chronic pain Active Diagnosis [place] [facility] N Diagnosis: ICD-10-CM L57.0 Actinic keratosis Active Diagnosis [place] [facility] Diagnosis: ICD-10-CM Z71.89 Other specified counseling Active Diagnosis [facility] Diagnosis: ICD-10-CM R05.9 Cough, unspecified Active Diagnosis [place] [facility] Diagnosis: ICD-10-CM E78.2 Mixed hyperlipidemia Active Diagnosis [facility] Medications Combined list of outpatient medications from Department of Defense and Veterans Affairs facilities.Medications provided include 1) outpatient medications from the last 15 months, and 2) patient-reported medications. Medication Details Route Status Patient Instructions Prescription Expires Prescription Number Last Dispense Date Ordering Provider Order Date Order Qty Source ACETAMINOPH EN 325MG TAB TAKE FOUR TABLETS BY MOUTH AT BEDTIME NEEDED ORAL ACTIVE AUBREYHAL SOLORZANO R 2020 [place] [facility] AMOXICILLIN TRIHYDRATE 875MG/CLAVU LANATE K 125MG TAB TAKE 1 TABLET BY MOUTH TWICE A DAY FOR 7 DAYS ORAL 12/24/2023 [id number] 4 MARION WYATT 2023 14 [place] [facility] ASCORBIC ACID 500MG TAB TAKE ONE TABLET BY MOUTH DAILY ORAL ACTIVE AUBREYHAL SOLORZANO R 2018 [place] [facility] atorvastati n (U/D) 40 MG ORAL TAB TAKE ONE-HALF TABLET BY MOUTH DAILY FOR CHOLESTE ROL -DO NOT DRINK GRAPEFRU IT JUICE WHILE ON THIS DRUG 10/17/2024 [id number] FENG BURGOS 2023 45 [place] [facility] ATORVASTATI N CA 40MG TAB TAKE ONE-HALF TABLET BY MOUTH DAILY FOR CHOLESTE ROL -DO NOT DRINK GRAPEFRU IT JUICE WHILE ON THIS DRUG ORAL 10/17/2024 [id number] 5 HAL BURGOS R 2023 45 [place] [facility] AZELASTINE HCL 137MCG/SPRA Y INHL,NASAL, 30ML SPRAY 2 SPRAYS IN EACH NOSTRIL TWICE A DAY FOR ALLERGIE S NASAL ACTIVE 08/08/2025 [id number] 5 MARION WYATT 2024 3 [place] [facility] [place] AZELASTINE HCL 137MCG/SPRA Y INHL,NASAL, 30ML SPRAY 2 SPRAYS IN EACH NOSTRIL TWICE A DAY FOR ALLERGIE S NASAL DISCONT INUED 08/09/2024 [id number] 5 MARION WYATT 2023 4 [place] [facility] CARBOXYMETH YLCELLULOSE NA 0.5% (PF) SOLN,OPH,UD PUT 1 DROP IN BOTH EYES EVERY 1 HOUR NEEDED FOR DRY EYES OPHTHA LMIC ACTIVE 08/08/2025 [id number] 5 MARION WYATT 2024 100 [place] [facility] CELECOXIB 200MG CAP TAKE 1 CAPSULE BY MOUTH DAILY ORAL ACTIVE HAL BURGOS R 2021 [place] [facility] famotidine (U/D) 20 MG ORAL TAB TAKE ONE TABLET BY MOUTH DAILY NEEDED FOR STOMACH 10/17/2024 [id number] 4 FENG BURGOS 2023 90 [place] [facility] FAMOTIDINE 20MG TAB TAKE ONE TABLET BY MOUTH DAILY NEEDED AND TAKE ONE-HALF TABLET AT BEDTIME NEEDED FOR HEARTBUR N ORAL ACTIVE 07/06/2025 [id number] 5 HAL BURGOS R 2024 135 [place] [facility] FAMOTIDINE 20MG TAB TAKE ONE TABLET BY MOUTH DAILY NEEDED FOR STOMACH ORAL DISCONT INUED (EDIT) 10/17/2024 [id number] 5 HAL BURGOS R 2023 90 [place] [facility] GABAPENTIN 300MG CAP TAKE 1 CAPSULE BY MOUTH TWICE A DAY ORAL ACTIVE HAL BURGOS R 2021 [place] [facility] HYDROPHILIC (EQV AQUAPHOR) OINT,TOP APPLY SMALL AMOUNT TO AFFECTED AREA DIRECTED FOR DRY SKIN APPLY DAILY NEEDED. TOPICA L ACTIVE 07/03/2025 [id number] 5 KUNAL,LOKI ART 2024 454 [place] [facility] IPRATROPIUM BR 0.06% SOLN,SPRAY, NASAL SPRAY 1 TO 2 SPRAYS IN EACH NOSTRIL TWICE A DAY FOR NASAL ALLERGY NASAL ACTIVE 02/07/2025 [id number] 5 MARION WYATT 2023 45 [place] [facility] LEVOCETIRIZ INE DIHYDROCHLO RIDE 5MG TAB TAKE ONE TABLET BY MOUTH DAILY -- USE INSTEAD OF FEXOFENA DINE DAILY FOR ALLERGIE S ORAL ACTIVE 02/19/2025 [id number] 5 MARION WYATT 2023 90 [place] [facility] LEVOCETIRIZ INE DIHYDROCHLO RIDE 5MG TAB TAKE ONE TABLET BY MOUTH DAILY -- USE INSTEAD OF FEXOFENA DINE DAILY FOR ALLERGIE S ORAL DISCONT INUED 02/09/2024 [id number] 4 MARION WYATT 2022 90 [place] [facility] MONTELUKAST NA 10MG TAB TAKE ONE TABLET BY MOUTH DAILY FOR BREATHIN G ORAL ACTIVE 08/08/2025 [id number] 5 MARION WYATT 2024 90 [place] [facility] MONTELUKAST NA 10MG TAB TAKE ONE TABLET BY MOUTH DAILY FOR BREATHIN G ORAL DISCONT INUED 08/09/2024 [id number] 5 MARION WYATT 2023 90 [place] [facility] MULTIVITAMI NS W/MINERALS CAP/TAB TAKE 1 CAP(S)/T AB BY MOUTH DAILY ORAL ACTIVE HAL BURGOS 2021 [place] [facility] OLOPATADINE HCL 0.1% SOLN,OPH PUT 1 DROP IN BOTH EYES TWICE A DAY FOR EYE ALLERGIE S OPHTHA LMIC ACTIVE 08/08/2025 [id number] 5 MARION WYATT 2024 20 [place] [facility] OLOPATADINE HCL 0.1% SOLN,OPH PUT 1 DROP IN BOTH EYES TWICE A DAY FOR EYE ALLERGIE S OPHTHA LMIC DISCONT INUED 08/09/2024 [id number] 5 MARION WYATT 2023 15 [place] [facility] POLYETHYLEN E GLYCOL 3350 PWDR,ORAL MIX 17 GRAMS (ONE CAPFUL FILLED TO LINE) IN LIQUID AND TAKE BY MOUTH DAILY ORAL ACTIVE HAL BURGOS 2024 [place] [facility] PREDNISONE 10MG TAB TAKE FOUR TABLETS BY MOUTH DAILY FOR 3 DAYS, THEN TAKE THREE TABLETS DAILY FOR 3 DAYS, THEN TAKE TWO TABLETS DAILY FOR 3 DAYS, THEN TAKE ONE TABLET DAILY FOR 3 DAYS FOR INFLAMMA TION ORAL 12/24/2023 [id number] 4 MARION WYATT 2023 30 [place] [facility] PSYLLIUM POWDER,ORAL MIX AND TAKE BY MOUTH ORAL ACTIVE HAL BURGOS 2024 [place] [facility] SENNOSIDES TAB TAKE BY MOUTH DAILY ORAL ACTIVE HAL BURGOS 2024 [place] [facility] SILDENAFIL CITRATE 100MG TAB TAKE ONE TABLET BY MOUTH DIRECTED FOR ERECTILE DYSFUNCT ION -DO NOT TAKE WITH ANY MEDICATI ON CONTAINI NG NITRATES (LIMIT: 6 DOSES/30 DAYS OR 18 DOSES/90 DAYS, NON-REPL ACEABLE MEDICATI ON) ORAL ACTIVE 07/06/2025 [id number] 5 HAL BURGOS 2024 18 [place] [facility] VIBEGRON 75MG TAB TAKE ONE TABLET BY MOUTH DAILY ORAL ACTIVE HAL BURGOS 2023 [place] [facility] Immunizations Combined list of available immunizations from the Department of Defense and Veterans Affairs facilities. 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 Status Comments Source INFLUENZA, HIGH-DOSE, TRIVALENT, PF 5 2023 135 complet ed HISTORICA L INFORMATI ON - FROM OTHER REGISTRY, [place] [facility] PNEUMOCOCCAL CONJUGATE PCV20, POLYSACCHARID E [id number] CONJUGATE, ADJUVANT, PF 2 2023 216 complet ed HISTORICA L INFORMATI ON - FROM OTHER REGISTRY, [place] [facility] RSV, BIVALENT, PROTEIN SUBUNIT RSVPREF, DILUENT RECONSTITUTED , 0.5 ML, PF 1 2023 305 complet ed HISTORICA L INFORMATI ON - FROM OTHER REGISTRY, [place] [facility] INFLUENZA VACCINE, QUADRIVALENT, ADJUVANTED 4 2022 205 complet ed HISTORICA L INFORMATI ON - FROM OTHER REGISTRY, [place] [facility] INFLUENZA, UNSPECIFIED FORMULATION 2021 88 complet ed HISTORICA L INFORMATI ON - SOURCE UNSPECIFI ED, [place] [facility] [place] COVID-19 ([employer]), MRNA, LNP-S, PF, 30 MCG/0.3 ML DOSE 4 2021 208 complet ed [place] [facility] COVID-19 ([employer]), MRNA, LNP-S, PF, 30 MCG/0.3 ML DOSE, MARE-SUCROSE (AGES 12+ YEARS) 4 2021 217 complet ed HISTORICA L INFORMATI ON - FROM OTHER REGISTRY, [place] [facility] INFLUENZA, HIGH DOSE SEASONAL 3 2020 135 complet ed HISTORICA L INFORMATI ON - FROM OTHER REGISTRY, [place] [facility] COVID-19 ([employer]), MRNA, LNP-S, PF, 30 MCG/0.3 ML DOSE 3 2020 208 complet ed [place] [facility] COVID-19 ([employer]), MRNA, LNP-S, PF, 30 MCG/0.3 ML DOSE 2 2020 208 complet ed [place] [facility] COVID-19 ([employer]), MRNA, LNP-S, PF, 30 MCG/0.3 ML DOSE 1 2020 208 complet ed [place] [facility] INFLUENZA, INJECTABLE, QUADRIVALENT, PRESERVATIVE FREE 2019 150 complet ed [place] [facility] [place] TDAP 2019 115 complet ed [place] [facility] [place] Influenza, high dose seasonal 2018 DAIANA JACOBO () Not Given Influenza , high dose seasonal DoD zoster recombinant 2018 DAIANA JACOBO () Not Given zoster recombina nt [facility] ZOSTER RECOMBINANT 2 2018 187 complet ed HISTORICA L INFORMATI ON - FROM OTHER REGISTRY, [place] [facility] zoster recombinant 2018 DAIANA JACOBO () Not Given zoster recombina nt [facility] ZOSTER RECOMBINANT 1 2018 187 complet ed HISTORICA L INFORMATI ON - FROM OTHER REGISTRY, [place] [facility] Hep A, adult 2018 DAIANA JACOBO () Not Given Hep A, adult DoD HEP A, ADULT 2 2018 52 complet ed HISTORICA L INFORMATI ON - FROM OTHER REGISTRY, [place] [facility] Hep A, adult 2017 DAIANA JACOBO () Not Given Hep A, adult DoD HEP A, ADULT 1 2017 52 complet ed HISTORICA L INFORMATI ON - FROM OTHER REGISTRY, [place] [facility] INFLUENZA, INJECTABLE, QUADRIVALENT 2 2017 158 complet ed HISTORICA L INFORMATI ON - FROM OTHER REGISTRY, [place] [facility] PNEUMOCOCCAL CONJUGATE PCV 13 1 2016 133 complet ed HISTORICA L INFORMATI ON - FROM OTHER REGISTRY, [place] [facility] INFLUENZA, INJECTABLE, QUADRIVALENT 1 2016 158 complet ed HISTORICA L INFORMATI ON - FROM OTHER REGISTRY, [place] [facility] zoster live 2014 TIEN MICHAELS () Not Given zoster live [facility] influenza virus vaccine, split virus (incl. purified surface antigen)-reti red CODE 1 2011 Unknown, Provider [id number] [employer] ([facility]) complet ed influenza virus vaccine, split virus (incl. purified surface antigen)- retired CODE DoD TD (ADULT), 2 LF TETANUS TOXOID, PRESERVATIVE FREE, ADSORBED 1 1996 09 complet ed HISTORICA L INFORMATI ON - FROM OTHER REGISTRY, [place] [facility] Results Combined list of recent chemistry, hematology [...] 2024 10:08 AM Reporting Lab: [facility] [address] [facility] [address] Performing Lab: [facility] [address] [address] [facility] LIPID PROFILE TRIGLYCERID E [MASS/VOLUM E] IN [...] 2024 10:08 AM Reporting Lab: [facility] [address] [facility] [address] Performing Lab: [facility] [address] [address] [facility] LIPID PROFILE CHOLESTEROL IN HDL [MASS/VOLUM E] [...] 2024 10:08 AM Reporting Lab: [facility] [address] [address] Performing Lab: [facility] [address] [address] [facility] LIPID PROFILE CHOLESTEROL IN LDL [MASS/VOLUM E] [...] 2024 10:08 AM Reporting Lab: [facility] [address] [place] [phone] Performing Lab: [facility] [address] [address] [facility] PANEL 5 CREATININE [MASS/VOLUM E] IN SERUM [...] 2024 10:08 AM Reporting Lab: [facility] [address] [address] Performing Lab: [facility] [address] [address] [facility] PANEL 5 UREA NITROGEN [MASS/VOLUM E] IN [...] 2024 10:08 AM Reporting Lab: [facility] [address] [address] Performing Lab: [facility] [address] [address] [facility] PANEL 5 GLUCOSE [MASS/VOLUM E] IN SERUM [...] 2024 10:08 AM Reporting Lab: [facility] [address] [address] Performing Lab: [facility] [address] [address] [facility] PANEL 5 SODIUM [MOLES/VOLU ME] IN SERUM [...] 2024 10:08 AM Reporting Lab: [facility] [address] [address] Performing Lab: [facility] [address] [address] [facility] PANEL 5 POTASSIUM [MOLES/VOLU ME] IN SERUM [...] 2024 10:08 AM Reporting Lab: [facility] [address] [address] Performing Lab: [facility] [address] [address] [facility] PANEL 5 CHLORIDE [MOLES/VOLU ME] IN SERUM [...] 2024 10:08 AM Reporting Lab: [facility] [address] [address] Performing Lab: [facility] [address] [address] [facility] PANEL 5 CARBON DIOXIDE, TOTAL [MOLES/VOLU ME] IN SERUM OR PLASMA 23 mmol/L - 07/05 Specimen Type: PLASMA Comment: Estimated Glomerular [...] <15 G5 Kidney failure Ordering Provider: LUZMARIA BRUGOS RA Report Released Date/Time: Jul 05, 2024 10:08 AM Reporting Lab: [facility] [address] [address] Performing Lab: [facility] [address] [address] [facility] PANEL 5 CALCIUM [MASS/VOLUM E] IN SERUM [...] 2024 10:08 AM Reporting Lab: [facility] [address] [address] Performing Lab: [facility] [address] [address] [facility] PANEL 5 PROTEIN [MASS/VOLUM E] IN SERUM [...] 2024 10:08 AM Reporting Lab: [facility] [address] [facility] [address] Performing Lab: [facility] [address] [facility] [address] [facility] PANEL 5 ALBUMIN [MASS/VOLUM E] IN SERUM [...] 2024 10:08 AM Reporting Lab: [facility] [address] [facility] [address] Performing Lab: [facility] [address] [facility] [address] [facility] PANEL 5 BILIRUBIN.T OTAL [MASS/VOLUM E] IN [...] 05, 2024 10:08 AM Reporting Lab: [facility] [address] [facility] [address] Performing Lab: [facility] [address] [facility] [address] [facility] PANEL 5 ASPARTATE AMINOTRANSF ERASE [ENZYMATIC ACTIVITY/VO [...] Jul 05, 2024 10:08 AM Reporting Lab: [facility] [address] [place] [address] Performing Lab: [facility] [address] [place] [address] [facility] PANEL 5 ALANINE AMINOTRANSF ERASE [ENZYMATIC ACTIVITY/VO [...] 2024 10:08 AM Reporting Lab: [facility] [address] [address] Performing Lab: [facility] [address] [address] [facility] PANEL 5 ANION GAP 3 IN SERUM [...] 2024 10:08 AM Reporting Lab: [facility] [address] [address] Performing Lab: [facility] [address] [address] [facility] PANEL 5 ALKALINE PHOSPHATASE [ENZYMATIC ACTIVITY/VO LUME] [...] 2024 10:08 AM Reporting Lab: [facility] [address] [address] Performing Lab: [facility] [address] [address] [facility] 5 GLOMERULAR FILTRATION RATE/1.73 SQ M.PREDICTED [VOLUME [...] 2024 10:08 AM Reporting Lab: [facility] [address] [address] Performing Lab: [facility] [address] [address] [facility] GLYCOHEMO GLOBIN HEMOGLOBIN A1C/HEMOGLO BIN.TOTAL IN BLOOD BY HPLC 5.3 4.4 - 6.4 10/15 Specimen Type: BLOOD Comment: [facility] guidelines for A1c interpretat ion: Glycemic control targets are based on Shared Decision Making between clinicians and patients. Criteria used to establish an A1c target recommendat ion can be found at https://www .[place].gov/idalia lityandpati entsafety/ and include the use of [...] 9.27. Ref: https://ngs p.org/CAPda ta.asp. The in-house [employer]-SurveyGizmo D-100 analyzer has a historical CV <= 2%. Contact the laboratory for further performance characteris tics of this assay. Ordering Provider: LUZMARIA BURGOS RA Report Released Date/Time: Oct 10, 2023 11:01 AM Reporting Lab: [address] [address] Performing Lab: [address] [address] [facility] LIPID PROFILE CHOLESTEROL [MASS/VOLUM E] IN SERUM [...] 2023 11:01 AM Reporting Lab: [facility] [address] [address] Performing Lab: [facility] [address] [address] [facility] LIPID PROFILE TRIGLYCERID E [MASS/VOLUM E] IN [...] 2023 11:01 AM Reporting Lab: [facility] [address] [address] Performing Lab: [facility] [address] [address] [facility] LIPID PROFILE CHOLESTEROL IN HDL [MASS/VOLUM E] [...] 2023 11:01 AM Reporting Lab: [facility] [address] [address] Performing Lab: [facility] [address] [address] [facility] LIPID PROFILE CHOLESTEROL IN LDL [MASS/VOLUM E] [...] 2023 11:01 AM Reporting Lab: [facility] [address] [address] Performing Lab: [facility] [address] [address] [facility] FERRITIN FERRITIN [MASS/VOLUM E] IN SERUM OR [...] 2023 11:01 AM Reporting Lab: [facility] [address] [address] Performing Lab: [facility] [address] [address] [facility] THYROID PROFILE THYROTROPIN [UNITS/VOLU ME] IN SERUM [...] 2023 11:01 AM Reporting Lab: [facility] [address] [address] Performing Lab: [facility] [address] [address] [facility] THYROID PROFILE FREE T4 1.03 ng/mL 0.70 - 1.48 10/15 Specimen Type: PLASMA Comment: Estimated Glomerular Filtration Rate (eGFR) calculated using the 2021 Chronic Kidney Disease-Epi demiology (CKD-EPI) Collaborati on [...] 2023 11:01 AM Reporting Lab: [facility] [address] [address] Performing Lab: [facility] [address] [address] [facility] CBC/PLT LEUKOCYTES [#/VOLUME] IN BLOOD BY AUTOMATED COUNT 6.3 10*3/u L 5.0 - 10.0 10/15 Specimen Type: BLOOD No comment entered. Ordering Provider: LUZMARIA BURGOS RA Report Released Date/Time: Oct 10, 2023 11:01 AM Reporting Lab: [address] [address] Performing Lab: [address] [phone] [place] [address] CBC/PLT ERYTHROCYTE S [#/VOLUME] IN BLOOD BY AUTOMATED COUNT 4.67 10*6/u L 4.6 - 6.2 10/15 Specimen Type: BLOOD No comment entered. Ordering Provider: LUZMARIA BURGOS RA Report Released Date/Time: Oct 10, 2023 11:01 AM Reporting Lab: [address] [address] Performing Lab: [address] [address] [place] [address] CBC/PLT HEMOGLOBIN [MASS/VOLUM E] IN BLOOD 14.8 g/dL 14.0 - 18.0 10/15 Specimen Type: BLOOD No comment entered. Ordering Provider: LUZMARIA BURGOS RA Report Released Date/Time: Oct 10, 2023 11:01 AM Reporting Lab: [address] [address] Performing Lab: [address] [phone] [place] [address] CBC/PLT HEMATOCRIT [VOLUME FRACTION] OF BLOOD BY AUTOMATED COUNT 44.5 42.0 - 52.0 10/15 Specimen Type: BLOOD No comment entered. Ordering Provider: LUZMARIA BURGOS RA Report Released Date/Time: Oct 10, 2023 11:01 AM Reporting Lab: [address] [address] Performing Lab: [address] [phone] [place] [address] CBC/PLT MCV [ENTITIC VOLUME] BY AUTOMATED COUNT 95.3 fL 80.0 - 94.0 10/15 H Specimen Type: BLOOD No comment entered. Ordering Provider: LUZMARIA BURGOS RA Report Released Date/Time: Oct 10, 2023 11:01 AM Reporting Lab: [address] [address] Performing Lab: [address] [phone] [place] [address] CBC/PLT MCH [ENTITIC MASS] BY AUTOMATED COUNT 31.7 pg 27.0 - 31.0 10/15 H Specimen Type: BLOOD No comment entered. Ordering Provider: LUZMARIA BURGOS RA Report Released Date/Time: Oct 10, 2023 11:01 AM Reporting Lab: [address] [phone] Performing Lab: [place] [id number] [place] [address] CBC/PLT MCHC [MASS/VOLUM E] BY AUTOMATED COUNT 33.3 g/dL 32.0 - 36.0 10/15 Specimen Type: BLOOD No comment entered. Ordering Provider: LUZMARIA BURGOS RA Report Released Date/Time: Oct 10, 2023 11:01 AM Reporting Lab: [address] [phone] Performing Lab: [place] [id number] [place] [address] CBC/PLT PLATELETS [#/VOLUME] IN BLOOD 177 10*3/u L 150 - 450 10/15 Specimen Type: BLOOD No comment entered. Ordering Provider: LUZMARIA BURGOS RA Report Released Date/Time: Oct 10, 2023 11:01 AM Reporting Lab: [address] [phone] Performing Lab: [address] [phone] [place] [address] CBC/PLT PLATELET MEAN VOLUME [ENTITIC VOLUME] IN BLOOD 10.7 fL 9.0 - 13.1 10/15 Specimen Type: BLOOD No comment entered. Ordering Provider: LUZMARIA BURGOS RA Report Released Date/Time: Oct 10, 2023 11:01 AM Reporting Lab: [address] [phone] Performing Lab: [address] [phone] [facility] CBC/PLT ERYTHROCYTE DISTRIBUTIO N WIDTH [ENTITIC VOLUME] BY AUTOMATED COUNT 13.3 11.0 - 16.0 10/15 Specimen Type: BLOOD No comment entered. Ordering Provider: LUZMARIA BURGOS RA Report Released Date/Time: Oct 10, 2023 11:01 AM Reporting Lab: [address] [phone] Performing Lab: [phone] [place] [address] CBC/PLT NUCLEATED ERYTHROCYTE S/100 ERYTHROCYTE S IN BLOOD 0.0 0.0 - 0.0 10/15 Specimen Type: BLOOD No comment entered. Ordering Provider: LUZMARIA BURGOS RA Report Released Date/Time: Oct 10, 2023 11:01 AM Reporting Lab: [address] [phone] Performing Lab: [address] [phone] [facility] AUTOMATED DIFF LYMPHOCYTES /100 LEUKOCYTES IN BLOOD BY AUTOMATED COUNT 40.2 24.0 - 44.0 10/15 Specimen Type: BLOOD No comment entered. Ordering Provider: LUZMARIA BURGOS RA Report Released Date/Time: Oct 10, 2023 11:01 AM Reporting Lab: [address] [phone] Performing Lab: [phone] [place] [address] AUTOMATED DIFF MONOCYTES/1 00 LEUKOCYTES IN BLOOD BY AUTOMATED COUNT 12.1 0.1 - 6.0 10/15 H Specimen Type: BLOOD No comment entered. Ordering Provider: LUZMARIA BURGOS RA Report Released Date/Time: Oct 10, 2023 11:01 AM Reporting Lab: [address] [address] Performing Lab: [address] [address] [facility] AUTOMATED DIFF GRANULOCYTE S/100 LEUKOCYTES IN BLOOD BY AUTOMATED COUNT 44.0 42.0 - 75.0 06/17 /2024 Specimen Type: BLOOD No comment entered. Ordering Provider: LUZMARIA BURGOS RA Report Released Date/Time: Oct 10, 2023 11:01 AM Reporting Lab: [place] [id number] Performing Lab: [place] [id number] [place] [address] AUTOMATED DIFF LYMPHOCYTES [#/VOLUME] IN BLOOD BY AUTOMATED COUNT 2.52 10*3/u L 1.20 - 3.40 10/15 Specimen Type: BLOOD No comment entered. Ordering Provider: LUZMARIA BURGOS RA Report Released Date/Time: Oct 10, 2023 11:01 AM Reporting Lab: [place] [id number] Performing Lab: [address] AUTOMATED DIFF MONOCYTES [#/VOLUME] IN BLOOD BY AUTOMATED COUNT 0.76 10*3/u L 0.00 - 0.60 10/15 H Specimen Type: BLOOD No comment entered. Ordering Provider: LUZMARIA BURGOS RA Report Released Date/Time: Oct 10, 2023 11:01 AM Reporting Lab: [place] [id number] Performing Lab: [place] [id number] AUTOMATED DIFF GRANULOCYTE S [#/VOLUME] IN BLOOD BY AUTOMATED COUNT 2.76 10*3/u L 1.40 - 6.50 10/15 Specimen Type: BLOOD No comment entered. Ordering Provider: LUZMARIA BURGOS RA Report Released Date/Time: Oct 10, 2023 11:01 AM Reporting Lab: [place] [id number] Performing Lab: [address] AUTOMATED DIFF BASOPHILS/1 00 LEUKOCYTES IN BLOOD BY AUTOMATED COUNT 0.8 0.0 - 3.0 10/15 Specimen Type: BLOOD No comment entered. Ordering Provider: LUZMARIA BURGOS RA Report Released Date/Time: Oct 10, 2023 11:01 AM Reporting Lab: [address] [phone] Performing Lab: [address] [address] [facility] AUTOMATED DIFF BASOPHILS [#/VOLUME] IN BLOOD BY AUTOMATED COUNT 0.05 10*3/u L 0.00 - 0.20 10/15 Specimen Type: BLOOD No comment entered. Ordering Provider: LUZMARIA BURGOS RA Report Released Date/Time: Oct 10, 2023 11:01 AM Reporting Lab: [address] [address] Performing Lab: [address] [address] [facility] AUTOMATED DIFF EOSINOPHILS /100 LEUKOCYTES IN BLOOD BY AUTOMATED COUNT 2.6 0.0 - 10.0 10/15 Specimen Type: BLOOD No comment entered. Ordering Provider: LUZMARIA BURGOS RA Report Released Date/Time: Oct 10, 2023 11:01 AM Reporting Lab: [address] [phone] Performing Lab: [address] [address] [facility] AUTOMATED DIFF EOSINOPHILS [#/VOLUME] IN BLOOD BY AUTOMATED COUNT 0.16 10*3/u L 0.00 - 0.70 10/15 Specimen Type: BLOOD No comment entered. Ordering Provider: LUZMARIA BURGOS RA Report Released Date/Time: Oct 10, 2023 11:01 AM Reporting Lab: [address] [address] Performing Lab: [address] [address] [facility] AUTOMATED DIFF IMMATURE GRANULOCYTE S/100 LEUKOCYTES IN BLOOD 0.3 0.0 - 0.5 10/15 Specimen Type: BLOOD No comment entered. Ordering Provider: LUZMARIA BURGOS RA Report Released Date/Time: Oct 10, 2023 11:01 AM Reporting Lab: [address] [address] Performing Lab: [address] [phone] [place] [address] AUTOMATED DIFF IMMATURE GRANULOCYTE S [#/VOLUME] IN BLOOD 0.02 10*3/u L 0.00 - 0.06 10/15 Specimen Type: BLOOD No comment entered. Ordering Provider: LUZMARIA BURGOS RA Report Released Date/Time: Oct 10, 2023 11:01 AM Reporting Lab: [place] [id number] Performing Lab: [place] [id number] [place] [address] 25-OH VITAMIN D 25-HYDROXYV ITAMIN D3 [MASS/VOLUM [...] Oct 10, 2023 11:01 AM Reporting Lab: [place] [id number] Performing Lab: [place] [id number] [place] [address] MAGNESIUM MAGNESIUM [MASS/VOLUM E] IN SERUM OR PLASMA 2.2 mg/dL 1.6 - 2.6 10/15 Specimen Type: PLASMA Comment: Estimated Glomerular [...] 2023 11:01 AM Reporting Lab: [facility] [address] [address] Performing Lab: [facility] [address] [address] [facility] Vital Signs Combined list of inpatient and outpatient Vital Signs from Department of Defense and Veterans Affairs, ranging from 12 months to all on record, depending upon the facility. Vital Sign Value Date Comments Source SYSTOLIC BLOOD PRESSURE 114 08/07/2024 09:47:43 [facility] DIASTOLIC BLOOD PRESSURE 68 08/07/2024 09:47:43 [facility] PULSE OXIMETRY 99 08/07/2024 09:47:43 [facility] WEIGHT 191.5 08/07/2024 09:47:43 [facility] BMI 26 kg/m2 08/07/2024 09:47:43 [place] [facility] PAIN 3 08/07/2024 09:47:43 [place] [facility] TEMPERATURE 97.6 08/07/2024 09:47:43 [place] GORGE [facility] PULSE 69 08/07/2024 09:47:43 [place] [facility] RESPIRATION 18 08/07/2024 09:47:43 [place] [facility] SYSTOLIC BLOOD PRESSURE 107 07/05/2024 09:42:19 [place] [facility] DIASTOLIC BLOOD PRESSURE 58 07/05/2024 09:42:19 [place] [facility] PULSE OXIMETRY 95 07/05/2024 09:42:19 [place] [facility] WEIGHT 196 07/05/2024 09:42:19 [place] [facility] BMI 27 kg/m2 07/05/2024 09:42:19 [place] [facility] PAIN 4 07/05/2024 09:42:19 [place] [facility] HEIGHT 72 07/05/2024 09:42:19 [place] [facility] TEMPERATURE 97.5 07/05/2024 09:42:19 [place] [facility] [facility] PULSE 71 07/05/2024 09:42:19 [place] [facility] RESPIRATION 17 07/05/2024 09:42:19 [place] [facility] SYSTOLIC BLOOD PRESSURE 148 02/07/2024 10:49:15 [place] [facility] DIASTOLIC BLOOD PRESSURE 50 02/07/2024 10:49:15 [place] [facility] PULSE OXIMETRY 96 02/07/2024 10:49:15 [place] [facility] WEIGHT 189.6 02/07/2024 10:49:15 [place] [facility] BMI 26 kg/m2 02/07/2024 10:49:15 [place] [facility] PAIN 4 02/07/2024 10:49:15 [place] [facility] TEMPERATURE 97.5 02/07/2024 10:49:15 [place] [facility] PULSE 59 02/07/2024 10:49:15 IZZ[facility] Encounters Combined list of: 1) Encounters from Department of [facility] Affairs facilities going backup to the last 18 months, not all [place] inpatient encounters are included; 2) Encounters from the Department of [facility] facilities going backup to 280 months. Location Location Details Encounter Type Encounter Number Reason For Visit Attending Provider ADM Date DC Date Status Disposition Source [facility] Outpatient Encounter [id number] 06/14 [place] [facility] OFFICE O/P EST MOD 30 MIN [id number] Diagnos is: ICD-10- CM J30.2 Other seasona l allergi c rhiniti s EDMUNDO,A MY B 08/08 [place] OFFICE O/P EST MOD 30 MIN [id number] Diagnos is: ICD-10- CM E78.2 Mixed hyperli pidemia CANDIDA BURGOS 10/15 [place] [facility] Outpatient Encounter [id number] 10/16 [place] [facility] OFFICE O/P EST MOD 30 MIN [id number] Diagnos is: ICD-10- CM R05.9 Cough, unspeci fied EDMUNDO,A MY B 11/23 [place] [facility] Outpatient Encounter [id number] 11/23 [place] OFFICE O/P EST MOD 30 MIN [id number] Diagnos is: ICD-10- CM J30.2 Other seasona l allergi c rhiniti s EDMUNDO,A MY B 02/06 [place] [facility] Outpatient Encounter [id number] 02/07 [place] [facility] Outpatient Encounter [id number] 05/09 [place] [facility] PH1 ASSMT&MGMT NQHP 5-10 [id number] Diagnos is: ICD-10- CM 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 Mcqueen 05/10 [place] [facility] Outpatient Encounter [id number] 06/17 [place] OFFICE O/P EST LOW 20 MIN [id number] Diagnos is: ICD-10- CM L57.0 Actinic keratos is CODY SYED RT 07/02 [place] Outpatient Encounter [id number] 07/05 [place] OFFICE O/P EST HI 40 MIN [id number] Diagnos is: ICD-10- CM G89.29 Other chronic pain CANDIDA BURGOS 07/05 [place] [facility] Outpatient Encounter [id number] 07/10 [place] Outpatient Encounter [id number] 07/11 [place] [facility] OFFICE O/P EST LOW 20 MIN [id number] Diagnos is: ICD-10- CM J30.2 Other seasona l allergi c rhiniti s Elvia WYATT MY B 08/07 [place] [facility] GONIOSCOPY [id number] Diagnos is: ICD-10- CM H04.123 Dry eye syndrom e of bilater al lacrima l glands EMMA MARY 09/05 [place] [facility] Outpatient Encounter [id number] 10/16 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 Social History Type Response Date Comment Sourc e Tobacco smoking status TXIS VA-TOBACCO NEVER USED CIGARETTES 07/05/2024 [facility] History of tobacco use VA-TOBACCO USE EVERY DAY OTHER TYPE 07/05/2024 [facility] History of tobacco use VA-TOBACCO USER SOME DAYS 10/16/2023 [facility] History of tobacco use VA-TOBACCO USER SOME DAYS 10/28/2022 [facility] History of tobacco use VA-TOBACCO USER SOME DAYS 11/22/2021 [facility] History of tobacco use VA-TOBACCO USER SOME DAYS 11/30/2020 [facility] History of tobacco use VA-TOBACCO USER EVERY DAY 01/13/2020 [facility] History of tobacco use VA-TOBACCO USE MED NO 01/03/2019 [facility] This section is an empty social history section. DoD Plan of Care List of future care activities from Department [facility] facilities. Additional future care activities may be listed in the Assessment and Plan section. Date/Time Care Activity Care Activity Detail Facili ty 02/05/2025 AMBULATORY - MEDICINE AMBULATORY - MEDICI NE [facility] Advance Directives List of completed, amended, or rescinded Advance Directives on record at [facility] facilities. An actual copy of the Directive is not included. Date Advance Directive Provider Source 12/19/2019 ADVANCE DIRECTIVE NICHOLE VALDEZ [facility]
--- OUTSIDE RECORDS SUMMARY | 2024-12-03 14:38 | XMS_ITS | Clinical Summary ---
Author Organization [facility] Address [address] [place] [address] Care Team Providers Care Battery Service Technician Name Role Phone Go Oakes MD Unavailable [phone] Errol Manzano MD Primary Care Provider Provider, [facility] History Encounter Unavailable Unavailable Allergies No known active allergies Medications famotidine (PEPCID) 20 mg tablet Take 20 mg by mouth 2 times daily. Active gabapentin (NEURONTIN) 100 mg capsule Take 200 mg by mouth 3 times daily. Active montelukast (SINGULAIR) 10 mg Tablet Take 10 mg by mouth nightly at bedtime. Active atorvastatin (LIPITOR) 20 mg Tablet Take 20 mg by mouth daily. Active multivitamin (THERAGRAN) Tablet Take 1 Tab by mouth daily. Active fluticasone propionate (FLONASE) 50 mcg/actuation nasal spray Ryan 1 Ryan into nose daily. Active ascorbic acid, vitamin C, (VITAMIN C) 500 mg tablet Take 500 mg by mouth daily. Active methocarbamoL (ROBAXIN) 500 mg tablet Take 1 Tab (500 mg total) by mouth every 6 hours as needed (muscle spasm). 120 Tab 08/27/2020 3:36 PM EDT 08/27/2020 Active senna-docusate (Senna Laxative-Stool Softener) 8.6-50 mg Tablet Take 1 Tab by mouth daily. 30 Tab 08/27/2020 3:36 PM EDT 08/27/2020 Active Family History Medical History Relation Name Comments Heart Problems Maternal Aunt Anesthesia Complications Neg Hx Relation Name Status Comments Maternal Aunt Social History Tobacco Use Types Packs/Day Years Used Date Smoking Tobacco: Every Day Pipe Smokeless Tobacco: Never Alcohol Use Standard Drinks/Week Comments Not Currently 0 (1 standard drink = 0.6 oz pur e alcohol) Sex and Gender Information Value Date Recorded Sex Assigned at Not on file Legal Sex Male 10:10 AM EDT Gender Identity Not on file Sexual Orientation Not on file Last Filed Vital Signs Vital Sign Reading Time Taken Comments Blood Pressure 147/59 08/27/2020 2:48 PM EDT Pulse 55 08/27/2020 2:48 PM EDT Temperature 36.4 C (97.5 F) 08/27/2020 2:30 PM EDT Respiratory Rate 14 08/27/2020 2:48 PM EDT Oxygen Saturation 97% 08/27/2020 2:48 PM EDT Inhaled Oxygen Concentration - - Weight 84.4 kg (186 lb 1.1 oz) 08/27/2020 10:06 AM EDT Height 182.9 cm (6') 08/27/2020 10:06 AM EDT Body Mass Index 25.24 08/27/2020 10:06 AM EDT Plan of Treatment Health Maintenance Due Date Last Done Comments Tobacco Cessation Counseling 1960 Lipid Screening 01/18/1966 Tetanus Vaccination (Every 10 Years) 01/18/1966 Pneumococcal Vaccine: 50+ Years (1 of 2 - PCV) 967 Hepatitis C Virus (HCV) Screening 01/18/1969 Zoster-RZV(Shingrix) (1 of 2) 01/18/1998 Fall Risk Assessment 01/18/2013 RSV Vaccines (1 - 1-dose 75+ series) 01/18/2023 COVID-19 Vaccine ( - 2023- season) 2023 Advance Care Planning 05/01/2024 Depression Screening 05/01/2024 Influenza Vaccination (#1) 2024 Medical Devices Implanted Type Area Twister Tender Device Identifier Shelf Expiration Date Model / Serial / Lot Fibercel Fiber Viable Bone Matrix 2cc - [id number] Implanted:Qty : 1 on 08/27/2020 by Go Oakes MD at [facility] Spine Cervical * [employer] SOFAMOR DANEK 10/16/2021 [id number] / [id number] / [id number] Imp Titan Tc Flaca [id number] - [id number] Implanted:Qty : 1 on 08/27/2020 by Go Oakes MD at [facility] [place] Spine Cervical * [employer] [id number] / / [id number] Imp Titan Tc Flaca [id number]-N - [id number] Implanted:Qty : 1 on 08/27/2020 by Go Oakes MD at [facility] [place] Spine Cervical * [employer] 05/27/2025 [id number] / / [id number] Plate [id number] Zevo 37mm 2 Lvl - [id number] Implanted:Qty : 1 on 08/27/2020 by Go Oakes MD at [facility] [place] Spine Cervical * [employer] [id number] / / [id number] St [id number] - [id number] Implanted:Qty : 6 on 08/27/2020 by Go Oakes MD at [facility] [place] Spine Cervical * [employer] [id number] / / [place] [address] MEDICARE Member Subscriber Plan / Payer (Ef fective 2012-Present) Name:Carlos Mckeon Member ID:[id number] Relation to Subscriber:Self Name:Carlos Mckeon Subscriber ID:[id number] Payer ID:[id number] Group ID:Not on file Type:Medicare Address: [facility] [place] [address] [facility] [place] [address] [place] [address] FOR LIFE SUPPLEMENT Care Teams Battery Service Technician Relationship Specialty Start Date End Date Errol Manzano MD [address] [place] [address] PCP - General Internal Medicine 08/27/20 Go Oakes MD [address] [facility] [place] [address] Resident 08/19/20 Provider, [facility] History Encounter 08/28/20
[2024-12-03 14:48] VITALS: BP 129/52; PULSE 71; RESP 14; O2SAT 96; BMI 25.0
--- NOTE | 2024-12-03 15:32 | EXP.PAIN.SOA ---
[facility] Disclaimer: The information contained in this section may have been updated after the patient was seen, as this information can be updated by other users. Medical History Arthritis Nerve pain Sinus problem Hyperlipemia Surgical History History of nasal septoplasty History of fusion of cervical spine History of left knee replacement History of prostate surgery S/P hernia surgery Family History Other No significant family history Social History Smoking Status: Former smoker tobacco type: pipe second hand exposure: Yes alcohol intake: never substance use type: denies use current occupational status: other Travel in the last 8 weeks?: None household members: spouse housing: house current occupational exposures/hazards: No caffeine: Yes PM Subjective & Objective Subjective Subjective:: Patient is a pleasant 74-year-old male who presents today for follow-up of his first lumbar medial branch block diagnostic that was bilateral L4-L5 and L5-S1 on 11/19/2024. He does state that he did have over an hour of improvement and 90% relief. He states when he walked out of our hospital that he had 0 pain. Patient was very impressed and felt like this did improve his overall function. He is rating back pain of 7 out of 10 today and denies any new falls or changes. He does state that it is still that same pain he had been experiencing that is worse with bending, twisting or lifting. He does state the pain is interfering with his ability to perform activities of daily living such as cooking and cleaning. Patient does want a proceed forward with the next injection. His Micah has been reviewed and is appropriate. Review of Systems: General: No recent weight changes, no fever, no sleep disturbances Respiratory: No cough, no shortness of air, no recurring pulmonary infections Cardiovascular/peripheral vascular: No chest pain, no palpitations, no edema, no shortness of breath Gastrointestinal: No new onset incontinence, normal bowel movements reported Genitourinary: No new onset incontinence Musculoskeletal: Low back pain Psychiatric: [Normal mood/affect] Neurological: [Denies weakness in extremities], [denies balance issues] Pain at rest (0-10 scale): 7 Objective Objective:: Physical Exam: General: Alert and oriented x3, no acute distress, pleasant and cooperative Lungs: Respirations even and unlabored, symmetrical chest expansion Eyes: PERRL Musculoskeletal: Flexion and extension of lumbar [spine] somewhat guarded secondary to pain, [antalgic gait noted] positive Kemps test Neurological: Speech clear, no gross sensory deficit Has patient had previous pain injection?: Yes Percent improvement in pain since last injection: 90% Conservative treatment options previously tried: Home exercise plan Length of treatment: Longer than 12 weeks Meds Home Medications and Allergies Home Medications ?Medication ?Instructions ?Recorded ?Confirmed ?Type atorvastatin 20 mg tablet 20 mg PO DAILY 11/16/23 12/03/24 History celecoxib 200 mg capsule 200 mg PO DAILY 11/16/23 12/03/24 History famotidine 20 mg tablet 20 mg PO DAILY 11/16/23 12/03/24 History gabapentin 300 mg capsule 300 mg PO DAILY 11/16/23 12/03/24 History vibegron 75 mg tablet (Gemtesa) 75 mg PO DAILY 11/16/23 12/03/24 History New Prescriptions to Start Prescriptions: Allergies Allergy/AdvReac Type Severity Reaction Status Date / Time No Known Allergies Allergy Verified 08/15/23 10:52 Assessment and Plan *Assessment and plan (1) Lumbar facet arthropathy: Status: Acute Category: Medical Code(s): M47.816 - Spondylosis without myelopathy or radiculopathy, lumbar region (2) Lumbar spondylosis: Status: Acute Category: Medical Code(s): M47.816 - Spondylosis without myelopathy or radiculopathy, lumbar region Plan Patient did have a successful first lumbar medial branch block and I did review with him regarding repeat diagnostic block. He did have 90% relief lasting over an hour and rated his pain during that time 0 out of 10. Risk and benefits were discussed with patient and he would like to proceed forward with this plan of care. Patient did have limited range of motion of his lumbar spine during today's visit with a positive Kemps test. Patient was counseled if he does get significant improvement with this second diagnostic block we will proceed forward with the lumbar RFA at a later date. Patient acknowledges understanding agrees with plan of care. Patient has continued at home stretching and exercise for longer than 12 weeks with no additional changes. Patient has had chronic low back pain for longer than a year. Patient has failed oral medications, heat and ice, topicals. We will schedule him for the second lumbar medial branch block bilaterally L4-L5 and L5-S1 under fluoroscopy. Patient has been instructed to contact the clinic with any concerns before the next appointment. Dr. Madera has reviewed this note and agrees with this plan of care. This note was dictated using voice recognition software and make contain errors or omissions. All injections are used with Lidocaine, Bupivacaine and dexamethasone unless diagnostic in which no steroids are used. Occasionally urine drug screen is needed to verify patient's compliance with our office pain contract. This is ordered based off specific treatments related to chronic pain with the potential to abuse certain medications.
== END 2024-12-03 23:59 | disposition home or self-care (01) ==
LOC: SC.PAIN 14:35
PROVIDERS: PCP Internal Medicine Adolescent Medicine; Visit Provider Nurse Practitioner Family
DX: M47.816 Spondylosis without myelopathy or radiculopathy, lumbar region (principal)
CPT/HCPCS: 99212; G0463

== ENCOUNTER 2025-01-07 09:37 | Day surgery (SDC) | payer MEDICARE, OTHER, SELFPAY ==
[2025-01-07 09:56] VITALS: BP 111/77; PULSE 86; RESP 16; O2SAT 100; BMI 25.7
[2025-01-07 10:02] VITALS: BP 137/62; PULSE 69; RESP 18; O2SAT 96
[2025-01-07] MEDS: LIDOCAINE 1% 5ML PF VIAL 5 ML (10:02)
[2025-01-07] MEDS: BUPIVACAINE 0.25% 10ML INJ 25 MG IJ (10:02)
[2025-01-07 10:03] VITALS: BP 137/62; PULSE 69; RESP 18; O2SAT 96
--- NOTE | 2025-01-07 10:07 | EXP.PAIN.PRO ---
Procedure Date: 01/07/25 Time: 09:55 Anesthesiologist:: Jw Arechiga CRNA Complications:: None Pre-procedure Diagnosis:: Degenerative disc lumbar spine multilevels. Lumbar radiculopathy. Lumbar spondylosis. Multilevel lumbar facet arthropathy. Post-procedure Diagnosis:: Same. Indications for Procedure:: Patient is a very pleasant 74-year-old male who comes our clinic today for round 2 lumbar medial branch blocks/facet injection at the L4-5, L5-S1 level bilaterally. Patient describes low lumbar back pain as constant, dull, aching. He reports difficulty sitting for any length of time. Difficulty standing and ambulation. He rates his pain 7/10. Procedure Details:: Informed consent was obtained and the risk and benefits of the procedure was explained to the patient. Patient was taken to the procedure room where noninvasive monitors were placed, including noninvasive blood pressure cuff as well as pulse oximeter. The area over the lumbar spine was cleansed using chlorhexidine as a cleansing solution. I anesthetized the skin and subcutaneous tissues with 1% Lidocaine. I placed 22-gauge spinal needles into the facet joint/ medial branches of L4-L5, and L5-S1 bilaterally. Needle placement was confirmed with fluoroscopy. After confirmation of needle placement, each site was injected with 1 mL of 1% lidocaine and 0.25 % Marcaine 1 mL. Patient tolerated the procedure without difficulty. There were no complications. Plan and Disposition:: Patient was discharged without incident.
[2025-01-07 10:08] VITALS: BP 117/61; PULSE 60; RESP 18; O2SAT 95
== END 2025-01-07 10:08 | disposition home or self-care (01) ==
PROVIDERS: PCP Internal Medicine Adolescent Medicine; Visit Provider Nurse Anesthetist, Certified Registered
DX: E78.5 Hyperlipidemia, unspecified; M17.12 Unilateral primary osteoarthritis, left knee; Z79.1 Long term (current) use of non-steroidal anti-inflammatories (NSAID); Z79.899 Other long term (current) drug therapy; M47.816 Spondylosis without myelopathy or radiculopathy, lumbar region
CPT/HCPCS: 64493; 64494; J0665; J2003

== ENCOUNTER 2025-03-11 08:24 | Day surgery (SDC) | payer MEDICARE, OTHER, SELFPAY ==
[2025-03-11 08:32] VITALS: BP 117/67; PULSE 69; RESP 15; O2SAT 95; BMI 25.7
[2025-03-11] MEDS: LIDOCAINE 1% 5ML PF VIAL 5 ML (08:58)
[2025-03-11] MEDS: BUPIVACAINE 0.25% 10ML INJ 25 MG IJ (08:58)
[2025-03-11] MEDS: DEXAMETHASONE 10MG/ML 1ML VIAL 10 MG (08:58)
[2025-03-11 09:02] VITALS: BP 123/65; PULSE 68; RESP 18; O2SAT 97
[2025-03-11 09:03] VITALS: BP 123/65; PULSE 67; RESP 18; O2SAT 97
--- NOTE | 2025-03-11 09:13 | P.PCN_ITS ---
Procedure Date: 03/11/25 Time: 08:50 Anesthesiologist:: Jw Arechiga CRNA Complications:: None Pre-procedure Diagnosis:: Degenerative disc lumbar spine multiple levels. Multilevel spondylosis lumbar spine. Multilevel facet arthropathy lumbar spine. Post-procedure Diagnosis:: Same. Indications for Procedure:: Patient is a very pleasant 75-year-old male who comes our clinic today for bilateral lumbar L4-5, L5-S1 radiofrequency ablation. Patient describes low lumbar back pain as constant, dull, aching. He reports having difficulty with lumbar flexion, extension, left and right rotation. He rates his pain 6/10. Procedure Details:: Procedure Details: Lumbar RFA Informed consent was obtained and the risk and benefits of the procedure was explained to the patient. Patient was placed prone on the procedure table. The patient was prepped and draped in sterile fashion. C-arm fluoroscopy was used to view the lumbar spine. The skin and subcutaneous tissues were anesthetized using lidocaine. I placed 20-gauge RF needles into the facet joints of L3-L4, L4-L5 and L5-S1 bilaterally. We underwent sensory stimulation. There is good sensory stimulation at 0.8 V. We underwent motor stimulation. There is no motor stimulation at 2 V. We then anesthetized these levels with lidocaine and Depo- Medrol. I used a total of 10 mg of dexamethasone for all 3 levels. I then burned all 3 levels of L3-L4, L4-5 and L5-S1 bilaterally for 4 minutes at 80 ?C. Patient tolerated the procedure well with no complication. Plan and Disposition:: We will follow-up with this patient in 2 weeks. We will reevaluate her symptoms at that time. Plan and Disposition:: Patient was discharged without incident.
[2025-03-11 09:18] VITALS: BP 126/58; PULSE 65; RESP 16; O2SAT 97
== END 2025-03-11 09:18 | disposition home or self-care (01) ==
PROVIDERS: PCP Internal Medicine Adolescent Medicine; Visit Provider Nurse Anesthetist, Certified Registered
DX: M51.360 Other intervertebral disc degeneration, lumbar region with discogenic back pain only (principal); M47.816 Spondylosis without myelopathy or radiculopathy, lumbar region; G89.29 Other chronic pain; E78.5 Hyperlipidemia, unspecified; Z98.1 Arthrodesis status; Z96.652 Presence of left artificial knee joint; Z79.1 Long term (current) use of non-steroidal anti-inflammatories (NSAID); Z79.899 Other long term (current) drug therapy
CPT/HCPCS: 64635; 64636; J0665; J1100; J2003